=== PATIENT | female | born 1955 | race Caucasian/White ===

== ENCOUNTER 2016-11-21 09:50 | Emergency (ER) | payer OTHER, MEDICAID, BC ==
[2016-11-21 10:13] VITALS: BP 123/85; PULSE 80; RESP 18; TEMP 97.9
[2016-11-21] MEDS ORDERED: DIPH,PERTUS(ACELL)TETVAC-LF 0.5 ML VIAL IM ONE (10:28)
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
== END 2016-11-21 10:53 | disposition home or self-care (01) ==
LOC: EC 09:50
DX: T23.171A Burn of first degree of right wrist, initial encounter (principal); S09.93XA Unspecified injury of face, initial encounter; Z23 Encounter for immunization; W22.11XA Striking against or struck by driver side automobile airbag, initial encounter; Z95.2 Presence of prosthetic heart valve; Z79.82 Long term (current) use of aspirin; Z88.1 Allergy status to other antibiotic agents; Z88.0 Allergy status to penicillin; Z88.2 Allergy status to sulfonamides; Z88.8 Allergy status to other drugs, medicaments and biological substances; Z79.899 Other long term (current) drug therapy; I25.2 Old myocardial infarction
CPT/HCPCS: 16020; 90471; 90715; 99283

== ENCOUNTER → 2016-12-01 | Outpatient (CLI) | payer MEDICAID, BC ==
[2016-11-24 14:57] VITALS: BMI 25.0
[2016-12-01 12:04] VITALS: BP 114/78; PULSE 67; RESP 16
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
== END | disposition home or self-care (01) ==
LOC: PNWHC3 11:44
PROVIDERS: ATTEND Anesthesiology
DX: M54.16 Radiculopathy, lumbar region (principal); M51.26 Other intervertebral disc displacement, lumbar region; G89.4 Chronic pain syndrome; Z95.1 Presence of aortocoronary bypass graft; Z95.2 Presence of prosthetic heart valve; Z86.718 Personal history of other venous thrombosis and embolism; I25.2 Old myocardial infarction; Z79.899 Other long term (current) drug therapy; Z88.1 Allergy status to other antibiotic agents; Z88.0 Allergy status to penicillin; Z88.8 Allergy status to other drugs, medicaments and biological substances; Z88.2 Allergy status to sulfonamides
CPT/HCPCS: 99211

== ENCOUNTER → 2016-12-13 | Outpatient (CLI) | payer MEDICAID, BC ==
--- NOTE | 2016-12-13 09:39 | MR ---
EXAMINATION TYPE: MR lumbar spine wo con DATE OF EXAM: 12/13/2016 8:59 AM COMPARISON: Prior lumbar MRI for April 2014 HISTORY: lumbar radiculopathy TECHNIQUE: Multiplanar, multisequence images of the lumbar spine were acquired. L1-L2: Posterior extension of endplate disc complex, retrolisthesis causes mild anterior mass effect on the thecal sac as on previous exam. There is some facet arthropathy causing some lateral recess en croachment. Mild right-sided foraminal encroachment is again seen due to circumferential extension of endplate disc complex. L2-L3: Broad-based posterior disc bulge causes mild anterior mass effect on the thecal sac. No signif icant foraminal encroachment or central stenosis. Mild facet arthropathy changes. L3-L4: Broad-based posterior disc bulge causes some anterior mass effect on the thecal sac, mild cent ral stenosis, no significant foraminal encroachment. There is some facet arthropathy causing some min imal posterior lateral mass effect on the thecal sac. L4-L5: Broad-based posterior disc bulge causes some mild anterior mass effect on the thecal sac. No s ignificant central stenosis or foraminal encroachment. Facet arthropathy with hypertrophy of the liga mentum flavum causes some minimal lateral recess encroachment on the right greater than left L5-S1: Circumferential extension of endplate disc complex results in some left-sided foraminal encroa chment as on prior exam. There is facet arthropathy. No sizable disc herniation. Lumbar segments are intact. No paraspinal masses are identified. Conus medullaris has a normal appe arance. There is retrolisthesis grade 1 L1-2, multilevel spondylosis is present with endplate discoge ho marrow signal change, loss of disc height and signal at the intervertebral levels with vacuum dis c phenomenon. Minimal grade 1 anterolisthesis L4-5. There is a spinal curvature. IMPRESSION: Essentially stable exam. Degenerative disc disease, facet arthropathy, spinal curvature. Neural zander inal encroachment as described.
== END | disposition home or self-care (01) ==
LOC: RADMRIMAIN 08:20
PROVIDERS: ATTEND Anesthesiology
DX: M51.16 Intervertebral disc disorders with radiculopathy, lumbar region (principal); M46.96 Unspecified inflammatory spondylopathy, lumbar region; M43.9 Deforming dorsopathy, unspecified
CPT/HCPCS: 72148

== ENCOUNTER 2016-12-30 07:31 | Day surgery (SDC) | payer MEDICAID, BC ==
[2016-12-28 11:54] VITALS: BMI 25.6
[~2016-12-30 07:31] MED LIST: LACTATED RINGERS 1,000 ML IV SCH
[2016-12-30 08:23] VITALS: RESP 16; TEMP 98
[2016-12-30] MEDS ORDERED: LIDOCAINE 1% 20 ML VIAL (10MG/ML) FOR IV START INTRADERMA ONE (08:23)
[2016-12-30] MEDS ORDERED: TRIAMCINOLONE ACETONIDE 40 MG/ML 1 ML VIAL ONE (09:25)
[2016-12-30] MEDS ORDERED: fentaNYL (PF) 50 MCG/ML 2 ML AMP ONE (09:25)
[2016-12-30] MEDS ORDERED: MIDAZOLAM 2 MG/2 ML VIAL ONE (09:25)
[2016-12-30] MEDS ORDERED: IOHEXOL 180 MG/ML 1 ML ML ONE (09:25)
--- NOTE | 2016-12-30 09:49 | FL ---
EXAMINATION TYPE: FL guided pain mgmt statistic DATE OF EXAM: 12/30/2016 9:46 AM HISTORY: Flouroscopy time 14 seconds of fluoroscopy provided. IMPRESSION: 1. Fluoroscopy time.
--- NOTE | 2016-12-30 09:50 | P.PCN ---
Date of Procedure: 12/30/16 Procedure(s) Performed: PREOPERATIVE DIAGNOSIS: 1-Lumbar radiculopathy 2-lumbar degenerative disc disease. 3-lumbar facet arthropathy POSTOPERATIVE DIAGNOSIS: Same as preoperative diagnosis PROCEDURE 1. Transforaminal epidural steroid injection under fluoroscopic guidance at left L5-S1 level. 2. Lumbar epidurogram : ANESTHESIA: Local with 1% lidocaine 3 ml ; IV sedation with Versed 2 mg and fentanyle 100 mcg . EBL: Minimal PROCEDURE INDICATION: The patient with low back pain and radiculopathy symptoms unresponsive to conservative treatment. PROCEDURE DESCRIPTION / TECHNIQUE: The patient was seen and identified in the preoperative area. Risks, benefits , complications, and alternatives were discussed with the patient. The patient agreed to proceed with the procedure and signed the consent. IV was started, and vital signs were stable. Patient was taken to the OR and time out was completed. The patient was placed in the prone position on procedure table and a pillow was placed under the abdomen to reduce lumbar lordosis. The lumbosacral area was prepped and draped in the usual sterile fashion. Critical pause was taken. Vital signs were closely monitored during the procedure. Conscious sedation was used during the procedure to decrease patients anxiety. Using oblique fluoroscopy, the chin of the ``Shay dog at Left L5-S1 level was identified, and the skin and deeper tissues just below was localized with 1 % lidocaine. Subsequently, a 22-gauge 3.5-inch spinal needle was advanced under a tunneled view fluoroscopic guidance just underneath the chin of the ``Shay dog at the Left L5-S1 . Under lateral fluoroscopy, the needle was then advanced to the posterior border of the left L5-S1 interforaminal space. After negative aspiration of CSF and blood and with no paresthesias, 2 mL ofomnipaque- 180 contrast dye was injected excellent epidurogram and outlining of the L5-S1 nerve root Subsequently, 3 mL of block solution containing 80 mg of Kenalog and 1 mL of Lidocaine 1% was injected. Needle was removed ,and the skin was cleansed, and bandages were applied. COMPLICATIONS: None COMMENTS: DISPOSITION / PLANS: The patient was placed in a supine position and transferred to the recovery area in a stable condition for observation. There was no evidence of lower extremity motor or sensory deficit after the procedure. Patient was discharged from the recovery room after meeting discharge criteria. Home discharge instructions were given to the patient by the staff. The patient was reexamined prior to discharge.
[2016-12-30] MEDS ORDERED: IV FLUID CONTINUATION 1,000 ML IV ONE (09:54)
[2016-12-30 10:14] VITALS: BP 108/70; PULSE 67
== END 2016-12-30 10:31 | disposition home or self-care (01) ==
LOC: ORPAIN 07:31
PROVIDERS: ATTEND Specialist
DX: M51.16 Intervertebral disc disorders with radiculopathy, lumbar region (principal); M46.96 Unspecified inflammatory spondylopathy, lumbar region
CPT/HCPCS: 64483; 99152; J2250; J3301; Q9965; J3010

== ENCOUNTER 2017-02-07 22:12 | Inpatient (IN) | payer MEDICAID, BC ==
[2017-02-07] MEDS ORDERED: NITROGLYCERIN OINT 1 INCH/GM PACKET TOPICAL STA (22:44)
[2017-02-07] MEDS ORDERED: ASPIRIN 81 MG CHEW PO STA (22:44)
[2017-02-07 23:14] LABS: Basophils # (A) 0.1 k/uL (0-0.2); Basophils % (A) 1 %; CH 32.4; CHCM 33.5; Eosinophils # (A) 0.2 k/uL (0-0.7); Eosinophils % (A) 2 %; HCT 44.5 % (34.0-46.0); HDW 2.38; HGB 14.8 gm/dL (11.4-16.0); Luc # (Auto) 0.15; Luc % (Auto) 2; Lymphocytes # (A) 1.7 k/uL (1.0-4.8); Lymphocytes % (A) 18 %; MCH 32.3 pg (25.0-35.0); MCHC 33.3 g/dL (31.0-37.0); MCV 97.3 fL (80.0-100.0); Mean Platelet Volume 7.7; Monocytes # (A) 0.4 k/uL (0-1.0); Monocytes % (A) 4 %; Neutrophils % (A) 73 %; RBC 4.57 m/uL (3.80-5.40); RDW 13.6 % (11.5-15.5); WBC 9.6 k/uL (3.8-10.6); WBC (Perox) 9.37
--- NOTE | 2017-02-07 23:25 | XR ---
EXAMINATION TYPE: XR chest 2V DATE OF EXAM: 02/07/2017 11:16 PM COMPARISON: NONE HISTORY: Chest pain TECHNIQUE: Frontal and lateral views of the chest are obtained. FINDINGS: There is no heart failure nor confluent pneumonic infiltrate. There are sternal wires. The re are no hilar masses. There is a valve prosthesis noted. There are chest leads. There is a mild tho racic dextroscoliosis. There is no evidence of pleural effusion. Heart appears enlarged. IMPRESSION: No active cardiopulmonary disease. Mild cardiomegaly.
[2017-02-07 23:28] LABS: Prothrombin Time 10.2 sec (9.0-12.0)
[2017-02-07 23:29] LABS: Anion Gap 11 mmol/L; Calcium 9.6 mg/dL (8.4-10.2); Carbon Dioxide 29 mmol/L (22-30); Chloride 103 mmol/L (98-107); Glucose 75 mg/dL (74-99); Non-African American GFR(MDRD) >60 (>60 ml/min/1.73 sqM); Sodium 143 mmol/L (137-145); Total Bilirubin 0.9 mg/dL (0.2-1.3)
[2017-02-07 23:36] LABS: Creatine Kinase 55 U/L (30-135)
[2017-02-07 23:49] LABS: Creatine Kinase MB 0.9 ng/mL (0.0-2.4)
[2017-02-07 23:58] LABS: ALT 39 U/L (9-52); AST 48 U/L (14-36); Alkaline Phosphatase 76 U/L (38-126); Blood Urea Nitrogen 14 mg/dL (7-17); Potassium 4.6 mmol/L (3.5-5.1); Total Protein 7.7 g/dL (6.3-8.2)
[2017-02-07 23:59] LABS: Troponin I <0.012 ng/mL (0.000-0.034)
[2017-02-08] MEDS ORDERED: HEPARIN SODIUM,PORCINE 5,000 UNIT/ML 1 ML VIAL IV PRN (00:34)
[2017-02-08] MEDS ORDERED: HEPARIN SODIUM,PORCINE 5,000 UNIT/ML 1 ML VIAL IV ONE (00:34)
[2017-02-08] MEDS ORDERED: NITROGLYCERIN SL TABS 0.4 MG TAB SUBLINGUAL PRN ×2 (00:34→16:54)
--- NOTE | 2017-02-08 00:34 | ED ---
Chest Pain HPI - General Chief Complaint: Chest Pain Stated Complaint: chest discomfort Time Seen by Provider: 02/07/17 22:35 Source: patient Mode of arrival: wheelchair Limitations: no limitations - History of Present Illness Initial Comments: This 61-year-old white female presents with a complaint of some chest pain described as a left-sided pressure. Now onset occurred at approximately 1500 today. She felt some chest fluttering, felt weak, had some diaphoresis, some chills, and some shortness of breath. This seemed to wake her from sleep. She does have a history of DVT but denies any current leg pain or swelling. Her last stress test was approximately 2 years ago. She relates that she did have a CABG in 2007 and had a somewhat complicated course afterwards. She apparently suffered a myocardial infarction and spent a month at [facility]. She denies any other complaints or modifying factors. - Related Data Home Medications Medication Instructions Recorded Confirmed Aspirin EC [Ecotrin] 81 mg PO DAILY 05/23/14 02/07/17 Atorvastatin Calcium [Lipitor] 40 mg PO DAILY 05/23/14 02/07/17 Biotin 5 mg PO DAILY 05/23/14 02/07/17 Cyclobenzaprine [Flexeril] 10 mg PO TID PRN 05/23/14 02/07/17 Lisinopril [Zestril] 20 mg PO BID 05/23/14 02/07/17 Lysine 500 mg PO DAILY 05/23/14 02/07/17 Metoprolol Tartrate [Lopressor] 100 mg PO TID 05/23/14 02/07/17 Multivitamin/Iron/Folic Acid 1 tab PO DAILY 05/23/14 02/07/17 [Centrum Complete Multivit Tab] Pantoprazole Sodium [Protonix] 40 mg PO DAILY 05/23/14 02/07/17 Magnesium Oxide [Mag-Ox] 250 mg PO DAILY 11/21/16 02/07/17 traZODone HCL [TraZODone HCl] 50 mg PO HS PRN 12/01/16 02/07/17 Furosemide [Lasix] 20 mg PO DAILY 12/28/16 02/07/17 HYDROcodone/APAP 7.5-325MG [[place] 1 tab PO TID PRN 02/07/17 02/07/17 7.5-325] Allergies Allergy/AdvReac Type Severity Reaction Status Date / Time amoxicillin [Amoxicillin] Allergy Severe Rash/Hives Verified 02/07/17 22:55 ampicillin Allergy Severe Rash/Hives Verified 02/07/17 22:55 griseofulvin ultramicrosize Allergy Severe Rash/Hives Verified 02/07/17 22:55 [From Jahaira-PEG (ultramicrosize)] minocycline HCl Allergy Severe Rash/Hives Verified 02/07/17 22:55 [From Minocin] Penicillins Allergy Severe Rash/Hives Verified 02/07/17 22:55 Skin Cleanser Combination Allergy Severe Rash/Hives Verified 02/07/17 22:55 No.4 [From Minocin] Sulfa (Sulfonamide Allergy Severe Rash/Hives Verified 02/07/17 22:55 Antibiotics) sulfamethoxazole Allergy Severe Rash/Hives Verified 02/07/17 22:55 [From Bactrim] tetracycline [Tetracycline] Allergy Severe Rash/Hives Verified 02/07/17 22:55 trimethoprim Allergy Severe Rash/Hives Verified 02/07/17 22:55 Review of Systems ROS Statement: Those systems with pertinent positive or pertinent negative responses have been documented in the HPI. ROS Other: All systems not noted in ROS Statement are negative. Past Medical History Past Medical History: Myocardial Infarction ([place]), Thyroid Disorder Additional Past Medical History / Comment(s): DEFECT- MITRAL VALVE PROLAPSE, ARRYTHMIA, PALPITATIONS, POOR CIRCULATION,SCOLIOSIS, THYROID NODULE, BACK PAIN. Last Myocardial Infarction Date:: 2007 History of Any Multi-Drug Resistant Organisms: None Reported Past Surgical History: Appendectomy, Coronary Bypass/CABG, Joint Replacement, Orthopedic Surgery Additional Past Surgical History / Comment(s): BILATERAL CATARACTS. , CABG aortic valve replacement, BILAT KAREL, REPAIR FX RT ARM, REPAIR FX RT FEMUR, BILAT CTR, BILAT KNEE SCOPES, BILAT TENNIS elbow, LT EYE SURGERY, TMJ SX, COLONOSCOPY,. Past Anesthesia/Blood Transfusion Reactions: No Reported Reaction Past Psychological History: No Psychological Hx Reported Smoking Status: Former smoker Past Alcohol Use History: Occasional Past Drug Use History: None Reported - Past Family History Mother Family Medical History: Cancer Additional Family Medical History / Comment(s): BREAST, COLON/BOWEL, SKIN CANCER. General Exam - General Exam Comments Initial Comments: GENERAL: The patient is well nourished and well hydrated. VITAL SIGNS: Heart rate, blood pressure, respiratory rate reviewed as recorded in nurse's notes. EYES: Pupils are round and reactive. Extraocular movements are intact. No conjunctival / lid redness or swelling. ENT: No external evidence of injury, swelling, or ecchymosis. Airway is patent. Throat is clear. NECK: Nontender. No swelling or evidence of injury. No subcutaneous emphysema. Trachea is midline. No thyroid mass. HEART: Regular rate and rhythm. Good peripheral pulses. LUNGS/CHEST: Breath sounds clear and equal bilaterally. No rales, rhonchi, or wheezes. No ecchymosis, subcutaneous emphysema, or tenderness. ABDOMEN: Abdomen soft without tenderness. No palpable masses or organomegaly. No peritoneal signs. No abdominal wall swelling or ecchymosis. EXTREMITIES: No extremity tenderness. Normal muscle tone and function. No thoracolumbar tenderness. NEUROLOGIC: Sensation is grossly intact. Cranial nerve exam reveals face is symmetrical, tongue is midline, speech is clear. SKIN: No abrasions or ecchymosis is noted. No induration or masses noted. PSYCHIATRIC: Alert and oriented. Appropriate behavior and judgment. Limitations: no limitations Course Vital Signs 02/07/17 22:15 Temperature 96.8 F L Pulse Rate 63 Respiratory 16 Rate Blood Pressure 120/73 O2 Sat by Pulse 97 Oximetry Chest Pain MDM - MDM The patient was seen and examined. All diagnostics were reviewed. The patient had a EKG completed which shows a normal sinus rhythm at a rate of 62 with occasional PVC noted. The patient has some T-wave inversions in leads 3 and aVF. The TN interval is 1:30, QRS duration is 80, and QTC intervals 414. The chest x-ray does not show any acute processes. The laboratories reviewed and shows an elevation of the BNP. She received some aspirin as well as some Nitropaste. His felt as though she benefit from admission to the hospital to rule out the possibility of coronary syndrome. She is agreeable with this plan. Case will be discussed with internal medicine in the near future and patient is admitted for an observation. Disposition Clinical Impression: Unstable angina pectoris, Chest pain, Palpitations, PVC (premature ventricular contraction), Dyspnea Disposition: ADMITTED IP TO THIS [facility] Condition: Fair Time of Disposition: 00:34 Decision Date: 02/08/17 Decision Time: 00:34
[2017-02-08] MEDS ORDERED: CYCLOBENZAPRINE 10 MG TAB PO PRN (00:37)
[2017-02-08] MEDS ORDERED: traZODone HCL 50 MG TAB PO PRN (00:37)
[2017-02-08] MEDS ORDERED: HEPARIN SODIUM,PORCINE/D5W PMX 25,000 UNIT in DEXTROSE/WATER 1 500ML.BAG IV SCH (00:45)
[2017-02-08] MEDS: HYDROcodone/APAP 7.5-325MG 1 EACH TAB PO PRN ×3 (03:33→23:06)
[2017-02-08] MEDS: NITROGLYCERIN OINT 1 INCH/GM PACKET TOPICAL SCH ×4 (05:57→22:31)
[2017-02-08 06:05] LABS: Creatine Kinase 36 U/L (30-135)
[2017-02-08 06:19] LABS: Creatine Kinase MB 0.7 ng/mL (0.0-2.4); Troponin I <0.012 ng/mL (0.000-0.034)
[2017-02-08] MEDS ORDERED: REGADENOSON 0.4 MG/5 ML SYRINGE IV ONE (08:38)
[2017-02-08] MEDS ORDERED: AMINOPHYLLINE 500 MG/20 ML VIAL IV PRN (08:38)
[2017-02-08] MEDS ORDERED: NON-FORMULARY DRUG (Lysine [Lysine] 500 MG) PO SCH (09:00)
[2017-02-08] MEDS ORDERED: NON-FORMULARY DRUG (Biotin [Biotin] 5 MG) PO SCH (09:00)
--- NOTE | 2017-02-08 09:06 | P.CRDCN ---
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 She states that she woke up from sleep and had skipped beats felt uncomfortable and hence came in. Patient had an echo done a year ago that showed normal LV function and a normally functioning bioprosthetic valve in aortic position. Patient had a stress test in 2011 that was within normal limits she had mild carotid stenosis she had normal coronaries and a cardiac catheterization prior to aortic valve replacement consider have reviewed from the primary sweeper brush maker machine she never had either angioplasty or bypass surgery. Her chest discomfort is vague and atypical mild in intensity came on at rest without clear-cut relieving or exacerbating factors. Had palpitations are mild to moderate intensity came on at rest and resolved spontaneously. Does not reveal acute ischemic changes. Cardiac enzymes have been negative. I advised the patient to undergo an echocardiogram to assess the prosthetic valve rule out pericardial disease and schedule her for a Lexiscan. On the monitor she is in sinus rhythm the EKG shows sinus rhythm with PVCs. Her palpitations may be related to the PVCs. Review of Systems Constitutional: Denies chills. Denies fever. Eyes: Denies blurred vision. Denies pain. Ears, nose, mouth and throat: Denies headache. Denies sore throat. Cardiovascular: has chest pain. Denies shortness of breath. Patient complains of palpitations Respiratory: Denies cough. Gastrointestinal: Denies abdominal pain. Denies diarrhea. Denies nausea. Denies vomiting. Musculoskeletal: Denies myalgias. Integumentary: Denies pruritus. Denies rash. Neurological: Denies numbness. Denies weakness. Psychiatric: Denies anxiety. Denies depression. Endocrine: Denies fatigue. Denies weight change. Genitourinary: Denies burning, hematuria, frequency of urination. Hematological: No anemia or excess bleeding. Past Medical History Past Medical History: Heart Failure, Myocardial Infarction ([place]), Thyroid Disorder Additional Past Medical History / Comment(s): DEFECT- MITRAL VALVE PROLAPSE, ARRYTHMIA, PALPITATIONS, POOR CIRCULATION,SCOLIOSIS, THYROID NODULE, BACK PAIN. Last Myocardial Infarction Date:: 2007 History of Any Multi-Drug Resistant Organisms: None Reported Past Surgical History: Appendectomy, Cardiac Valve Replacement, Coronary Bypass/ CABG, Joint Replacement, Orthopedic Surgery Additional Past Surgical History / Comment(s): BILATERAL CATARACTS. , CABG - 1 vessel, aortic valve replacement, BILAT KAREL, REPAIR FX RT ARM, REPAIR FX RT FEMUR, BILAT CTR, BILAT KNEE SCOPES, BILAT TENNIS elbow, LT EYE SURGERY, TMJ SX , COLONOSCOPY,. Past Anesthesia/Blood Transfusion Reactions: No Reported Reaction Past Psychological History: No Psychological Hx Reported Smoking Status: Former smoker Past Alcohol Use History: Occasional Past Drug Use History: None Reported - Past Family History Mother Family Medical History: Cancer Additional Family Medical History / Comment(s): BREAST, COLON/BOWEL, SKIN CANCER. Medications and Allergies Home Medications Medication Instructions Recorded Confirmed Type Aspirin EC [Ecotrin] 81 mg PO DAILY 05/23/14 02/07/17 History Atorvastatin Calcium [Lipitor] 40 mg PO DAILY 05/23/14 02/07/17 History Biotin 5 mg PO DAILY 05/23/14 02/07/17 History Cyclobenzaprine [Flexeril] 10 mg PO TID PRN 05/23/14 02/07/17 History Lisinopril [Zestril] 20 mg PO BID 05/23/14 02/07/17 History Lysine 500 mg PO DAILY 05/23/14 02/07/17 History Metoprolol Tartrate [Lopressor] 100 mg PO TID 05/23/14 02/07/17 History Multivitamin/Iron/Folic Acid 1 tab PO DAILY 05/23/14 02/07/17 History [Centrum Complete Multivit Tab] Pantoprazole Sodium [Protonix] 40 mg PO DAILY 05/23/14 02/07/17 History Magnesium Oxide [Mag-Ox] 250 mg PO DAILY 11/21/16 02/07/17 History traZODone HCL [TraZODone HCl] 50 mg PO HS PRN 12/01/16 02/07/17 History Furosemide [Lasix] 20 mg PO DAILY 12/28/16 02/07/17 History HYDROcodone/APAP 7.5-325MG [[place] 1 tab PO TID PRN 02/07/17 02/07/17 History 7.5-325] Allergies Allergy/AdvReac Type Severity Reaction Status Date / Time amoxicillin [Amoxicillin] Allergy Severe Rash/Hives Verified 02/07/17 22:55 ampicillin Allergy Severe Rash/Hives Verified 02/07/17 22:55 griseofulvin ultramicrosize Allergy Severe Rash/Hives Verified 02/07/17 22:55 [From Jahaira-PEG (ultramicrosize)] minocycline HCl Allergy Severe Rash/Hives Verified 02/07/17 22:55 [From Minocin] Penicillins Allergy Severe Rash/Hives Verified 02/07/17 22:55 Skin Cleanser Combination Allergy Severe Rash/Hives Verified 02/07/17 22:55 No.4 [From Minocin] Sulfa (Sulfonamide Allergy Severe Rash/Hives Verified 02/07/17 22:55 Antibiotics) sulfamethoxazole Allergy Severe Rash/Hives Verified 02/07/17 22:55 [From Bactrim] tetracycline [Tetracycline] Allergy Severe Rash/Hives Verified 02/07/17 22:55 trimethoprim Allergy Severe Rash/Hives Verified 02/07/17 22:55 Physical Exam Vitals: Vital Signs Temp Pulse Pulse Resp BP BP Pulse Ox 02/08/17 07:39 97.9 F 64 16 97/50 96 02/08/17 04:00 98.5 F 63 16 96/54 95 02/08/17 02:35 98.6 F 65 16 99/54 96 02/08/17 02:08 16 02/08/17 01:02 61 16 92/62 96 Intake and Output 02/07/17 02/08/17 02/08/17 22:59 06:59 14:59 Other: Voiding Method Toilet # Voids 2 General: The patient is awake and alert, in no distress, and does not appear acutely ill. Skin: Skin is warm and dry and no rashes or lesions are noted. Eye: Pupils are equal, round and reactive to light, extra-ocular movements are intact; there is normal conjunctiva bilaterally. Ears, nose, mouth and throat: There are moist mucous membranes and no oral lesions. Neck: The neck is supple, there is no tenderness or JVD. Cardiovascular: There is a regular rate and rhythm. She has a grade 4 x 6 ejection systolic murmur in the aortic area Respiratory: Lungs are clear to auscultation, respirations are non-labored, breath sounds are equal. Gastrointestinal: Soft, non-distended, non-tender abdomen without masses or organomegaly noted. There is no rebound or guarding present. Bowel sounds are unremarkable. Back: There is no tenderness to palpation in the midline. There is no obvious deformity. Musculoskeletal: Normal ROM, no tenderness, There is no pedal edema. There is no calf tenderness or swelling. Extremities: No edema. Vascular: Femoral pulse is normal. Posterior tibial pulses are normal .Dorsalis pedis is palpable. Neurological: CN II-XII intact. There are no obvious motor or sensory deficits. Speech is normal. Psychiatric: Cooperative, appropriate mood & affect, normal judgment. Results 02/07/17 22:31 02/07/17 22:31 Cardiac Enzymes 02/08/17 Range/Units 05:28 CK-MB (CK-2) 0.7 (0.0-2.4) ng/mL Troponin I <0.012 (0.000-0.034) ng/mL Coagulation 02/08/17 Range/Units 06:39 APTT 55.0 H (22.0-30.0) sec Current Medications Generic Name Dose Route Start Last Admin Trade Name Freq PRN Reason Stop Dose Admin Hydrocodone Bitart/Acetaminophen 1 each 02/08/17 00:37 02/08/17 03:33 [place] 7.5-325 PO 1 each TID PRN Administration Pain Aspirin 325 mg 02/09/17 09:00 Aspirin PO DAILY [facility] Atorvastatin Calcium 40 mg 02/08/17 09:00 Lipitor PO DAILY [facility] Cyclobenzaprine HCl 10 mg 02/08/17 00:37 Flexeril PO TID PRN Muscle Spasm Furosemide 20 mg 02/08/17 09:00 Lasix PO DAILY [facility] Heparin Sodium (Porcine) 0 unit 02/08/17 00:34 Heparin IV Q6HR PRN Low PTT Protocol Heparin Sodium/Dextrose 25,000 500 mls @ 14.58 mls/hr 02/08/17 00:45 00:58 unit/ IV Solution IV 12 units/kg/hr .Q24H SEBASTIEN 14.58 mls/hr Protocol Administration 12 UNITS/KG/HR Lisinopril 20 mg 02/08/17 09:00 Zestril PO BID [facility] Magnesium Oxide 200 mg 02/08/17 09:00 Mag-Ox PO DAILY [facility] Metoprolol Tartrate 100 mg 02/08/17 09:00 Lopressor PO TID [facility] Multivitamins 1 each 02/08/17 09:00 Theragran PO DAILY [facility] Nitroglycerin 1 inch 02/08/17 06:00 02/08/17 05:57 Nitro-Bid Oint TOPICAL Not Given Q6HR [facility] Nitroglycerin 0.4 mg 02/08/17 00:34 Nitrostat SUBLINGUAL Q5M PRN Chest Pain Pantoprazole Sodium 40 mg 02/08/17 07:30 Protonix PO AC-BRKFST [facility] Trazodone HCl 50 mg 02/08/17 00:37 Desyrel PO HS PRN Insomnia Intake and Output 02/07/17 02/08/17 02/08/17 22:59 06:59 14:59 Other: Voiding Method Toilet # Voids 2 EKG Interpretations (text) Normal sinus rhythm PVCs and nonspecific ST-T wave changes Assessment and Plan Plan: Palpitations probably secondary to PVCs Chest pain atypical History of aortic valve replacement Review records from primary I'm going to obtain a 2-D echo and stress test further plans based on the test results
--- NOTE | 2017-02-08 12:29 | ECHOF ---
Referral Reason:cp and sob MEASUREMENTS -------- HEIGHT: 157.5 cm WEIGHT: 60.8 kg BP: RVIDd: 2.9 cm (< 3.3) IVSd: 1.1 cm (0.6 - 1.1) LVIDd: 3.8 cm (3.9 - 5.3) LVPWd: 0.9 cm (0.6 - 1.1) IVSs: 1.4 cm LVIDs: 2.4 cm LVPWs: 1.1 cm LA Diam: 3.0 cm (2.7 - 3.8) Ao Diam: 2.3 cm (2.0 - 3.7) LA Diam: 3.3 cm (2.7 - 3.8) MV EXCURSION: 16.638 mm (> 18.000) MV EF SLOPE: 46 mm/s (70 - 150) EPSS: 0.2 cm MV E Slade: 0.65 m/s MV DecT: 228 ms MV A [place]: 0.81 m/s MV E/A Ratio: 0.80 AV maxP.81 mmHg AV maxP.81 mmHg AV meanP.29 mmHg RAP: 5.00 mmHg RVSP: 33.48 mmHg FINDINGS -------- Sinus rhythm. This was a technically adequate study. The left ventricular size is normal. There is mild concentric left ventricular hypertrophy. Overall left ventricular systolic function is normal with, an EF between 55 - 60 %. The right ventricle is normal in size. The left atrial size is normal. The right atrial size is normal. The maximum pressure gradient across the aortic valve is 49.81mmHg. There is moderate stenosis of the bioprosthetic aortic valve. There is a possible vegetation of the bioprosthetic aortic valve. The mitral valve is normal. Mild mitral regurgitation is present. Mild tricuspid regurgitation present. There is no evidence of pulmonary hypertension. The right ventricular systolic pressure, as measured by Doppler, is 33.48mmHg. There is no pulmonic regurgitation present. Possible Vegatation on Bio-Prosthetic AOV. The aortic root size is normal. There is no pericardial effusion. CONCLUSIONS -------- 1. Sinus rhythm. 2. There is no evidence of pulmonary hypertension. 3. There is no pulmonic regurgitation present. 4. Possible Vegatation of Bio-Prosthetic AOV. 5. There is no pericardial effusion. 6. There is mild concentric left ventricular hypertrophy. 7. Overall left ventricular systolic function is normal with, an EF between 55 - 60 %. 8. The left atrial size is normal. 9. The maximum pressure gradient across the aortic valve is 49.81mmHg. 10. There is moderate stenosis of the bioprosthetic aortic valve. 11. There is a possible vegetation of the bioprosthetic aortic valve. 12. Mild mitral regurgitation is present. 13. Mild tricuspid regurgitation present. RN GYNECOLOGY: Kavita Tolbert RDCS
[2017-02-08] MEDS: FUROSEMIDE 20 MG TAB PO SCH (12:36)
[2017-02-08] MEDS: ATORVASTATIN 40 MG TAB PO SCH (12:36)
[2017-02-08] MEDS: METOPROLOL TARTRATE 50 MG TAB PO SCH ×3 (12:36→21:23)
[2017-02-08] MEDS: LISINOPRIL 20 MG TAB PO SCH ×2 (12:36→21:23)
[2017-02-08] MEDS: PANTOPRAZOLE 40 MG TABLET PO SCH (12:37)
[2017-02-08] MEDS: MAGNESIUM OXIDE 400 MG TAB PO SCH (12:37)
[2017-02-08] MEDS: MULTIVITAMINS, THERA 1 EACH TAB PO SCH (12:37)
--- NOTE | 2017-02-08 12:56 | NM ---
EXAMINATION TYPE: NM stress lexiscan cardiolite DATE OF EXAM: 02/08/2017 12:32 PM COMPARISON: NONE HISTORY: Chest pain TECHNIQUE: After the intravenous administration of 11 mCi Tc 99m Sestamibi - Cardiolite resting SPEC T images acquired 60 minutes post injection. The patient received 0.4mg Lexiscan, 27.3 mCi Tc 99m Sestamibi - Stress images obtained [address] injection FINDINGS: Review of stress and rest SPECT images demonstrates Defect along the inferior septum is felt artifact ual but should be correlated clinically for confirmation. There also is a defect along the in apical lateral myocardium. Gated analysis shows normal wall motion with an estimated left ventricular ejecti on fraction of 74 %. IMPRESSION: Cannot exclude a tiny area of stress-induced reversibility involving the inferior lateral myocardium however, this may be artifactual and should be correlated clinically.
--- NOTE | 2017-02-08 14:14 | EST ---
DATE OF SERVICE: 02/08/17. AGE: 61Y SEX: F HT: 62" WT: 134 lbs. Protocol Mukund: Other: X Stage: Dur. of Exercise: *Heart Rate Blood Pressure *Rest: 65 Rest: 103/73 * *Max. Achieved: 99 Maximum BP: 126/73 85% PMHR: 134 100% PMHR: 158 *METS: INDICATIONS: Chest pain, palpitations. MEDICATIONS: Baseline rhythm is sinus mechanism, rate of 65, normal axis and intervals. Normal electrocardiogram. Baseline blood pressure 103/73 mmHg. The patient received an injection of Lexiscan. Electrocardiograph monitoring revealed no evidence of diagnostic ischemic ST deviation. Cardiolite was injected per protocol. CONCLUSION: 1. Nondiagnostic electrocardiograph stress testing. 2. Nuclear images will be reported separately.
[2017-02-08 14:54] LABS: Creatine Kinase 39 U/L (30-135)
[2017-02-08 15:07] LABS: Creatine Kinase MB 0.7 ng/mL (0.0-2.4); Troponin I <0.012 ng/mL (0.000-0.034)
[2017-02-08] MEDS ORDERED: ALPRAZolam 0.25 MG TAB PO PRN (16:54)
[2017-02-08] MEDS ORDERED: ALPRAZolam 0.5 MG TAB PO PRN (16:54)
[2017-02-08] MEDS ORDERED: ASPIRIN 325 MG TAB PO STA (16:54)
[2017-02-08] MEDS ORDERED: SODIUM CHLORIDE 0.9% 1,000 ML in EMPTY BAG 1 BAG IV ONE (16:54)
[2017-02-08] MEDS ORDERED: ATORVASTATIN 40 MG TAB PO STA (16:54)
--- NOTE | 2017-02-08 21:14 | HP ---
DATE OF ADMISSION: 02/08/2017 PRESENTING COMPLAINT: Chest pressure. 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 The patient's chronic stable medical conditions include congestive heart failure with EF not known, scoliosis, hypertension, hypercholesterolemia, and has a bovine aortic valve. The patient had a coronary artery bypass in 2007. She is not sure if she has had a stress test since then. She does follow with Dr. Cuevas, a silica filter operator out of town. The patient does the film processing shift supervisor. The patient woke up at about 3 p.m. yesterday and felt a flutter associated with her heart. She was perspiring and was short of breath. She felt a pressure-like sensation. She went back to sleep. She woke up after about 45 minutes, again was perspiring. Her then asked her to come in. Patient had a bit of unstable angina, was put on IV heparin. Patient does states when she goes from the car to the hospital every day she does get short of breath. Patient is not a smoker. REVIEW OF SYSTEMS: CONSTITUTIONAL: Tired. HEENT: None. RESPIRATORY: As above. CARDIOVASCULAR: As above. GASTROINTESTINAL: None. GENITOURINARY: None. MUSCULOSKELETAL: Some low back pain. DERMATOLOGIC: None. HEMATOLOGICAL: None. LYMPHATICS: None. PSYCHIATRY: None. NEUROLOGIC: None. PAST MEDICAL HISTORY: Congestive heart failure with EF not known, myocardial infarction, hypothyroid, defect of mitral valve prolapse, arrhythmias, thyroid nodule, coronary artery disease with history of bypass. PAST SURGICAL HISTORY: Appendectomy, aortic valve replacement with a bovine valve, coronary artery bypass in 2007, joint replacement, bilateral cataracts, bilateral ( ) replacement, repair of fractured right femur, bilateral knee scopes, bilateral tennis elbow repair. SOCIAL HISTORY: The patient is an RN. . No smoking. Alcohol occasionally. FAMILY HISTORY: Breast and colon cancer. HOME MEDICATIONS: 1. Biotin 5 mg p.o. daily. 2. Lipitor 40 mg p.o. daily. 3. Aspirin 81 mg p.o. daily. 4. Zestril 20 mg p.o. b.i.d. 5. [place] 7.5, 1 tablet p.o. t.i.d. p.r.n. 6. Lasix 20 mg p.o. daily. 7. Flexeril 10 mg p.o. t.i.d. p.r.n. 8. Protonix 40 mg p.o. daily. 9. Centrum complete 1 tablet p.o. daily. 10. Lopressor 100 mg p.o. t.i.d. 11. Magnesium oxide 250 mg p.o. daily. 12. ( ) p.o. daily. 13. Trazodone 50 mg at bedtime p.r.n. ALLERGIES: AMOXICILLIN, GRISEOFULVIN, MINOCYCLINE, PENICILLIN, SULFUR, BACTRIM, TETRACYCLINE, TRIMETHOPRIM. On examination, temperature 97.3, pulse 82, respirations 16, blood pressure 105/60, pulse ox 96% on room air. GENERAL APPEARANCE: Average build, lying in bed, tired-appearing. EYES: Pupils equal. Conjunctivae normal. HEENT: Oral cavity normal. NECK: JVD not raised. Mass not palpable. RESPIRATORY: Effort normal. LUNGS: Fair air entry. CARDIOVASCULAR: First and second heart sounds normal. No edema. ABDOMEN: Soft, nontender. Liver and spleen not palpable. LYMPHATIC: No lymph node palpable in neck or axillae. PSYCHIATRIC: Alert, oriented x3. Mood and affect normal. NEUROLOGICAL: Pupils equal. Cranial nerves grossly intact. Power and sensation grossly intact. INVESTIGATIONS: White count 9.6, hemoglobin 14.8, platelets 250,000, potassium 4.6. BUN and creatinine are normal. Troponins x3 negative. A 2-D echocardiogram shows EF of 55% to 60%, moderate stenosis with bioprosthetic aortic valve and has questionable vegetation on the bioprosthetic aortic valve. The patient had a Lexiscan Cardiolite, shows defect along the apicolateral myocardium. ASSESSMENT: 1. Unstable angina with a cardiac-sounding presentation in a patient with known coronary artery disease with symptoms presenting at rest, lasting for about 45 minutes. Patient at her baseline does get short of breath with exertion. 2. Aortic valve stenosis of the prosthetic valve and vegetation reported on the aortic valve. 3. Coronary artery disease with prior history of coronary artery bypass. 4. Essential hypertension. 5. Hypercholesterolemia. 6. Chronic congestive heart failure from diastolic dysfunction, ejection fraction 55% to 60%. PLAN: I had a long talk with the patient and her . I am very concerned about underlying ischemia given her regular short of breath when she exerts herself, even though troponins are negative. Lexiscan stress test is very slightly positive. Also concern of vegetation reported in aortic valve. We will get ID opinion on the same. The patient may need a TORIBIO for the same. Dr. Walt Sarkar from Cardiology is on the case. We will also get ID opinion. The patient does not report any fever and white count is normal.
[2017-02-09] MEDS: NITROGLYCERIN OINT 1 INCH/GM PACKET TOPICAL SCH ×4 (04:48→20:47)
[2017-02-09 08:07] LABS: Cholesterol 117 mg/dL (<200); HDL Cholesterol 77 mg/dL (40-60); Triglycerides 84 mg/dL (<150)
[2017-02-09] MEDS: LISINOPRIL 20 MG TAB PO SCH ×2 (09:06→19:50)
[2017-02-09] MEDS: MAGNESIUM OXIDE 400 MG TAB PO SCH (09:06)
[2017-02-09] MEDS: METOPROLOL TARTRATE 50 MG TAB PO SCH ×3 (09:06→19:53)
[2017-02-09] MEDS: MULTIVITAMINS, THERA 1 EACH TAB PO SCH (09:06)
[2017-02-09] MEDS: PANTOPRAZOLE 40 MG TABLET PO SCH (09:07)
--- NOTE | 2017-02-09 09:27 | P.CONS ---
History of Present Illness - Reason for Consult Consult date: 02/09/17 AV vegetation - History of Present Illness This is a 61-year-old female with a past medical history significant for aortic valve replacement in 2007 done at [facility] and subsequently developed myocardial infarction underwent a CABG one vessel and then was transferred [facility] and had a difficult postoperative period with development of DVT in the left leg. Patient had a stress test done 2 years ago that apparently was normal. She states she has had one episode in the past of palpitations when she was in the parking structure at [facility]. She states she sat down and eventually went away. She did not have it checked at the time. On Tuesday of this week, patient developed a fluttering feeling in her chest with hot and cold flashes and came into [facility] emergency center for evaluation. She has been afebrile. Patient denies having any fever or chills. White count is 9.6. GFR greater than 60, troponins negative 3. Albumin 4.6. Patient has not been on antibiotics. She was placed in the observation unit underwent an echocardiogram that showed an EF of 55-60% with mild concentric left hypertrophy. Possible vegetation of the aortic valve bioprosthetic with moderate stenosis, mild mitral regurgitation, mild tricuspid regurgitation. She underwent a stress test but could not exclude tiny area of stress-induced reverse his ability in the inferior lateral myocardium but may be artifact. Cardiology documented nondiagnostic stress test. Patient is scheduled for heart catheterization today. Dr. Peterson from cardiology is following her and has mentioned that her palpitations are most likely due to PVCs which she was having on admission. Patient denies any chest pain or pressure at this time. She denies palpitations. She denies having any body aches, fever, chills, malaise, lack of appetite, nausea, vomiting, diarrhea, dysuria. Review of Systems All systems: negative Constitutional: Reports sweats, Denies anorexia, Denies chills, Denies fatigue, Denies fever, Denies lethargy, Denies malaise, Denies night sweats, Denies poor appetite, Denies weakness, Denies weight gain, Denies weight loss Eyes: denies blurred vision, denies pain Ears, nose, mouth and throat: Denies dental pain, Denies headache, Denies mouth pain, Denies sore throat Cardiovascular: Reports leg edema, Denies chest pain, Denies shortness of breath , Denies syncope Respiratory: Denies cough, Denies cough with sputum, Denies dyspnea, Denies excessive sputum, Denies hemoptysis Gastrointestinal: Denies abdominal pain, Denies diarrhea, Denies nausea, Denies vomiting Genitourinary: Denies dysuria, Denies hematuria Musculoskeletal: Denies myalgias Integumentary: Denies pruritus, Denies rash Neurological: Denies numbness, Denies weakness Psychiatric: Denies anxiety, Denies depression Endocrine: Denies fatigue, Denies weight change Past Medical History Past Medical History: Heart Failure, Myocardial Infarction (MT), Thyroid Disorder Additional Past Medical History / Comment(s): DEFECT- MITRAL VALVE PROLAPSE, ARRYTHMIA, PALPITATIONS, POOR CIRCULATION,SCOLIOSIS, THYROID NODULE, BACK PAIN. DVT 2007 treated with lovenox Last Myocardial Infarction Date:: 2007 History of Any Multi-Drug Resistant Organisms: None Reported Past Surgical History: Appendectomy, Cardiac Valve Replacement, Coronary Bypass/ CABG, Joint Replacement, Orthopedic Surgery Additional Past Surgical History / Comment(s): BILATERAL CATARACTS. , CABG - 1 vessel, aortic valve replacement, BILAT KAREL, REPAIR FX RT ARM, REPAIR FX RT FEMUR, BILAT CTR, BILAT KNEE SCOPES, BILAT TENNIS elbow, LT EYE SURGERY, TMJ SX , COLONOSCOPY,. Past Anesthesia/Blood Transfusion Reactions: No Reported Reaction Past Psychological History: No Psychological Hx Reported Smoking Status: Never smoker (patient only smoked for 6 months) Past Alcohol Use History: Occasional Additional Past Alcohol Use History / Comment(s): Patient was smoked for 6 months young age. She denies any medical marijuana, marijuana, street drug use. She drink alcohol occasionally. She lives at home with her . There are no pets in the home. No recent travel. Past Drug Use History: None Reported - Past Family History Mother Family Medical History: Cancer Additional Family Medical History / Comment(s): BREAST, COLON/BOWEL, SKIN CANCER. Medications and Allergies Home Medications Medication Instructions Recorded Confirmed Type Aspirin EC [Ecotrin] 81 mg PO DAILY 05/23/14 02/07/17 History Atorvastatin Calcium [Lipitor] 40 mg PO DAILY 05/23/14 02/07/17 History Biotin 5 mg PO DAILY 05/23/14 02/07/17 History Cyclobenzaprine [Flexeril] 10 mg PO TID PRN 05/23/14 02/07/17 History Lisinopril [Zestril] 20 mg PO BID 05/23/14 02/07/17 History Lysine 500 mg PO DAILY 05/23/14 02/07/17 History Metoprolol Tartrate [Lopressor] 100 mg PO TID 05/23/14 02/07/17 History Multivitamin/Iron/Folic Acid 1 tab PO DAILY 05/23/14 02/07/17 History [Centrum Complete Multivit Tab] Pantoprazole Sodium [Protonix] 40 mg PO DAILY 05/23/14 02/07/17 History Magnesium Oxide [Mag-Ox] 250 mg PO DAILY 11/21/16 02/07/17 History traZODone HCL [TraZODone HCl] 50 mg PO HS PRN 12/01/16 02/07/17 History Furosemide [Lasix] 20 mg PO DAILY 12/28/16 02/07/17 History HYDROcodone/APAP 7.5-325MG [[place] 1 tab PO TID PRN 02/07/17 02/07/17 History 7.5-325] Allergies Allergy/AdvReac Type Severity Reaction Status Date / Time amoxicillin [Amoxicillin] Allergy Severe Rash/Hives Verified 02/07/17 22:55 ampicillin Allergy Severe Rash/Hives Verified 02/07/17 22:55 griseofulvin ultramicrosize Allergy Severe Rash/Hives Verified 02/07/17 22:55 [From Jahaira-PEG (ultramicrosize)] minocycline HCl Allergy Severe Rash/Hives Verified 02/07/17 22:55 [From Minocin] Penicillins Allergy Severe Rash/Hives Verified 02/07/17 22:55 Skin Cleanser Combination Allergy Severe Rash/Hives Verified 02/07/17 22:55 No.4 [From Minocin] Sulfa (Sulfonamide Allergy Severe Rash/Hives Verified 02/07/17 22:55 Antibiotics) sulfamethoxazole Allergy Severe Rash/Hives Verified 02/07/17 22:55 [From Bactrim] tetracycline [Tetracycline] Allergy Severe Rash/Hives Verified 02/07/17 22:55 trimethoprim Allergy Severe Rash/Hives Verified 02/07/17 22:55 Physical Exam Vitals: Vital Signs Temp Pulse Resp BP Pulse Ox 02/09/17 07:56 97.5 F L 68 16 107/74 94 L 02/09/17 04:00 97.7 F 70 16 84/48 98 02/09/17 00:00 98.1 F 60 16 92/54 96 02/08/17 20:00 98.6 F 68 16 104/57 96 02/08/17 16:00 97.3 F L 62 16 105/60 96 Intake and Output 02/08/17 02/09/17 02/09/17 22:59 06:59 14:59 Intake Total 100 Balance 100 Intake: Oral 100 Other: Voiding Method Toilet Toilet # Voids 1 2 Gen: This is a 61-year-old female who is sitting at the edge of the bed and appears to be in no acute distress. HEENT: Head is atraumatic, normocephalic. Pupils equal, round. Sclerae is anicteric. conjunctiva pink. Mucous membranes of the mouth are moist. NECK: Supple. No JVD. No lymphadenopathy. No thyromegaly. LUNGS: Clear to auscultation. No wheezes or rhonchi. No intercostal retractions. HEART: Regular rate and rhythm. Systolic murmur. ABDOMEN: Soft. Bowel sounds are present. No masses. No tenderness. EXTREMITIES: No pedal edema. No calf tenderness. dorsalis pedis +2 bilaterally. NEUROLOGICAL: Patient is awake, alert and oriented x3. Cranial nerves 2 through 12 are grossly intact. Results Results: Laboratory Results WBC 9.6 k/uL (3.8-10.6) 02/07/17 22:31 RBC 4.57 m/uL (3.80-5.40) 02/07/17 22:31 Hgb 14.8 gm/dL (11.4-16.0) 02/07/17 22:31 Hct 44.5 % (34.0-46.0) 02/07/17 22:31 MCV 97.3 fL (80.0-100.0) 02/07/17 22:31 MCH 32.3 pg (25.0-35.0) 02/07/17 22:31 MCHC 33.3 g/dL (31.0-37.0) 02/07/17 22:31 RDW 13.6 % (11.5-15.5) 02/07/17 22:31 Plt Count 250 k/uL (150-450) 02/07/17 22:31 Neutrophils % 73 % 02/07/17 22:31 Lymphocytes % 18 % 02/07/17 22:31 Monocytes % 4 % 02/07/17 22:31 Eosinophils % 2 % 02/07/17 22: Basophils % 1 % 02/07/17 22: Neutrophils # 7.0 k/uL (1.3-7.7) 02/07/17 22: Lymphocytes # 1.7 k/uL (1.0-4.8) 02/07/17 22: Monocytes # 0.4 k/uL (0-1.0) 02/07/17 22: Eosinophils # 0.2 k/uL (0-0.7) 02/07/17 22: Basophils # 0.1 k/uL (0-0.2) 02/07/17 22: PT 10.2 sec (9.0-12.0) 02/07/17 22: INR 1.0 (<1.1) 02/07/17 22:31 APTT 55.0 sec (22.0-30.0) H 02/08/17 06:39 D-Dimer 0.46 mg/L FEU (<0.60) 02/07/17 22:31 Sodium 143 mmol/L (137-145) 02/07/17 22:31 Potassium 4.6 mmol/L (3.5-5.1) 02/07/17 22:31 Chloride 103 mmol/L (98-107) 02/07/17 22:31 Carbon Dioxide 29 mmol/L (22-30) 02/07/17 22:31 Anion Gap 11 mmol/L 02/07/17 22:31 BUN 14 mg/dL (7-17) 02/07/17 22:31 Creatinine 0.80 mg/dL (0.52-1.04) 02/07/17 22:31 Est GFR (MDRD) Af Amer >60 (>60 ml/min/1.73 sqM) 02/07/17 22:31 Est GFR (MDRD) Non-Af >60 (>60 ml/min/1.73 sqM) 02/07/17 22:31 Glucose 75 mg/dL (74-99) 02/07/17 22:31 Calcium 9.6 mg/dL (8.4-10.2) 02/07/17 22:31 Magnesium 2.0 mg/dL (1.6-2.3) 02/07/17 22:31 Total Bilirubin 0.9 mg/dL (0.2-1.3) 02/07/17 22:31 AST 48 U/L (14-36) H 02/07/17 22:31 ALT 39 U/L (9-52) 02/07/17 22:31 Alkaline Phosphatase 76 U/L (38-126) 02/07/17 22:31 Total Creatine Kinase 39 U/L (30-135) 02/08/17 13:50 CK-MB (CK-2) 0.7 ng/mL (0.0-2.4) 02/08/17 13:50 CK-MB (CK-2) Rel Index 1.8 02/08/17 13:50 Troponin I <0.012 ng/mL (0.000-0.034) 02/08/17 13:50 NT-Pro-B Natriuret Pep 1080 pg/mL 02/07/17 22:31 Total Protein 7.7 g/dL (6.3-8.2) 02/07/17 22:31 Albumin 4.6 g/dL (3.5-5.0) 02/07/17 22:31 Triglycerides 84 mg/dL (<150) 02/08/17 06:39 Cholesterol 117 mg/dL (<200) 02/08/17 06:39 LDL Cholesterol, Calc 23 mg/dL (0-99) 02/08/17 06:39 HDL Cholesterol 77 mg/dL (40-60) H 02/08/17 06:39 CBC & Chem 7: 02/07/17 22:31 02/07/17 22:31 Labs: Abnormal Lab Results - Last 24 Hours (Table) 02/08/17 Range/Units 06:39 HDL Cholesterol 77 H (40-60) mg/dL Assessment and Plan Plan: this is a 61-year-old female who presented to the hospital with palpitations and chest pressure status post stress test and going for heart catheterization. On echocardiogram noted possible vegetation of the bioprosthetic aortic valve the patient has not had any fevers, chills, general malaise, body aches. blood culture was obtained yesterday that his status received. Repeat blood cultures will be obtained today. Patient may need TORIBIO. Further recommendations as patient progresses. No antibiotics at this time. The above dictated assessment and findings were discussed with Dr. Burrell. The impression and plan of care have been directed as dictated. Keya Santamaria nurse practitioner acting as scribe for Dr. Burrell. Time with Patient: Greater than 30
[2017-02-09] MEDS: ASPIRIN 325 MG TAB PO SCH (09:44)
[2017-02-09] MEDS: ATORVASTATIN 40 MG TAB PO SCH (09:44)
[2017-02-09] MEDS ORDERED: MIDAZOLAM 2 MG/2 ML VIAL IVP ONE (11:58)
[2017-02-09] MEDS ORDERED: LIDOCAINE 2% INJ 20 MG/ML SQ ONE (12:03)
[2017-02-09] MEDS ORDERED: fentaNYL (PF) 50 MCG/ML 2 ML AMP IV ONE (12:06)
[2017-02-09] MEDS ORDERED: IOHEXOL 350 MG/ML 100 ML BOTTLE INJ ONE (12:24)
[2017-02-09] MEDS ORDERED: SODIUM CHLORIDE 0.9% 1,000 ML IV ONE (12:25)
[2017-02-09] MEDS ORDERED: RX INFO: IV CONTRAST WAS GIVEN 1 EACH MISC MISCELLANE PRN ×2 (12:35→13:40)
[2017-02-09] MEDS ORDERED: SODIUM CHLORIDE 0.9% 1,000 ML IV SCH (12:45)
--- NOTE | 2017-02-09 12:49 | CC ---
DATE OF SERVICE: INDICATION: Chest pain with abnormal stress test. PROCEDURE NOTE: After obtaining informed consent, left heart catheterization and coronary angiogram, aortogram and selective injection of the bypass graft was performed via the right femoral artery using standard Rory catheters. The total sedation time was 28 minutes. Patient tolerated the procedure well without any obvious immediate complications. Manual hemostasis was obtained. FINDINGS: 1. HEMODYNAMICS: Central aortic pressures is 110/70 mm. 2. AORTOGRAM: Aortogram was performed to assess the ascending aorta and the bypass grafts. We were able to locate the bypass graft and there is a large ascending aortic aneurysm noted. CHALKYITSIK CORONARIES: 1. LEFT MAIN CORONARY ARTERY: Left main coronary artery is a normal size vessel and is free of stenosis. Divides into left anterior descending coronary artery and circumflex coronary artery. 2. LAD and its branches, circumflex coronary artery and its branches are free of significant stenosis. 3. Right coronary artery was totally occluded in its proximal part prior to the bypass. 4. Selective injection of the bypass graft to the right, it is patent proximal and the distal anastomotic sites are free of significant disease. The [facility] right coronary artery is free of significant disease. CONCLUSION: 1. Normal left anterior descending artery and circumflex coronary artery. 2. Patent venous graft to the right coronary artery. 3. Ascending aortic aneurysm. PLAN: Patient's stress test is a falsely positive stress test. The patient needs a CTA of the aorta to accurately assess the size of the ascending aorta and I am also going to consult a cardiothoracic surgeon to evaluate her to see if she needs ascending aortic aneurysm repair. Just looking at it on the aortogram shot, she seemed to have a significantly enlarged ascending aorta. I am going to hydrate her and schedule the CTA tomorrow.
[2017-02-09] MEDS: HYDROcodone/APAP 7.5-325MG 1 EACH TAB PO PRN (15:59)
[2017-02-09] MEDS: FUROSEMIDE 20 MG TAB PO SCH (19:52)
--- NOTE | 2017-02-09 23:42 | P.CON ---
Consult Note - . Consult date: 02/09/17 Assessment/Plan:: This is a 61-year-old female with a past medical history significant for aortic valve replacement in 2007 done at [facility] and subsequently developed myocardial infarction underwent a CABG one vessel and then was transferred [facility] and had a difficult postoperative period with development of DVT in the left leg. Patient had a stress test done 2 years ago that apparently was normal. She states she has had one episode in the past of palpitations when she was in the parking structure at [facility]. She states she sat down and eventually went away. She did not have it checked at the time. On Tuesday of this week, patient developed a fluttering feeling in her chest with hot and cold flashes and came into [facility] emergency center for evaluation. She has been afebrile. Patient denies having any fever or chills. White count is 9.6. GFR greater than 60, troponins negative 3. Albumin 4.6. Patient has not been on antibiotics. She was placed in the observation unit underwent an echocardiogram that showed an EF of 55-60% with mild concentric left hypertrophy. Possible vegetation of the aortic valve bioprosthetic with moderate stenosis, mild mitral regurgitation, mild tricuspid regurgitation. She underwent a stress test but could not exclude tiny area of stress-induced reverse his ability in the inferior lateral myocardium but may be artifact. Cardiology documented nondiagnostic stress test. Patient is scheduled for heart catheterization today. Dr. Peterson from cardiology is following her and has mentioned that her palpitations are most likely due to PVCs which she was having on admission. Patient denies any chest pain or pressure at this time. She denies palpitations. She denies having any body aches, fever, chills, malaise, lack of appetite, nausea, vomiting, diarrhea, dysuria. Please see the consult note as dictated by nurse practitioner Mrs. Keya Santamaria. On exam the patient appears to be in no acute distress. She is evidence of the 2/6 systolic murmur left sternal border that radiates to the carotid. No rub is noted. Lungs: A few expiratory wheezes. Patient has no petechiae or telangiectasia or other stigmata of endocarditis. No lesions on the hard or soft palate and no conjunctival hemorrhages are seen. He has noted a transthoracic echocardiogram evidence of the possible vegetation. Cardiac catheterization films reveal evidence of acute coronary artery disease but the aortic aneurysm is seen as noted by her prior study of 2007. The patient was unaware of her prior aneurysm status and is relieved that this is not a completely new process. Whether cardiology input was requested as far as comparison of 2007 due to now as far as the overall change of the aneurysm. The patient does have evidence of the abnormality on the transthoracic echocardiogram. Consequently the transesophageal echocardiogram was been requested to further evaluate the disease state. Multiple blood cultures are ordered. Antibiotic therapy is held at this point in time until we have pathogen detected for further evidence of endocarditis. Aggregate evaluation, assessment and plan as dictated by nurse practitioner Mrs. Keya Santamaria.
[2017-02-10] MEDS: NITROGLYCERIN OINT 1 INCH/GM PACKET TOPICAL SCH ×2 (06:01→14:01)
[2017-02-10 06:14] LABS: Basophils % (A) 1 %; CH 32.6; CHCM 33.1; Eosinophils # (A) 0.2 k/uL (0-0.7); Eosinophils % (A) 3 %; HCT 37.7 % (34.0-46.0); HDW 2.29; HGB 12.4 gm/dL (11.4-16.0); Luc # (Auto) 0.11; Luc % (Auto) 2; Lymphocytes # (A) 1.4 k/uL (1.0-4.8); Lymphocytes % (A) 24 %; MCH 32.6 pg (25.0-35.0); MCV 98.8 fL (80.0-100.0); Mean Platelet Volume 6.7; Monocytes # (A) 0.4 k/uL (0-1.0); Monocytes % (A) 6 %; Neutrophils # (A) 3.9 k/uL (1.3-7.7); Neutrophils % (A) 65 %; RBC 3.82 m/uL (3.80-5.40); RDW 13.6 % (11.5-15.5); WBC (Perox) 6.13
[2017-02-10 06:22] LABS: ALT 34 U/L (9-52); AST 20 U/L (14-36); Alkaline Phosphatase 69 U/L (38-126); Anion Gap 5 mmol/L; Blood Urea Nitrogen 14 mg/dL (7-17); Calcium 8.9 mg/dL (8.4-10.2); Carbon Dioxide 28 mmol/L (22-30); Chloride 107 mmol/L (98-107); Cholesterol 102 mg/dL (<200); Glucose 95 mg/dL (74-99); HDL Cholesterol 64 mg/dL (40-60); Non-African American GFR(MDRD) >60 (>60 ml/min/1.73 sqM); Potassium 4.2 mmol/L (3.5-5.1); Sodium 140 mmol/L (137-145); Total Bilirubin 0.3 mg/dL (0.2-1.3); Total Protein 5.4 g/dL (6.3-8.2); Triglycerides 66 mg/dL (<150)
--- NOTE | 2017-02-10 07:02 | PN ---
DATE OF SERVICE: 02/09/2017 PRESENTING COMPLAINT: Chest pressure, perspiration. INTERVAL HISTORY: This is a patient with known coronary artery disease seen by me earlier today this morning. When I saw the patient she was about to go for a cardiac catheterization. No further episodes of chest pain. is at the bedside. Review of systems done for constitutional, cardiovascular, GI, pulmonary; relevant findings as above. Current medications are reviewed. On examination, temperature 97.5, pulse 68, respirations 16, blood pressure 107/74, pulse ox 94% on room air. GENERAL APPEARANCE: Sitting up, comfortable. EYES: Pupils equal. Conjunctivae normal. NECK: JVD not raised. Mass not palpable. RESPIRATORY: Effort normal. LUNGS: Fair air entry. CARDIOVASCULAR: First and second sounds normal. No edema. ABDOMEN: Soft, nontender. Liver and spleen not palpable. PSYCHIATRY: Alert and oriented x3. Mood and affect normal. INVESTIGATIONS: Troponin negative. LDL 23. Blood culture pending. ASSESSMENT: 1. Coronary artery disease in a patient with prior coronary artery bypass. 2. Aortic valve stenosis of the prosthetic valve and possible vegetation reported on the aortic valve in the setting of episodes of perspiration for which Dr. Burrell was consulted. 3. Coronary artery disease with prior history of coronary artery bypass. 4. Essential hypertension. 5. Hypercholesterolemia. 6. Chronic congestive heart failure from diastolic dysfunction, ejection fraction 55% to 60% from underlying coronary artery disease. PLAN: I saw this patient earlier today. Later I learned from Elenita Boyer NP from cardiology that the cardiac cath was negative and further there was some aneurysmal dilatation to ascending aorta, hence CTA of the chest has been ordered and also consultation to cardiothoracic was done. In the meantime, will await input from Dr. Burrell. I also spoke to Dr. Melissa and he said this was not a typical ( ) it simply just may have been or could be something else. Hence, this needs to be determined. Only explanation why the patient is drenching in sweat could not be explained. Hence, ( ) further workup was done. Total time spent today was about 40 minutes with this patient with over 25 minutes of discussion.
[2017-02-10 07:54] LABS: Hepatitis B Surface Ag Index 0.07
[2017-02-10 07:59] LABS: Hepatitis B Core IgM Index 0.04
[2017-02-10 08:11] LABS: Hepatitis C Virus IgG Index 0.01
[2017-02-10] MEDS ORDERED: fentaNYL (PF) 50 MCG/ML 2 ML AMP ONE (08:16)
[2017-02-10] MEDS ORDERED: MIDAZOLAM 2 MG/2 ML VIAL ONE (08:16)
[2017-02-10 08:17] LABS: Hepatitis C Virus IgG Ab Negative (Negative)
[2017-02-10] MEDS ORDERED: IV FLUID CONTINUATION 850 ML IV ONE (08:17)
[2017-02-10] MEDS ORDERED: BENZOCAINE SPRAY 100 APPLIC/CAN MUCOUS MEM ONE (08:22)
[2017-02-10] MEDS ORDERED: MIDAZOLAM 2 MG/2 ML VIAL IV ONE (08:22)
[2017-02-10] MEDS ORDERED: fentaNYL (PF) 50 MCG/ML 2 ML AMP IV ONE (08:25)
[2017-02-10] MEDS ORDERED: BENZOCAINE SPRAY 100 APPLIC/CAN ONE (08:26)
[2017-02-10 08:33] LABS: Hemoglobin A1C 5.5 % (4.2-6.1)
[2017-02-10] MEDS ORDERED: SODIUM CHLORIDE 0.9% 1,000 ML IV SCH (08:45)
--- NOTE | 2017-02-10 08:47 | CT ---
EXAMINATION TYPE: CT angio thoracic/abd aorta DATE OF EXAM: 02/10/2017 8:09 AM COMPARISON: NONE HISTORY: 61-year-old female, AAA. TECHNIQUE: Contiguous axial scanning of the chest and abdomen performed without and with IV Contrast, patient injected with 100 mL of Omnipaque 350. Coronal/sagittal MIP reconstructions performed. 3-D r econstructions generated on a dedicated independent workstation. CT DLP: 603.2 mGycm Automated exposure control for dose reduction was used. FINDINGS: CHEST: Median sternotomy wires are present with post-CABG changes and prosthetic aortic valve. There is mild pectus excavatum deformity. Heart is borderline enlarged without pericardial effusion. There is an enhancing nodule within the right lobe of the thyroid gland measuring 2.1 cm which can be further evaluated with dedicated thyroid ultrasound. No thoracic lymphadenopathy. Evaluation of the lungs shows some patchy atelectasis or scarring at the medial basilar right middle lobe and inferior lingula. Additional patchy subpleural atelectasis posterior right base. No consolid ation or pleural effusion. Vasculature: Initial noncontrast images show no evidence for acute intramural hematoma. No aortic dissection. There is mild aneurysm of the ascending aorta at 4 cm. Conventional arch vessel branching anatomy. The descending thoracic aorta is normal caliber measuring up to 2.1 cm. There is an accessory right renal artery. Major intra-abdominal visceral arterial branch origins are patent. There is no significant ectasia or aneurysm of the abdominal aorta. The iliac arteries also remain normal caliber. Only minimal scattered atherosclerotic calcification is present. ABDOMEN: Early arterial phase imaging shows no gross abnormality of the liver, gallbladder, adrenal glands, ki dneys, spleen with small splenules, and pancreas. No dilated small bowel, free fluid, or free air. No mesenteric or retroperitoneal lymphadenopathy. Th ere is moderate stool burden with scattered mild colonic diverticulosis but no pericolonic inflammato ry change. Bones: Partially visualized bilateral hip arthroplasties. Heterotopic ossification about the left hip. Sever e disc/endplate degenerative change at L5-S1 and at L1-L2. Grade 1 retrolisthesis at L1-L2 and grade 1 anterolisthesis at L5-S1. Additional scattered degenerative changes throughout the thoracic and lum bar spine as well as the visualized lower cervical spine. There is an S-shaped scoliosis noted. No os seous destructive process. IMPRESSION: 1. PROSTHETIC AORTIC VALVE. 2. MILD ANEURYSM ASCENDING AORTA (4 CM). THERE IS MINIMAL SCATTERED ATHEROSCLEROTIC CHANGE THROUGHOUT THE REMAINDER OF THE AORTA AND ILIAC ARTERIES. 3. NO AAA. 4. INCIDENTAL ACCESSORY RIGHT RENAL ARTERY. 5. A 2.1 CM RIGHT THYROID LOBE NODULE. RECOMMEND PHYSICAL EXAM CORRELATION AND CONSIDERATION TO DEDIC ATED THYROID ULTRASOUND TO FURTHER EVALUATE. 6. MILD SCATTERED COLONIC DIVERTICULOSIS WITH MODERATE STOOL BURDEN.
[2017-02-10 11:47] VITALS: BP 107/65; PULSE 85; TEMP 98.2
[2017-02-10] MEDS: PANTOPRAZOLE 40 MG TABLET PO SCH (13:08)
[2017-02-10 13:57] VITALS: RESP 18
[2017-02-10] MEDS: ATORVASTATIN 40 MG TAB PO SCH (13:59)
[2017-02-10] MEDS: LISINOPRIL 20 MG TAB PO SCH (13:59)
[2017-02-10] MEDS: FUROSEMIDE 20 MG TAB PO SCH (13:59)
[2017-02-10] MEDS: ASPIRIN 325 MG TAB PO SCH (13:59)
[2017-02-10] MEDS: MAGNESIUM OXIDE 400 MG TAB PO SCH (14:00)
[2017-02-10] MEDS: METOPROLOL TARTRATE 50 MG TAB PO SCH (14:00)
[2017-02-10] MEDS: MULTIVITAMINS, THERA 1 EACH TAB PO SCH (14:00)
--- NOTE | 2017-02-10 22:36 | P.PN ---
Subjective Principal diagnosis: Chest pain This is a 61-year-old female with a past medical history significant for aortic valve replacement in 2007 done at [facility] and subsequently developed myocardial infarction underwent a CABG one vessel and then was transferred [facility] and had a difficult postoperative period with development of DVT in the left leg. Patient had a stress test done 2 years ago that apparently was normal. She states she has had one episode in the past of palpitations when she was in the parking structure at [facility]. She states she sat down and eventually went away. She did not have it checked at the time. On Tuesday of this week, patient developed a fluttering feeling in her chest with hot and cold flashes and came into [facility] emergency center for evaluation. She has been afebrile. Patient denies having any fever or chills. White count is 9.6. GFR greater than 60, troponins negative 3. Albumin 4.6. Patient has not been on antibiotics. She was placed in the observation unit underwent an echocardiogram that showed an EF of 55-60% with mild concentric left hypertrophy. Possible vegetation of the aortic valve bioprosthetic with moderate stenosis, mild mitral regurgitation, mild tricuspid regurgitation. She underwent a stress test but could not exclude tiny area of stress-induced reverse his ability in the inferior lateral myocardium but may be artifact. Cardiology documented nondiagnostic stress test. Patient is scheduled for heart catheterization today. Dr. Peterson from cardiology is following her and has mentioned that her palpitations are most likely due to PVCs which she was having on admission. Patient denies any chest pain or pressure at this time. She denies palpitations. She denies having any body aches, fever, chills, malaise, lack of appetite, nausea, vomiting, diarrhea, dysuria. Patient did undergo cardiac catheterization with no evidence of any severe new disease. No need for any new interventions. Transesophageal echocardiogram was performed with no evidence of any new vegetations being seen. Computed tomography scan shows evidence of the 4 cm ascending aortic aneurysm Objective - Vital Signs Vital signs: Vital Signs Temp 98.2 F 02/10/17 11:46 Pulse 85 02/10/17 12:00 Resp 18 02/10/17 12:00 BP 107/65 02/10/17 11:46 Pulse Ox 96 02/10/17 11:46 Intake & Output 02/10/17 02/10/17 02/11/17 06:59 18:59 06:59 Intake Total 645 Balance 645 Intake: IV 125 Oral 520 Other: Voiding Method Toilet Toilet - Exam Gen: This is a 61-year-old female who is sitting at the edge of the bed and appears to be in no acute distress. HEENT: Head is atraumatic, normocephalic. Pupils equal, round. Sclerae is anicteric. conjunctiva pink. Mucous membranes of the mouth are moist. NECK: Supple. No JVD. No lymphadenopathy. No thyromegaly. LUNGS: Clear to auscultation. No wheezes or rhonchi. No intercostal retractions. HEART: Regular rate and rhythm. Systolic murmur. 3/6 left sternal border ABDOMEN: Soft. Bowel sounds are present. No masses. No tenderness. EXTREMITIES: No pedal edema. No calf tenderness. dorsalis pedis +2 bilaterally. NEUROLOGICAL: Patient is awake, alert and oriented x3 - Labs CBC & Chem 7: 02/10/17 05:42 02/10/17 05:42 Labs: Abnormal Lab Results - Last 24 Hours (Table) 02/10/17 Range/Units 05:42 Total Protein 5.4 L (6.3-8.2) g/dL Albumin 3.2 L (3.5-5.0) g/dL HDL Cholesterol 64 H (40-60) mg/dL Microbiology - Last 24 Hours (Table) 02/08/17 17:19 Blood Culture - Preliminary Blood No Growth after 48 hours 02/09/17 10:30 Blood Culture - Preliminary Blood No Growth after 24 hours 02/09/17 09:58 Blood Culture - Preliminary Blood No Growth after 24 hours Laboratory Results WBC 6.0 k/uL (3.8-10.6) 02/10/17 05:42 RBC 3.82 m/uL (3.80-5.40) 02/10/17 05:42 Hgb 12.4 gm/dL (11.4-16.0) 02/10/17 05:42 Hct 37.7 % (34.0-46.0) 02/10/17 05:42 MCV 98.8 fL (80.0-100.0) 02/10/17 05:42 MCH 32.6 pg (25.0-35.0) 02/10/17 05:42 MCHC 33.0 g/dL (31.0-37.0) 02/10/17 05:42 RDW 13.6 % (11.5-15.5) 02/10/17 05:42 Plt Count 169 k/uL (150-450) 02/10/17 05:42 Neutrophils % 65 % 02/10/17 05:42 Lymphocytes % 24 % 02/10/17 05:42 Monocytes % 6 % 02/10/17 05:42 Eosinophils % 3 % 02/10/17 05:42 Basophils % 1 % 02/10/17 05:42 Neutrophils # 3.9 k/uL (1.3-7.7) 02/10/17 05:42 Lymphocytes # 1.4 k/uL (1.0-4.8) 02/10/17 05:42 Monocytes # 0.4 k/uL (0-1.0) 02/10/17 05:42 Eosinophils # 0.2 k/uL (0-0.7) 02/10/17 05:42 Basophils # 0.0 k/uL (0-0.2) 02/10/17 05:42 PT 10.2 sec (9.0-12.0) 02/07/17 22:31 INR 1.0 (<1.1) 02/07/17 22:31 APTT 55.0 sec (22.0-30.0) H 02/08/17 06:39 D-Dimer 0.46 mg/L FEU (<0.60) 02/07/17 22:31 Sodium 140 mmol/L (137-145) 02/10/17 05:42 Potassium 4.2 mmol/L (3.5-5.1) 02/10/17 05:42 Chloride 107 mmol/L (98-107) 02/10/17 05:42 Carbon Dioxide 28 mmol/L (22-30) 02/10/17 05:42 Anion Gap 5 mmol/L 02/10/17 05:42 BUN 14 mg/dL (7-17) 02/10/17 05:42 Creatinine 0.70 mg/dL (0.52-1.04) 02/10/17 05:42 Est GFR (MDRD) Af Amer >60 (>60 ml/min/1.73 sqM) 02/10/17 05:42 Est GFR (MDRD) Non-Af >60 (>60 ml/min/1.73 sqM) 02/10/17 05:42 Glucose 95 mg/dL (74-99) 02/10/17 05:[address] Glu mg/dL 111 mg/dL 02/10/17 05:42 Hemoglobin A1c 5.5 % (4.2-6.1) 02/10/17 05:42 Calcium 8.9 mg/dL (8.4-10.2) 02/10/17 05:42 Magnesium 2.0 mg/dL (1.6-2.3) 02/07/17 22:31 Total Bilirubin 0.3 mg/dL (0.2-1.3) 02/10/17 05:42 AST 20 U/L (14-36) 02/10/17 05:42 ALT 34 U/L (9-52) 02/10/17 05:42 Alkaline Phosphatase 69 U/L (38-126) 02/10/17 05:42 Total Creatine Kinase 39 U/L (30-135) 02/08/17 13:50 CK-MB (CK-2) 0.7 ng/mL (0.0-2.4) 02/08/17 13:50 CK-MB (CK-2) Rel Index 1.8 02/08/17 13:50 Troponin I <0.012 ng/mL (0.000-0.034) 02/08/17 13:50 NT-Pro-B Natriuret Pep 1080 pg/mL 02/07/17 22:31 Total Protein 5.4 g/dL (6.3-8.2) L 02/10/17 05:42 Albumin 3.2 g/dL (3.5-5.0) L 02/10/17 05:42 Triglycerides 66 mg/dL (<150) 02/10/17 05:42 Cholesterol 102 mg/dL (<200) 02/10/17 05:42 LDL Cholesterol, Calc 25 mg/dL (0-99) 02/10/17 05:42 HDL Cholesterol 64 mg/dL (40-60) H 02/10/17 05:42 TSH 2.930 mIU/L (0.465-4.680) 02/10/17 05:42 Hepatitis A IgM Ab NEGATIVE 02/10/17 05:42 Hep Bs Antigen Negative 02/10/17 05:42 Hep B Core IgM Ab NEGATIVE 02/10/17 05:42 Hep C IgG Ab Negative (Negative) 02/10/17 05:42 Microbiology 02/08/17 17:19 Blood Blood Culture - Preliminary No Growth after 48 hours 02/09/17 10:30 Blood Blood Culture - Preliminary No Growth after 24 hours 02/09/17 09:58 Blood Blood Culture - Preliminary No Growth after 24 hours Assessment and Plan (1) Chest pain Narrative/Plan: Pleasant 61-year-old woman presented hospital with chest pain and shortness of breath. She has extensive history of underlying coronary artery disease. As well as her aortic valve replacement. Workup is in process regarding the abnormality seen on her transthoracic echocardiogram with a vegetation. She underwent cardiac catheterization with no new coronary artery disease. TORIBIO was performed without evidence of acute new lesions. Computed tomography scan showed evidence of the aneurysm at 4 cm. Prior data relates that the aneurysm was approximately a 3 cm. She'll be following up with cardiology in the office for further plans regarding her aneurysm. It is under 5 cm. The cultures are all negative. She has not been treated with antibiotic therapy. It is thought that the abnormality was related to her prior surgery and TORIBIO has not verified any vegetation. She ready for discharged home with follow-up with cardiology. Final cultures will be monitored. Status: Acute (2) History of aortic valve replacement with bioprosthetic valve Status: Acute
--- NOTE | 2017-02-13 14:05 | DS ---
DATE OF ADMISSION: 02/08/2017 DATE OF DISCHARGE: 02/10/2017 FINAL DIAGNOSES: 1. Possible angina in a patient with known coronary artery disease. 2. Coronary artery disease in a patient with known prior coronary artery bypass. 3. Aortic valve stenosis of the posterior aortic valve. 4. Essential hypertension. 5. Hypercholesterolemia. 6. Chronic congestive heart failure from diastolic dysfunction. Ejection fraction 55 to 60% with underlying coronary artery disease. 7. Ascending artery aneurysm 4 cm aneurysmal dilatation. HOSPITAL COURSE: This patient presented with chest pain, cardiac cath, did not show any significant disease. The patient's thoracic aorta CT did show 4 centimeter ascending aortic aneurysm. This will be followed as an outpatient. The patient's blood cultures were negative. Dr. Burrell was consulted in case this was a concern about endocarditis, based on entire clinical picture, blood culture being negative and it was felt the patient oaky to be discharged. On day of discharge, care was discussed with Dr. Burrell and Dr. Walt Sarkar and the patient therefore is being discharged. The patient has been told to take ( ) her shortness of breath gets better when she exerts herself. Patient does follow with Dr. Cuevas a recycler. On exam, LUNGS: Slightly decreased breath sounds. CARDIOVASCULAR: First and second sounds are normal. PSYCH: Alert and oriented times three, mood and affect is normal. DISCHARGE MEDICATIONS: 1. Aspirin 81 mg a day. 2. Lipitor 40 mg a day. 3. Biotin 5 mg a day. 4. Flexeril 10 mg p.o. t.i.d. p.r.n. 5. Zestril 20 mg b.i.d. 6. ( ) 100 mg p.o. daily. 7. Lopressor 100 mg p.o. t.i.d. 8. Multivitamin 1 tablet p.o. daily. 9. Protonix 40 mg p.o. daily. 10. Magnesium oxide 250 mg p.o. daily. 11. Trazodone 50 mg p.o. q.h.s. 12. Lasix 20 mg p.o. daily. 13. [place] 7.5 1 tablets p.o. t.i.d. p.r.n. 14. Nitrostat 0.4 sublingual q.5 p.r.n. Follow-up with Dr. Cuevas in one week. Follow up with Dr. Luis Moses on 02/18/2017, for the ascending aorta aneurysm, follow-up with Dr. Guzman in 3 to 4 days, follow-up with Dr. Walt Sarkar pTanisharnishant. Discharge planning more than 35 minutes. Patient also did have a 2-D echocardiogram that showed an EF of 50 and 60%, and moderate stenosis of the bioprosthetic aortic valve. Copy to Dr. Cuevas and Dr. Guzman.
--- NOTE | 2017-05-16 11:18 | ECHOT ---
DATE OF SERVICE: INDICATION: To rule out vegetation in a patient with known aortic valve replacement. PROCEDURE NOTE: After obtaining informed consent, transesophageal echocardiogram is performed in left lateral position using an Omniplane probe. Local and IV sedation were obtained using intravenous Versed and fentanyl. Patient tolerated the procedure well without any obvious immediate complications. Total sedation time was 20 minutes. FINDINGS: Aortic valve: There is a bioprosthetic valve in aortic position without any evidence of regurgitation. I do not see any vegetations over the aortic valve: Mitral valve shows mild mitral regurgitation without any evidence of vegetation. Tricuspid valve appears anatomically normal. There is no vegetation. Left ventricle has normal size, shows atypical septal motion with normal LV function with an ejection fraction of 55%. Left atrium appears mildly enlarged. Right atrium and right ventricle seen within normal limits. There is mild tricuspid regurgitation noted interatrial septum. There is no evidence of fnmi-sq-[id number] shunt by color flow Doppler or lbxcn-rf-yxse shunt by agitated saline contrast study. CONCLUSION: 1. There is no evidence of vegetation. 2. Normal bioprosthetic valve in aortic position. 3. Mild mitral and tricuspid regurgitation noted. FINDINGS: FINAL IMPRESSION:
== END 2017-02-10 13:53 | disposition home or self-care (01) | DRG 287 ==
LOC: EC 22:12 → 3OBS 02-08 00:34 → OBSVTOIN 02-08 16:32 → 3OBS 02-08 21:21
PROVIDERS: ADMIT Hospitalist; ATTEND Hospitalist
PROC: B2111ZZ Fluoroscopy of Multiple Coronary Arteries using Low Osmolar Contrast (ICD-10-PCS; 2017-02-09)
PROC: B2121ZZ Fluoroscopy of Single Coronary Artery Bypass Graft using Low Osmolar Contrast (ICD-10-PCS; 2017-02-09)
PROC: 4A023N7 Measurement of Cardiac Sampling and Pressure, Left Heart, Percutaneous Approach (ICD-10-PCS; principal; 2017-02-09 11:20)
PROC: B3101ZZ Fluoroscopy of Thoracic Aorta using Low Osmolar Contrast (ICD-10-PCS; 2017-02-09 11:20)
DX: I25.110 Atherosclerotic heart disease of native coronary artery with unstable angina pectoris (principal); I50.32 Chronic diastolic (congestive) heart failure; T82.857A Stenosis of other cardiac prosthetic devices, implants and grafts, initial encounter; I71.2 Thoracic aortic aneurysm, without rupture; I11.0 Hypertensive heart disease with heart failure; E03.9 Hypothyroidism, unspecified; E78.5 Hyperlipidemia, unspecified; E78.00 Pure hypercholesterolemia, unspecified; I25.2 Old myocardial infarction; I49.3 Ventricular premature depolarization; M41.9 Scoliosis, unspecified; E04.1 Nontoxic single thyroid nodule; I65.29 Occlusion and stenosis of unspecified carotid artery; Z79.82 Long term (current) use of aspirin; Z79.899 Other long term (current) drug therapy; Z87.891 Personal history of nicotine dependence; Z95.1 Presence of aortocoronary bypass graft; Z88.1 Allergy status to other antibiotic agents; Z88.0 Allergy status to penicillin; Z88.2 Allergy status to sulfonamides; Z88.8 Allergy status to other drugs, medicaments and biological substances; Z96.643 Presence of artificial hip joint, bilateral; Y71.2 Prosthetic and other implants, materials and accessory cardiovascular devices associated with adverse incidents
CPT/HCPCS: 36415; 71020; 71275; 75635; 78452; 80053; 80061; 80074; 82550; 82553; 83036; 83735; 83880; 84443; 84484; 85025; 85379; 85610; 85730; 87040; 93005; 93017; 93306; 93312; 93320; 93325; 93459; 93567; 96376; 99285

== ENCOUNTER 2017-02-16 07:03 | Day surgery (SDC) | payer MEDICAID, BC ==
[2017-02-14 14:44] VITALS: BMI 23.9
[2017-02-16] MEDS ORDERED: LACTATED RINGERS 1,000 ML IV SCH (07:30)
[2017-02-16 07:50] VITALS: RESP 18; TEMP 98
[2017-02-16] MEDS ORDERED: LIDOCAINE 1% 20 ML VIAL (10MG/ML) FOR IV START INTRADERMA ONE (08:04)
[2017-02-16] MEDS ORDERED: BUPIVACAINE (PF) 0.5% 30 ML VIAL ONE (08:46)
[2017-02-16] MEDS ORDERED: MIDAZOLAM 2 MG/2 ML VIAL ONE (08:46)
[2017-02-16] MEDS ORDERED: TRIAMCINOLONE ACETONIDE 40 MG/ML 1 ML VIAL ONE (08:46)
[2017-02-16] MEDS ORDERED: IOHEXOL 180 MG/ML 1 ML ML ONE (08:46)
[2017-02-16] MEDS ORDERED: fentaNYL (PF) 50 MCG/ML 2 ML AMP ONE (08:46)
--- NOTE | 2017-02-16 08:48 | P.PCN ---
Date of Procedure: 02/16/17 Preoperative Diagnosis: #1 severe persistent low back pain #2 left lumbar radiculopathy 3 level degenerative disc disease with neural foraminal stenosis lumbosacral spine Postoperative Diagnosis: Same as preoperative diagnoses Procedure(s) Performed: Number-one transforaminal lumbar epidural steroid injection on the left at L4 5 Anesthesia: MAC Surgeon: Edgardo Marshall Estimated Blood Loss (ml): 0 IV fluids (ml): 400 Pathology: none sent Condition: stable Disposition: PACU Indications for Procedure: See preoperative diagnoses Description of Procedure: The patient was brought to the [facility] procedure area where the patient was changed into a surgical gown. They were then brought to the [facility] procedure room. Full external monitors were placed and the patient was positioned in the prone position . Full external monitors were placed and supplemental nasal oxygen at 2 L/m was applied. A wide field DuraPrep was performed to the lower back area which was draped in the usual sterile technique. Fluoroscopic assistance was utilized to identify the skin and subcutaneous tissue immediately overlying the [] intervertebral space. In the midline, 6 mL of 1% preservative free Xylocaine was infiltrated into the skin and into the superficial and deep subcutaneous tissue at the [] vertebral level in a field block technique. Through the previously anesthetized area, a #20-gauge Tuohy needle was passed until the tip of the Tuohy needle was felt to be in the posterior ligamentous complex. At this point in time the epidural needle stylet was removed and a [id number] epidural syringe was attached. Utilizing the nxsm-[id number] technique, the lumbar epidural space at the [] level was located with ease. Following confirmation of the needle location in the lumbar epidural space, the epidural syringe was detached and no blood or cerebrospinal fluid was noted to be coming from the hub of the epidural needle. Approximately 5 mL of contrast solution was injected through the epidural needle. Once appropriate spread of the contrast was noted with fluoroscopic imaging, the patient was ready for the therapeutic injectate. At this point a solution containing 80 mg of Depo-Medrol, 5 mL of 0.25% preservative free Marcaine, and 3 mL of 0.9% preservative free normal saline was injected into the lumbar epidural space through the epidural needle after negative aspiration. The patient tolerated the injection of the therapeutic substance without difficulty or complication whatsoever. Following the completion of the injection the needle was removed and hemostasis was noted. A sterile dressing was applied.
[2017-02-16] MEDS ORDERED: LACTATED RINGERS 1,000 ML IV ONE (09:07)
[2017-02-16 09:24] VITALS: BP 100/60; PULSE 78
--- NOTE | 2017-02-16 12:40 | FL ---
EXAMINATION TYPE: FL guided pain mgmt statistic DATE OF EXAM: 02/16/2017 9:01 AM HISTORY: Pain lumbar epidural steroid injection, 1sec fl time
== END 2017-02-16 09:40 | disposition home or self-care (01) ==
LOC: ORPAIN 07:03
PROVIDERS: ATTEND Anesthesiology
DX: M51.16 Intervertebral disc disorders with radiculopathy, lumbar region (principal); M48.07 Spinal stenosis, lumbosacral region; Z91.09 Other allergy status, other than to drugs and biological substances
CPT/HCPCS: 64483; J2250; J3301; Q9965; J3010; 64479

== ENCOUNTER 2017-03-04 09:35 | Day surgery (SDC) | payer MEDICAID, BC ==
[2017-03-01 11:19] VITALS: BMI 24.6
[2017-03-04] MEDS ORDERED: LIDOCAINE 1% 20 ML VIAL (10MG/ML) FOR IV START INTRADERMA ONE (10:04)
[2017-03-04 10:11] VITALS: TEMP 97.9
[2017-03-04] MEDS ORDERED: PROPOFOL 10 MG/ML 20 ML VIAL IV ONE (10:22)
[2017-03-04] MEDS ORDERED: LIDOCAINE 1% INJ 10MG/ML (20 ML MDV) ONE (10:22)
--- NOTE | 2017-03-04 10:27 | P.GSHP ---
History of Present Illness H&P Date: 03/04/17 Chief Complaint: Colon cancer screening Patient here today for elective colonoscopy. Last colonoscopy was 12 years ago. She states she had polyps at that time. No family history of colon cancer. No bowel related complaints. Past Medical History Past Medical History: Heart Failure, Myocardial Infarction (RI), Thyroid Disorder Additional Past Medical History / Comment(s): DEFECT- MITRAL VALVE PROLAPSE, ARRYTHMIA, PALPITATIONS, POOR CIRCULATION,SCOLIOSIS, THYROID NODULE, BACK PAIN. Last Myocardial Infarction Date:: 2007 History of Any Multi-Drug Resistant Organisms: None Reported Past Surgical History: Appendectomy, Coronary Bypass/CABG, Joint Replacement, Orthopedic Surgery Additional Past Surgical History / Comment(s): BILATERAL CATARACTS. , CABG - 1 vessel, aortic valve replacement, BILAT KAREL, REPAIR FX RT ARM, REPAIR FX RT FEMUR, BILAT CTR, BILAT KNEE SCOPES, BILAT TENNIS elbow, LT EYE SURGERY, TMJ SX , COLONOSCOPY,. Past Anesthesia/Blood Transfusion Reactions: No Reported Reaction Past Psychological History: No Psychological Hx Reported Smoking Status: Former smoker Past Alcohol Use History: Occasional Additional Past Alcohol Use History / Comment(s): SMOKED FOR 6 MONTHS AT AGE 20 Past Drug Use History: None Reported - Past Family History Mother Family Medical History: Cancer Additional Family Medical History / Comment(s): BREAST, COLON/BOWEL, SKIN CANCER. Sister(s) Family Medical History: Cancer Medications and Allergies Home Medications Medication Instructions Recorded Confirmed Type Aspirin EC [Ecotrin Low Dose] 81 mg PO DAILY 05/23/14 03/04/17 History Atorvastatin Calcium [Lipitor] 40 mg PO DAILY 05/23/14 03/04/17 History Biotin 5 mg PO DAILY 05/23/14 03/04/17 History Cyclobenzaprine [Flexeril] 10 mg PO TID PRN 05/23/14 03/04/17 History Lisinopril [Zestril] 20 mg PO BID 05/23/14 03/04/17 History Lysine 500 mg PO DAILY 05/23/14 03/04/17 History Metoprolol Tartrate [Lopressor] 100 mg PO TID 05/23/14 03/04/17 History Multivitamin/Iron/Folic Acid 1 tab PO DAILY 05/23/14 03/04/17 History [Centrum Complete Multivit Tab] Pantoprazole Sodium [Protonix] 40 mg PO DAILY 05/23/14 03/04/17 History Magnesium Oxide [Mag-Ox] 250 mg PO DAILY 11/21/16 03/04/17 History traZODone HCL 50 mg PO HS PRN 12/01/16 03/04/17 History Furosemide [Lasix] 20 mg PO DAILY 12/28/16 03/04/17 History HYDROcodone/APAP 7.5-325MG [[place] 1 tab PO TID PRN 02/07/17 03/04/17 History 7.5-325] Allergies Allergy/AdvReac Type Severity Reaction Status Date / Time amoxicillin [Amoxicillin] Allergy Severe Rash/Hives Verified 03/04/17 09:52 ampicillin Allergy Severe Rash/Hives Verified 03/04/17 09:52 griseofulvin ultramicrosize Allergy Severe Rash/Hives Verified 03/04/17 09:52 [From Jahaira-PEG (ultramicrosize)] minocycline HCl Allergy Severe Rash/Hives Verified 03/04/17 09:52 [From Minocin] Penicillins Allergy Severe Rash/Hives Verified 03/04/17 09:52 Skin Cleanser Combination Allergy Severe Rash/Hives Verified 03/04/17 09:52 No.4 [From Minocin] Sulfa (Sulfonamide Allergy Severe Rash/Hives Verified 03/04/17 09:52 Antibiotics) sulfamethoxazole Allergy Severe Rash/Hives Verified 03/04/17 09:52 [From Bactrim] tetracycline [Tetracycline] Allergy Severe Unknown Verified 03/04/17 09:52 trimethoprim Allergy Severe Unknown Verified 03/04/17 09:52 Surgical - Exam Vital Signs Temp Pulse Resp BP Pulse Ox 97.9 F 78 16 137/68 99 03/04/17 10:10 03/04/17 10:10 03/04/17 10:10 03/04/17 10:10 03/04/17 10:10 Physical exam: General: Well-developed, well-nourished HEENT: Normocephalic, sclerae nonicteric Abdomen: Nontender, nondistended Extremities: No edema Neuro: Alert and oriented Assessment and Plan (1) Colon cancer screening Narrative/Plan: We'll proceed with colonoscopy at this time. Status: Acute
--- NOTE | 2017-03-04 10:43 | P.PCN ---
Date of Procedure: 03/04/17 Procedure(s) Performed: PREOPERATIVE DIAGNOSIS: Colon cancer screening, personal history of colon polyps POSTOPERATIVE DIAGNOSIS: Diverticulosis PROCEDURE: Colonoscopy ANESTHESIA: MAC SURGEON: Donald Bower M.D. SPECIMENS: None ENDOSCOPIC PROCEDURE: The patient was placed on the endoscopy table in the left decubitus position. The Olympus colonoscope was inserted into the anus and passed under direct visualization to the base of the cecum. The appendiceal orifice was visualized. From that point the scope was slowly withdrawn inspecting all surfaces carefully. There were no neoplastic inflammatory or polypoid lesions throughout the cecum, ascending, transverse, descending, sigmoid and rectum. There was mild diverticulosis noted in the left colon. The patient's prep was suboptimal with some retained liquid and solid stool seen throughout. Digital rectal examination was normal. The patient was taken to the recovery room in stable condition per anesthesia guidelines. RECOMMENDATIONS: Increase fiber. Follow-up colonoscopy 5 years because of the patient's personal history of colon polyps.
[2017-03-04 11:00] VITALS: RESP 18
[2017-03-04 11:34] VITALS: BP 107/62; PULSE 66
== END 2017-03-04 11:35 | disposition home or self-care (01) ==
LOC: ORWHC2ENDO 09:35
PROVIDERS: ATTEND Surgery
DX: Z12.11 Encounter for screening for malignant neoplasm of colon (principal); Z86.010 Personal history of colon polyps; K57.30 Diverticulosis of large intestine without perforation or abscess without bleeding; E07.9 Disorder of thyroid, unspecified; I50.9 Heart failure, unspecified; Z88.0 Allergy status to penicillin; Z88.2 Allergy status to sulfonamides; Z79.82 Long term (current) use of aspirin; Z79.899 Other long term (current) drug therapy; I25.2 Old myocardial infarction; Z95.5 Presence of coronary angioplasty implant and graft; Z87.891 Personal history of nicotine dependence; Z95.2 Presence of prosthetic heart valve; Z96.643 Presence of artificial hip joint, bilateral
CPT/HCPCS: J2001; J2704; G0121

== ENCOUNTER 2017-03-17 06:31 | Day surgery (SDC) | payer MEDICAID, BC ==
[2017-03-15 12:42] VITALS: BMI 24.6
[2017-03-17 06:51] VITALS: RESP 16; TEMP 97.2
[2017-03-17] MEDS ORDERED: LIDOCAINE 1% 20 ML VIAL (10MG/ML) FOR IV START INTRADERMA ONE (07:08)
[2017-03-17] MEDS: LACTATED RINGERS 1,000 ML IV SCH ×2 (07:08→07:47)
[2017-03-17] MEDS ORDERED: TRIAMCINOLONE ACETONIDE 40 MG/ML 1 ML VIAL ONE (07:44)
[2017-03-17] MEDS ORDERED: IOHEXOL 180 MG/ML 1 ML ML ONE (07:44)
[2017-03-17] MEDS ORDERED: fentaNYL (PF) 50 MCG/ML 2 ML AMP ONE (07:44)
[2017-03-17] MEDS ORDERED: MIDAZOLAM 2 MG/2 ML VIAL ONE (07:44)
--- NOTE | 2017-03-17 08:10 | P.PCN ---
Date of Procedure: 03/17/17 Procedure(s) Performed: PREOPERATIVE DIAGNOSIS: 1- Lumbar Degenerative Disc Diseases 2-Lumbar spondylosis with Facet arthropathy without myelopathy. 3-lumbar radiculopathy POSTOPERATIVE DIAGNOSIS: 1-Lumber Degenerative Disc Diseases 2-Lumbar spondylosis with Facet arthropathy without myelopathy. 3-lumbar radiculopathy. PROCEDURE 1. Lumbar epidural steroid injection under fluoroscopic guidance at the L5-S1 level. ( left Paramedian approach) 2. Lumbar epidurogram. ANESTHESIA: Local with 1% lidocaine 3 ml and IV sedation with Versed 2 mg , and fentanyle 50 Mcg EBL: Minimal PROCEDURE INDICATION: The patient with low back pain and radiculitis symptoms unresponsive to conservative treatment. Fluoroscopy was used to optimize visualization of the needle placement and to maximize safety the patient had 2 t transforaminal epidural steroid injections with only short term benefit and partial benefit for this reason today we did do lumbar epidural steroid injections interlaminar approach,hopefully this will help her more. PROCEDURE DESCRIPTION / TECHNIQUE: The patient was seen and identified in the preoperative area. Risks, benefits , complications including but not limited to infections ,bleeding ,allergic reaction to the medications ,nerve damage and not complete pain releife , and alternatives were discussed with the patient. The patient agreed to proceed with the procedure and signed the consent. IV was started, and vital signs were stable. Patient was taken to the OR and time out was completed. The patient was placed in the prone position on procedure table and a pillow was placed under the abdomen to reduce lumbar lordosis. The lumbosacral area was prepped and draped in the usual sterile fashion.ere closely monitored during the procedure. Conscious sedation was used during the procedure to decrease patients anxiety. Vital signs was monitered during the entire procedure. Using anterior-posterior fluoroscopy, the L5-S1 interlaminar space was identified and the skin over this site was marked and then infiltrated with 1% lidocaine subcutaneously. Subsequently, a 20-gauge Tuohy epidural needle was inserted and advanced toward the epidural space using the ``Loss of resistance technique and guided by AP and lateral fluoroscopy. The correct needle position in the epidural space was verified with the injection of 2 mL of the water soluble contrast dye Omnipaque 180 contrast and observing an excellent epidurogram with the epidural spread of the dye, after negative aspiration for blood and CSF and in the absence of paresthesias. Again after negative aspiration, a 6 ml mixture containing 80 mg of Kenalog and 2 ml of preservative free Normal Saline, and 2 ml of preservative free lidocaine 1% solution was injected and a washout of epidurogram was seen. Needle was withdrawn intact, skin was cleansed, and bandages were applied. COMPLICATIONS: None DISPOSITION / PLANS: The patient was placed in a supine position and transferred to the recovery area in a stable condition for observation. There was no evidence of lower extremity motor or sensory deficit after the procedure. Patient was discharged from the recovery room after meeting discharge criteria. Home discharge instructions were given to the patient by the staff. The patient was reexamined prior to discharge. The patient will schedule a follow up in the clinic in 2-4 weeks.
[2017-03-17 08:54] VITALS: BP 95/65; PULSE 55
--- NOTE | 2017-03-17 10:15 | FL ---
EXAMINATION TYPE: FL guided pain mgmt statistic DATE OF EXAM: 03/17/2017 8:15 AM HISTORY: Flouroscopy time 4 seconds of fluoroscopy provided. IMPRESSION: 1. Fluoroscopy time.
== END 2017-03-17 09:10 | disposition home or self-care (01) ==
LOC: ORPAIN 06:31
PROVIDERS: ATTEND Specialist
DX: M51.16 Intervertebral disc disorders with radiculopathy, lumbar region (principal); M47.816 Spondylosis without myelopathy or radiculopathy, lumbar region; M46.96 Unspecified inflammatory spondylopathy, lumbar region; Z88.1 Allergy status to other antibiotic agents; Z88.0 Allergy status to penicillin; Z88.8 Allergy status to other drugs, medicaments and biological substances
CPT/HCPCS: 62323; J2250; J3301; Q9965; J3010

== ENCOUNTER → 2017-04-12 | Outpatient (CLI) | payer MEDICAID, BC ==
[2017-04-12 10:57] LABS: Calcium 9.8 mg/dL (8.4-10.2); Creatine Kinase 42 U/L (30-135); Magnesium 2.1 mg/dL (1.6-2.3); Non-African American GFR(MDRD) >60 (>60 ml/min/1.73 sqM)
[2017-04-12 11:41] LABS: Vitamin B12 483 pg/mL (239-931)
== END | disposition home or self-care (01) ==
LOC: LABWHC1 08:19
PROVIDERS: ATTEND Psychiatry & Neurology Neurology
DX: E04.1 Nontoxic single thyroid nodule (principal); M62.81 Muscle weakness (generalized); R26.81 Unsteadiness on feet; G62.9 Polyneuropathy, unspecified
CPT/HCPCS: 36415; 82310; 82550; 82565; 82607; 83735; 84439; 84443; 85652; 86038

== ENCOUNTER → 2017-04-13 | Outpatient (CLI) | payer MEDICAID, BC ==
--- NOTE | 2017-04-13 14:31 | MR ---
EXAMINATION TYPE: MR cervical spine wo con DATE OF EXAM: 04/13/2017 10:26 AM COMPARISON: NONE HISTORY: leg/arm weakness TECHNIQUE: Multiplanar, multisequence images of the cervical spine were acquired. There is some patient motion. Incidental note is made of 2 cm right thyroid nodule C2-C3: Posterior extension of endplate disc complex may contact the anterior cervical cord, there is mild central canal stenosis. No significant foraminal encroachment. C3-C4: Bilateral foraminal encroachment is present left greater than right due to uncovertebral joint hypertrophy facet arthropathy. Posterior extension of endplate disc complex may contact the anterior cervical cord, there is mild central canal stenosis. C4-C5: Left-sided foraminal encroachment is present. Posterior extension of endplate disc complex cau ses mild anterior mass effect on the thecal sac. C5-C6: There is central canal stenosis which is moderate to severe, posterior extension of endplate d isc complex likely contacts anterior cervical cord. Bilateral foraminal encroachment is present left greater than right. C6-C7: Posterior extension of endplate disc complex likely contacts anterior cervical cord causes mod erate to severe central canal stenosis. There is bilateral foraminal encroachment. C7-T1: Posterior extension endplate disc complex causes mild anterior mass effect on the thecal sac. Foraminal encroachment is present left greater than right. Cervical segments are intact. There is multilevel spondylosis, loss of disc height and signal is pres ent at the intervertebral levels, some remodeling present at the cervical vertebral bodies. Minimal a nterolisthesis grade 1 C2-3, retrolisthesis grade 1 C3-4, C4-5, C5-6 and C6-7. Endplate discogenic ma rrow signal changes are present compatible with degenerative disc disease. Deformity of the cervical cord is present, multilevel spinal stenosis as described. Scoliosis of the thoracic spine with degene rative changes are also present in the thoracic spine. IMPRESSION: Multilevel spinal stenosis, degenerative disc disease, foraminal encroachment as described. Scoliosis and additional findings above.
--- NOTE | 2017-04-13 15:09 | MR ---
MRI brain with and without contrast HISTORY: Ataxia, leg and arm weakness Multiplanar multisequence and postcontrast images through the brain following 15 cc MultiHance IV No comparisons There is no restricted diffusion. Cortical atrophy is noted. There is no hemorrhage or hydrocephalus. Scattered hyperintensities are present within the periventricular and subcortical white matter on in version recovery and T2-weighted sequences, approximately 10 lesions. The corpus callosum, pituitary, cervical medullary junction, cerebellopontine angles are unremarkable. There is no abnormal enhancem ent following contrast menstruation. The orbits show a symmetric appearance. There is normal vascular enhancement. Degenerative disc changes are noted in the visualized spine. IMPRESSION: Nonspecific white matter demyelination may be related to chronic small vessel ischemia. T here is likely age-related atrophy. No acute brain abnormality.
== END | disposition home or self-care (01) ==
LOC: RADMRIMAIN 08:43
PROVIDERS: ATTEND Psychiatry & Neurology Neurology
DX: G37.9 Demyelinating disease of central nervous system, unspecified (principal); M48.02 Spinal stenosis, cervical region; M50.30 Other cervical disc degeneration, unspecified cervical region; M41.82 Other forms of scoliosis, cervical region; M62.81 Muscle weakness (generalized)
CPT/HCPCS: 70553; 72141; A9577

== ENCOUNTER → 2017-04-25 | Outpatient (CLI) | payer MEDICAID, BC ==
--- NOTE | 2017-04-25 17:07 | US ---
EXAMINATION TYPE: US thyroid st tissue head/neck DATE OF EXAM: 04/25/2017 COMPARISON: 2016 CLINICAL HISTORY: E04.1 Thyroid nodules. GLAND SIZE: Right Lobe: 4.0 x 1.2 x 0.6 cm Overall Parenchyma: homogenous Left Lobe: 2.5 x 0.5 x 1.2 cm Overall Parenchyma: homogeneous Isthmus Thickness: 0.1 cm NODULES RIGHT: # of nodules measured on right: 1 1. 2.8 X 2.1 x 1.4 cm echogenic solid nodule at the lower pole with well-defined margins; . This n odule is wider than tall and shows intranodular vascularity. Prior size: 2.8 x 2.3 x 1.2 cm LEFT: # of nodules measured on left: 1 1. 0.7 X 0.6 x 0.7 cm echogenic solid nodule at the lower pole with well-defined margins; . This n odule is wider than tall and shows intranodular vascularity. Prior size: 0.7 x 0.6 x 0.7 cm ISTHMUS: # of nodules measured in the isthmus: 0 Bilateral neck scanned, no evidence of lymphadenopathy. IMPRESSION: STABLE MULTINODULAR GOITER.
== END | disposition home or self-care (01) ==
LOC: RADUSWWP 15:56
PROVIDERS: ATTEND Otolaryngology
DX: E04.2 Nontoxic multinodular goiter (principal)
CPT/HCPCS: 76536

== ENCOUNTER → 2017-05-02 | Outpatient (CLI) | payer MEDICAID, BC ==
[2017-05-02 12:26] VITALS: BP 109/59; PULSE 57; RESP 16; TEMP 97.6
--- NOTE | 2017-05-02 13:02 | P.PN ---
Subjective This is follow visit for this 61 years old female, with a chronic history of severe low back pain, they) with lumbar degenerative disc disease and lumbar spondylosis, we have done a number of epidural steroid injections 3, she continued to have severe low back pain, and only partial and short-term benefit from the lumbar epidural steroid injections, the pain is constant and increases with any activity especially hyperextension of her torso, she denies any motor or sensory deficit she denies any change in bowel movements or urination , she had no fever or night sweats, Objective - Vital Signs Vital signs: Vital Signs Temp 97.6 F 05/02/17 12:19 Pulse 57 L 05/02/17 12:19 Resp 16 05/02/17 12:19 BP 109/59 05/02/17 12:19 Pulse Ox Intake & Output 05/01/17 05/02/17 05/02/17 18:59 06:59 18:59 Weight 63.503 kg - Exam Physical Examinations : 1-Constitutiona : Cooperative , not in acute distress . 2-HEENT : nech ; supple , no Lymphadenopathy , normal thyroid size . eyes : no ptosis , no icterus, no photophobia . ENT : normal of hearing , normal oropharynx , no Thrush . 3- Respiratory : Chest clear to auscultations Bilaterally , no wheezing , no Rhonchi . 4- Cardiovascular : regular rate and rhythem , S1 , S2 , no S3 , no S4. 5- Gastrointestinal : abdomen soft no tenderness , bowel sounds positive all four quadrents , no organomegally . 6- Genitourinary : Defferred . 7- neurologic : Cranial nerve II to XII intact , no focal neurological deffecit . 8-psychatric : alert , oriented X 3 , appropriate affect , intact judgment and insight . 9-Lymphatic : no Lymphadenopathy . 10- musculoskeltal : , Lumber spine = normal moter stegnth lower extremities ,thigh and legs .5/5 deep tendon reflexes : normal Knee Jerk , normal ankle Jerk . positive lumber facet Loading Test strait leg raising test negative bilaterally Fabere test negative bilaterally Assessment and Plan Plan: Assessment and plan= -chronic low back pain secondary to lumbar degenerative disc disease , lumbar spondylosis with lumbar facet arthropathy without myelopathy -Patient due to severe low back pain after lumbar epidural steroid injections. -Patient will be scheduled to have diagnostic medial branch block lumbar area and L3-4/L4-5 /L5-S1 ,and if she had a good result after the diagnostic block ,then we will proceed with the radiofrequency ablation of the medial branch lumbar area , procedure risk and benefits and alternatives ,discussed with the patient and she agreed with proceeding Time with Patient: Less than 30
== END ==
LOC: PNWHC3 11:56
PROVIDERS: ATTEND Specialist
DX: M51.36 Other intervertebral disc degeneration, lumbar region (principal); M47.816 Spondylosis without myelopathy or radiculopathy, lumbar region; M46.86 Other specified inflammatory spondylopathies, lumbar region; G89.29 Other chronic pain; Z79.891 Long term (current) use of opiate analgesic
CPT/HCPCS: 99211

== ENCOUNTER → 2017-05-06 | Outpatient (CLI) | payer MEDICAID, BC ==
[2017-05-06 10:15] LABS: Hemoglobin A1C 5.2 % (4.2-6.1)
== END | disposition home or self-care (01) ==
LOC: LABWHC1 07:59
PROVIDERS: ATTEND Family Medicine
DX: Z13.1 Encounter for screening for diabetes mellitus (principal)
CPT/HCPCS: 36415; 83036

== ENCOUNTER 2017-05-18 08:45 | Day surgery (SDC) | payer MEDICAID, BC ==
[2017-05-18 09:06] VITALS: RESP 16; TEMP 93.1
[2017-05-18] MEDS ORDERED: LIDOCAINE 1% 20 ML VIAL (10MG/ML) FOR IV START INTRADERMA ONE (09:10)
[2017-05-18] MEDS ORDERED: MIDAZOLAM 2 MG/2 ML VIAL ONE (09:14)
[2017-05-18] MEDS ORDERED: BUPIVACAINE (PF) 0.5% 30 ML VIAL ONE (09:14)
[2017-05-18] MEDS ORDERED: TRIAMCINOLONE ACETONIDE 40 MG/ML 1 ML VIAL ONE (09:14)
[2017-05-18] MEDS ORDERED: LACTATED RINGERS 1,000 ML IV SCH (09:15)
--- NOTE | 2017-05-18 09:33 | P.PCN ---
Date of Procedure: 05/18/17 Preoperative Diagnosis: Postoperative Diagnosis: Procedure(s) Performed: Implants: Surgeon: Jacob Peraza Pathology: none sent Condition: stable Disposition: PACU Indications for Procedure: Operative Findings: Description of Procedure: PREOPERATIVE DIAGNOSIS: L3-L4, L4-L5, and L5-S1 spondylosis without myelopathy and facet arthropathy. POSTOPERATIVE DIAGNOSIS: L3-L4, L4-L5, and L5-S1 spondylosis without myelopathy and facet arthropathy. PROCEDURE DESCRIPTION: Patient presents for L3, L4 and L5 diagnostic medial branch blocks LEFT SIDE ONLY under fluoroscopic guidance. The procedure is performed using fluoroscopic guidance during needle placement to assure proper position and maximize safety. ANESTHESIA: Local with 1% lidocaine; conscious sedation EBL: Minimal PROCEDURE INDICATION: Patient with lumbar facet arthropathy signs and symptoms, here for diagnostic medial branch block #1 in series. Pt does not take any blood thinning medications. PROCEDURE DESCRIPTION: The patient was seen and identified in the preoperative area. Risks, benefits, complications, and alternatives were discussed with the patient (including but not limited to incomplete pain relief, bleeding, infection, nerve damage, and allergies to medications), the patient agreed to proceed with the procedure and signed the consent after all questions were answered. Patient was taken to the OR and time out was completed to verify proper patient, position, laterality of pain, and allergies. Pt was placed in the prone position and a pillow was placed under the abdomen to reduce lumbar lordosis. The lumbosacral area was prepped and draped in the usual sterile fashion. Using oblique fluoroscopy, the eye of the "Shay dog" of left L4 vertebral body , which corresponds to the path of the medial branch originating from the level above, which is L3 in this case, was identified. Subsequently, a 22-gauge 3.5- inch spinal needle was inserted under fluoroscopic guidance toward the eye of the "Shay dog" of the left L4 vertebral body, corresponding to the junction of the superior articular process and the transverse process of the pedicle of the same level. After needle tip confirmation on lateral view and after negative aspiration for CSF and blood and without paresthesias, 1 mL of a 3 ml solution of 0.5% preservative-free bupivacaine and 40 mg Kenalog was injected. Subsequently the needle was withdrawn intact and the same procedure was repeated for the left L4 and left L5 medial branches which correspond to the sensory innervation of the left L3-L4, L4-L5, and L5-S1 facet joints. Needle was withdrawn intact after each injection. At the end of the procedure, the skin was cleansed and bandages were applied. COMPLICATIONS: None. DISPOSITION/PLAN: The patient taken to the recovery area after the procedure in a stable condition for observation. Patient was reexamined prior to discharge and there were no issues. Patient was discharged home, accompanied by an adult, after meeting discharged criteria. Discharge instructions were give to the patient by the staff. Patient was specifically instructed not to drive today and to rest for the rest of the day. Patient will schedule repeat LEFT only lumbar medial branch block.
[2017-05-18] MEDS ORDERED: IV FLUID CONTINUATION 1,000 ML IV ONE (09:37)
[2017-05-18 09:59] VITALS: BP 114/59; PULSE 74
--- NOTE | 2017-05-18 09:59 | FL ---
FLUOROSCOPY 14 seconds of fluoroscopy time were utilized during lumbar facet block. 2 images document the procedu re.
== END 2017-05-18 10:14 | disposition home or self-care (01) ==
LOC: ORPAIN 08:45
PROVIDERS: ATTEND Anesthesiology
DX: G89.29 Other chronic pain (principal); M47.816 Spondylosis without myelopathy or radiculopathy, lumbar region; M47.817 Spondylosis without myelopathy or radiculopathy, lumbosacral region; M46.96 Unspecified inflammatory spondylopathy, lumbar region; M46.97 Unspecified inflammatory spondylopathy, lumbosacral region
CPT/HCPCS: 64493; 64494; 64495; J2250; J3301

== ENCOUNTER 2017-06-07 08:36 | Day surgery (SDC) | payer MEDICAID, BC ==
[2017-06-02 14:02] VITALS: BMI 25.6
[2017-06-07 09:36] VITALS: RESP 16; TEMP 97.8
[2017-06-07] MEDS ORDERED: LIDOCAINE 1% 20 ML VIAL (10MG/ML) FOR IV START INTRADERMA ONE (09:47)
[2017-06-07] MEDS ORDERED: LACTATED RINGERS 1,000 ML IV ONE (09:47)
--- NOTE | 2017-06-07 10:11 | P.PCN ---
Date of Procedure: 06/07/17 Preoperative Diagnosis: Postoperative Diagnosis: Procedure(s) Performed: Implants: Surgeon: Jacob Peraza Pathology: none sent Condition: stable Disposition: PACU Indications for Procedure: Operative Findings: Description of Procedure: PREOPERATIVE DIAGNOSIS: L3-L4, L4-L5, and L5-S1 spondylosis without myelopathy and facet arthropathy. POSTOPERATIVE DIAGNOSIS: L3-L4, L4-L5, and L5-S1 spondylosis without myelopathy and facet arthropathy. PROCEDURE DESCRIPTION: Patient presents for L3-L4, L4-L5, and L5-S1 diagnostic medial branch blocks LEFT SIDE ONLY under fluoroscopic guidance. The procedure is performed using fluoroscopic guidance during needle placement to assure proper position and maximize safety. ANESTHESIA: Local with 1% lidocaine; conscious sedation EBL: Minimal PROCEDURE INDICATION: Patient with lumbar facet arthropathy signs and symptoms, here for diagnostic medial branch block #2 in series after having good relief from first MBB for 5 days > 70% pain relief. Pt does not take any blood thinning medications. PROCEDURE DESCRIPTION: The patient was seen and identified in the preoperative area. Risks, benefits, complications, and alternatives were discussed with the patient (including but not limited to incomplete pain relief, bleeding, infection, nerve damage, and allergies to medications), the patient agreed to proceed with the procedure and signed the consent after all questions were answered. Patient was taken to the OR and time out was completed to verify proper patient, position, laterality of pain, and allergies. Pt was placed in the prone position and a pillow was placed under the abdomen to reduce lumbar lordosis. The lumbosacral area was prepped and draped in the usual sterile fashion. Using oblique fluoroscopy, the eye of the "Shay dog" of left L4 vertebral body , which corresponds to the path of the medial branch originating from the level above, which is L3 in this case, was identified. Subsequently, a 22-gauge 3.5- inch spinal needle was inserted under fluoroscopic guidance toward the eye of the "Shay dog" of the left L4 vertebral body, corresponding to the junction of the superior articular process and the transverse process of the pedicle of the same level. After needle tip confirmation on lateral view and after negative aspiration for CSF and blood and without paresthesias, 1 mL of a 3 ml solution of 0.5% preservative-free bupivacaine was injected. NO STEROID USED. Subsequently the needle was withdrawn intact and the same procedure was repeated for the left L4 and left L5 medial branches which correspond to the sensory innervation of the left L3-L4, L4-L5, and L5-S1 facet joints. Needle was withdrawn intact after each injection. At the end of the procedure, the skin was cleansed and bandages were applied. COMPLICATIONS: None. DISPOSITION/PLAN: The patient taken to the recovery area after the procedure in a stable condition for observation. Patient was reexamined prior to discharge and there were no issues. Patient was discharged home, accompanied by an adult, after meeting discharged criteria. Discharge instructions were give to the patient by the staff. Patient was specifically instructed not to drive today and to rest for the rest of the day. Patient will schedule left lumbar RFA for next visit.
[2017-06-07] MEDS ORDERED: IV FLUID CONTINUATION 1,000 ML IV ONE (10:21)
[2017-06-07 10:44] VITALS: BP 123/68; PULSE 76
--- NOTE | 2017-06-07 10:48 | FL ---
FLUOROSCOPY 8 seconds of fluoroscopy time were utilized during Pain Injection. 2 images document the procedure.
[2017-06-07] MEDS ORDERED: LACTATED RINGERS 1,000 ML IV SCH (11:30)
== END 2017-06-07 11:18 | disposition home or self-care (01) ==
LOC: ORPAIN 08:36
PROVIDERS: ATTEND Anesthesiology
DX: G89.29 Other chronic pain (principal); M47.816 Spondylosis without myelopathy or radiculopathy, lumbar region; M46.96 Unspecified inflammatory spondylopathy, lumbar region; I10 Essential (primary) hypertension; E78.5 Hyperlipidemia, unspecified; Z79.52 Long term (current) use of systemic steroids
CPT/HCPCS: 64493; 64494; 64495; 99152; J2250

== ENCOUNTER 2017-06-27 20:32 | Inpatient (IN) | payer MEDICAID, BC ==
[2017-06-27] MEDS ORDERED: ACETAMINOPHEN TAB 500 MG TAB PO STA (21:03)
[2017-06-27 21:13] LABS: Glucose,Whole Blood 133 mg/dL (75-99)
[2017-06-27] MEDS ORDERED: SODIUM CHLORIDE 0.9% 1,000 ML IV ONE (21:15)
[2017-06-27 21:24] LABS: Basophils % (A) 0 %; CH 31.6; CHCM 33.7; Eosinophils % (A) 0 %; HCT 34.7 % (34.0-46.0); HGB 11.6 gm/dL (11.4-16.0); Luc # (Auto) 0.28; Luc % (Auto) 3; Lymphocytes # (A) 0.7 k/uL (1.0-4.8); Lymphocytes % (A) 6 %; MCH 31.3 pg (25.0-35.0); MCHC 33.3 g/dL (31.0-37.0); Mean Platelet Volume 6.9; Monocytes # (A) 0.3 k/uL (0-1.0); Monocytes % (A) 3 %; Neutrophils # (A) 9.7 k/uL (1.3-7.7); Neutrophils % (A) 89 %; RBC 3.69 m/uL (3.80-5.40); RDW 13.4 % (11.5-15.5); WBC 10.9 k/uL (3.8-10.6); WBC (Perox) 11.02
[2017-06-27] MEDS ORDERED: KETOROLAC 30 MG/ML 1 ML VIAL IVP STA (21:30)
[2017-06-27 21:36] LABS: ALT 39 U/L (9-52); AST 38 U/L (14-36); Acetaminophen 13.1 ug/mL; Alkaline Phosphatase 136 U/L (38-126); Anion Gap 11 mmol/L; Blood Urea Nitrogen 15 mg/dL (7-17); Calcium 8.8 mg/dL (8.4-10.2); Carbon Dioxide 23 mmol/L (22-30); Chloride 98 mmol/L (98-107); Glucose 128 mg/dL (74-99); Non-African American GFR(MDRD) >60 (>60 ml/min/1.73 sqM); Potassium 4.6 mmol/L (3.5-5.1); Salicylate <1.0 mg/dL; Sodium 132 mmol/L (137-145); Total Bilirubin 0.6 mg/dL (0.2-1.3); Total Protein 6.3 g/dL (6.3-8.2)
[2017-06-27 21:37] LABS: Appearance,Urine Cloudy (Clear); Bilirubin,Urine Negative (Negative); Glucose,Urine (UA) Negative (Negative); Ketones,Urine Trace (Negative); Leukocyte Esterase,Urine Large (Negative); Mucus,Urine Rare /hpf; Nitrite,Urine Negative (Negative); Particle Count 4089; Protein,Urine 1+ (Negative); RBC,Urine 9 /hpf (0-5); Specific Gravity,Urine 1.027 (1.001-1.035); Squamous Epithelial Cell,Urine 2 /hpf (0-4); UA Billing (MACRO vs. MICRO) MICRO; Urobilinogen,Urine <2.0 mg/dL (<2.0); WBC,Urine 13 /hpf (0-5)
[2017-06-27 21:37] LABS: Creatine Kinase 24 U/L (30-135)
[2017-06-27 21:50] LABS: Creatine Kinase MB 0.3 ng/mL (0.0-2.4); INR 1.1 (<1.2); Partial Thromboplastin Time 24.2 sec (22.0-30.0); Prothrombin Time 11.1 sec (9.0-12.0); Troponin I <0.012 ng/mL (0.000-0.034)
--- NOTE | 2017-06-27 22:27 | ED ---
Altered Mental Status HPI - General Chief Complaint: Altered Mental Status Stated Complaint: Pain and altered mental Time Seen by Provider: 06/27/17 20:51 Source: patient Mode of arrival: wheelchair Limitations: no limitations - History of Present Illness Initial Comments: This is a 61-year-old female to history of chronic back pain who presents emergency department for mental status changes. Per the family is been going on for the last couple of days. They state that she has just been off. She did recently have her [place] increased to more frequently during the day and also started on a Medrol Dosepak however she's been on these medications for a long time and they do not feel it is related to these medications. Patient denies any chest pain however does admit to a cough. No shortness of breath. No nausea, vomiting, or diarrhea. She denies any dysuria or hematuria. She does admit to decreased urinary output. She admits to some headaches over the last couple of days and also neck pain which she states has been going on for the last month but worsening over the last couple of days. She has chronic lumbar back pain. She states she's been feeling warm however is not taken her temperature. No other complaints. - Related Data Home Medications Medication Instructions Recorded Confirmed Aspirin EC [Ecotrin Low Dose] 81 mg PO DAILY 05/23/14 06/27/17 Atorvastatin Calcium [Lipitor] 40 mg PO DAILY 05/23/14 06/27/17 Biotin 5 mg PO DAILY 05/23/14 06/27/17 Lisinopril [Zestril] 20 mg PO BID@0900,199905/23/14 06/27/17 Lysine 500 mg PO DAILY 05/23/14 06/27/17 Metoprolol Tartrate [Lopressor] 100 mg PO TID@0200,0900,199905/23/14 06/27/17 Pantoprazole Sodium [Protonix] 40 mg PO DAILY 05/23/14 06/27/17 traZODone HCL 50 mg PO HS PRN 12/01/16 06/27/17 Furosemide [Lasix] 20 mg PO DAILY 12/28/16 06/27/17 HYDROcodone/APAP 7.5-325MG [[place] 1 tab PO TID PRN 02/07/17 06/27/17 7.5-325] Cyclobenzaprine [Flexeril] 10 mg PO TID PRN 06/27/17 06/27/17 Magnesium Gluconate [Magonate] 1,000 mg PO DAILY 06/27/17 06/27/17 Multivitamins, Thera [Multivitamin 1 tab PO DAILY 06/27/17 06/27/17 (formulary)] rOPINIRole HCL [Requip] 1.5 mg PO DAILY@0800 06/27/17 06/27/17 Previous Rx's Medication Instructions Recorded Nitroglycerin Sl Tabs [Nitrostat] 0.4 mg SUBLINGUAL Q5M PRN #0 tab 02/10/17 Allergies Allergy/AdvReac Type Severity Reaction Status Date / Time griseofulvin ultramicrosize Allergy Severe Rash/Hives Verified 06/23/17 15:23 [From Jahaira-PEG (ultramicrosize)] minocycline HCl Allergy Severe Rash/Hives Verified 06/23/17 15:23 [From Minocin] Penicillins Allergy Severe Rash/Hives Verified 06/23/17 15:23 Skin Cleanser Combination Allergy Severe Rash/Hives Verified 06/23/17 15:23 No.4 [From Minocin] sulfamethoxazole Allergy Rash/Hives Verified 06/27/17 20:58 [From Bactrim] trimethoprim [From Bactrim] Allergy Rash/Hives Verified 06/27/17 20:58 Review of Systems ROS Statement: Those systems with pertinent positive or pertinent negative responses have been documented in the HPI. ROS Other: All systems not noted in ROS Statement are negative. Past Medical History Past Medical History: Heart Failure, Myocardial Infarction (PA), Osteoarthritis (OA), Thyroid Disorder Additional Past Medical History / Comment(s): DEFECT- MITRAL VALVE PROLAPSE, ARRYTHMIA, PALPITATIONS, POOR CIRCULATION,SCOLIOSIS, THYROID NODULE, BACK PAIN, Wearing neck brace for arthritis in neck Last Myocardial Infarction Date:: 2007 History of Any Multi-Drug Resistant Organisms: None Reported Past Surgical History: Appendectomy, Coronary Bypass/CABG, Joint Replacement, Orthopedic Surgery Additional Past Surgical History / Comment(s): BILATERAL CATARACTS. , CABG - 1 vessel, aortic valve replacement, BILAT KAREL, REPAIR FX RT ARM, REPAIR FX RT FEMUR, BILAT CTR, BILAT KNEE SCOPES, BILAT TENNIS elbow, LT EYE SURGERY, TMJ SX , COLONOSCOPY,. Past Anesthesia/Blood Transfusion Reactions: No Reported Reaction Past Psychological History: No Psychological Hx Reported Smoking Status: Former smoker Past Alcohol Use History: Occasional Past Drug Use History: None Reported - Past Family History Mother Family Medical History: Cancer Additional Family Medical History / Comment(s): BREAST, COLON/BOWEL, SKIN CANCER. Sister(s) Family Medical History: Cancer General Exam - General Exam Comments Initial Comments: Constitutional: Awake alert Appears comfortable Head: Normocephalic atraumatic Eyes: no conjunctival injection No scleral icterus EOMI ENT: TMs clear bilaterally, no oral pharyngeal erythema or edema Neck: No JVD Supple, there is paraspinal tenderness bilaterally, tenderness with neck flexion, no stiffness Heart: Regular rate rhythm normal S1-S2 no murmurs Lungs: Clear to auscultation bilaterally No wheezing No rales Abdomen: Soft nondistended nontender Extremities: Non edematous DP pulses intact Radial pulses intact Neuro: A&Ox3 nerves II through XII are grossly intact, 5 out of 5 strength in upper and lower extremities bilaterally, the patient does seem confused at times and is hyperverbal Psych: Appropriate mood and affect Limitations: no limitations Course Vital Signs 06/27/17 06/27/17 06/27/17 20:42 21:46 23:57 Temperature 98.8 F 98.4 F Pulse Rate 128 H 114 H 103 H Respiratory 20 20 18 Rate Blood Pressure 118/74 131/65 104/58 O2 Sat by Pulse 95 96 95 Oximetry - Reevaluation(s) Reevaluation #1: 06/27/17 22:29 EKG showing sinus tachycardia with a rate of 131. Mild ST depression in the lateral leads. T-wave inversion in lead 3. QTC 440. Other intervals normal. No ectopy. Procedures - Lumbar Puncture Consent Obtained: written consent Time Out Performed: Yes Indication for Procedure: headache, fever work up, change in mental status Patient Position: sitting upright/leaning forward Skin Prep: 0.5% Chlorhexidine/Alcohol Local Anesthetic Used: Lidocaine 1% Spinal Needle Gauge: 20G Interspace Used: L4-L5 Fluid Initially Obtained: cloudy Complications: none Patient Tolerated Procedure: well, no complications - Sepsis Sepsis Focused Exam #1 Time Sepsis Criteria Met: 21:20 Medical Decision Making - Medical Decision Making Is a 61-year-old female who presents emergency department for mental status changes. She was tachycardic and febrile on arrival. She did appear to have urinary tract infection however due to neck pain and headache Society do an LP. LP revealed what appears to be bacterial meningitis. The patient is given a dose of vancomycin and Rocephin and also acyclovir. However after getting results of CSF and appears to be bacterial in nature. She is to stay in the hospital for IV antibiotics. I spoke with Dr. Link who accepts the admission. He would like infectious disease on the case. - Lab Data Result diagrams: 06/27/17 21:09 06/27/17 21:09 Lab Results 06/27/17 06/27/17 06/27/17 Range/Units 21:08 21:09 21:09 WBC (3.8-10.6) k/uL RBC (3.80-5.40) m/uL Hgb (11.4-16.0) gm/dL Hct (34.0-46.0) % MCV (80.0-100.0) fL MCH (25.0-35.0) pg MCHC (31.0-37.0) g/dL RDW (11.5-15.5) % Plt Count (150-450) k/uL Neutrophils % % Lymphocytes % % Monocytes % % Eosinophils % % Basophils % % Neutrophils # (1.3-7.7) k/uL Lymphocytes # (1.0-4.8) k/uL Monocytes # (0-1.0) k/uL Eosinophils # (0-0.7) k/uL Basophils # (0-0.2) k/uL PT (9.0-12.0) sec INR (<1.2) APTT (22.0-30.0) sec Sodium 132 L (137-145) mmol/L Potassium 4.6 (3.5-5.1) mmol/L Chloride 98 (98-107) mmol/L Carbon Dioxide 23 (22-30) mmol/L Anion Gap 11 mmol/L BUN 15 (7-17) mg/dL Creatinine 0.60 (0.52-1.04) mg/dL Est GFR (MDRD) Af Amer >60 (>60 ml/min/1.73 sqM) Est GFR (MDRD) Non-Af >60 (>60 ml/min/1.73 sqM) Glucose 128 H (74-99) mg/dL POC Glucose (mg/dL) 133 H (75-99) mg/dL POC Glu Physical Damage Appraiser Lilian Owen Plasma Lactic Acid Steven (0.7-2.0) mmol/L Calcium 8.8 (8.4-10.2) mg/dL Total Bilirubin 0.6 (0.2-1.3) mg/dL AST 38 H (14-36) U/L ALT 39 (9-52) U/L Alkaline Phosphatase 136 H (38-126) U/L Total Creatine Kinase 24 L (30-135) U/L CK-MB (CK-2) 0.3 (0.0-2.4) ng/mL CK-MB (CK-2) Rel Index 1.3 Troponin I <0.012 (0.000-0.034) ng/mL NT-Pro-B Natriuret Pep pg/mL Total Protein 6.3 (6.3-8.2) g/dL Albumin 3.2 L (3.5-5.0) g/dL TSH 1.210 (0.465-4.680) mIU/L Urine Color Urine Appearance (Clear) Urine pH (5.0-8.0) Ur Specific [place] (1.001-1.035) Urine Protein (Negative) Urine Glucose (UA) (Negative) Urine Ketones (Negative) Urine Blood (Negative) Urine Nitrite (Negative) Urine Bilirubin (Negative) Urine Urobilinogen (<2.0) mg/dL Ur Leukocyte Esterase (Negative) Urine RBC (0-5) /hpf Urine WBC (0-5) /hpf Ur Squamous Epith Cells (0-4) /hpf Urine Mucus (None) /hpf CSF Tube Number CSF Volume CSF Appearance CSF Color CSF RBC (0-10) u/L CSF Tot Nucleated Cells (0-5) u/L CSF Mononuclear WBCs % % CSF Polynuclear WBCs % % CSF Fresh RBCs % CSF Glucose (40-70) mg/dL CSF Total Protein (12-60) mg/dL Salicylates <1.0 mg/dL Urine Opiates Screen (NotDetected) Ur Oxycodone Screen (NotDetected) Urine Methadone Screen (NotDetected) Ur Propoxyphene Screen (NotDetected) Acetaminophen 13.1 ug/mL Ur Barbiturates Screen (NotDetected) U Tricyclic Antidepress (NotDetected) Ur Phencyclidine Scrn (NotDetected) Ur Amphetamines Screen (NotDetected) U Methamphetamines Scrn (NotDetected) U Benzodiazepines Scrn (NotDetected) Urine Cocaine Screen (NotDetected) U Marijuana (THC) Screen (NotDetected) 06/27/17 06/27/17 06/27/17 Range/Units 21:09 21:09 21:09 WBC 10.9 H (3.8-10.6) k/uL RBC 3.69 L (3.80-5.40) m/uL Hgb 11.6 (11.4-16.0) gm/dL Hct 34.7 (34.0-46.0) % MCV 94.0 (80.0-100.0) fL MCH 31.3 (25.0-35.0) pg MCHC 33.3 (31.0-37.0) g/dL RDW 13.4 (11.5-15.5) % Plt Count 413 (150-450) k/uL Neutrophils % 89 % Lymphocytes % 6 % Monocytes % 3 % Eosinophils % 0 % Basophils % 0 % Neutrophils # 9.7 H (1.3-7.7) k/uL Lymphocytes # 0.7 L (1.0-4.8) k/uL Monocytes # 0.3 (0-1.0) k/uL Eosinophils # 0.0 (0-0.7) k/uL Basophils # 0.0 (0-0.2) k/uL PT (9.0-12.0) sec INR (<1.2) APTT (22.0-30.0) sec Sodium (137-145) mmol/L Potassium (3.5-5.1) mmol/L Chloride (98-107) mmol/L Carbon Dioxide (22-30) mmol/L Anion Gap mmol/L BUN (7-17) mg/dL Creatinine (0.52-1.04) mg/dL Est GFR (MDRD) Af Amer (>60 ml/min/1.73 sqM) Est GFR (MDRD) Non-Af (>60 ml/min/1.73 sqM) Glucose (74-99) mg/dL POC Glucose (mg/dL) (75-99) mg/dL POC Glu Physical Damage Appraiser ID Plasma Lactic Acid Steven 1.1 (0.7-2.0) mmol/L Calcium (8.4-10.2) mg/dL Total Bilirubin (0.2-1.3) mg/dL AST (14-36) U/L ALT (9-52) U/L Alkaline Phosphatase (38-126) U/L Total Creatine Kinase (30-135) U/L CK-MB (CK-2) (0.0-2.4) ng/mL CK-MB (CK-2) Rel Index Troponin I (0.000-0.034) ng/mL NT-Pro-B Natriuret Pep 858 pg/mL Total Protein (6.3-8.2) g/dL Albumin (3.5-5.0) g/dL TSH (0.465-4.680) mIU/L Urine Color Urine Appearance (Clear) Urine pH (5.0-8.0) Ur Specific [place] (1.001-1.035) Urine Protein (Negative) Urine Glucose (UA) (Negative) Urine Ketones (Negative) Urine Blood (Negative) Urine Nitrite (Negative) Urine Bilirubin (Negative) Urine Urobilinogen (<2.0) mg/dL Ur Leukocyte Esterase (Negative) Urine RBC (0-5) /hpf Urine WBC (0-5) /hpf Ur Squamous Epith Cells (0-4) /hpf Urine Mucus (None) /hpf CSF Tube Number CSF Volume CSF Appearance CSF Color CSF RBC (0-10) u/L CSF Tot Nucleated Cells (0-5) u/L CSF Mononuclear WBCs % % CSF Polynuclear WBCs % % CSF Fresh RBCs % CSF Glucose (40-70) mg/dL CSF Total Protein (12-60) mg/dL Salicylates mg/dL Urine Opiates Screen (NotDetected) Ur Oxycodone Screen (NotDetected) Urine Methadone Screen (NotDetected) Ur Propoxyphene Screen (NotDetected) Acetaminophen ug/mL Ur Barbiturates Screen (NotDetected) U Tricyclic Antidepress (NotDetected) Ur Phencyclidine Scrn (NotDetected) Ur Amphetamines Screen (NotDetected) U Methamphetamines Scrn (NotDetected) U Benzodiazepines Scrn (NotDetected) Urine Cocaine Screen (NotDetected) U Marijuana (THC) Screen (NotDetected) 06/27/17 06/27/17 06/27/17 Range/Units 21:09 21:20 22:44 WBC (3.8-10.6) k/uL RBC (3.80-5.40) m/uL Hgb (11.4-16.0) gm/dL Hct (34.0-46.0) % MCV (80.0-100.0) fL MCH (25.0-35.0) pg MCHC (31.0-37.0) g/dL RDW (11.5-15.5) % Plt Count (150-450) k/uL Neutrophils % % Lymphocytes % % Monocytes % % Eosinophils % % Basophils % % Neutrophils # (1.3-7.7) k/uL Lymphocytes # (1.0-4.8) k/uL Monocytes # (0-1.0) k/uL Eosinophils # (0-0.7) k/uL Basophils # (0-0.2) k/uL PT 11.1 (9.0-12.0) sec INR 1.1 (<1.2) APTT 24.2 (22.0-30.0) sec Sodium (137-145) mmol/L Potassium (3.5-5.1) mmol/L Chloride (98-107) mmol/L Carbon Dioxide (22-30) mmol/L Anion Gap mmol/L BUN (7-17) mg/dL Creatinine (0.52-1.04) mg/dL Est GFR (MDRD) Af Amer (>60 ml/min/1.73 sqM) Est GFR (MDRD) Non-Af (>60 ml/min/1.73 sqM) Glucose (74-99) mg/dL POC Glucose (mg/dL) (75-99) mg/dL POC Glu Physical Damage Appraiser ID Plasma Lactic Acid Steven (0.7-2.0) mmol/L Calcium (8.4-10.2) mg/dL Total Bilirubin (0.2-1.3) mg/dL AST (14-36) U/L ALT (9-52) U/L Alkaline Phosphatase (38-126) U/L Total Creatine Kinase (30-135) U/L CK-MB (CK-2) (0.0-2.4) ng/mL CK-MB (CK-2) Rel Index Troponin I (0.000-0.034) ng/mL NT-Pro-B Natriuret Pep pg/mL Total Protein (6.3-8.2) g/dL Albumin (3.5-5.0) g/dL TSH (0.465-4.680) mIU/L Urine Color Yellow Urine Appearance Cloudy H (Clear) Urine pH 6.0 (5.0-8.0) Ur Specific [place] 1.027 (1.001-1.035) Urine Protein 1+ H (Negative) Urine Glucose (UA) Negative (Negative) Urine Ketones Trace H (Negative) Urine Blood Small H (Negative) Urine Nitrite Negative (Negative) Urine Bilirubin Negative (Negative) Urine Urobilinogen <2.0 (<2.0) mg/dL Ur Leukocyte Esterase Large H (Negative) Urine RBC 9 H (0-5) /hpf Urine WBC 13 H (0-5) /hpf Ur Squamous Epith Cells 2 (0-4) /hpf Urine Mucus Rare H (None) /hpf CSF Tube Number 4 CSF Volume 1.0 CSF Appearance Cloudy CSF Color Colorless CSF RBC 15 H (0-10) u/L CSF Tot Nucleated Cells 3240 H (0-5) u/L CSF Mononuclear WBCs % 13 % CSF Polynuclear WBCs % 87 % CSF Fresh RBCs 100 % CSF Glucose 32 L (40-70) mg/dL CSF Total Protein 283 H (12-60) mg/dL Salicylates mg/dL Urine Opiates Screen Detected H (NotDetected) Ur Oxycodone Screen Not Detected (NotDetected) Urine Methadone Screen Not Detected (NotDetected) Ur Propoxyphene Screen Not Detected (NotDetected) Acetaminophen ug/mL Ur Barbiturates Screen Not Detected (NotDetected) U Tricyclic Antidepress Detected H (NotDetected) Ur Phencyclidine Scrn Not Detected (NotDetected) Ur Amphetamines Screen Not Detected (NotDetected) U Methamphetamines Scrn Not Detected (NotDetected) U Benzodiazepines Scrn Not Detected (NotDetected) Urine Cocaine Screen Not Detected (NotDetected) U Marijuana (THC) Screen Not Detected (NotDetected) Disposition Clinical Impression: Sepsis, Meningitis, UTI (urinary tract infection) Disposition: ADMITTED IP TO THIS HOSP Condition: Critical
--- NOTE | 2017-06-27 22:43 | CT ---
EXAM: CT Head Without Intravenous Contrast CLINICAL HISTORY: Reason: Mental Status Change TECHNIQUE: Axial computed tomography images of the head/brain without intravenous contrast. CTDI is 60.3 mGy and DLP is 1081.8 mGy-cm. This CT exam was performed using one or more of the following dose reduction techniques: automated exposure control, adjustment of the mA and/or kV according to patient size, and/or use of iterative reconstruction technique. Coronal and sagittal reconstructions are performed COMPARISON: Brain MRI from 04/13/2017 FINDINGS: Brain: Unremarkable. No hemorrhage. No significant white matter disease. No edema. Ventricles: Unremarkable. No ventriculomegaly. Bones/joints: Unremarkable. No acute fracture. Soft tissues: Unremarkable. Sinuses: Unremarkable as visualized. No acute sinusitis. Mastoid air cells: Unremarkable as visualized. No mastoid effusion. IMPRESSION: No acute intracranial findings
[2017-06-27] MEDS ORDERED: ACYCLOVIR SODIUM 600 MG in SODIUM CHLORIDE 0.9% 100 ML IV ONE (23:07)
[2017-06-27] MEDS ORDERED: IV VANCOMYCIN PER PHARMACY 1 EACH MISC MISCELLANE PRN (23:07)
[2017-06-27 23:38] LABS: Glucose,CSF 32 mg/dL (40-70)
[2017-06-27 23:59] LABS: Appearance,CSF Cloudy
[2017-06-28 00:01] LABS: Diff, Total Cells Cnt, CSF 100; Polynuclear WBC,CSF 87 %
[2017-06-28 00:03] LABS: Red Blood Cell, CSF Fresh 100 %
[2017-06-28] MEDS ORDERED: VANCOMYCIN 1,250 MG in SODIUM CHLORIDE 0.9% 250 ML IVPB ONE (00:30)
[2017-06-28] MEDS ORDERED: HYDROcodone/APAP 5-325MG 1 EACH TAB PO STA (01:16)
[2017-06-28] MEDS: METOPROLOL TARTRATE 50 MG TAB PO SCH ×3 (02:16→20:22)
[2017-06-28] MEDS: SODIUM CHLORIDE 0.9% 1,000 ML IV SCH ×4 (03:35→22:32)
[2017-06-28] MEDS: HYDROcodone/APAP 7.5-325MG 1 EACH TAB PO PRN (06:54)
[2017-06-28] MEDS: ATORVASTATIN 40 MG TAB PO SCH (08:49)
[2017-06-28] MEDS: PANTOPRAZOLE 40 MG TABLET PO SCH (08:49)
[2017-06-28] MEDS: FUROSEMIDE 20 MG TAB PO SCH (08:50)
[2017-06-28] MEDS: LISINOPRIL 20 MG TAB PO SCH ×2 (08:50→20:22)
[2017-06-28] MEDS: cefTRIAXone 2,000 MG in SODIUM CHLORIDE 0.9% 100 ML IVPB SCH ×2 (08:51→22:31)
[2017-06-28] MEDS ORDERED: VANCOMYCIN 1,000 MG in SODIUM CHLORIDE 0.9% 250 ML IVPB SCH (09:00)
[2017-06-28] MEDS ORDERED: HYDROmorphone 1 MG/ML 1 ML SYRINGE IVP STA (09:22)
[2017-06-28] MEDS: HYDROmorphone 2 MG/ML 1 ML SYRINGE IVP PRN ×3 (12:47→20:19)
--- NOTE | 2017-06-28 13:24 | P.CON ---
Consult Note - . Consult date: 06/28/17 Assessment/Plan:: This is a 61-year-old female with a past medical history significant for aortic valve replacement in 2007 done at [facility] and subsequently developed myocardial infarction underwent a CABG one vessel and then was transferred [facility] and had a difficult postoperative period with development of DVT in the left leg. Patient had a stress test done 2 years ago that apparently was normal. Was recently hospitalized. The point in time there was concern is the possibility of infection of her aortic bioprosthetic valve. She underwent testing. TORIBIO was performed without evidence of endocarditis. Evidence of a positive cultures and she did well with ongoing cardiac a follow-up. Over now she has a several day history of feeling poorly. She's been having some sweats at night. She's been having fever that is tactile in nature over the last several days. She's felt warm and weak. She's had no rita rigors. She developed increasing weakness. She was also having some increasing pain and was with some mild increase of her [place] dosing. Basic that she was not doing well. She was seen in the outpatient setting and was given a Medrol Dosepak also to see if this cannot help with her symptoms. 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 She does see pain specialist and has received epidural injections. Last was approximately 2-3 weeks ago. During this timeframe she has been treated with a burst of steroids. As well as her ongoing pain medications. She was feeling just slightly better and is now considerably worse and with her symptoms she presented to the emergency center. Positive relates that she also had significant alteration of her mental status on top of her significant headache and constantly he brought her to hospital. Fever was noted. Leukocytosis was also found. With her headache and mental status changes lumbar puncture was performed. Abnormal fluid has been found in with at the infectious diseases consultation was requested. Please see the consult note is dictated by nurse practitioner Mrs. Keya Santamaria. At this time the patient continues to feel poorly. We discussed the abnormal fluid. The likelihood that this could be a meningitis is noted. Antibiotic therapy is initiated with ceftriaxone 2 g every 12 hours as well as vancomycin. Laboratory does: Positive blood culture with gram-positive cocci in chains. Increases the likelihood this is a Streptococcus pneumoniae sepsis and with potential meningitis. Continue current antimicrobial therapy. Continue with ongoing local care. Her has a history of leukemia will continue wearing his mask and doing good hand hygiene. Leukocytosis record related to her current sepsis. Follow blood cultures are requested. Pain control is being utilized with minimal success given her current level of discomfort. Pain service has been asked to reevaluate. Computed tomography scan was performed without any acute changes in her brain. We shall monitor. Agree with evaluation, assessment and plan as dictated by nurse practitioner Mrs. Keya Santamaria.
--- NOTE | 2017-06-28 15:15 | P.CONS ---
History of Present Illness - Reason for Consult Consult date: 06/28/17 - History of Present Illness This is a 61-year-old female with a past medical history significant for aortic valve replacement in 2007 done at [facility] and subsequently developed myocardial infarction underwent a CABG one vessel and then was transferred [facility] and had a difficult postoperative period with development of DVT in the left leg. Patient had a stress test done 2 years ago that apparently was normal. Was recently hospitalized. The point in time there was concern is the possibility of infection of her aortic bioprosthetic valve. She underwent testing. TORIBIO was performed without evidence of endocarditis. Evidence of a positive cultures and she did well with ongoing cardiac a follow-up. She has a several day history of feeling poorly. She's been having some sweats at night. She's been having fever that is tactile in nature over the last several days. She's felt warm and weak. She's had no rita rigors. She developed increasing weakness. She was also having some increasing pain and was with some mild increase of her [place] dosing. Basic that she was not doing well. She was seen in the outpatient setting and was given a Medrol Dosepak also to see if this cannot help with her symptoms. 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 She does see pain specialist and has received epidural injections. Last was approximately 2- 3 weeks ago. During this timeframe she has been treated with a burst of steroids. As well as her ongoing pain medications. She was feeling just slightly better and is now considerably worse and with her symptoms she presented to the emergency center. Positive relates that she also had significant alteration of her mental status on top of her significant headache and constantly he brought her to hospital. Fever was noted. Leukocytosis was also found. With her headache and mental status changes lumbar puncture was performed. Abnormal fluid has been found in with at the infectious diseases consultation was requested. Please see the consult note is dictated by nurse practitioner Mrs. Keya Santamaria. At this time the patient continues to feel poorly. We discussed the abnormal fluid. The likelihood that this could be a meningitis is noted. Antibiotic therapy is initiated with ceftriaxone 2 g every 12 hours as well as vancomycin. Laboratory does: Positive blood culture with gram-positive cocci in chains. Increases the likelihood this is a Streptococcus pneumoniae sepsis and with potential meningitis. Continue current antimicrobial therapy. Continue with ongoing local care. Her has a history of leukemia will continue wearing his mask and doing good hand hygiene. Leukocytosis record related to her current sepsis. Review of Systems All systems: negative Constitutional: Reports chills, Reports fatigue, Reports fever, Reports sweats, Reports weakness Eyes: denies blurred vision, denies pain Ears, nose, mouth and throat: Reports headache, Denies sore throat Cardiovascular: Denies chest pain, Denies shortness of breath Respiratory: Reports cough, Denies cough with sputum, Denies dyspnea, Denies excessive sputum, Denies hemoptysis, Denies home oxygen Gastrointestinal: Denies abdominal pain, Denies diarrhea, Denies nausea, Denies vomiting Genitourinary: Reports difficulty voiding, Denies dysuria, Denies hematuria Musculoskeletal: Denies myalgias Integumentary: Denies pruritus, Denies rash Neurological: Denies numbness, Denies weakness Psychiatric: Denies anxiety, Denies depression Endocrine: Denies fatigue, Denies weight change Past Medical History Past Medical History: Heart Failure, Deep Vein Thrombosis (DVT), Myocardial Infarction ([place]), Osteoarthritis (OA), Thyroid Disorder Additional Past Medical History / Comment(s): DEFECT- MITRAL VALVE PROLAPSE, ARRYTHMIA, PALPITATIONS, POOR CIRCULATION,SCOLIOSIS, THYROID NODULE, BACK PAIN, Wearing neck brace for arthritis in neck, Aortic Aneurysm Last Myocardial Infarction Date:: 2007 History of Any Multi-Drug Resistant Organisms: None Reported Past Surgical History: Appendectomy, Coronary Bypass/CABG, Joint Replacement, Orthopedic Surgery Additional Past Surgical History / Comment(s): BILATERAL CATARACTS. , CABG - 1 vessel, aortic valve replacement, BILAT KAREL, REPAIR FX RT ARM, REPAIR FX RT FEMUR, BILAT CTR, BILAT KNEE SCOPES, BILAT TENNIS elbow, LT EYE SURGERY, TMJ SX , COLONOSCOPY,. Past Anesthesia/Blood Transfusion Reactions: No Reported Reaction Past Psychological History: No Psychological Hx Reported Smoking Status: Former smoker Past Alcohol Use History: Occasional Additional Past Alcohol Use History / Comment(s): SMOKED FOR 6 MONTHS AT AGE 20 Past Drug Use History: None Reported - Past Family History Mother Family Medical History: Cancer Additional Family Medical History / Comment(s): BREAST, COLON/BOWEL, SKIN CANCER. Sister(s) Family Medical History: Cancer Medications and Allergies Home Medications Medication Instructions Recorded Confirmed Type Aspirin EC [Ecotrin Low Dose] 81 mg PO DAILY 05/23/14 06/27/17 History Atorvastatin Calcium [Lipitor] 40 mg PO DAILY 05/23/14 06/27/17 History Biotin 5 mg PO DAILY 05/23/14 06/27/17 History Lisinopril [Zestril] 20 mg PO BID@09,199905/23/14 06/27/17 History Lysine 500 mg PO DAILY 05/23/14 06/27/17 History Metoprolol Tartrate [Lopressor] 100 mg PO TID@0200,09,199905/23/14 06/27/17 History Pantoprazole Sodium [Protonix] 40 mg PO DAILY 05/23/14 06/27/17 History traZODone HCL 50 mg PO HS PRN 12/01/16 06/27/17 History Furosemide [Lasix] 20 mg PO DAILY 12/28/16 06/27/17 History HYDROcodone/APAP 7.5-325MG [[place] 1 tab PO TID PRN 02/07/17 06/27/17 History 7.5-325] Cyclobenzaprine [Flexeril] 10 mg PO TID PRN 06/27/17 06/27/17 History Magnesium Gluconate [Magonate] 1,000 mg PO DAILY 06/27/17 06/27/17 History Multivitamins, Thera [Multivitamin 1 tab PO DAILY 06/27/17 06/27/17 History (formulary)] rOPINIRole HCL [Requip] 1.5 mg PO DAILY@0800 06/27/17 06/27/17 History Allergies Allergy/AdvReac Type Severity Reaction Status Date / Time griseofulvin ultramicrosize Allergy Severe Rash/Hives Verified 06/23/17 15:23 [From Jahaira-PEG (ultramicrosize)] minocycline HCl Allergy Severe Rash/Hives Verified 06/23/17 15:23 [From Minocin] Penicillins Allergy Severe Rash/Hives Verified 06/23/17 15:23 Skin Cleanser Combination Allergy Severe Rash/Hives Verified 06/23/17 15:23 No.4 [From Minocin] sulfamethoxazole Allergy Rash/Hives Verified 06/27/17 20:58 [From Bactrim] trimethoprim [From Bactrim] Allergy Rash/Hives Verified 06/27/17 20:58 Physical Exam Vitals: Vital Signs Temp Pulse Pulse Resp BP BP Pulse Ox 06/28/17 07:53 96 06/28/17 03:59 89 18 06/28/17 03:31 97.8 F 90 18 107/57 96 06/28/17 02:00 97.7 F 93 18 99/58 98 06/28/17 01:34 98.2 F 100 18 118/57 96 06/27/17 23:57 98.4 F 103 H 18 104/58 95 06/27/17 21:46 114 H 20 131/65 96 06/27/17 20:42 98.8 F 128 H 20 118/74 95 Intake and Output 06/27/17 06/28/17 06/28/17 22:59 06:59 14:59 Intake Total 1250 Balance 1250 Intake: Intake, IV Titration 1250 Amount Sodium Chloride 0.9% 1, 1000 000 ml @ 1000 mls/hr IV ONCE ONE Rx#:[id number] Vancomycin 1,000 mg In 250 Sodium Chloride 0.9% 250 ml @ 125 mls/hr IVPB Q12H [facility] Rx#:[id number] Other: Voiding Method Toilet Bedpan Weight 61.235 kg 62 kg Gen: This is a 61-year-old female in bed and appears to be quite uncomfortable and became near tears during eval. HEENT: Head is atraumatic, normocephalic. Pupils equal, round. Sclerae is anicteric. conjunctiva pink. Mucous membranes of the mouth are moist. NECK: Supple. No JVD. No lymphadenopathy. No thyromegaly. LUNGS: Clear to auscultation. No wheezes or rhonchi. No intercostal retractions. HEART: Regular rate and rhythm. Systolic murmur. ABDOMEN: Distended with tenderness over the suprapubic area. Bowel sounds are present. No masses. No tenderness. EXTREMITIES: No pedal edema. No calf tenderness. dorsalis pedis +2 bilaterally. NEUROLOGICAL: Patient is awake, alert and oriented x3. Cranial nerves 2 through 12 are grossly intact. Results Results: Laboratory Results WBC 10.9 k/uL (3.8-10.6) H 06/27/17 21:09 RBC 3.69 m/uL (3.80-5.40) L 06/27/17 21:09 Hgb 11.6 gm/dL (11.4-16.0) 06/27/17 21:09 Hct 34.7 % (34.0-46.0) 06/27/17 21:09 MCV 94.0 fL (80.0-100.0) 06/27/17 21:09 MCH 31.3 pg (25.0-35.0) 06/27/17 21:09 MCHC 33.3 g/dL (31.0-37.0) 06/27/17 21:09 RDW 13.4 % (11.5-15.5) 06/27/17 21:09 Plt Count 413 k/uL (150-450) 06/27/17 21:09 Neutrophils % 89 % 06/27/17 21:09 Lymphocytes % 6 % 06/27/17 21:09 Monocytes % 3 % 06/27/17 21:09 Eosinophils % 0 % 06/27/17 21:09 Basophils % 0 % 06/27/17 21:09 Neutrophils # 9.7 k/uL (1.3-7.7) H 06/27/17 21:09 Lymphocytes # 0.7 k/uL (1.0-4.8) L 06/27/17 21:09 Monocytes # 0.3 k/uL (0-1.0) 06/27/17 21:09 Eosinophils # 0.0 k/uL (0-0.7) 06/27/17 21:09 Basophils # 0.0 k/uL (0-0.2) 06/27/17 21:09 PT 11.1 sec (9.0-12.0) 06/27/17 21:09 INR 1.1 (<1.2) 06/27/17 21:09 APTT 24.2 sec (22.0-30.0) 06/27/17 21:09 Sodium 132 mmol/L (137-145) L 06/27/17 21:09 Potassium 4.6 mmol/L (3.5-5.1) 06/27/17 21:09 Chloride 98 mmol/L (98-107) 06/27/17 21:09 Carbon Dioxide 23 mmol/L (22-30) 06/27/17 21:09 Anion Gap 11 mmol/L 06/27/17 21:09 BUN 15 mg/dL (7-17) 06/27/17 21:09 Creatinine 0.60 mg/dL (0.52-1.04) 06/27/17 21:09 Est GFR (MDRD) Af Amer >60 (>60 ml/min/1.73 sqM) 06/27/17 21:09 Est GFR (MDRD) Non-Af >60 (>60 ml/min/1.73 sqM) 06/27/17 21:09 Glucose 128 mg/dL (74-99) H 06/27/17 21:09 POC Glucose (mg/dL) 133 mg/dL (75-99) H 06/27/17 21:08 POC Glu Rn Neonatal Icu Lilian Owen 06/27/17 21:08 Plasma Lactic Acid Steven 1.1 mmol/L (0.7-2.0) 06/27/17 21:09 Calcium 8.8 mg/dL (8.4-10.2) 06/27/17 21:09 Total Bilirubin 0.6 mg/dL (0.2-1.3) 06/27/17 21:09 AST 38 U/L (14-36) H 06/27/17 21:09 ALT 39 U/L (9-52) 06/27/17 21:09 Alkaline Phosphatase 136 U/L (38-126) H 06/27/17 21:09 Total Creatine Kinase 24 U/L (30-135) L 06/27/17 21:09 CK-MB (CK-2) 0.3 ng/mL (0.0-2.4) 06/27/17 21:09 CK-MB (CK-2) Rel Index 1.3 06/27/17 21:09 Troponin I <0.012 ng/mL (0.000-0.034) 06/27/17 21:09 NT-Pro-B Natriuret Pep 858 pg/mL 06/27/17 21:09 Total Protein 6.3 g/dL (6.3-8.2) 06/27/17 21:09 Albumin 3.2 g/dL (3.5-5.0) L 06/27/17 21:09 TSH 1.210 mIU/L (0.465-4.680) 08/07/17 21:09 Urine Color Yellow 06/27/17 21:20 Urine Appearance Cloudy (Clear) H 06/27/17 21:20 Urine pH 6.0 (5.0-8.0) 06/27/17 21:20 Ur Specific [place] 1.027 (1.001-1.035) 06/27/17 21:20 Urine Protein 1+ (Negative) H 06/27/17 21:20 Urine Glucose (UA) Negative (Negative) 06/27/17 21:20 Urine Ketones Trace (Negative) H 06/27/17 21:20 Urine Blood Small (Negative) H 06/27/17 21:20 Urine Nitrite Negative (Negative) 06/27/17 21:20 Urine Bilirubin Negative (Negative) 06/27/17 21:20 Urine Urobilinogen <2.0 mg/dL (<2.0) 06/27/17 21:20 Ur Leukocyte Esterase Large (Negative) H 06/27/17 21:20 Urine RBC 9 /hpf (0-5) H 06/27/17 21:20 Urine WBC 13 /hpf (0-5) H 06/27/17 21:20 Ur Squamous Epith Cells 2 /hpf (0-4) 06/27/17 21:20 Urine Mucus Rare /hpf (None) H 06/27/17 21:20 CSF Tube Number 4 06/27/17 22:44 CSF Volume 1.0 06/27/17 22:44 CSF Appearance Cloudy 06/27/17 22:44 CSF Color Colorless 06/27/17 22:44 CSF RBC 15 u/L (0-10) H 06/27/17 22:44 CSF Tot Nucleated Cells 3240 u/L (0-5) H 06/27/17 22:44 CSF Mononuclear WBCs % 13 % 06/27/17 22:44 CSF Polynuclear WBCs % 87 % 06/27/17 22:44 CSF Fresh RBCs 100 % 06/27/17 22:44 CSF Glucose 32 mg/dL (40-70) L 06/27/17 22:44 CSF Total Protein 283 mg/dL (12-60) H 06/27/17 22:44 Salicylates <1.0 mg/dL 06/27/17 21:09 Urine Opiates Screen Detected (NotDetected) H 06/27/17 21:20 Ur Oxycodone Screen Not Detected (NotDetected) 06/27/17 21:20 Urine Methadone Screen Not Detected (NotDetected) 06/27/17 21:20 Ur Propoxyphene Screen Not Detected (NotDetected) 06/27/17 21:20 Acetaminophen 13.1 ug/mL 06/27/17 21:09 Ur Barbiturates Screen Not Detected (NotDetected) 06/27/17 21:20 U Tricyclic Antidepress Detected (NotDetected) H 06/27/17 21:20 Ur Phencyclidine Scrn Not Detected (NotDetected) 06/27/17 21:20 Ur Amphetamines Screen Not Detected (NotDetected) 06/27/17 21:20 U Methamphetamines Scrn Not Detected (NotDetected) 06/27/17 21:20 U Benzodiazepines Scrn Not Detected (NotDetected) 06/27/17 21:20 Urine Cocaine Screen Not Detected (NotDetected) 06/27/17 21:20 U Marijuana (THC) Screen Not Detected (NotDetected) 06/27/17 21:20 CBC & Chem 7: 06/27/17 21:09 06/27/17 21:09 Labs: Abnormal Lab Results - Last 24 Hours (Table) 06/27/17 06/27/17 06/27/17 Range/Units 21:08 21:09 21:09 WBC (3.8-10.6) k/uL RBC (3.80-5.40) m/uL Neutrophils # (1.3-7.7) k/uL Lymphocytes # (1.0-4.8) k/uL Sodium 132 L (137-145) mmol/L Glucose 128 H (74-99) mg/dL POC Glucose (mg/dL) 133 H (75-99) mg/dL AST 38 H (14-36) U/L Alkaline Phosphatase 136 H (38-126) U/L Total Creatine Kinase 24 L (30-135) U/L Albumin 3.2 L (3.5-5.0) g/dL Urine Appearance (Clear) Urine Protein (Negative) Urine Ketones (Negative) Urine Blood (Negative) Ur Leukocyte Esterase (Negative) Urine RBC (0-5) /hpf Urine WBC (0-5) /hpf Urine Mucus (None) /hpf CSF RBC (0-10) u/L CSF Tot Nucleated Cells (0-5) u/L CSF Glucose (40-70) mg/dL CSF Total Protein (12-60) mg/dL Urine Opiates Screen (NotDetected) U Tricyclic Antidepress (NotDetected) 06/27/17 06/27/17 06/27/17 Range/Units 21:09 21:20 22:44 WBC 10.9 H (3.8-10.6) k/uL RBC 3.69 L (3.80-5.40) m/uL Neutrophils # 9.7 H (1.3-7.7) k/uL Lymphocytes # 0.7 L (1.0-4.8) k/uL Sodium (137-145) mmol/L Glucose (74-99) mg/dL POC Glucose (mg/dL) (75-99) mg/dL AST (14-36) U/L Alkaline Phosphatase (38-126) U/L Total Creatine Kinase (30-135) U/L Albumin (3.5-5.0) g/dL Urine Appearance Cloudy H (Clear) Urine Protein 1+ H (Negative) Urine Ketones Trace H (Negative) Urine Blood Small H (Negative) Ur Leukocyte Esterase Large H (Negative) Urine RBC 9 H (0-5) /hpf Urine WBC 13 H (0-5) /hpf Urine Mucus Rare H (None) /hpf CSF RBC 15 H (0-10) u/L CSF Tot Nucleated Cells 3240 H (0-5) u/L CSF Glucose 32 L (40-70) mg/dL CSF Total Protein 283 H (12-60) mg/dL Urine Opiates Screen Detected H (NotDetected) U Tricyclic Antidepress Detected H (NotDetected) Microbiology - Last 24 Hours (Table) 06/27/17 22:44 CSF Gram Stain - Preliminary Cerebral Spinal Fluid 06/27/17 21:20 Urine Culture - Preliminary Urine,Voided Assessment and Plan Plan: This is a 61-year-old female who is known to ID service as we've seen her in the past and now presents with signs of bacterial meningitis. Patient is currently on ceftriaxone and vancomycin which will be continued. There is also concern for possible urinary tract infection and urinary retention for which straight catheterization will be done as needed. Dilaudid added for pain control as she continues to have significant headache. Continue supportive care. Further recommendations as patient progresses. Cultures are pending or in progress. The above dictated assessment and findings were discussed with Dr. Burrell. The impression and plan of care have been directed as dictated. Keya Santamaria nurse practitioner acting as scribe for Dr. Burrell.
[2017-06-28] MEDS: CYCLOBENZAPRINE 10 MG TAB PO PRN (20:22)
[2017-06-28] MEDS: VANCOMYCIN 1,250 MG in SODIUM CHLORIDE 0.9% 250 ML IVPB SCH (20:24)
[2017-06-28] MEDS ORDERED: NITROGLYCERIN SL TABS 0.4 MG TAB SUBLINGUAL PRN (22:38)
--- NOTE | 2017-06-28 22:51 | P.HPIM ---
History of Present Illness H&P Date: 06/28/17 Chief Complaint: Fever History of presenting complaint: This is a very pleasant [address] Guzman. Chronic stable medical conditions include coronary artery disease and bypass, aortic valve stenosis, hypertension, hyperlipidemia, CHF from gastric dysfunction, ascending aortic aneurysm for's 0.2 cm, severe osteoarthritis of the neck there is a brace, scoliosis and thyroid nodules. Patient to 2 weeks on and off has been feeling hot and sweaty not well decreased urine output appetite has not been good a lot of nausea not feeling well and neck pain and headaches presented to the ER. Lumbar puncture in the ER showed a CSF fluid compatible with meningitis. Patient started on ceftriaxone by Dr. Burrell and also vancomycin. Patient feels a bit better. is the bedside. GEN.: Tired, febrile, weak rundown EYES: None HEENT: Headache and neck pain] NECK: None RESPIRATORY: None CARDIOVASCULAR: None GASTROINTESTINAL: None GENITOURINARY: None MUSCULOSKELETAL: Neck pain LYMPHATICS: None HEMATOLOGICAL: None PSYCHIATRY: None NEUROLOGICAL: None Past medical history: Coronary artery disease, audible stenosis, hypertension, hyperlipidemia, congestive heart failure from gastric dysfunction, ascending aortic aneurysm 4.2 cm, osteoarthritis especially of the neck, scoliosis, thyroid nodules, DVT Past surgical history: Appendectomy, coronary bypass, joint replacement, bilateral cataract, 1 vessel bypass, audiogram replacement, bilateral total hip arthroplasty, repair fractured right arm, bilateral knee scopes, but at the bilateral tennis elbow repair, left eye surgery, TMJ surgery Social history: Does not smoke, alcohol occasionally, Family history: Breast, colon, skin cancer VITAL SIGNS: 98.8, 128, 20, 1 on , 95% room air upon presentation GENERAL: Thin built laying in bed somewhat uncomfortable fidgety]. EYES: Pupils equal. Conjunctiva normal. HEENT: External appearance of nose and ears normal, oral cavity grossly normal. NECK: JVD not raised; masses not palpable. HEART: First and second heart sounds are normal; no edema. LUNGS: Respiratory rate normal; clear to auscultation. ABDOMEN: Soft, nontender, liver spleen not palpable, no masses palpable. LYMPHATICS: No lymph nodes palpable in the axilla and neck. PSYCH: [Alert and oriented x3; mood and affect anxious l. NEUROLOGICAL: Cranial nerves grossly intact; no facial asymmetry, power and sensation grossly intact. Investigations: White count 10.9, 11.6, platelet 413, potassium 4.6, urine/creatinine normal UA showing large leukoesterase some WBC CSF 15 RBC, 3-40 nucleated cells, glucose 32, total protein 283 Assessment: -Acute meningitis, suspect bacterial -Coronary artery disease with single-vessel bypass -Essential hypertension -Hyperlipidemia -Chronic congestive heart failure from diastolic dysfunction EF) of 60% -Ascending aortic aneurysm 4.2 cm -Primary osteoarthritis multiple joints including the neck and cervical spine -Scoliosis Chronic thyroid nodules with euthyroid status Plan: Patient started on IV ceftriaxone and IV vancomycin. Dr. Burrell infectious disease consulted. Home medications are resumed. Care was discussed with the patient at bedside. Questions were answered. Past Medical History Past Medical History: Heart Failure, Deep Vein Thrombosis (DVT), Myocardial Infarction ([place]), Osteoarthritis ([place]), Thyroid Disorder Additional Past Medical History / Comment(s): DEFECT- MITRAL VALVE PROLAPSE, ARRYTHMIA, PALPITATIONS, POOR CIRCULATION,SCOLIOSIS, THYROID NODULE, BACK PAIN, Wearing neck brace for arthritis in neck, Aortic Aneurysm Last Myocardial Infarction Date:: 2007 History of Any Multi-Drug Resistant Organisms: None Reported Past Surgical History: Appendectomy, Coronary Bypass/CABG, Joint Replacement, Orthopedic Surgery Additional Past Surgical History / Comment(s): BILATERAL CATARACTS. , CABG - 1 vessel, aortic valve replacement, BILAT KAREL, REPAIR FX RT ARM, REPAIR FX RT FEMUR, BILAT CTR, BILAT KNEE SCOPES, BILAT TENNIS elbow, LT EYE SURGERY, TMJ SX , COLONOSCOPY,. Past Anesthesia/Blood Transfusion Reactions: No Reported Reaction Past Psychological History: No Psychological Hx Reported Smoking Status: Former smoker Past Alcohol Use History: Occasional Additional Past Alcohol Use History / Comment(s): SMOKED FOR 6 MONTHS AT AGE 20 Past Drug Use History: None Reported - Past Family History Mother Family Medical History: Cancer Additional Family Medical History / Comment(s): BREAST, COLON/BOWEL, SKIN CANCER. Sister(s) Family Medical History: Cancer Medications and Allergies Home Medications Medication Instructions Recorded Confirmed Type Aspirin EC [Ecotrin Low Dose] 81 mg PO DAILY 05/23/14 06/27/17 History Atorvastatin Calcium [Lipitor] 40 mg PO DAILY 05/23/14 06/27/17 History Biotin 5 mg PO DAILY 05/23/14 06/27/17 History Lisinopril [Zestril] 20 mg PO BID@0900,199905/23/14 06/27/17 History Lysine 500 mg PO DAILY 05/23/14 06/27/17 History Metoprolol Tartrate [Lopressor] 100 mg PO TID@0200,899,199905/23/14 06/27/17 History Pantoprazole Sodium [Protonix] 40 mg PO DAILY 05/23/14 06/27/17 History traZODone HCL 50 mg PO HS PRN 12/01/16 06/27/17 History Furosemide [Lasix] 20 mg PO DAILY 12/28/16 06/27/17 History HYDROcodone/APAP 7.5-325MG [[place] 1 tab PO TID PRN 02/07/17 06/27/17 History 7.5-325] Cyclobenzaprine [Flexeril] 10 mg PO TID PRN 06/27/17 06/27/17 History Magnesium Gluconate [Magonate] 1,000 mg PO DAILY 06/27/17 06/27/17 History Multivitamins, Thera [Multivitamin 1 tab PO DAILY 06/27/17 06/27/17 History (formulary)] rOPINIRole HCL [Requip] 1.5 mg PO DAILY@0806/27/17 06/27/17 History Allergies Allergy/AdvReac Type Severity Reaction Status Date / Time griseofulvin ultramicrosize Allergy Severe Rash/Hives Verified 06/23/17 15:23 [From Jahaira-PEG (ultramicrosize)] minocycline HCl Allergy Severe Rash/Hives Verified 06/23/17 15:23 [From Minocin] Penicillins Allergy Severe Rash/Hives Verified 06/23/17 15:23 Skin Cleanser Combination Allergy Severe Rash/Hives Verified 06/23/17 15:23 No.4 [From Minocin] sulfamethoxazole Allergy Rash/Hives Verified 06/27/17 20:58 [From Bactrim] trimethoprim [From Bactrim] Allergy Rash/Hives Verified 06/27/17 20:58 Results CBC & Chem 7: 06/27/17 21:09 06/27/17 21:09
[2017-06-28] MEDS: MAGNESIUM OXIDE 400 MG TAB PO SCH (23:34)
[2017-06-28] MEDS: ASPIRIN 81 MG CHEW PO SCH (23:34)
[2017-06-29] MEDS: HYDROmorphone 2 MG/ML 1 ML SYRINGE IVP PRN ×3 (02:58→19:01)
[2017-06-29] MEDS: METOPROLOL TARTRATE 50 MG TAB PO SCH ×3 (02:58→20:37)
[2017-06-29] MEDS: SODIUM CHLORIDE 0.9% 1,000 ML IV SCH ×3 (05:32→18:49)
[2017-06-29 06:39] LABS: Basophils % (A) 0 %; CH 30.8; CHCM 31.6; Eosinophils # (A) 0.1 k/uL (0-0.7); Eosinophils % (A) 1 %; HCT 29.9 % (34.0-46.0); HDW 3.09; Hypochromasia Slight; Luc # (Auto) 0.29; Luc % (Auto) 3; Lymphocytes # (A) 1.3 k/uL (1.0-4.8); Lymphocytes % (A) 15 %; MCH 31.6 pg (25.0-35.0); MCHC 32.5 g/dL (31.0-37.0); MCV 97.5 fL (80.0-100.0); Mean Platelet Volume 6.6; Monocytes # (A) 0.4 k/uL (0-1.0); Monocytes % (A) 4 %; Neutrophils # (A) 6.7 k/uL (1.3-7.7); Neutrophils % (A) 77 %; RBC 3.07 m/uL (3.80-5.40); RDW 13.4 % (11.5-15.5); WBC 8.8 k/uL (3.8-10.6); WBC (Perox) 9.05
[2017-06-29 06:43] LABS: HGB 9.7 gm/dL (11.4-16.0)
[2017-06-29 06:52] LABS: ALT 34 U/L (9-52); AST 35 U/L (14-36); Alkaline Phosphatase 92 U/L (38-126); Anion Gap 10 mmol/L; Blood Urea Nitrogen 6 mg/dL (7-17); Calcium 8.4 mg/dL (8.4-10.2); Carbon Dioxide 20 mmol/L (22-30); Chloride 105 mmol/L (98-107); Glucose 82 mg/dL (74-99); Magnesium 1.7 mg/dL (1.6-2.3); Non-African American GFR(MDRD) >60 (>60 ml/min/1.73 sqM); Potassium 4.3 mmol/L (3.5-5.1); Sodium 135 mmol/L (137-145); Total Bilirubin 0.2 mg/dL (0.2-1.3); Total Protein 5.2 g/dL (6.3-8.2)
[2017-06-29] MEDS: ASPIRIN 81 MG CHEW PO SCH (08:07)
[2017-06-29] MEDS: FUROSEMIDE 20 MG TAB PO SCH (08:07)
[2017-06-29] MEDS: LISINOPRIL 20 MG TAB PO SCH ×2 (08:07→20:37)
[2017-06-29] MEDS: VANCOMYCIN 1,250 MG in SODIUM CHLORIDE 0.9% 250 ML IVPB SCH ×2 (08:08→22:15)
[2017-06-29] MEDS: ATORVASTATIN 40 MG TAB PO SCH (08:08)
[2017-06-29] MEDS: PANTOPRAZOLE 40 MG TABLET PO SCH (09:03)
[2017-06-29] MEDS: MAGNESIUM OXIDE 400 MG TAB PO SCH (09:03)
[2017-06-29] MEDS: cefTRIAXone 2,000 MG in SODIUM CHLORIDE 0.9% 100 ML IVPB SCH ×2 (09:44→20:37)
[2017-06-29] MEDS: CYCLOBENZAPRINE 10 MG TAB PO PRN (10:19)
[2017-06-29] MEDS: ONDANSETRON 4 MG/2 ML VIAL IVP PRN (11:13)
--- NOTE | 2017-06-29 18:45 | P.PN ---
<Kristy Platt - Last Filed: 06/29/17 18:33> Progress Note - Text DATE OF SERVICE: 06/29/2017 PRESENTING COMPLAINT: Fever INTERVAL HISTORY: 61-year-old female who had 2 weeks of symptoms of fever off and on, not well, decreased urine output, poor appetite and neck pain and headaches. Lumbar puncture revealed CSF fluid compatible with meningitis. 06/29/2017: Patient lying in bed appears comfortable yet tired. Is somewhat fidgety. Feels somewhat better today inquiring about culture results. Antibiotics continue Tolerating her diet eating about 50% of her meals although states her appetite is still low. Last BM yesterday. Ambulatory with some assistance. REVIEW OF SYSTEMS: Done for constitutional ,cardiovascular, GI, pulmonary, neurologic with relevant findings as above. CURRENT MEDICATIONS [place], aspirin, Lipitor, ceftriaxone, Flexeril, Lasix, Dilaudid, Zestril Lopressor, Protonix, Requip, trazodone. PHYSICAL EXAM VITAL SIGNS: Temperature 98.7, pulse 83, respiratory rate 17, blood pressure 101/59 oxygen saturation 95% on room air. GENERAL APPEARANCE: Lying in bed, a bit fidgety, tired. EYES: Pupils equal. Conjunctiva normal. NECK: JVD not raised. Mass not palpable. RESPIRATORY: Respiratory effort normal. Lungs clear to auscultation. CARDIOVASCULAR: First and second sounds normal. No edema. ABDOMEN: Soft. Liver and spleen not palpable. No tenderness. No mass palpable. PSYCHIATRY: Alert and oriented x3. Mood and affect normal. NEUROLOGICAL: Cranial nerves grossly intact. No facial asymmetry. Power and sensation grossly intact INVESTIGATIONS: White blood cell count 8.8, hemoglobin 9.7, sodium 135, potassium 4.3, Blood culture: Alpha hemolytic streptococcus. CSF culture: No growth after 24 hours ASSESSMENT: -Acute meningitis, suspect bacterial -Coronary artery disease with single-vessel bypass -Essential hypertension -Hyperlipidemia -Chronic congestive heart failure from diastolic dysfunction EF) of 60% -Ascending aortic aneurysm 4.2 cm -Primary osteoarthritis multiple joints including the neck and cervical spine -Scoliosis -Chronic thyroid nodules with euthyroid status PLAN: Continue antibiotics per ID. Continue current medication and treatment plan. We will continue to follow closely. Plan of care discussed with the patient at the bedside and questions were answered. Patient is in agreement with current plan. OUTDOOR ADVERTISING LEASING AGENT statement: Patient was seen and examined by nurse practitioner Kristy Platt and all elements of the case discussed with attending Dr. Link <Thomas Link - Last Filed: 07/08/17 10:36> Progress Note - Text Attending note: Date of service: 06/29/2017 This patient was seen and examined by me. I discussed the case with my nurse practitioner Miss platt. Patient admitted with acute meningitis. Feeling better today. up in the hallway with support.. Did eat better. No fever. Neck pain is much better improved. On examination: Lungs are clear, cardiovascular-first seconds are normal, abdomen soft nontender , psych AAO 3 Investigations: Blood cultures-positive for Streptococcus Assessment and plan: Acute meningitis bacterial with blood cultures positive for Streptococcus. Overall patient doing better. Antibiotics are to continue. Care was discussed with the patient and .
[2017-06-29] MEDS: HYDROcodone/APAP 7.5-325MG 1 EACH TAB PO PRN (20:40)
--- NOTE | 2017-06-29 21:31 | P.PN ---
Subjective Principal diagnosis: Fever and headache This is a 61-year-old female with a past medical history significant for aortic valve replacement in 2007 done at [facility] and subsequently developed myocardial infarction underwent a CABG one vessel and then was transferred [facility] and had a difficult postoperative period with development of DVT in the left leg. Patient had a stress test done 2 years ago that apparently was normal. Was recently hospitalized. The point in time there was concern is the possibility of infection of her aortic bioprosthetic valve. She underwent testing. TORIBOI was performed without evidence of endocarditis. Evidence of a positive cultures and she did well with ongoing cardiac a follow-up. She has a several day history of feeling poorly. She's been having some sweats at night. She's been having fever that is tactile in nature over the last several days. She's felt warm and weak. She's had no rita rigors. She developed increasing weakness. She was also having some increasing pain and was with some mild increase of her [place] dosing. Basic that she was not doing well. She was seen in the outpatient setting and was given a Medrol Dosepak also to see if this cannot help with her symptoms. 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 She does see pain specialist and has received epidural injections. Last was approximately 2- 3 weeks ago. During this timeframe she has been treated with a burst of steroids. As well as her ongoing pain medications. She was feeling just slightly better and is now considerably worse and with her symptoms she presented to the emergency center. Positive relates that she also had significant alteration of her mental status on top of her significant headache and constantly he brought her to hospital. Fever was noted. Leukocytosis was also found. With her headache and mental status changes lumbar puncture was performed. Abnormal fluid has been found in with at the infectious diseases consultation was requested. Please see the consult note is dictated by nurse practitioner Mrs. Keya Santamaria. At this time the patient continues to feel poorly. We discussed the abnormal fluid. The likelihood that this could be a meningitis is noted. Antibiotic therapy is initiated with ceftriaxone 2 g every 12 hours as well as vancomycin. Laboratory does: Positive blood culture with gram-positive cocci in chains. Increases the likelihood this is a Streptococcus pneumoniae sepsis and with potential meningitis. Continue current antimicrobial therapy. Continue with ongoing local care. Her has a history of leukemia will continue wearing his mask and doing good hand hygiene. Leukocytosis record related to her current sepsis. Today the patient is showing improvement. Her pain is better controlled. She is denying nausea or emesis. Headache is under better control with current pain medication. She is quite concerned with skin happy when she is ready to go home. is present in they're pleased with her improvement. Objective - Vital Signs Vital signs: Vital Signs Temp 97.8 F 06/29/17 16:00 Pulse 83 06/29/17 16:00 Resp 17 06/29/17 16:00 BP 116/74 06/29/17 16:00 Pulse Ox 97 06/29/17 16:00 Intake & Output 06/29/17 06/29/17 06/30/17 06:59 18:59 06:59 Intake Total 1550 2019 Output Total 2049 Balance -500 2019 Weight 65.1 kg Intake: Intake, IV Titration 1550 1400 Amount Sodium Chloride 0.9% 1, 1200 1050 000 ml @ 150 mls/hr IV . Q6H40M [facility] Rx#:[id number] Vancomycin 1,000 mg In 250 Sodium Chloride 0.9% 250 ml @ 125 mls/hr IVPB Q12H [facility] Rx#:[id number] Vancomycin 1,250 mg In 250 Sodium Chloride 0.9% 250 ml @ 125 mls/hr IVPB Q12H [facility] Rx#:[id number] cefTRIAXone 2,000 mg In 100 Sodium Chloride 0.9% 100 ml @ 100 mls/hr IVPB BID [facility] Rx#:[id number] cefTRIAXone 2,000 mg In 100 Sodium Chloride 0.9% 100 ml @ 100 mls/hr IVPB Q12H [facility] Rx#:[id number] Oral 620 Output: Urine 2049 Other: Voiding Method Toilet Toilet Bedpan Bedpan # Voids 1 - Exam Gen: This is a 61-year-old female in bed and appears to be more comfortable. Does have narcotic effect to her affect HEENT: Head is atraumatic, normocephalic. Pupils equal, round. Sclerae is anicteric. conjunctiva pink. Mucous membranes of the mouth are moist. NECK: Supple. But does have some tenderness to range of motion especially posterior tension. No JVD. No lymphadenopathy. No thyromegaly. LUNGS: Clear to auscultation. No wheezes or rhonchi. No intercostal retractions. HEART: Regular rate and rhythm. Systolic murmur. ABDOMEN: Distended with tenderness over the suprapubic area. Bowel sounds are present. No masses. No tenderness. EXTREMITIES: No pedal edema. No calf tenderness. dorsalis pedis +2 bilaterally. NEUROLOGICAL: Patient is awake, alert and oriented x3 - Labs CBC & Chem 7: 06/29/17 05:57 06/29/17 05:57 Labs: Abnormal Lab Results - Last 24 Hours (Table) 06/29/17 06/29/17 Range/Units 05:57 05:57 RBC 3.07 L (3.80-5.40) m/uL Hgb 9.7 L D (11.4-16.0) gm/dL Hct 29.9 L (34.0-46.0) % Sodium 135 L (137-145) mmol/L Carbon Dioxide 20 L (22-30) mmol/L BUN 6 L (7-17) mg/dL Total Protein 5.2 L (6.3-8.2) g/dL Albumin 2.5 L (3.5-5.0) g/dL Microbiology - Last 24 Hours (Table) 06/27/17 22:44 CSF Gram Stain - Preliminary Cerebral Spinal Fluid CSF Culture - Preliminary 06/27/17 21:09 Blood Culture Gram Stain - Preliminary Blood Blood Culture - Preliminary Alpha Hemolytic Streptococcus 06/27/17 21:20 Urine Culture - Final Urine,Voided Laboratory Results WBC 8.8 k/uL (3.8-10.6) 06/29/17 05:57 RBC 3.07 m/uL (3.80-5.40) L 06/29/17 05:57 Hgb 9.7 gm/dL (11.4-16.0) L D 06/29/17 05:57 Hct 29.9 % (34.0-46.0) L 06/29/17 05:57 MCV 97.5 fL (80.0-100.0) 06/29/17 05:57 MCH 31.6 pg (25.0-35.0) 06/29/17 05:57 MCHC 32.5 g/dL (31.0-37.0) 06/29/17 05:57 RDW 13.4 % (11.5-15.5) 06/29/17 05:57 Plt Count 427 k/uL (150-450) 06/29/17 05:57 Neutrophils % 77 % 06/29/17 05:57 Lymphocytes % 15 % 06/29/17 05:57 Monocytes % 4 % 06/29/17 05:57 Eosinophils % 1 % 06/29/17 05:57 Basophils % 0 % 06/29/17 05:57 Neutrophils # 6.7 k/uL (1.3-7.7) 06/29/17 05:57 Lymphocytes # 1.3 k/uL (1.0-4.8) 06/29/17 05:57 Monocytes # 0.4 k/uL (0-1.0) 06/29/17 05:57 Eosinophils # 0.1 k/uL (0-0.7) 06/29/17 05:57 Basophils # 0.0 k/uL (0-0.2) 06/29/17 05:57 Hypochromasia Slight 06/29/17 05:57 PT 11.1 sec (9.0-12.0) 06/27/17 21:09 INR 1.1 (<1.2) 06/27/17 21:09 APTT 24.2 sec (22.0-30.0) 06/27/17 21:09 Sodium 135 mmol/L (137-145) L 06/29/17 05:57 Potassium 4.3 mmol/L (3.5-5.1) 06/29/17 05:57 Chloride 105 mmol/L (98-107) 06/29/17 05:57 Carbon Dioxide 20 mmol/L (22-30) L 06/29/17 05:57 Anion Gap 10 mmol/L 06/29/17 05:57 BUN 6 mg/dL (7-17) L 06/29/17 05:57 Creatinine 0.55 mg/dL (0.52-1.04) 06/29/17 05:57 Est GFR (MDRD) Af Amer >60 (>60 ml/min/1.73 sqM) 06/29/17 05:57 Est GFR (MDRD) Non-Af >60 (>60 ml/min/1.73 sqM) 06/29/17 05:57 Glucose 82 mg/dL (74-99) 06/29/17 05:57 POC Glucose (mg/dL) 133 mg/dL (75-99) H 06/27/17 21:08 POC Glu Component Engineer Lilian Owen 06/27/17 21:08 Plasma Lactic Acid Steven 1.1 mmol/L (0.7-2.0) 06/27/17 21:09 Calcium 8.4 mg/dL (8.4-10.2) 06/29/17 05:57 Magnesium 1.7 mg/dL (1.6-2.3) 06/29/17 05:57 Total Bilirubin 0.2 mg/dL (0.2-1.3) 06/29/17 05:57 AST 35 U/L (14-36) 06/29/17 05:57 ALT 34 U/L (9-52) 06/29/17 05:57 Alkaline Phosphatase 92 U/L (38-126) 06/29/17 05:57 Total Creatine Kinase 24 U/L (30-135) L 06/27/17 21:09 CK-MB (CK-2) 0.3 ng/mL (0.0-2.4) 06/27/17 21:09 CK-MB (CK-2) Rel Index 1.3 06/27/17 21:09 Troponin I <0.012 ng/mL (0.000-0.034) 06/27/17 21:09 NT-Pro-B Natriuret Pep 858 pg/mL 06/27/17 21:09 Total Protein 5.2 g/dL (6.3-8.2) L 06/29/17 05:57 Albumin 2.5 g/dL (3.5-5.0) L 06/29/17 05:57 TSH 1.210 mIU/L (0.465-4.680) 06/27/17 21:09 Urine Color Yellow 06/27/17 21:20 Urine Appearance Cloudy (Clear) H 06/27/17 21:20 Urine pH 6.0 (5.0-8.0) 06/27/17 21:20 Ur Specific [place] 1.027 (1.001-1.035) 06/27/17 21:20 Urine Protein 1+ (Negative) H 06/27/17 21:20 Urine Glucose (UA) Negative (Negative) 06/27/17 21:20 Urine Ketones Trace (Negative) H 06/27/17 21:20 Urine Blood Small (Negative) H 06/27/17 21:20 Urine Nitrite Negative (Negative) 06/27/17 21:20 Urine Bilirubin Negative (Negative) 06/27/17 21:20 Urine Urobilinogen <2.0 mg/dL (<2.0) 06/27/17 21:20 Ur Leukocyte Esterase Large (Negative) H 06/27/17 21:20 Urine RBC 9 /hpf (0-5) H 06/27/17 21:20 Urine WBC 13 /hpf (0-5) H 06/27/17 21:20 Ur Squamous Epith Cells 2 /hpf (0-4) 06/27/17 21:20 Urine Mucus Rare /hpf (None) H 06/27/17 21:20 CSF Tube Number 4 06/27/17 22:44 CSF Volume 1.0 06/27/17 22:44 CSF Appearance Cloudy 06/27/17 22:44 CSF Color Colorless 06/27/17 22:44 CSF RBC 15 u/L (0-10) H 06/27/17 22:44 CSF Tot Nucleated Cells 3240 u/L (0-5) H 06/27/17 22:44 CSF Mononuclear WBCs % 13 % 06/27/17 22:44 CSF Polynuclear WBCs % 87 % 06/27/17 22:44 CSF Fresh RBCs 100 % 06/27/17 22:44 CSF Glucose 32 mg/dL (40-70) L 06/27/17 22:44 CSF Total Protein 283 mg/dL (12-60) H 06/27/17 22:44 Salicylates <1.0 mg/dL 06/27/17 21:09 Urine Opiates Screen Detected (NotDetected) H 06/27/17 21:20 Ur Oxycodone Screen Not Detected (NotDetected) 06/27/17 21:20 Urine Methadone Screen Not Detected (NotDetected) 06/27/17 21:20 Ur Propoxyphene Screen Not Detected (NotDetected) 06/27/17 21:20 Acetaminophen 13.1 ug/mL 06/27/17 21:09 Ur Barbiturates Screen Not Detected (NotDetected) 06/27/17 21:20 U Tricyclic Antidepress Detected (NotDetected) H 06/27/17 21:20 Ur Phencyclidine Scrn Not Detected (NotDetected) 06/27/17 21:20 Ur Amphetamines Screen Not Detected (NotDetected) 06/27/17 21:20 U Methamphetamines Scrn Not Detected (NotDetected) 06/27/17 21:20 U Benzodiazepines Scrn Not Detected (NotDetected) 06/27/17 21:20 Urine Cocaine Screen Not Detected (NotDetected) 06/27/17 21:20 U Marijuana (THC) Screen Not Detected (NotDetected) 06/27/17 21:20 Microbiology 06/27/17 22:44 Cerebral Spinal Fluid CSF Gram Stain - Preliminary 06/27/17 22:44 Cerebral Spinal Fluid CSF Culture - Preliminary 06/27/17 21:09 Blood Blood Culture Gram Stain - Preliminary 06/27/17 21:09 Blood Blood Culture - Preliminary Alpha Hemolytic Streptococcus 06/27/17 21:20 Urine,Voided Urine Culture - Final 06/27/17 21:09 Blood Blood Culture - Final Assessment and Plan (1) Meningitis Status: Acute (2) Streptococcal bacteremia Narrative/Plan: 61-year-old female with known history of underlying coronary artery disease and has a bioprosthetic aortic valve. He presented to Hospital feeling very weak and ill. She was having significant headache muscle spasms to her neck generalized weakness. She also is having marked increased her amount of baseline pain that her oral pain medications were not helpful. She was given some Medrol as an outpatient setting and despite that had no improvement. She presented to the emergency center. There should evidence of fever and leukocytosis. And with her headache and neck pain and lumbar puncture was performed that showed a markedly abnormal fluid. Gram stain without bacteria but many white cells were seen. Blood cultures are positive for alphahemolytic strep most likely be Streptococcus pneumoniae. Continue current antimicrobial therapy which is Rocephin at 2 g IV piggyback every 12 hours and vancomycin until we have further data. Follow blood cultures are negative at this time. Fortunately her pain control is considerably improved today. Much improvement over yesterday. Leukocytosis has improved, and fever has resolved. Once blood cultures are negative we'll need to consider easement of IV access to complete her several week course of intravenous antibiotic therapy for her bacteremic meningitis. Status: Acute (3) Leukocytosis Status: Acute
[2017-06-30] MEDS: HYDROmorphone 2 MG/ML 1 ML SYRINGE IVP PRN ×4 (00:57→17:15)
[2017-06-30] MEDS: METOPROLOL TARTRATE 50 MG TAB PO SCH ×3 (00:57→20:55)
[2017-06-30] MEDS: SODIUM CHLORIDE 0.9% 1,000 ML IV SCH ×3 (01:02→09:14)
[2017-06-30 06:34] LABS: Basophils % (A) 0 %; CH 30.8; CHCM 31.6; Eosinophils # (A) 0.1 k/uL (0-0.7); Eosinophils % (A) 2 %; HDW 3.14; HGB 8.9 gm/dL (11.4-16.0); Hypochromasia Slight; Luc # (Auto) 0.14; Luc % (Auto) 2; Lymphocytes # (A) 1.2 k/uL (1.0-4.8); Lymphocytes % (A) 19 %; MCH 30.9 pg (25.0-35.0); MCHC 31.6 g/dL (31.0-37.0); MCV 97.6 fL (80.0-100.0); Mean Platelet Volume 6.4; Monocytes # (A) 0.3 k/uL (0-1.0); Monocytes % (A) 4 %; Neutrophils # (A) 4.8 k/uL (1.3-7.7); Neutrophils % (A) 73 %; RBC 2.87 m/uL (3.80-5.40); RDW 13.5 % (11.5-15.5); WBC 6.6 k/uL (3.8-10.6); WBC (Perox) 6.73
[2017-06-30 06:37] LABS: Anion Gap 6 mmol/L; Blood Urea Nitrogen 5 mg/dL (7-17); Calcium 8.3 mg/dL (8.4-10.2); Carbon Dioxide 25 mmol/L (22-30); Chloride 108 mmol/L (98-107); Glucose 83 mg/dL (74-99); Non-African American GFR(MDRD) >60 (>60 ml/min/1.73 sqM); Potassium 3.9 mmol/L (3.5-5.1); Sodium 139 mmol/L (137-145)
[2017-06-30] MEDS ORDERED: VANCOMYCIN TROUGH DUE 1 EACH MISC MISCELLANE ONE (07:00)
[2017-06-30] MEDS: VANCOMYCIN 1,250 MG in SODIUM CHLORIDE 0.9% 250 ML IVPB SCH ×2 (09:08→22:20)
[2017-06-30] MEDS: ASPIRIN 81 MG CHEW PO SCH (09:09)
[2017-06-30] MEDS: LISINOPRIL 20 MG TAB PO SCH ×2 (09:10→20:55)
[2017-06-30] MEDS: PANTOPRAZOLE 40 MG TABLET PO SCH (09:10)
[2017-06-30] MEDS: FUROSEMIDE 20 MG TAB PO SCH (09:10)
[2017-06-30] MEDS: MAGNESIUM OXIDE 400 MG TAB PO SCH (09:11)
[2017-06-30] MEDS: cefTRIAXone 2,000 MG in SODIUM CHLORIDE 0.9% 100 ML IVPB SCH ×2 (09:13→23:06)
[2017-06-30] MEDS: ATORVASTATIN 40 MG TAB PO SCH (09:15)
[2017-06-30] MEDS: VANCOMYCIN 1,500 MG in SODIUM CHLORIDE 0.9% 250 ML IVPB SCH ×2 (10:26→20:50)
[2017-06-30 13:31] VITALS: BMI 24.5
[2017-06-30] MEDS: HYDROcodone/APAP 7.5-325MG 1 EACH TAB PO PRN (18:25)
[2017-06-30] MEDS: DOCUSATE 100 MG CAP PO SCH (18:25)
--- NOTE | 2017-06-30 20:23 | P.PN ---
Subjective Date of service 06/30/2017. Progress note being dictated for Dr. Maria Interval history: This a 61-year-old female admitted with reports of ongoing fevers, persistent neckpain, headaches, poor appetite, confusion in a patient who recently received epidural approximately 2 weeks ago for chronic low back pain. Lumbar puncture reported CSF fluid compatible with meningitis. Maintained on antibiotics of vancomycin and Rocephin as per infectious disease. T-max 100.3, normal WBC.. Complaining of constipation. Diet intake improving with less nausea today. Denies focal deficits, dizziness or blurred vision. Denies lightheadedness. Complains of persistent neck pain-but states headache better controlled. Objective - Vital Signs Vital signs: Vital Signs Temp 100.3 F H 06/30/17 16:00 Pulse 84 06/30/17 16:00 Resp 18 06/30/17 16:00 BP 117/62 06/30/17 16:00 Pulse Ox 95 06/30/17 16:00 Intake & Output 06/29/17 06/30/17 06/30/17 18:59 06:59 18:59 Intake Total 2019 960 Balance 2019 960 Weight 65 kg 65 kg Intake: Intake, IV Titration 1400 Amount Sodium Chloride 0.9% 1, 1050 000 ml @ 150 mls/hr IV . Q6H40M [facility] Rx#:[id number] Vancomycin 1,250 mg In 250 Sodium Chloride 0.9% 250 ml @ 125 mls/hr IVPB Q12H [facility] Rx#:[id number] cefTRIAXone 2,000 mg In 100 Sodium Chloride 0.9% 100 ml @ 100 mls/hr IVPB BID [facility] Rx#:[id number] Oral 620 960 Other: Voiding Method Toilet Toilet Toilet Bedpan # Voids 1 - Exam PHYSICAL EXAM: VITAL SIGNS: As above GENERAL: [Sitting up in bed, tired appearing, teasing S.O. at bedside] HEENT: [Pupils equal conjunctiva normal. Oral mucosa moist, no thyromegaly ,no lymphadenopathy] NECK: [Supple, no JVD] RESPIRATORY EFFORT:[ Normal] LUNGS: [Clear to auscultation, no rhonchi wheezes or crackles] CARDIOVASCULAR[ regular S1 and S2, positive systolic murmur, no rubs or gallops , no edema] GI: [Abdomen soft, nontender ,positive bowel sounds. No organomegaly, no guarding, no rigidity] PSYCH: [Alert and oriented -3, mood and affect normal. NEURO: [No focal deficits, cranial nerves II through XII grossly intact, strength and sensation grossly intact.] Microbiology 06/27/17 22:44 Cerebral Spinal Fluid CSF Gram Stain - Preliminary 06/27/17 22:44 Cerebral Spinal Fluid CSF Culture - Preliminary 06/27/17 21:09 Blood Blood Culture Gram Stain - Final 06/27/17 21:09 Blood Blood Culture - Final Alpha Hemolytic Streptococcus 06/27/17 21:20 Urine,Voided Urine Culture - Final 06/27/17 21:09 Blood Blood Culture - Final - Labs CBC & Chem 7: 06/30/17 06:07 06/30/17 06:07 Labs: Abnormal Lab Results - Last 24 Hours (Table) 06/30/17 06/30/17 Range/Units 06:07 06:07 RBC 2.87 L (3.80-5.40) m/uL Hgb 8.9 L (11.4-16.0) gm/dL Hct 28.0 L (34.0-46.0) % Chloride 108 H (98-107) mmol/L BUN 5 L (7-17) mg/dL Creatinine 0.50 L (0.52-1.04) mg/dL Calcium 8.3 L (8.4-10.2) mg/dL Microbiology - Last 24 Hours (Table) 06/27/17 22:44 CSF Gram Stain - Preliminary Cerebral Spinal Fluid CSF Culture - Preliminary 06/27/17 21:09 Blood Culture Gram Stain - Final Blood Blood Culture - Final Alpha Hemolytic Streptococcus Assessment and Plan Plan: -Acute meningitis-bacteremic -Streptococcal bacteremia, blood cultures positive for alphahemolytic strep -Coronary artery disease with single-vessel bypass -Essential hypertension -Hyperlipidemia -Chronic congestive heart failure from diastolic dysfunction EF) of 60% -Ascending aortic aneurysm 4.2 cm -Primary osteoarthritis multiple joints including the neck and cervical spine -Scoliosis -Chronic thyroid nodules with euthyroid status -History of bioprosthetic aortic valve Plan: Continue on current medication regime ,monitoring and symptomatic treatment. Colace added for constipation. Follow cultures closely. Repeat blood cultures pending. Antibiotics as per infectious disease. Patient and significant other updated at bedside on plan a care. Maintain supportive care. Further recommendations to follow. The impression and plan of care has been dictated as directed as a scribe. : I performed a H&P examination of this patient and discussed the same with the dictator. I agree with the dictator's note. Any additional findings/opinions/ etc. will be noted.
--- NOTE | 2017-06-30 21:02 | P.PN ---
Subjective Principal diagnosis: Fever and headache This is a 61-year-old female with a past medical history significant for aortic valve replacement in 2007 done at [facility] and subsequently developed myocardial infarction underwent a CABG one vessel and then was transferred [facility] and had a difficult postoperative period with development of DVT in the left leg. Patient had a stress test done 2 years ago that apparently was normal. Was recently hospitalized. The point in time there was concern is the possibility of infection of her aortic bioprosthetic valve. She underwent testing. TORIBIO was performed without evidence of endocarditis. Evidence of a positive cultures and she did well with ongoing cardiac a follow-up. She has a several day history of feeling poorly. She's been having some sweats at night. She's been having fever that is tactile in nature over the last several days. She's felt warm and weak. She's had no rita rigors. She developed increasing weakness. She was also having some increasing pain and was with some mild increase of her Cardale dosing. Basic that she was not doing well. She was seen in the outpatient setting and was given a Medrol Dosepak also to see if this cannot help with her symptoms. 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 She does see pain specialist and has received epidural injections. Last was approximately 2- 3 weeks ago. During this timeframe she has been treated with a burst of steroids. As well as her ongoing pain medications. She was feeling just slightly better and is now considerably worse and with her symptoms she presented to the emergency center. Positive relates that she also had significant alteration of her mental status on top of her significant headache and constantly he brought her to hospital. Fever was noted. Leukocytosis was also found. With her headache and mental status changes lumbar puncture was performed. Abnormal fluid has been found in with at the infectious diseases consultation was requested. Please see the consult note is dictated by nurse practitioner Mrs. Keya Santamaria. At this time the patient continues to feel poorly. We discussed the abnormal fluid. The likelihood that this could be a meningitis is noted. Antibiotic therapy is initiated with ceftriaxone 2 g every 12 hours as well as vancomycin. Laboratory does: Positive blood culture with gram-positive cocci in chains. Increases the likelihood this is a Streptococcus pneumoniae sepsis and with potential meningitis. Continue current antimicrobial therapy. Continue with ongoing local care. Her has a history of leukemia will continue wearing his mask and doing good hand hygiene. Leukocytosis record related to her current sepsis. Today the patient is showing improvement. Her pain is better controlled. She is denying nausea or emesis. Headache is under better control with current pain medication. She is somewhat more cheerful today however she is concerned about why she has some illnesses despite her age. She would just like to have further help with her chronic troubles such as her headaches. Objective - Vital Signs Vital signs: Vital Signs Temp 100.3 F H 06/30/17 16:00 Pulse 84 06/30/17 16:00 Resp 18 06/30/17 16:00 BP 117/62 06/30/17 16:00 Pulse Ox 95 06/30/17 16:00 Intake & Output 06/30/17 06/30/17 07/01/17 06:59 18:59 06:59 Intake Total 2310 Balance 2310 Weight 65 kg 65 kg Intake: Intake, IV Titration 1350 Amount Sodium Chloride 0.9% 1, 1000 000 ml @ 150 mls/hr IV . Q6H40M [facility] Rx#:[id number] Vancomycin 1,500 mg In 250 Sodium Chloride 0.9% 250 ml @ 125 mls/hr IVPB Q12H [facility] Rx#:[id number] cefTRIAXone 2,000 mg In 100 Sodium Chloride 0.9% 100 ml @ 100 mls/hr IVPB BID [facility] Rx#:[id number] Oral 960 Other: Voiding Method Toilet Toilet # Voids 1 - Exam Gen: This is a 61-year-old female in bed and appears to be more comfortable. Does have narcotic effect to her affect HEENT: Head is atraumatic, normocephalic. Pupils equal, round. Sclerae is anicteric. conjunctiva pink. Mucous membranes of the mouth are moist. NECK: Supple. But does have some tenderness to range of motion especially posterior tension. No JVD. No lymphadenopathy. No thyromegaly. LUNGS: Clear to auscultation. No wheezes or rhonchi. No intercostal retractions. HEART: Regular rate and rhythm. Systolic murmur. ABDOMEN: Distended with tenderness over the suprapubic area. Bowel sounds are present. No masses. No tenderness. EXTREMITIES: No pedal edema. No calf tenderness. dorsalis pedis +2 bilaterally. NEUROLOGICAL: Patient is awake, alert and oriented x3 - Labs CBC & Chem 7: 06/30/17 06:07 06/30/17 06:07 Labs: Abnormal Lab Results - Last 24 Hours (Table) 06/30/17 06/30/17 Range/Units 06:07 06:07 RBC 2.87 L (3.80-5.40) m/uL Hgb 8.9 L (11.4-16.0) gm/dL Hct 28.0 L (34.0-46.0) % Chloride 108 H (98-107) mmol/L BUN 5 L (7-17) mg/dL Creatinine 0.50 L (0.52-1.04) mg/dL Calcium 8.3 L (8.4-10.2) mg/dL Microbiology - Last 24 Hours (Table) 06/27/17 22:44 CSF Gram Stain - Preliminary Cerebral Spinal Fluid CSF Culture - Preliminary 06/27/17 21:09 Blood Culture Gram Stain - Final Blood Blood Culture - Final Alpha Hemolytic Streptococcus Laboratory Results WBC 6.6 k/uL (3.8-10.6) 06/30/17 06:07 RBC 2.87 m/uL (3.80-5.40) L 06/30/17 06:07 Hgb 8.9 gm/dL (11.4-16.0) L 06/30/17 06:07 Hct 28.0 % (34.0-46.0) L 06/30/17 06:07 MCV 97.6 fL (80.0-100.0) 06/30/17 06:07 MCH 30.9 pg (25.0-35.0) 06/30/17 06:07 MCHC 31.6 g/dL (31.0-37.0) 06/30/17 06:07 RDW 13.5 % (11.5-15.5) 06/30/17 06:07 Plt Count 373 k/uL (150-450) 06/30/17 06:07 Neutrophils % 73 % 06/30/17 06:07 Lymphocytes % 19 % 06/30/17 06:07 Monocytes % 4 % 06/30/17 06:07 Eosinophils % 2 % 06/30/17 06:07 Basophils % 0 % 06/30/17 06:07 Neutrophils # 4.8 k/uL (1.3-7.7) 06/30/17 06:07 Lymphocytes # 1.2 k/uL (1.0-4.8) 06/30/17 06:07 Monocytes # 0.3 k/uL (0-1.0) 06/30/17 06:07 Eosinophils # 0.1 k/uL (0-0.7) 06/30/17 06:07 Basophils # 0.0 k/uL (0-0.2) 06/30/17 06:07 Hypochromasia Slight 06/30/17 06:07 PT 11.1 sec (9.0-12.0) 06/27/17 21:09 INR 1.1 (<1.2) 06/27/17 21:09 APTT 24.2 sec (22.0-30.0) 06/27/17 21:09 Sodium 139 mmol/L (137-145) 06/30/17 06:07 Potassium 3.9 mmol/L (3.5-5.1) 06/30/17 06:07 Chloride 108 mmol/L (98-107) H 06/30/17 06:07 Carbon Dioxide 25 mmol/L (22-30) 06/30/17 06:07 Anion Gap 6 mmol/L 06/30/17 06:07 BUN 5 mg/dL (7-17) L 06/30/17 06:07 Creatinine 0.50 mg/dL (0.52-1.04) L 06/30/17 06:07 Est GFR (MDRD) Af Amer >60 (>60 ml/min/1.73 sqM) 06/30/17 06:07 Est GFR (MDRD) Non-Af >60 (>60 ml/min/1.73 sqM) 06/30/17 06:07 Glucose 83 mg/dL (74-99) 06/30/17 06:07 POC Glucose (mg/dL) 133 mg/dL (75-99) H 06/27/17 21:08 POC Glu Seam Stay Stitcher Lilian Owen 06/27/17 21:08 Plasma Lactic Acid Steven 1.1 mmol/L (0.7-2.0) 06/27/17 21:09 Calcium 8.3 mg/dL (8.4-10.2) L 06/30/17 06:07 Magnesium 1.7 mg/dL (1.6-2.3) 06/29/17 05:57 Total Bilirubin 0.2 mg/dL (0.2-1.3) 06/29/17 05:57 AST 35 U/L (14-36) 06/29/17 05:57 ALT 34 U/L (9-52) 06/29/17 05:57 Alkaline Phosphatase 92 U/L (38-126) 06/29/17 05:57 Total Creatine Kinase 24 U/L (30-135) L 06/27/17 21:09 CK-MB (CK-2) 0.3 ng/mL (0.0-2.4) 06/27/17 21:09 CK-MB (CK-2) Rel Index 1.3 06/27/17 21:09 Troponin I <0.012 ng/mL (0.000-0.034) 06/27/17 21:09 NT-Pro-B Natriuret Pep 858 pg/mL 06/27/17 21:09 Total Protein 5.2 g/dL (6.3-8.2) L 06/29/17 05:57 Albumin 2.5 g/dL (3.5-5.0) L 06/29/17 05:57 TSH 1.210 mIU/L (0.465-4.680) 06/27/17 21:09 Urine Color Yellow 06/27/17 21:20 Urine Appearance Cloudy (Clear) H 06/27/17 21:20 Urine pH 6.0 (5.0-8.0) 06/27/17 21:20 Ur Specific [place] 1.027 (1.001-1.035) 06/27/17 21:20 Urine Protein 1+ (Negative) H 06/27/17 21:20 Urine Glucose (UA) Negative (Negative) 06/27/17 21:20 Urine Ketones Trace (Negative) H 06/27/17 21:20 Urine Blood Small (Negative) H 06/27/17 21:20 Urine Nitrite Negative (Negative) 06/27/17 21:20 Urine Bilirubin Negative (Negative) 06/27/17 21:20 Urine Urobilinogen <2.0 mg/dL (<2.0) 06/27/17 21:20 Ur Leukocyte Esterase Large (Negative) H 06/27/17 21:20 Urine RBC 9 /hpf (0-5) H 06/27/17 21:20 Urine WBC 13 /hpf (0-5) H 06/27/17 21:20 Ur Squamous Epith Cells 2 /hpf (0-4) 06/27/17 21:20 Urine Mucus Rare /hpf (None) H 06/27/17 21:20 CSF Tube Number 4 06/27/17 22:44 CSF Volume 1.0 06/27/17 22:44 CSF Appearance Cloudy 06/27/17 22:44 CSF Color Colorless 06/27/17 22:44 CSF RBC 15 u/L (0-10) H 06/27/17 22:44 CSF Tot Nucleated Cells 3240 u/L (0-5) H 06/27/17 22:44 CSF Mononuclear WBCs % 13 % 06/27/17 22:44 CSF Polynuclear WBCs % 87 % 06/27/17 22:44 CSF Fresh RBCs 100 % 06/27/17 22:44 CSF Glucose 32 mg/dL (40-70) L 06/27/17 22:44 CSF Total Protein 283 mg/dL (12-60) H 06/27/17 22:44 Vancomycin Trough 13.9 ug/mL 06/30/17 06:07 Salicylates <1.0 mg/dL 06/27/17 21:09 Urine Opiates Screen Detected (NotDetected) H 06/27/17 21:20 Ur Oxycodone Screen Not Detected (NotDetected) 06/27/17 21:20 Urine Methadone Screen Not Detected (NotDetected) 06/27/17 21:20 Ur Propoxyphene Screen Not Detected (NotDetected) 06/27/17 21:20 Acetaminophen 13.1 ug/mL 06/27/17 21:09 Ur Barbiturates Screen Not Detected (NotDetected) 06/27/17 21:20 U Tricyclic Antidepress Detected (NotDetected) H 06/27/17 21:20 Ur Phencyclidine Scrn Not Detected (NotDetected) 06/27/17 21:20 Ur Amphetamines Screen Not Detected (NotDetected) 06/27/17 21:20 U Methamphetamines Scrn Not Detected (NotDetected) 06/27/17 21:20 U Benzodiazepines Scrn Not Detected (NotDetected) 06/27/17 21:20 Urine Cocaine Screen Not Detected (NotDetected) 06/27/17 21:20 U Marijuana (THC) Screen Not Detected (NotDetected) 06/27/17 21:20 HSV I DNA PCR Not detected (Not detected) 06/27/17 22:44 HSV II DNA PCR Not detected (Not detected) 06/27/17 22:44 HSV (PCR) Source (()) 06/27/17 22:44 Microbiology 06/27/17 22:44 Cerebral Spinal Fluid CSF Gram Stain - Preliminary 06/27/17 22:44 Cerebral Spinal Fluid CSF Culture - Preliminary 06/27/17 21:09 Blood Blood Culture Gram Stain - Final 06/27/17 21:09 Blood Blood Culture - Final Alpha Hemolytic Streptococcus 06/27/17 21:20 Urine,Voided Urine Culture - Final 06/27/17 21:09 Blood Blood Culture - Final Assessment and Plan (1) Meningitis Status: Acute (2) Streptococcal bacteremia Narrative/Plan: 61-year-old female with known history of underlying coronary artery disease and has a bioprosthetic aortic valve. He presented to Hospital feeling very weak and ill. She was having significant headache muscle spasms to her neck generalized weakness. She also is having marked increased her amount of baseline pain that her oral pain medications were not helpful. She was given some Medrol as an outpatient setting and despite that had no improvement. She presented to the emergency center. There should evidence of fever and leukocytosis. And with her headache and neck pain and lumbar puncture was performed that showed a markedly abnormal fluid. Gram stain without bacteria but many white cells were seen. Blood cultures are positive for alphahemolytic strep most likely be Streptococcus pneumoniae. Continue current antimicrobial therapy which is Rocephin at 2 g IV piggyback every 12 hours and vancomycin until we have further data. Follow blood cultures are negative at this time. Fortunately her pain control is considerably improved today. Much improvement over yesterday. Leukocytosis has improved, and fever has resolved. At this time. Bacteremic meningitis is showing improvement. Her headache is still problematic. We discussed that this will continue for the next several days as the inflammation continues to improve. With her many medical issues regretfully she cannot have significant doses of anti-inflammatories which may be of some utility. Continue with current pain medications which are allowing some improvement. She will need a few weeks of antibiotic therapy. Once we have negative blood cultures and place a PICC line for outpatient intravenous antibiotic program. Status: Acute (3) Leukocytosis Status: Acute
[2017-06-30] MEDS: traZODone HCL 50 MG TAB PO PRN (23:10)
[2017-07-01] MEDS: METOPROLOL TARTRATE 50 MG TAB PO SCH ×3 (02:24→20:29)
[2017-07-01] MEDS: ONDANSETRON 4 MG/2 ML VIAL IVP PRN (07:51)
[2017-07-01] MEDS: HYDROmorphone 2 MG/ML 1 ML SYRINGE IVP PRN (07:51)
[2017-07-01] MEDS: cefTRIAXone 2,000 MG in SODIUM CHLORIDE 0.9% 100 ML IVPB SCH ×2 (07:54→20:31)
[2017-07-01] MEDS: LISINOPRIL 20 MG TAB PO SCH ×2 (08:49→20:29)
[2017-07-01] MEDS: DOCUSATE 100 MG CAP PO SCH ×2 (08:49→20:33)
[2017-07-01] MEDS: MAGNESIUM OXIDE 400 MG TAB PO SCH (08:49)
[2017-07-01] MEDS: ASPIRIN 81 MG CHEW PO SCH (08:50)
[2017-07-01] MEDS: FUROSEMIDE 20 MG TAB PO SCH (08:50)
[2017-07-01] MEDS: PANTOPRAZOLE 40 MG TABLET PO SCH (08:50)
[2017-07-01] MEDS: ATORVASTATIN 40 MG TAB PO SCH (08:50)
[2017-07-01] MEDS: SODIUM CHLORIDE 0.9% 1,000 ML IV SCH (08:53)
[2017-07-01] MEDS: HYDROcodone/APAP 10-325MG 1 EACH TAB PO PRN ×2 (13:56→20:33)
--- NOTE | 2017-07-01 14:10 | P.PN ---
Subjective This a 61-year-old female admitted with reports of ongoing fevers, persistent neckpain, headaches, poor appetite, confusion in a patient who recently received epidural approximately 2 weeks ago for chronic low back pain. Lumbar puncture reported CSF fluid compatible with meningitis. Maintained on antibiotics of vancomycin and Rocephin as per infectious disease. T-max 100.3, normal WBC.. 07/01/2017 Patient is still coming of pain and is requiring Dilaudid increase the dose of [place] today. We'll try and work on her discharge and Dr. Burrell is recommending IV antibiotics we'll get a PICC line today if possible patient will be discharged either today or tomorrow to subacute recommendation. No Nasuea today. Denies focal deficits, dizziness or blurred vision. Denies lightheadedness. Complains of persistent neck pain-but states headache better controlled. Objective - Vital Signs Vital signs: Vital Signs Temp 99.2 F 07/01/17 07:00 Pulse 87 07/01/17 07:00 Resp 16 07/01/17 07:00 BP 131/77 07/01/17 07:00 Pulse Ox 98 07/01/17 07:00 Intake & Output 06/30/17 07/01/17 07/01/17 18:59 06:59 18:59 Intake Total 2310 Balance 2310 Weight 65 kg Intake: Intake, IV Titration 1350 Amount Sodium Chloride 0.9% 1, 1000 000 ml @ 50 mls/hr IV . Q20H [facility] Rx#:[id number] Vancomycin 1,500 mg In 250 Sodium Chloride 0.9% 250 ml @ 125 mls/hr IVPB Q12H [facility] Rx#:[id number] cefTRIAXone 2,000 mg In 100 Sodium Chloride 0.9% 100 ml @ 100 mls/hr IVPB BID [facility] Rx#:[id number] Oral 960 Other: Voiding Method Toilet # Voids 2 # Bowel Movements 1 - Exam PHYSICAL EXAMINATION: GENERAL: The patient is alert and oriented x3, not in any acute distress. Well developed, well nourished. HEENT: Pupils are round and equally reacting to light. EOMI. No scleral icterus. No conjunctival pallor. Normocephalic, atraumatic. No pharyngeal erythema. No thyromegaly. CARDIOVASCULAR: S1 and S2 present. No murmurs, rubs, or gallops. PULMONARY: Chest is clear to auscultation, no wheezing or crackles. ABDOMEN: Soft, nontender, nondistended, normoactive bowel sounds. No palpable organomegaly. MUSCULOSKELETAL: No joint swelling or deformity. EXTREMITIES: No cyanosis, clubbing, or pedal edema. NEUROLOGICAL: Gross neurological examination did not reveal any focal deficits. SKIN: No rashes. - Labs CBC & Chem 7: 06/30/17 06:07 06/30/17 06:07 Labs: Microbiology - Last 24 Hours (Table) 06/30/17 11:03 Blood Culture - Preliminary Blood No Growth after 24 hours 06/30/17 10:49 Blood Culture - Preliminary Blood No Growth after 24 hours 06/27/17 22:44 CSF Gram Stain - Preliminary Cerebral Spinal Fluid CSF Culture - Preliminary Assessment and Plan Plan: -Acute meningitis-bacteremic -Streptococcal bacteremia, blood cultures positive for alphahemolytic strep -Coronary artery disease with single-vessel bypass -Essential hypertension -Hyperlipidemia -Chronic congestive heart failure from diastolic dysfunction EF) of 60% -Ascending aortic aneurysm 4.2 cm -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 patient will need a PICC line, will work on discharge to subacute rehabilitation.
--- NOTE | 2017-07-01 22:51 | P.PN ---
Subjective Principal diagnosis: Fever and headache This is a 61-year-old female with a past medical history significant for aortic valve replacement in 2007 done at [facility] and subsequently developed myocardial infarction underwent a CABG one vessel and then was transferred [facility] and had a difficult postoperative period with development of DVT in the left leg. Patient had a stress test done 2 years ago that apparently was normal. Was recently hospitalized. The point in time there was concern is the possibility of infection of her aortic bioprosthetic valve. She underwent testing. TORIBIO was performed without evidence of endocarditis. Evidence of a positive cultures and she did well with ongoing cardiac a follow-up. She has a several day history of feeling poorly. She's been having some sweats at night. She's been having fever that is tactile in nature over the last several days. She's felt warm and weak. She's had no rita rigors. She developed increasing weakness. She was also having some increasing pain and was with some mild increase of her [place] dosing. Basic that she was not doing well. She was seen in the outpatient setting and was given a Medrol Dosepak also to see if this cannot help with her symptoms. 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 She does see pain specialist and has received epidural injections. Last was approximately 2- 3 weeks ago. During this timeframe she has been treated with a burst of steroids. As well as her ongoing pain medications. She was feeling just slightly better and is now considerably worse and with her symptoms she presented to the emergency center. Positive relates that she also had significant alteration of her mental status on top of her significant headache and constantly he brought her to hospital. Fever was noted. Leukocytosis was also found. With her headache and mental status changes lumbar puncture was performed. Abnormal fluid has been found in with at the infectious diseases consultation was requested. Please see the consult note is dictated by nurse practitioner Mrs. Keya Santamaria. At this time the patient continues to feel poorly. We discussed the abnormal fluid. The likelihood that this could be a meningitis is noted. Antibiotic therapy is initiated with ceftriaxone 2 g every 12 hours as well as vancomycin. Laboratory does: Positive blood culture with gram-positive cocci in chains. Increases the likelihood this is a Streptococcus pneumoniae sepsis and with potential meningitis. Continue current antimicrobial therapy. Continue with ongoing local care. Her has a history of leukemia will continue wearing his mask and doing good hand hygiene. Leukocytosis record related to her current sepsis. Today the patient is showing improvement. Her pain is better controlled. She is denying nausea or emesis. Headache is under better control with current pain medication. She is somewhat more cheerful today however she is concerned about why she has some illnesses despite her age. Her mood is definitely better than the other day. Her sniffy in headache neck pain and shoulder pains are all improving. She is seeing a slow but steady improvement of her status. Objective - Vital Signs Vital signs: Vital Signs Temp 98.7 F 07/01/17 15:00 Pulse 86 07/01/17 15:00 Resp 16 07/01/17 15:00 BP 115/63 07/01/17 15:00 Pulse Ox 96 07/01/17 15:00 Intake & Output 07/01/17 07/01/17 07/02/17 06:59 18:59 06:59 Output Total 450 Balance -450 Output: Urine 450 Other: # Voids 2 3 3 # Bowel Movements 1 - Exam Gen: This is a 61-year-old female in bed and appears to be more comfortable. Does have narcotic effect to her affect HEENT: Head is atraumatic, normocephalic. Pupils equal, round. Sclerae is anicteric. conjunctiva pink. Mucous membranes of the mouth are moist. NECK: Supple. But does have some tenderness to range of motion especially posterior tension. No JVD. No lymphadenopathy. No thyromegaly. LUNGS: Clear to auscultation. No wheezes or rhonchi. No intercostal retractions. HEART: Regular rate and rhythm. Systolic murmur. ABDOMEN: Distended with tenderness over the suprapubic area. Bowel sounds are present. No masses. No tenderness. EXTREMITIES: No pedal edema. No calf tenderness. dorsalis pedis +2 bilaterally. NEUROLOGICAL: Patient is awake, alert and oriented x3 - Labs CBC & Chem 7: 06/30/17 06:07 06/30/17 06:07 Labs: Microbiology - Last 24 Hours (Table) 06/30/17 11:03 Blood Culture - Preliminary Blood No Growth after 24 hours 06/30/17 10:49 Blood Culture - Preliminary Blood No Growth after 24 hours 06/27/17 22:44 CSF Gram Stain - Preliminary Cerebral Spinal Fluid CSF Culture - Preliminary Laboratory Results WBC 6.6 k/uL (3.8-10.6) 06/30/17 06:07 RBC 2.87 m/uL (3.80-5.40) L 06/30/17 06:07 Hgb 8.9 gm/dL (11.4-16.0) L 06/30/17 06:07 Hct 28.0 % (34.0-46.0) L 06/30/17 06:07 MCV 97.6 fL (80.0-100.0) 06/30/17 06:07 MCH 30.9 pg (25.0-35.0) 06/30/17 06:07 MCHC 31.6 g/dL (31.0-37.0) 06/30/17 06:07 RDW 13.5 % (11.5-15.5) 06/30/17 06:07 Plt Count 373 k/uL (150-450) 06/30/17 06:07 Neutrophils % 73 % 06/30/17 06:07 Lymphocytes % 19 % 06/30/17 06:07 Monocytes % 4 % 06/30/17 06:07 Eosinophils % 2 % 06/30/17 06:07 Basophils % 0 % 06/30/17 06:07 Neutrophils # 4.8 k/uL (1.3-7.7) 06/30/17 06:07 Lymphocytes # 1.2 k/uL (1.0-4.8) 06/30/17 06:07 Monocytes # 0.3 k/uL (0-1.0) 06/30/17 06:07 Eosinophils # 0.1 k/uL (0-0.7) 06/30/17 06:07 Basophils # 0.0 k/uL (0-0.2) 06/30/17 06:07 Hypochromasia Slight 06/30/17 06:07 PT 11.1 sec (9.0-12.0) 06/27/17 21:09 INR 1.1 (<1.2) 06/27/17 21:09 APTT 24.2 sec (22.0-30.0) 06/27/17 21:09 Sodium 139 mmol/L (137-145) 06/30/17 06:07 Potassium 3.9 mmol/L (3.5-5.1) 06/30/17 06:07 Chloride 108 mmol/L (98-107) H 06/30/17 06:07 Carbon Dioxide 25 mmol/L (22-30) 06/30/17 06:07 Anion Gap 6 mmol/L 06/30/17 06:07 BUN 5 mg/dL (7-17) L 06/30/17 06:07 Creatinine 0.50 mg/dL (0.52-1.04) L 06/30/17 06:07 Est GFR (MDRD) Af Amer >60 (>60 ml/min/1.73 sqM) 06/30/17 06:07 Est GFR (MDRD) Non-Af >60 (>60 ml/min/1.73 sqM) 06/30/17 06:07 Glucose 83 mg/dL (74-99) 06/30/17 06:07 POC Glucose (mg/dL) 133 mg/dL (75-99) H 06/27/17 21:08 POC Glu [employer] MARCIO [place] 06/27/17 21:08 Plasma Lactic Acid Steven 1.1 mmol/L (0.7-2.0) 06/27/17 21:09 Calcium 8.3 mg/dL (8.4-10.2) L 06/30/17 06:07 Magnesium 1.7 mg/dL (1.6-2.3) 06/29/17 05:57 Total Bilirubin 0.2 mg/dL (0.2-1.3) 06/29/17 05:57 AST 35 U/L (14-36) 06/29/17 05:57 ALT 34 U/L (9-52) 06/29/17 05:57 Alkaline Phosphatase 92 U/L (38-126) 06/29/17 05:57 Total Creatine Kinase 24 U/L (30-135) L 06/27/17 21:09 CK-MB (CK-2) 0.3 ng/mL (0.0-2.4) 06/27/17 21:09 CK-MB (CK-2) Rel Index 1.3 06/27/17 21:09 Troponin I <0.012 ng/mL (0.000-0.034) 06/27/17 21:09 NT-Pro-B Natriuret Pep 858 pg/mL 06/27/17 21:09 Total Protein 5.2 g/dL (6.3-8.2) L 06/29/17 05:57 Albumin 2.5 g/dL (3.5-5.0) L 06/29/17 05:57 TSH 1.210 mIU/L (0.465-4.680) 06/27/17 21:09 Urine Color Yellow 06/27/17 21:20 Urine Appearance Cloudy (Clear) H 06/27/17 21:20 Urine pH 6.0 (5.0-8.0) 06/27/17 21:20 Ur Specific [place] 1.027 (1.001-1.035) 06/27/17 21:20 Urine Protein 1+ (Negative) H 06/27/17 21:20 Urine Glucose (UA) Negative (Negative) 06/27/17 21:20 Urine Ketones Trace (Negative) H 06/27/17 21:20 Urine Blood Small (Negative) H 06/27/17 21:20 Urine Nitrite Negative (Negative) 06/27/17 21:20 Urine Bilirubin Negative (Negative) 06/27/17 21:20 Urine Urobilinogen <2.0 mg/dL (<2.0) 06/27/17 21:20 Ur Leukocyte Esterase Large (Negative) H 06/27/17 21:20 Urine RBC 9 /hpf (0-5) H 06/27/17 21:20 Urine WBC 13 /hpf (0-5) H 06/27/17 21:20 Ur Squamous Epith Cells 2 /hpf (0-4) 06/27/17 21:20 Urine Mucus Rare /hpf (None) H 06/27/17 21:20 CSF Tube Number 4 06/27/17 22:44 CSF Volume 1.0 06/27/17 22:44 CSF Appearance Cloudy 06/27/17 22:44 CSF Color Colorless 06/27/17 22:44 CSF RBC 15 u/L (0-10) H 06/27/17 22:44 CSF Tot Nucleated Cells 3240 u/L (0-5) H 06/27/17 22:44 CSF Mononuclear WBCs % 13 % 06/27/17 22:44 CSF Polynuclear WBCs % 87 % 06/27/17 22:44 CSF Fresh RBCs 100 % 06/27/17 22:44 CSF Glucose 32 mg/dL (40-70) L 06/27/17 22:44 CSF Total Protein 283 mg/dL (12-60) H 06/27/17 22:44 Vancomycin Trough 13.9 ug/mL 06/30/17 06:07 Salicylates <1.0 mg/dL 06/27/17 21:09 Urine Opiates Screen Detected (NotDetected) H 06/27/17 21:20 Ur Oxycodone Screen Not Detected (NotDetected) 06/27/17 21:20 Urine Methadone Screen Not Detected (NotDetected) 06/27/17 21:20 Ur Propoxyphene Screen Not Detected (NotDetected) 06/27/17 21:20 Acetaminophen 13.1 ug/mL 06/27/17 21:09 Ur Barbiturates Screen Not Detected (NotDetected) 06/27/17 21:20 U Tricyclic Antidepress Detected (NotDetected) H 06/27/17 21:20 Ur Phencyclidine Scrn Not Detected (NotDetected) 06/27/17 21:20 Ur Amphetamines Screen Not Detected (NotDetected) 06/27/17 21:20 U Methamphetamines Scrn Not Detected (NotDetected) 06/27/17 21:20 U Benzodiazepines Scrn Not Detected (NotDetected) 06/27/17 21:20 Urine Cocaine Screen Not Detected (NotDetected) 06/27/17 21:20 U Marijuana (THC) Screen Not Detected (NotDetected) 06/27/17 21:20 HSV I DNA PCR Not detected (Not detected) 06/27/17 22:44 HSV II DNA PCR Not detected (Not detected) 06/27/17 22:44 HSV (PCR) Source (()) 06/27/17 22:44 Microbiology 06/30/17 11:03 Blood Blood Culture - Preliminary No Growth after 24 hours 06/30/17 10:49 Blood Blood Culture - Preliminary No Growth after 24 hours 06/27/17 22:44 Cerebral Spinal Fluid CSF Gram Stain - Preliminary 06/27/17 22:44 Cerebral Spinal Fluid CSF Culture - Preliminary 06/27/17 21:09 Blood Blood Culture Gram Stain - Final 06/27/17 21:09 Blood Blood Culture - Final Alpha Hemolytic Streptococcus 06/27/17 21:20 Urine,Voided Urine Culture - Final 06/27/17 21:09 Blood Blood Culture - Final Assessment and Plan (1) Meningitis Status: Acute (2) Streptococcal bacteremia Narrative/Plan: 61-year-old female with known history of underlying coronary artery disease and has a bioprosthetic aortic valve. He presented to Hospital feeling very weak and ill. She was having significant headache muscle spasms to her neck generalized weakness. She also is having marked increased her amount of baseline pain that her oral pain medications were not helpful. She was given some Medrol as an outpatient setting and despite that had no improvement. She presented to the emergency center. There should evidence of fever and leukocytosis. And with her headache and neck pain and lumbar puncture was performed that showed a markedly abnormal fluid. Gram stain without bacteria but many white cells were seen. Blood cultures are positive for alphahemolytic strep most likely be Streptococcus pneumoniae. Continue current antimicrobial therapy which is Rocephin at 2 g IV piggyback every 12 hours and vancomycin until we have further data. Follow blood cultures are negative at this time. Fortunately her pain control is considerably improved today. Much improvement over yesterday. Leukocytosis has improved, and fever has resolved. At this time. Bacteremic meningitis is showing improvement. Her headache is still problematic. We discussed that this will continue for the next several days as the inflammation continues to improve. With her many medical issues regretfully she cannot have significant doses of anti-inflammatories which may be of some utility. Continue with current pain medications which are allowing some improvement. She will need a few weeks of antibiotic therapy. The patient does have negative blood cultures now at about 24 hours. If negative tomorrow we can then arrange for a PICC line. Hopefully this can be done Tuesday that she can transfer to rehab. She will and complete 2 weeks of antibiotic therapy there. Fortunate she is showing some improvement. Status: Acute (3) Leukocytosis Status: Acute
[2017-07-02] MEDS: HYDROmorphone 2 MG/ML 1 ML SYRINGE IVP PRN (00:27)
[2017-07-02] MEDS: METOPROLOL TARTRATE 50 MG TAB PO SCH ×3 (02:12→20:12)
[2017-07-02] MEDS: SODIUM CHLORIDE 0.9% 1,000 ML IV SCH (06:48)
[2017-07-02] MEDS: cefTRIAXone 2,000 MG in SODIUM CHLORIDE 0.9% 100 ML IVPB SCH ×2 (08:00→20:18)
[2017-07-02] MEDS: FUROSEMIDE 20 MG TAB PO SCH (08:00)
[2017-07-02] MEDS: ASPIRIN 81 MG CHEW PO SCH (08:01)
[2017-07-02] MEDS: ATORVASTATIN 40 MG TAB PO SCH (08:01)
[2017-07-02] MEDS: MAGNESIUM OXIDE 400 MG TAB PO SCH (08:01)
[2017-07-02] MEDS: DOCUSATE 100 MG CAP PO SCH ×3 (08:02→20:13)
[2017-07-02] MEDS: PANTOPRAZOLE 40 MG TABLET PO SCH (08:02)
[2017-07-02] MEDS: LISINOPRIL 20 MG TAB PO SCH ×2 (08:02→20:12)
[2017-07-02] MEDS: HYDROcodone/APAP 10-325MG 1 EACH TAB PO PRN ×2 (08:03→19:16)
[2017-07-02] MEDS: ONDANSETRON 4 MG/2 ML VIAL IVP PRN ×3 (08:13→20:34)
--- NOTE | 2017-07-02 13:25 | XR ---
EXAMINATION TYPE: XR chest 2V DATE OF EXAM: 07/02/2017 COMPARISON: 02/07/2017 HISTORY: 61-year-old female congestion and shortness of breath TECHNIQUE: Frontal and lateral views FINDINGS: Median sternotomy wires are present. Prosthetic aortic valve. Heart is upper limits of normal in size . On vasculature within normal limits. Minimal patchy opacity at the left costophrenic angle also jay nting the posterior costophrenic sulcus. IMPRESSION: Suggestion of a trace left effusion versus patchy atelectasis or infiltrate.
[2017-07-02] MEDS ORDERED: FUROSEMIDE 10 MG/ML 2 ML VIAL IV STA (14:17)
--- NOTE | 2017-07-02 14:19 | P.PN ---
Subjective This a 61-year-old female admitted with reports of ongoing fevers, persistent neckpain, headaches, poor appetite, confusion in a patient who recently received epidural approximately 2 weeks ago for chronic low back pain. Lumbar puncture reported CSF fluid compatible with meningitis. Maintained on antibiotics of vancomycin and Rocephin as per infectious disease. T-max 100.3, normal WBC.. 07/01/2017 Patient is still coming of pain and is requiring Dilaudid increase the dose of [place] today. We'll try and work on her discharge and Dr. Burrell is recommending IV antibiotics we'll get a PICC line today if possible patient will be discharged either today or tomorrow to subacute recommendation. 06/23/2017 Patient had low-grade fever today decision regarding repeat blood cultures will be left to infectious disease and patient is comparing of some shortness of breath does does have minimally elevated JVD. Chest x-ray is suspicious for minimal infiltrate. Patient's IV fluids were discontinued and patient was given a dose of IV Lasix patient is receiving oral Lasix. No [place] today. Denies focal deficits, dizziness or blurred vision. Denies lightheadedness. Complains of persistent neck pain-but states headache better controlled. Objective - Vital Signs Vital signs: Vital Signs Temp 100.4 F H 07/02/17 07:00 Pulse 78 07/02/17 07:00 Resp 18 07/02/17 07:00 BP 120/65 07/02/17 07:00 Pulse Ox 94 L 07/02/17 07:45 Intake & Output 07/01/17 07/02/17 07/02/17 18:59 06:59 18:59 Intake Total 640 Output Total 450 Balance 190 Intake: Oral 640 Output: Urine 450 Other: # Voids 3 1 # Bowel Movements 0 - Exam PHYSICAL EXAMINATION: GENERAL: The patient is alert and oriented x3, not in any acute distress. Well developed, well nourished. HEENT: Pupils are round and equally reacting to light. EOMI. No scleral icterus. No conjunctival pallor. Normocephalic, atraumatic. No pharyngeal erythema. No thyromegaly. CARDIOVASCULAR: S1 and S2 present. No murmurs, rubs, or gallops. PULMONARY: Chest is clear to auscultation, no wheezing or crackles. ABDOMEN: Soft, nontender, nondistended, normoactive bowel sounds. No palpable organomegaly. MUSCULOSKELETAL: No joint swelling or deformity. EXTREMITIES: No cyanosis, clubbing, or pedal edema. NEUROLOGICAL: Gross neurological examination did not reveal any focal deficits. SKIN: No rashes. - Labs CBC & Chem 7: 06/30/17 06:07 06/30/17 06:07 Labs: Microbiology - Last 24 Hours (Table) 06/30/17 11:03 Blood Culture - Preliminary Blood No Growth after 48 hours 06/30/17 10:49 Blood Culture - Preliminary Blood No Growth after 48 hours 06/27/17 22:44 CSF Gram Stain - Final Cerebral Spinal Fluid CSF Culture - Final Assessment and Plan Plan: -Acute meningitis-bacteremic and septic -Streptococcal bacteremia, blood cultures positive for alphahemolytic strep -Coronary artery disease with single-vessel bypass -Essential hypertension -Hyperlipidemia -Chronic congestive heart failure from diastolic dysfunction EF) of 60% with mild acute exacerbation -Ascending aortic aneurysm 4.2 cm -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 patient will need a PICC line, will work on discharge to subacute rehabilitation. Patient will be given a dose of Lasix IV fluids will be discussed and. Repeat Avapro lites tomorrow.
--- NOTE | 2017-07-02 16:10 | P.PN ---
Subjective Principal diagnosis: Fever and headache This is a 61-year-old female with a past medical history significant for aortic valve replacement in 2007 done at [facility] and subsequently developed myocardial infarction underwent a CABG one vessel and then was transferred [facility] and had a difficult postoperative period with development of DVT in the left leg. Patient had a stress test done 2 years ago that apparently was normal. Was recently hospitalized. The point in time there was concern is the possibility of infection of her aortic bioprosthetic valve. She underwent testing. TORIBIO was performed without evidence of endocarditis. Evidence of a positive cultures and she did well with ongoing cardiac a follow-up. She has a several day history of feeling poorly. She's been having some sweats at night. She's been having fever that is tactile in nature over the last several days. She's felt warm and weak. She's had no rita rigors. She developed increasing weakness. She was also having some increasing pain and was with some mild increase of her [place] dosing. Basic that she was not doing well. She was seen in the outpatient setting and was given a Medrol Dosepak also to see if this cannot help with her symptoms. 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 She does see pain specialist and has received epidural injections. Last was approximately 2- 3 weeks ago. During this timeframe she has been treated with a burst of steroids. As well as her ongoing pain medications. She was feeling just slightly better and is now considerably worse and with her symptoms she presented to the emergency center. Positive relates that she also had significant alteration of her mental status on top of her significant headache and constantly he brought her to hospital. Fever was noted. Leukocytosis was also found. With her headache and mental status changes lumbar puncture was performed. Abnormal fluid has been found in with at the infectious diseases consultation was requested. Please see the consult note is dictated by nurse practitioner Mrs. Keya Santamaria. At this time the patient continues to feel poorly. We discussed the abnormal fluid. The likelihood that this could be a meningitis is noted. Antibiotic therapy is initiated with ceftriaxone 2 g every 12 hours as well as vancomycin. Laboratory does: Positive blood culture with gram-positive cocci in chains. Increases the likelihood this is a Streptococcus pneumoniae sepsis and with potential meningitis. Continue current antimicrobial therapy. Continue with ongoing local care. Her has a history of leukemia will continue wearing his mask and doing good hand hygiene. Leukocytosis record related to her current sepsis. Today the patient is showing improvement. Her pain is better controlled. She is denying nausea or emesis. Headache is under better control with current pain medication. She is somewhat more cheerful today however she is concerned about why she has some illnesses despite her age. Her mood is definitely better than the other day. Her headache neck pain and shoulder pains are all improving. She is seeing a slow but steady improvement of her status. Objective - Vital Signs Vital signs: Vital Signs Temp 100.4 F H 07/02/17 07:00 Pulse 78 07/02/17 07:00 Resp 18 07/02/17 08:00 BP 120/65 07/02/17 07:00 Pulse Ox 94 L 07/02/17 07:45 Intake & Output 07/01/17 07/02/17 07/02/17 18:59 06:59 18:59 Intake Total 640 300 Output Total 450 450 Balance 190 -150 Weight 65 kg Intake: Intake, IV Titration 300 Amount Sodium Chloride 0.9% 1, 200 000 ml @ 50 mls/hr IV . Q20H SEBASTIEN Rx#:[id number] cefTRIAXone 2,000 mg In 100 Sodium Chloride 0.9% 100 ml @ 100 mls/hr IVPB BID SEBASTIEN Rx#:[id number] Oral 640 Output: Urine 450 450 Other: Voiding Method Toilet # Voids 3 1 3 # Bowel Movements 0 1 - Exam Gen: This is a 61-year-old female in bed and appears to be more comfortable. Does have narcotic effect to her affect HEENT: Head is atraumatic, normocephalic. Pupils equal, round. Sclerae is anicteric. conjunctiva pink. Mucous membranes of the mouth are moist. NECK: Supple. But does have some tenderness to range of motion especially posterior tension. No JVD. No lymphadenopathy. No thyromegaly. LUNGS: Clear to auscultation. No wheezes or rhonchi. No intercostal retractions. HEART: Regular rate and rhythm. Systolic murmur. ABDOMEN: Distended with tenderness over the suprapubic area. Bowel sounds are present. No masses. No tenderness. EXTREMITIES: No pedal edema. No calf tenderness. dorsalis pedis +2 bilaterally. NEUROLOGICAL: Patient is awake, alert and oriented x3 - Labs CBC & Chem 7: 06/30/17 06:07 06/30/17 06:07 Labs: Microbiology - Last 24 Hours (Table) 06/30/17 11:03 Blood Culture - Preliminary Blood No Growth after 48 hours 06/30/17 10:49 Blood Culture - Preliminary Blood No Growth after 48 hours 06/27/17 22:44 CSF Gram Stain - Final Cerebral Spinal Fluid CSF Culture - Final Laboratory Results WBC 6.6 k/uL (3.8-10.6) 06/30/17 06:07 RBC 2.87 m/uL (3.80-5.40) L 06/30/17 06:07 Hgb 8.9 gm/dL (11.4-16.0) L 06/30/17 06:07 Hct 28.0 % (34.0-46.0) L 06/30/17 06:07 MCV 97.6 fL (80.0-100.0) 06/30/17 06:07 MCH 30.9 pg (25.0-35.0) 06/30/17 06:07 MCHC 31.6 g/dL (31.0-37.0) 06/30/17 06:07 RDW 13.5 % (11.5-15.5) 06/30/17 06:07 Plt Count 373 k/uL (150-450) 06/30/17 06:07 Neutrophils % 73 % 06/30/17 06:07 Lymphocytes % 19 % 06/30/17 06:07 Monocytes % 4 % 06/30/17 06:07 Eosinophils % 2 % 06/30/17 06:07 Basophils % 0 % 06/30/17 06:07 Neutrophils # 4.8 k/uL (1.3-7.7) 06/30/17 06:07 Lymphocytes # 1.2 k/uL (1.0-4.8) 06/30/17 06:07 Monocytes # 0.3 k/uL (0-1.0) 06/30/17 06:07 Eosinophils # 0.1 k/uL (0-0.7) 06/30/17 06:07 Basophils # 0.0 k/uL (0-0.2) 06/30/17 06:07 Hypochromasia Slight 06/30/17 06:07 PT 11.1 sec (9.0-12.0) 06/27/17 21:09 INR 1.1 (<1.2) 06/27/17 21:09 APTT 24.2 sec (22.0-30.0) 06/27/17 21:09 Sodium 139 mmol/L (137-145) 06/30/17 06:07 Potassium 3.9 mmol/L (3.5-5.1) 06/30/17 06:07 Chloride 108 mmol/L (98-107) H 06/30/17 06:07 Carbon Dioxide 25 mmol/L (22-30) 06/30/17 06:07 Anion Gap 6 mmol/L 06/30/17 06:07 BUN 5 mg/dL (7-17) L 06/30/17 06:07 Creatinine 0.50 mg/dL (0.52-1.04) L 06/30/17 06:07 Est GFR (MDRD) Af Amer >60 (>60 ml/min/1.73 sqM) 06/30/17 06:07 Est GFR (MDRD) Non-Af >60 (>60 ml/min/1.73 sqM) 06/30/17 06:07 Glucose 83 mg/dL (74-99) 06/30/17 06:07 POC Glucose (mg/dL) 133 mg/dL (75-99) H 06/27/17 21:08 POC Glu Movie Star Lilian Owen 06/27/17 21:08 Plasma Lactic Acid Steven 1.1 mmol/L (0.7-2.0) 06/27/17 21:09 Calcium 8.3 mg/dL (8.4-10.2) L 06/30/17 06:07 Magnesium 1.7 mg/dL (1.6-2.3) 06/29/17 05:57 Total Bilirubin 0.2 mg/dL (0.2-1.3) 06/29/17 05:57 AST 35 U/L (14-36) 06/29/17 05:57 ALT 34 U/L (9-52) 06/29/17 05:57 Alkaline Phosphatase 92 U/L (38-126) 06/29/17 05:57 Total Creatine Kinase 24 U/L (30-135) L 06/27/17 21:09 CK-MB (CK-2) 0.3 ng/mL (0.0-2.4) 06/27/17 21:09 CK-MB (CK-2) Rel Index 1.3 06/27/17 21:09 Troponin I <0.012 ng/mL (0.000-0.034) 06/27/17 21:09 NT-Pro-B Natriuret Pep 858 pg/mL 06/27/17 21:09 Total Protein 5.2 g/dL (6.3-8.2) L 06/29/17 05:57 Albumin 2.5 g/dL (3.5-5.0) L 06/29/17 05:57 TSH 1.210 mIU/L (0.465-4.680) 06/27/17 21:09 Urine Color Yellow 06/27/17 21:20 Urine Appearance Cloudy (Clear) H 06/27/17 21:20 Urine pH 6.0 (5.0-8.0) 06/27/17 21:20 Ur Specific [place] 1.027 (1.001-1.035) 06/27/17 21:20 Urine Protein 1+ (Negative) H 06/27/17 21:20 Urine Glucose (UA) Negative (Negative) 06/27/17 21:20 Urine Ketones Trace (Negative) H 06/27/17 21:20 Urine Blood Small (Negative) H 06/27/17 21:20 Urine Nitrite Negative (Negative) 06/27/17 21:20 Urine Bilirubin Negative (Negative) 06/27/17 21:20 Urine Urobilinogen <2.0 mg/dL (<2.0) 06/27/17 21:20 Ur Leukocyte Esterase Large (Negative) H 06/27/17 21:20 Urine RBC 9 /hpf (0-5) H 06/27/17 21:20 Urine WBC 13 /hpf (0-5) H 06/27/17 21:20 Ur Squamous Epith Cells 2 /hpf (0-4) 06/27/17 21:20 Urine Mucus Rare /hpf (None) H 06/27/17 21:20 CSF Tube Number 4 06/27/17 22:44 CSF Volume 1.0 06/27/17 22:44 CSF Appearance Cloudy 06/27/17 22:44 CSF Color Colorless 06/27/17 22:44 CSF RBC 15 u/L (0-10) H 06/27/17 22:44 CSF Tot Nucleated Cells 3240 u/L (0-5) H 06/27/17 22:44 CSF Mononuclear WBCs % 13 % 06/27/17 22:44 CSF Polynuclear WBCs % 87 % 06/27/17 22:44 CSF Fresh RBCs 100 % 06/27/17 22:44 CSF Glucose 32 mg/dL (40-70) L 06/27/17 22:44 CSF Total Protein 283 mg/dL (12-60) H 06/27/17 22:44 Vancomycin Trough 13.9 ug/mL 06/30/17 06:07 Salicylates <1.0 mg/dL 06/27/17 21:09 Urine Opiates Screen Detected (NotDetected) H 06/27/17 21:20 Ur Oxycodone Screen Not Detected (NotDetected) 06/27/17 21:20 Urine Methadone Screen Not Detected (NotDetected) 06/27/17 21:20 Ur Propoxyphene Screen Not Detected (NotDetected) 06/27/17 21:20 Acetaminophen 13.1 ug/mL 06/27/17 21:09 Ur Barbiturates Screen Not Detected (NotDetected) 06/27/17 21:20 U Tricyclic Antidepress Detected (NotDetected) H 06/27/17 21:20 Ur Phencyclidine Scrn Not Detected (NotDetected) 06/27/17 21:20 Ur Amphetamines Screen Not Detected (NotDetected) 06/27/17 21:20 U Methamphetamines Scrn Not Detected (NotDetected) 06/27/17 21:20 U Benzodiazepines Scrn Not Detected (NotDetected) 06/27/17 21:20 Urine Cocaine Screen Not Detected (NotDetected) 06/27/17 21:20 U Marijuana (THC) Screen Not Detected (NotDetected) 06/27/17 21:20 HSV I DNA PCR Not detected (Not detected) 06/27/17 22:44 HSV II DNA PCR Not detected (Not detected) 06/27/17 22:44 HSV (PCR) Source (()) 06/27/17 22:44 Microbiology 06/30/17 11:03 Blood Blood Culture - Preliminary No Growth after 48 hours 06/30/17 10:49 Blood Blood Culture - Preliminary No Growth after 48 hours 06/27/17 22:44 Cerebral Spinal Fluid CSF Gram Stain - Final 06/27/17 22:44 Cerebral Spinal Fluid CSF Culture - Final 06/27/17 21:09 Blood Blood Culture Gram Stain - Final 06/27/17 21:09 Blood Blood Culture - Final Alpha Hemolytic Streptococcus 06/27/17 21:20 Urine,Voided Urine Culture - Final 06/27/17 21:09 Blood Blood Culture - Final Assessment and Plan (1) Meningitis Status: Acute (2) Streptococcal bacteremia Narrative/Plan: 61-year-old female with known history of underlying coronary artery disease and has a bioprosthetic aortic valve. He presented to Hospital feeling very weak and ill. She was having significant headache muscle spasms to her neck generalized weakness. She also is having marked increased her amount of baseline pain that her oral pain medications were not helpful. She was given some Medrol as an outpatient setting and despite that had no improvement. She presented to the emergency center. There should evidence of fever and leukocytosis. And with her headache and neck pain and lumbar puncture was performed that showed a markedly abnormal fluid. Gram stain without bacteria but many white cells were seen. Blood cultures are positive for alphahemolytic strep most likely be Streptococcus pneumoniae. Continue current antimicrobial therapy which is Rocephin at 2 g IV piggyback every 12 hours and vancomycin until we have further data. Follow blood cultures are negative at this time. Fortunately her pain control is considerably improved today. Much improvement over yesterday. Leukocytosis has improved, and fever has resolved. At this time. Bacteremic meningitis is showing improvement. Her headache is still problematic. We discussed that this will continue for the next several days as the inflammation continues to improve. With her many medical issues regretfully she cannot have significant doses of anti-inflammatories which may be of some utility. Continue with current pain medications which are allowing some improvement. She will need a few weeks of antibiotic therapy. The patient does have negative blood cultures now at 48 hours we can then arrange for a PICC line. Hopefully this can be done Tuesday that she can transfer to rehab. She will and complete 2 weeks of antibiotic therapy there. Fortunate she is showing some improvement. Status: Acute (3) Leukocytosis Status: Acute
[2017-07-02] MEDS: METOCLOPRAMIDE 5 MG/ML 2 ML VIAL IVP PRN (19:04)
[2017-07-02] MEDS: PANTOPRAZOLE 40 MG/10 ML VIAL IVP SCH (20:15)
[2017-07-03] MEDS: CYCLOBENZAPRINE 10 MG TAB PO PRN ×2 (00:28→20:36)
[2017-07-03] MEDS: traZODone HCL 50 MG TAB PO PRN ×2 (00:28→20:53)
[2017-07-03] MEDS: METOPROLOL TARTRATE 50 MG TAB PO SCH ×3 (02:43→20:29)
[2017-07-03] MEDS: METOCLOPRAMIDE 5 MG/ML 2 ML VIAL IVP PRN ×3 (06:19→20:28)
[2017-07-03] MEDS: HYDROcodone/APAP 10-325MG 1 EACH TAB PO PRN ×3 (07:13→20:31)
[2017-07-03] MEDS: ONDANSETRON 4 MG/2 ML VIAL IVP PRN (08:43)
[2017-07-03] MEDS: PANTOPRAZOLE 40 MG/10 ML VIAL IVP SCH (08:44)
[2017-07-03] MEDS: ATORVASTATIN 40 MG TAB PO SCH (08:45)
[2017-07-03] MEDS: MAGNESIUM OXIDE 400 MG TAB PO SCH (08:45)
[2017-07-03] MEDS: LISINOPRIL 20 MG TAB PO SCH ×2 (08:46→20:29)
[2017-07-03] MEDS: cefTRIAXone 2,000 MG in SODIUM CHLORIDE 0.9% 100 ML IVPB SCH ×2 (08:46→20:28)
[2017-07-03] MEDS: FUROSEMIDE 20 MG TAB PO SCH (08:46)
[2017-07-03] MEDS: ASPIRIN 81 MG CHEW PO SCH (08:47)
[2017-07-03] MEDS: DOCUSATE 100 MG CAP PO SCH ×2 (08:48→20:39)
[2017-07-03 08:52] LABS: CH 30.9; CHCM 32.1; HCT 27.2 % (34.0-46.0); HDW 3.23; HGB 8.8 gm/dL (11.4-16.0); Hypochromasia Slight; MCH 31.2 pg (25.0-35.0); MCHC 32.4 g/dL (31.0-37.0); MCV 96.5 fL (80.0-100.0); Mean Platelet Volume 6.8; RBC 2.82 m/uL (3.80-5.40); RDW 13.9 % (11.5-15.5)
[2017-07-03 09:03] LABS: Anion Gap 9 mmol/L; Blood Urea Nitrogen <2 mg/dL (7-17); Calcium 8.7 mg/dL (8.4-10.2); Carbon Dioxide 31 mmol/L (22-30); Chloride 102 mmol/L (98-107); Glucose 85 mg/dL (74-99); Non-African American GFR(MDRD) >60 (>60 ml/min/1.73 sqM); Sodium 142 mmol/L (137-145)
--- NOTE | 2017-07-03 10:58 | P.PN ---
Subjective This a 61-year-old female admitted with reports of ongoing fevers, persistent neckpain, headaches, poor appetite, confusion in a patient who recently received epidural approximately 2 weeks ago for chronic low back pain. Lumbar puncture reported CSF fluid compatible with meningitis. Maintained on antibiotics of vancomycin and Rocephin as per infectious disease. T-max 100.3, normal WBC.. 07/01/2017 Patient is still coming of pain and is requiring Dilaudid increase the dose of [place] today. We'll try and work on her discharge and Dr. Burrell is recommending IV antibiotics we'll get a PICC line today if possible patient will be discharged either today or tomorrow to subacute recommendation. 07/02/2017 Patient had low-grade fever today decision regarding repeat blood cultures will be left to infectious disease and patient is comparing of some shortness of breath does does have minimally elevated JVD. Chest x-ray is suspicious for minimal infiltrate. Patient's IV fluids were discontinued and patient was given a dose of IV Lasix patient is receiving oral Lasix. 07/03/2017 Patient was pretty status did improve with IV Lasix with good and give her 1 more dose of Lasix. Patient is clinically doing well afebrile no other significant overnight events. Patient probably will receive a PICC line tomorrow and possibility of discharge tomorrow with IV antibiotics. No [place] today. Denies focal deficits, dizziness or blurred vision. Denies lightheadedness. Complains of persistent neck pain-but states headache better controlled. Objective - Vital Signs Vital signs: Vital Signs Temp 98.8 F 07/03/17 07:00 Pulse 75 07/03/17 07:00 Resp 16 07/03/17 07:00 BP 120/70 07/03/17 07:00 Pulse Ox 97 07/03/17 07:00 Intake & Output 07/02/17 07/03/17 07/03/17 18:59 06:59 18:59 Intake Total 300 1000 Output Total 900 Balance -600 1000 Weight 65 kg Intake: Intake, IV Titration 300 Amount Sodium Chloride 0.9% 1, 200 000 ml @ 50 mls/hr IV . Q20H [facility] Rx#:[id number] cefTRIAXone 2,000 mg In 100 Sodium Chloride 0.9% 100 ml @ 100 mls/hr IVPB BID SEBASTIEN Rx#:[id number] Oral 1000 Output: Urine 900 Other: Voiding Method Toilet # Voids 3 2 # Bowel Movements 1 0 - Exam PHYSICAL EXAMINATION: GENERAL: The patient is alert and oriented x3, not in any acute distress. Well developed, well nourished. HEENT: Pupils are round and equally reacting to light. EOMI. No scleral icterus. No conjunctival pallor. Normocephalic, atraumatic. No pharyngeal erythema. No thyromegaly. CARDIOVASCULAR: S1 and S2 present. No murmurs, rubs, or gallops. PULMONARY: Chest is clear to auscultation, no wheezing or crackles. ABDOMEN: Soft, nontender, nondistended, normoactive bowel sounds. No palpable organomegaly. MUSCULOSKELETAL: No joint swelling or deformity. EXTREMITIES: No cyanosis, clubbing, or pedal edema. NEUROLOGICAL: Gross neurological examination did not reveal any focal deficits. SKIN: No rashes. - Labs CBC & Chem 7: 07/03/17 08:07 07/03/17 08:07 Labs: Abnormal Lab Results - Last 24 Hours (Table) 07/03/17 07/03/17 Range/Units 08:07 08:07 RBC 2.82 L (3.80-5.40) m/uL Hgb 8.8 L (11.4-16.0) gm/dL Hct 27.2 L (34.0-46.0) % Carbon Dioxide 31 H (22-30) mmol/L BUN <2 L (7-17) mg/dL Microbiology - Last 24 Hours (Table) 06/30/17 11:03 Blood Culture - Preliminary Blood No Growth after 48 hours 06/30/17 10:49 Blood Culture - Preliminary Blood No Growth after 48 hours 06/27/17 22:44 CSF Gram Stain - Final Cerebral Spinal Fluid CSF Culture - Final Assessment and Plan Plan: -Acute meningitis-bacteremic and septic -Streptococcal bacteremia, blood cultures positive for alphahemolytic strep -Coronary artery disease with single-vessel bypass -Essential hypertension -Hyperlipidemia -Chronic congestive heart failure from diastolic dysfunction EF) of 60% with mild acute exacerbation, we'll go in and ordered one more dose of IV Lasix repeat basic metabolic profile tomorrow we'll continue with oral Lasix no IV fluids at this time. -Ascending aortic aneurysm 4.2 cm -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 patient will need a PICC line, will work on discharge to subacute rehabilitation. Patient will be given a dose of Lasix IV fluids will be discussed and. Repeat electrolytes tomorrow.
[2017-07-03] MEDS ORDERED: FUROSEMIDE 10 MG/ML 2 ML VIAL IV ONE (16:00)
[2017-07-04] MEDS: METOPROLOL TARTRATE 50 MG TAB PO SCH ×3 (01:52→21:00)
[2017-07-04] MEDS: HYDROcodone/APAP 10-325MG 1 EACH TAB PO PRN ×3 (08:35→22:20)
[2017-07-04] MEDS: DOCUSATE 100 MG CAP PO SCH ×2 (08:35→21:00)
[2017-07-04] MEDS: ASPIRIN 81 MG CHEW PO SCH (08:35)
[2017-07-04] MEDS: ATORVASTATIN 40 MG TAB PO SCH (08:44)
[2017-07-04] MEDS: LISINOPRIL 20 MG TAB PO SCH ×2 (08:44→20:58)
[2017-07-04] MEDS: MAGNESIUM OXIDE 400 MG TAB PO SCH (08:44)
[2017-07-04] MEDS: PANTOPRAZOLE 40 MG TABLET PO SCH ×2 (08:44→17:41)
[2017-07-04] MEDS: FUROSEMIDE 20 MG TAB PO SCH (08:52)
[2017-07-04 09:18] LABS: Anion Gap 9 mmol/L; Blood Urea Nitrogen 3 mg/dL (7-17); Carbon Dioxide 33 mmol/L (22-30); Chloride 99 mmol/L (98-107); Glucose 99 mg/dL (74-99); Non-African American GFR(MDRD) >60 (>60 ml/min/1.73 sqM); Potassium 4.3 mmol/L (3.5-5.1); Sodium 141 mmol/L (137-145)
[2017-07-04 09:43] LABS: CH 31.3; CHCM 31.7; HCT 32.6 % (34.0-46.0); HDW 3.17; HGB 10.2 gm/dL (11.4-16.0); Hypochromasia Slight; MCHC 31.3 g/dL (31.0-37.0); MCV 99.1 fL (80.0-100.0); Mean Platelet Volume 7.1; RBC 3.29 m/uL (3.80-5.40); RDW 14.5 % (11.5-15.5); WBC 10.4 k/uL (3.8-10.6)
[2017-07-04] MEDS ORDERED: LIDOCAINE 2% INJ 20 MG/ML SQ ONE (15:57)
[2017-07-04] MEDS: cefTRIAXone 2,000 MG in SODIUM CHLORIDE 0.9% 100 ML IVPB SCH ×2 (16:19→21:00)
[2017-07-04] MEDS: METOCLOPRAMIDE 5 MG/ML 2 ML VIAL IVP PRN (17:47)
--- NOTE | 2017-07-04 21:51 | IR ---
EXAMINATION TYPE: IR cvc insert >=5 years DATE OF EXAM: 07/04/2017 COMPARISON: NONE CLINICAL HISTORY: Infection Needs long-term intravenous access for antibiotics. PROCEDURE: After informed consent, the skin overlying the left basilic vein was localized with ultrasound and no devi to be compressible and patent. An ultrasound image was obtained and submitted on the patient's c mandujano. The overlying skin was prepped and draped and Lidocaine was used for local anesthesia. A skin ye was made with a scalpel. Access was gained to the vein under ultrasound guidance with a 21 gau ge needle and a 0.018 inch wire was advanced. Access site was dilated with Peel-Away sheath and cath eter tailored to the appropriate length and advanced such that the distal tip is at the cavoatrial ju nction. Spot image was obtained verifying placement. Catheter was fixed to the skin with suture and a sterile dressing was placed following hemostasis. Catheter was aspirated and flushed with saline. Patient was discharged in stable condition without complication. Maximal barrier technique is utili zed. Ultrasound image is documented on the chart. Ultrasound used with sterile technique. Fluoro time and fluoroscopic images submitted to document procedure: 14 intraoperative C-arm images, 0.4 minutes fluoroscopy time IMPRESSION: STATUS POST ULTRASOUND AND FLUOROSCOPIC GUIDED PICC LINE PLACEMENT, READY FOR USE. THIS PROCEDURE WAS PERFORMED BY THE UNDERSIGNED.
--- NOTE | 2017-07-04 21:54 | P.PN ---
Subjective Principal diagnosis: Fever and headache This is a 61-year-old female with a past medical history significant for aortic valve replacement in 2007 done at [facility] and subsequently developed myocardial infarction underwent a CABG one vessel and then was transferred [facility] and had a difficult postoperative period with development of DVT in the left leg. Patient had a stress test done 2 years ago that apparently was normal. Was recently hospitalized. The point in time there was concern is the possibility of infection of her aortic bioprosthetic valve. She underwent testing. TORIBIO was performed without evidence of endocarditis. Evidence of a positive cultures and she did well with ongoing cardiac a follow-up. She has a several day history of feeling poorly. She's been having some sweats at night. She's been having fever that is tactile in nature over the last several days. She's felt warm and weak. She's had no rita rigors. She developed increasing weakness. She was also having some increasing pain and was with some mild increase of her [place] dosing. Basic that she was not doing well. She was seen in the outpatient setting and was given a Medrol Dosepak also to see if this cannot help with her symptoms. 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 She does see pain specialist and has received epidural injections. Last was approximately 2- 3 weeks ago. During this timeframe she has been treated with a burst of steroids. As well as her ongoing pain medications. She was feeling just slightly better and is now considerably worse and with her symptoms she presented to the emergency center. Positive relates that she also had significant alteration of her mental status on top of her significant headache and constantly he brought her to hospital. Fever was noted. Leukocytosis was also found. With her headache and mental status changes lumbar puncture was performed. Abnormal fluid has been found in with at the infectious diseases consultation was requested. Please see the consult note is dictated by nurse practitioner Mrs. Keya Santamaria. At this time the patient continues to feel poorly. We discussed the abnormal fluid. The likelihood that this could be a meningitis is noted. Antibiotic therapy is initiated with ceftriaxone 2 g every 12 hours as well as vancomycin. Laboratory does: Positive blood culture with gram-positive cocci in chains. Increases the likelihood this is a Streptococcus pneumoniae sepsis and with potential meningitis. Continue current antimicrobial therapy. Continue with ongoing local care. Her has a history of leukemia will continue wearing his mask and doing good hand hygiene. Leukocytosis record related to her current sepsis. Today the patient is showing improvement. Her pain is better controlled. She is denying nausea or emesis. Headache is under better control with current pain medication. She is somewhat more cheerful today however she is concerned about why she has some illnesses despite her age. Her mood is definitely better than the other day. Her headache neck pain and shoulder pains are all improving. Patient is now much improved today. Affect is improved. Pain is improved. Getting ready for discharge to rehab. Objective - Vital Signs Vital signs: Vital Signs Temp 97.1 F L 07/04/17 20:11 Pulse 76 07/04/17 20:11 Resp 18 07/04/17 16:00 BP 116/76 07/04/17 20:11 Pulse Ox 94 L 07/04/17 20:11 Intake & Output 07/04/17 07/04/17 07/05/17 06:59 18:59 06:59 Intake Total 200 150 Output Total 450 Balance 200 -450 150 Weight 65 kg Intake: IV 200 cefTRIAXone 2,000 mg In 200 Sodium Chloride 0.9% 100 ml @ 100 mls/hr IVPB BID [facility] Rx#:[id number] Oral 150 Output: Urine 450 Other: Voiding Method Toilet # Voids 3 2 - Exam Gen: This is a 61-year-old female in bed and appears to be much more comfortable today. Affect is much improved. HEENT: Head is atraumatic, normocephalic. Pupils equal, round. Sclerae is anicteric. conjunctiva pink. Mucous membranes of the mouth are moist. NECK: Supple. But does have some tenderness to range of motion especially posterior tension. No JVD. No lymphadenopathy. No thyromegaly. LUNGS: Clear to auscultation. No wheezes or rhonchi. No intercostal retractions. HEART: Regular rate and rhythm. Systolic murmur. ABDOMEN: Distended with tenderness over the suprapubic area. Bowel sounds are present. No masses. No tenderness. EXTREMITIES: No pedal edema. No calf tenderness. dorsalis pedis +2 bilaterally. NEUROLOGICAL: Patient is awake, alert and oriented x3 - Labs CBC & Chem 7: 07/04/17 08:26 07/04/17 08:26 Labs: Abnormal Lab Results - Last 24 Hours (Table) 07/04/17 07/04/17 Range/Units 08:26 08:26 RBC 3.29 L (3.80-5.40) m/uL Hgb 10.2 L (11.4-16.0) gm/dL Hct 32.6 L (34.0-46.0) % Plt Count 542 H (150-450) k/uL Carbon Dioxide 33 H (22-30) mmol/L BUN 3 L (7-17) mg/dL Microbiology - Last 24 Hours (Table) 06/30/17 11:03 Blood Culture - Preliminary Blood No Growth after 96 hours 06/30/17 10:49 Blood Culture - Preliminary Blood No Growth after 96 hours Laboratory Results WBC 10.4 k/uL (3.8-10.6) 07/04/17 08:26 RBC 3.29 m/uL (3.80-5.40) L 07/04/17 08:26 Hgb 10.2 gm/dL (11.4-16.0) L 07/04/17 08:26 Hct 32.6 % (34.0-46.0) L 07/04/17 08:26 MCV 99.1 fL (80.0-100.0) 07/04/17 08:26 MCH 31.0 pg (25.0-35.0) 07/04/17 08:26 MCHC 31.3 g/dL (31.0-37.0) 07/04/17 08:26 RDW 14.5 % (11.5-15.5) 07/04/17 08:26 Plt Count 542 k/uL (150-450) H 07/04/17 08:26 Neutrophils % 73 % 06/30/17 06:07 Lymphocytes % 19 % 06/30/17 06:07 Monocytes % 4 % 06/30/17 06:07 Eosinophils % 2 % 06/30/17 06:07 Basophils % 0 % 06/30/17 06:07 Neutrophils # 4.8 k/uL (1.3-7.7) 06/30/17 06:07 Lymphocytes # 1.2 k/uL (1.0-4.8) 06/30/17 06:07 Monocytes # 0.3 k/uL (0-1.0) 06/30/17 06:07 Eosinophils # 0.1 k/uL (0-0.7) 06/30/17 06:07 Basophils # 0.0 k/uL (0-0.2) 06/30/17 06:07 Hypochromasia Slight 07/04/17 08:26 PT 11.1 sec (9.0-12.0) 06/27/17 21:09 INR 1.1 (<1.2) 06/27/17 21:09 APTT 24.2 sec (22.0-30.0) 06/27/17 21:09 Sodium 141 mmol/L (137-145) 07/04/17 08:26 Potassium 4.3 mmol/L (3.5-5.1) 07/04/17 08:26 Chloride 99 mmol/L (98-107) 07/04/17 08:26 Carbon Dioxide 33 mmol/L (22-30) H 07/04/17 08:26 Anion Gap 9 mmol/L 07/04/17 08:26 BUN 3 mg/dL (7-17) L 07/04/17 08:26 Creatinine 0.52 mg/dL (0.52-1.04) 07/04/17 08:26 Est GFR (MDRD) Af Amer >60 (>60 ml/min/1.73 sqM) 07/04/17 08:26 Est GFR (MDRD) Non-Af >60 (>60 ml/min/1.73 sqM) 07/04/17 08:26 Glucose 99 mg/dL (74-99) 07/04/17 08:26 POC Glucose (mg/dL) 133 mg/dL (75-99) H 06/27/17 21:08 POC Glu [employer] Lilian Owen 06/27/17 21:08 Plasma Lactic Acid Steven 1.1 mmol/L (0.7-2.0) 06/27/17 21:09 Calcium 9.0 mg/dL (8.4-10.2) 07/04/17 08:26 Magnesium 1.7 mg/dL (1.6-2.3) 06/29/17 05:57 Total Bilirubin 0.2 mg/dL (0.2-1.3) 06/29/17 05:57 AST 35 U/L (14-36) 06/29/17 05:57 ALT 34 U/L (9-52) 06/29/17 05:57 Alkaline Phosphatase 92 U/L (38-126) 06/29/17 05:57 Total Creatine Kinase 24 U/L (30-135) L 06/27/17 21:09 CK-MB (CK-2) 0.3 ng/mL (0.0-2.4) 06/27/17 21:09 CK-MB (CK-2) Rel Index 1.3 06/27/17 21:09 Troponin I <0.012 ng/mL (0.000-0.034) 06/27/17 21:09 NT-Pro-B Natriuret Pep 858 pg/mL 06/27/17 21:09 Total Protein 5.2 g/dL (6.3-8.2) L 06/29/17 05:57 Albumin 2.5 g/dL (3.5-5.0) L 06/29/17 05:57 TSH 1.210 mIU/L (0.465-4.680) 06/27/17 21:09 Urine Color Yellow 06/27/17 21:20 Urine Appearance Cloudy (Clear) H 06/27/17 21:20 Urine pH 6.0 (5.0-8.0) 06/27/17 21:20 Ur Specific [place] 1.027 (1.001-1.035) 06/27/17 21:20 Urine Protein 1+ (Negative) H 06/27/17 21:20 Urine Glucose (UA) Negative (Negative) 06/27/17 21:20 Urine Ketones Trace (Negative) H 06/27/17 21:20 Urine Blood Small (Negative) H 06/27/17 21:20 Urine Nitrite Negative (Negative) 06/27/17 21:20 Urine Bilirubin Negative (Negative) 06/27/17 21:20 Urine Urobilinogen <2.0 mg/dL (<2.0) 06/27/17 21:20 Ur Leukocyte Esterase Large (Negative) H 06/27/17 21:20 Urine RBC 9 /hpf (0-5) H 06/27/17 21:20 Urine WBC 13 /hpf (0-5) H 06/27/17 21:20 Ur Squamous Epith Cells 2 /hpf (0-4) 06/27/17 21:20 Urine Mucus Rare /hpf (None) H 06/27/17 21:20 CSF Tube Number 4 06/27/17 22:44 CSF Volume 1.0 06/27/17 22:44 CSF Appearance Cloudy 06/27/17 22:44 CSF Color Colorless 06/27/17 22:44 CSF RBC 15 u/L (0-10) H 06/27/17 22:44 CSF Tot Nucleated Cells 3240 u/L (0-5) H 06/27/17 22:44 CSF Mononuclear WBCs % 13 % 06/27/17 22:44 CSF Polynuclear WBCs % 87 % 06/27/17 22:44 CSF Fresh RBCs 100 % 06/27/17 22:44 CSF Glucose 32 mg/dL (40-70) L 06/27/17 22:44 CSF Total Protein 283 mg/dL (12-60) H 06/27/17 22:44 Vancomycin Trough 13.9 ug/mL 06/30/17 06:07 Salicylates <1.0 mg/dL 06/27/17 21:09 Urine Opiates Screen Detected (NotDetected) H 06/27/17 21:20 Ur Oxycodone Screen Not Detected (NotDetected) 06/27/17 21:20 Urine Methadone Screen Not Detected (NotDetected) 06/27/17 21:20 Ur Propoxyphene Screen Not Detected (NotDetected) 06/27/17 21:20 Acetaminophen 13.1 ug/mL 06/27/17 21:09 Ur Barbiturates Screen Not Detected (NotDetected) 06/27/17 21:20 U Tricyclic Antidepress Detected (NotDetected) H 06/27/17 21:20 Ur Phencyclidine Scrn Not Detected (NotDetected) 06/27/17 21:20 Ur Amphetamines Screen Not Detected (NotDetected) 06/27/17 21:20 U Methamphetamines Scrn Not Detected (NotDetected) 06/27/17 21:20 U Benzodiazepines Scrn Not Detected (NotDetected) 06/27/17 21:20 Urine Cocaine Screen Not Detected (NotDetected) 06/27/17 21:20 U Marijuana (THC) Screen Not Detected (NotDetected) 06/27/17 21:20 HSV I DNA PCR Not detected (Not detected) 06/27/17 22:44 HSV II DNA PCR Not detected (Not detected) 06/27/17 22:44 HSV (PCR) Source (()) 06/27/17 22:44 Microbiology 06/30/17 11:03 Blood Blood Culture - Preliminary No Growth after 96 hours 06/30/17 10:49 Blood Blood Culture - Preliminary No Growth after 96 hours 06/27/17 22:44 Cerebral Spinal Fluid CSF Gram Stain - Final 06/27/17 22:44 Cerebral Spinal Fluid CSF Culture - Final 06/27/17 21:09 Blood Blood Culture Gram Stain - Final 06/27/17 21:09 Blood Blood Culture - Final Alpha Hemolytic Streptococcus 06/27/17 21:20 Urine,Voided Urine Culture - Final 06/27/17 21:09 Blood Blood Culture - Final Assessment and Plan (1) Meningitis Status: Acute (2) Streptococcal bacteremia Narrative/Plan: 61-year-old female with known history of underlying coronary artery disease and has a bioprosthetic aortic valve. He presented to Hospital feeling very weak and ill. She was having significant headache muscle spasms to her neck generalized weakness. She also is having marked increased her amount of baseline pain that her oral pain medications were not helpful. She was given some Medrol as an outpatient setting and despite that had no improvement. She presented to the emergency center. There should evidence of fever and leukocytosis. And with her headache and neck pain and lumbar puncture was performed that showed a markedly abnormal fluid. Gram stain without bacteria but many white cells were seen. Blood cultures are positive for alphahemolytic strep most likely be Streptococcus pneumoniae. Continue current antimicrobial therapy which is Rocephin at 2 g IV piggyback every 12 hours and vancomycin until we have further data. Follow blood cultures are negative at this time. Fortunately her pain control is considerably improved today. Much improvement over yesterday. Leukocytosis has improved, and fever has resolved. At this time. Bacteremic meningitis is showing improvement. Her headache is still problematic. We discussed that this will continue for the next several days as the inflammation continues to improve. With her many medical issues regretfully she cannot have significant doses of anti-inflammatories which may be of some utility. Continue with current pain medications which are allowing some improvement. She will need a few weeks of antibiotic therapy. The patient does have negative blood cultures now at 48 hours we can then arrange for a PICC line. PICC line has been placed. We'll go to rehab tomorrow to complete 2 weeks of intravenous antibiotic therapy Rocephin 2 g daily for Streptococcus bacteremia and meningitis. Please clarify that her CSF was markedly abnormal and although the pathogen did not grow this is not unusual since it is sometimes difficult to grow Streptococcus pneumoniae. Status: Acute (3) Leukocytosis Status: Acute
[2017-07-04] MEDS: traZODone HCL 50 MG TAB PO PRN (22:47)
--- NOTE | 2017-07-05 00:46 | P.PN ---
Subjective Principal diagnosis: Bacterial meningitis and streptococcal bacteremia This a 61-year-old female admitted with reports of ongoing fevers, persistent neckpain, headaches, poor appetite, confusion in a patient who recently received epidural approximately 2 weeks ago for chronic low back pain. Lumbar puncture reported CSF fluid compatible with meningitis. Maintained on antibiotics of vancomycin and Rocephin as per infectious disease. T-max 100.3, normal WBC.. 07/01/2017 Patient is still coming of pain and is requiring Dilaudid increase the dose of [place] today. We'll try and work on her discharge and Dr. Burrell is recommending IV antibiotics we'll get a PICC line today if possible patient will be discharged either today or tomorrow to subacute recommendation. 07/02/2017 Patient had low-grade fever today decision regarding repeat blood cultures will be left to infectious disease and patient is comparing of some shortness of breath does does have minimally elevated JVD. Chest x-ray is suspicious for minimal infiltrate. Patient's IV fluids were discontinued and patient was given a dose of IV Lasix patient is receiving oral Lasix. 07/03/2017 Patient was pretty status did improve with IV Lasix with good and give her 1 more dose of Lasix. Patient is clinically doing well afebrile no other significant overnight events. Patient probably will receive a PICC line tomorrow and possibility of discharge tomorrow with IV antibiotics. On 07/04/2017 Patient says that her headache and neck stiffness much improved today. Patient is more awake and oriented and denied any complaints of chest pain or short of breath. No fever no chills. No acute overnight issues. Plan for discharge to rehab with final ID recommendations likely tomorrow. No [place] today. Denies focal deficits, dizziness or blurred vision. Denies lightheadedness. Complains of persistent neck pain-but states headache better controlled. Objective - Vital Signs Vital signs: Vital Signs Temp 97.1 F L 07/04/17 20:11 Pulse 76 07/04/17 20:11 Resp 18 07/04/17 16:00 BP 116/76 07/04/17 20:11 Pulse Ox 94 L 07/04/17 20:11 Intake & Output 07/04/17 07/04/17 07/05/17 06:59 18:59 06:59 Intake Total 200 150 Output Total 450 Balance 200 -450 150 Weight 65 kg Intake: IV 200 cefTRIAXone 2,000 mg In 200 Sodium Chloride 0.9% 100 ml @ 100 mls/hr IVPB BID [facility] Rx#:[id number] Oral 150 Output: Urine 450 Other: Voiding Method Toilet # Voids 3 2 - Exam GENERAL: The patient is alert and oriented x3, not in any acute distress. Well developed, well nourished. HEENT: Pupils are round and equally reacting to light. EOMI. No scleral icterus. No conjunctival pallor. Normocephalic, atraumatic. No pharyngeal erythema. No thyromegaly. CARDIOVASCULAR: S1 and S2 present. No murmurs, rubs, or gallops. PULMONARY: Chest is clear to auscultation, no wheezing or crackles. ABDOMEN: Soft, nontender, nondistended, normoactive bowel sounds. No palpable organomegaly. MUSCULOSKELETAL: No joint swelling or deformity. EXTREMITIES: No cyanosis, clubbing, or pedal edema. NEUROLOGICAL: Gross neurological examination did not reveal any focal deficits. - Labs CBC & Chem 7: 07/04/17 08:26 07/04/17 08:26 Labs: Abnormal Lab Results - Last 24 Hours (Table) 07/04/17 07/04/17 Range/Units 08:26 08:26 RBC 3.29 L (3.80-5.40) m/uL Hgb 10.2 L (11.4-16.0) gm/dL Hct 32.6 L (34.0-46.0) % Plt Count 542 H (150-450) k/uL Carbon Dioxide 33 H (22-30) mmol/L BUN 3 L (7-17) mg/dL Microbiology - Last 24 Hours (Table) 06/30/17 11:03 Blood Culture - Preliminary Blood No Growth after 96 hours 06/30/17 10:49 Blood Culture - Preliminary Blood No Growth after 96 hours Assessment and Plan Plan: -Acute meningitis-bacteremic and septic. CSF culture is negative so far -Streptococcal bacteremia, blood cultures positive for alphahemolytic strep -Coronary artery disease with single-vessel bypass -Essential hypertension -Hyperlipidemia -Chronic congestive heart failure from diastolic dysfunction EF) of 60% with mild acute exacerbation, we'll go in and ordered one more dose of IV Lasix repeat basic metabolic profile tomorrow we'll continue with oral Lasix no IV fluids at this time. -Ascending aortic aneurysm 4.2 cm -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 Place PICC line, will work on discharge to subacute rehabilitation. Time with Patient: Greater than 30
[2017-07-05] MEDS: CYCLOBENZAPRINE 10 MG TAB PO PRN (01:13)
[2017-07-05] MEDS: METOPROLOL TARTRATE 50 MG TAB PO SCH ×3 (02:22→21:31)
[2017-07-05] MEDS: cefTRIAXone 2,000 MG in SODIUM CHLORIDE 0.9% 100 ML IVPB SCH ×2 (09:00→21:31)
[2017-07-05] MEDS: DOCUSATE 100 MG CAP PO SCH ×2 (09:00→21:32)
[2017-07-05] MEDS: MAGNESIUM OXIDE 400 MG TAB PO SCH (09:01)
[2017-07-05] MEDS: FUROSEMIDE 20 MG TAB PO SCH (09:01)
[2017-07-05] MEDS: LISINOPRIL 20 MG TAB PO SCH ×2 (09:01→21:31)
[2017-07-05] MEDS: ATORVASTATIN 40 MG TAB PO SCH (09:02)
[2017-07-05] MEDS: PANTOPRAZOLE 40 MG TABLET PO SCH ×2 (09:02→17:38)
[2017-07-05] MEDS: ASPIRIN 81 MG CHEW PO SCH (09:02)
[2017-07-05] MEDS: METOCLOPRAMIDE 5 MG/ML 2 ML VIAL IVP PRN (13:24)
[2017-07-05 15:43] VITALS: RESP 16
[2017-07-05] MEDS: HYDROcodone/APAP 10-325MG 1 EACH TAB PO PRN (21:31)
[2017-07-05] MEDS: traZODone HCL 50 MG TAB PO PRN (22:11)
--- NOTE | 2017-07-06 00:36 | P.PN ---
Subjective Principal diagnosis: Bacterial meningitis and streptococcal bacteremia This a 61-year-old female admitted with reports of ongoing fevers, persistent neckpain, headaches, poor appetite, confusion in a patient who recently received epidural approximately 2 weeks ago for chronic low back pain. Lumbar puncture reported CSF fluid compatible with meningitis. Maintained on antibiotics of vancomycin and Rocephin as per infectious disease. T-max 100.3, normal WBC.. 07/01/2017 Patient is still coming of pain and is requiring Dilaudid increase the dose of [place] today. We'll try and work on her discharge and Dr. Burrell is recommending IV antibiotics we'll get a PICC line today if possible patient will be discharged either today or tomorrow to subacute recommendation. 07/02/2017 Patient had low-grade fever today decision regarding repeat blood cultures will be left to infectious disease and patient is comparing of some shortness of breath does does have minimally elevated JVD. Chest x-ray is suspicious for minimal infiltrate. Patient's IV fluids were discontinued and patient was given a dose of IV Lasix patient is receiving oral Lasix. 07/03/2017 Patient was pretty status did improve with IV Lasix with good and give her 1 more dose of Lasix. Patient is clinically doing well afebrile no other significant overnight events. Patient probably will receive a PICC line tomorrow and possibility of discharge tomorrow with IV antibiotics. On 07/04/2017 Patient says that her headache and neck stiffness much improved today. Patient is more awake and oriented and denied any complaints of chest pain or short of breath. No fever no chills. No acute overnight issues. Plan for discharge to rehab with final ID recommendations likely tomorrow. 07/05/2017 Patient today complains of nausea and headache. Otherwise next depression is improved. No fever no chills. No acute overnight issues. PICC was placed. Denies focal deficits, dizziness or blurred vision. Denies lightheadedness. Complains of persistent neck pain-but states headache better controlled. Objective - Vital Signs Vital signs: Vital Signs Temp 100.3 F H 07/05/17 15:00 Pulse 93 07/05/17 16:00 Resp 16 07/05/17 16:00 BP 129/64 07/05/17 15:00 Pulse Ox 96 07/05/17 15:00 Intake & Output 07/05/17 07/05/17 07/06/17 06:59 18:59 06:59 Intake Total 150 250 Balance 150 250 Weight 65 kg Intake: Oral 150 250 Other: Voiding Method Toilet # Voids 1 3 2 # Bowel Movements 1 - Exam GENERAL: The patient is alert and oriented x3, not in any acute distress. Well developed, well nourished. HEENT: Pupils are round and equally reacting to light. EOMI. No scleral icterus. No conjunctival pallor. Normocephalic, atraumatic. No pharyngeal erythema. No thyromegaly. CARDIOVASCULAR: S1 and S2 present. No murmurs, rubs, or gallops. PULMONARY: Chest is clear to auscultation, no wheezing or crackles. ABDOMEN: Soft, nontender, nondistended, normoactive bowel sounds. No palpable organomegaly. MUSCULOSKELETAL: No joint swelling or deformity. EXTREMITIES: No cyanosis, clubbing, or pedal edema. NEUROLOGICAL: Gross neurological examination did not reveal any focal deficits. - Labs CBC & Chem 7: 07/04/17 08:26 07/04/17 08:26 Labs: Microbiology - Last 24 Hours (Table) 06/30/17 11:03 Blood Culture - Preliminary Blood No Growth after 120 hours 06/30/17 10:49 Blood Culture - Preliminary Blood No Growth after 120 hours Assessment and Plan Plan: -Acute meningitis-bacteremic and septic. CSF culture is negative so far -Streptococcal bacteremia, blood cultures positive for alphahemolytic strep -Coronary artery disease with single-vessel bypass -Essential hypertension -Hyperlipidemia -Acute on Chronic congestive heart failure from diastolic dysfunction EF) of 60 % with mild acute exacerbation, patient was given IV Lasix. we'll continue with oral Lasix no IV fluids at this time. -Ascending aortic aneurysm 4.2 cm -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 Place PICC line, will work on discharge to subacute rehabilitation.
[2017-07-06] MEDS: METOPROLOL TARTRATE 50 MG TAB PO SCH ×3 (02:49→22:01)
[2017-07-06] MEDS: DOCUSATE 100 MG CAP PO SCH ×2 (08:04→22:01)
[2017-07-06] MEDS: PANTOPRAZOLE 40 MG TABLET PO SCH ×2 (08:04→17:23)
[2017-07-06] MEDS: ATORVASTATIN 40 MG TAB PO SCH (08:05)
[2017-07-06] MEDS: FUROSEMIDE 20 MG TAB PO SCH (08:05)
[2017-07-06] MEDS: LISINOPRIL 20 MG TAB PO SCH ×2 (08:05→22:01)
[2017-07-06] MEDS: ASPIRIN 81 MG CHEW PO SCH (08:05)
[2017-07-06] MEDS: MAGNESIUM OXIDE 400 MG TAB PO SCH (08:06)
[2017-07-06] MEDS: cefTRIAXone 2,000 MG in SODIUM CHLORIDE 0.9% 100 ML IVPB SCH ×2 (08:17→22:01)
[2017-07-06] MEDS: HYDROcodone/APAP 10-325MG 1 EACH TAB PO PRN ×2 (08:59→20:36)
[2017-07-06] MEDS: ONDANSETRON 4 MG/2 ML VIAL IVP PRN (13:58)
--- NOTE | 2017-07-06 14:57 | P.DS ---
Providers Date of admission: 06/28/17 00:35 Expected date of discharge: 07/06/17 Attending physician: Thomas Link Consults: 06/28/17 00:44 Consult Physician Routine Consulting Provider: Mariano Burrell Reason/Comments: Meningitis Do you want consulting provider notified?: Yes, Notify in am Primary care physician: Archie Thomas [facility] Course: Discharge diagnosis -Acute meningitis-bacteremic and sepsis. CSF culture is negative so far -Streptococcal bacteremia, blood cultures positive for alphahemolytic strep -Coronary artery disease with single-vessel bypass -Essential hypertension -Hyperlipidemia -Acute on Chronic congestive heart failure from diastolic dysfunction EF) of 60 % with mild acute exacerbation, patient was given IV Lasix. we'll continue with oral Lasix no IV fluids at this time. -Ascending aortic aneurysm 4.2 cm -Primary osteoarthritis multiple joints including the neck and cervical spine -Scoliosis -Chronic thyroid nodules with euthyroid status -History of bioprosthetic aortic valve Physical examination GENERAL: The patient is alert and oriented x3, not in any acute distress. Well developed, well nourished. HEENT: Pupils are round and equally reacting to light. EOMI. No scleral icterus. No conjunctival pallor. Normocephalic, atraumatic. No pharyngeal erythema. No thyromegaly. CARDIOVASCULAR: S1 and S2 present. No murmurs, rubs, or gallops. PULMONARY: Chest is clear to auscultation, no wheezing or crackles. ABDOMEN: Soft, nontender, nondistended, normoactive bowel sounds. No palpable organomegaly. MUSCULOSKELETAL: No joint swelling or deformity. EXTREMITIES: No cyanosis, clubbing, or pedal edema. NEUROLOGICAL: Gross neurological examination did not reveal any focal deficits. Hospital course Bacterial meningitis and streptococcal bacteremia This a 61-year-old female admitted with reports of ongoing fevers, persistent neckpain, headaches, poor appetite, confusion in a patient who recently received epidural approximately 2 weeks ago for chronic low back pain. Lumbar puncture reported CSF fluid compatible with meningitis. Maintained on antibiotics of vancomycin and Rocephin as per infectious disease. T-max 100.3, normal WBC.. 07/01/2017 Patient is still coming of pain and is requiring Dilaudid increase the dose of [place] today. We'll try and work on her discharge and Dr. Burrell is recommending IV antibiotics we'll get a PICC line today if possible patient will be discharged either today or tomorrow to subacute recommendation. 07/02/2017 Patient had low-grade fever today decision regarding repeat blood cultures will be left to infectious disease and patient is comparing of some shortness of breath does does have minimally elevated JVD. Chest x-ray is suspicious for minimal infiltrate. Patient's IV fluids were discontinued and patient was given a dose of IV Lasix patient is receiving oral Lasix. 07/03/2017 Patient was pretty status did improve with IV Lasix with good and give her 1 more dose of Lasix. Patient is clinically doing well afebrile no other significant overnight events. Patient probably will receive a PICC line tomorrow and possibility of discharge tomorrow with IV antibiotics. On 07/04/2017 Patient says that her headache and neck stiffness much improved today. Patient is more awake and oriented and denied any complaints of chest pain or short of breath. No fever no chills. No acute overnight issues. Plan for discharge to rehab with final ID recommendations likely tomorrow. 07/05/2017 Patient today complains of nausea and headache. Otherwise next depression is improved. No fever no chills. No acute overnight issues. PICC was placed. [id number] Patient says that her nausea has improved. Tolerating by mouth diet pain control. Patient is being discharged home for continuation of IV antibiotics in the form of ceftriaxone as per ID recommendations for 14 more days. Denies focal deficits, dizziness or blurred vision. Denies lightheadedness. Neck stiffness improved Time taken greater than 35 minutes including 18 minutes in patient care, counseling and coordination of care. Patient Condition at Discharge: Good Plan - Discharge Summary New Discharge Prescriptions: New cefTRIAXone [Rocephin] 2,000 mg IVPB Q12HR #28 vial Ondansetron [Zofran] 4 mg IVP Q6HR PRN vial PRN Reason: Nausea And Vomiting Continue Atorvastatin Calcium [Lipitor] 40 mg PO DAILY Metoprolol Tartrate [Lopressor] 100 mg PO TID@0200,899,1999 Pantoprazole Sodium [Protonix] 40 mg PO DAILY Lisinopril [Zestril] 20 mg PO BID@ Biotin 5 mg PO DAILY Lysine 500 mg PO DAILY Aspirin EC [Ecotrin Low Dose] 81 mg PO DAILY traZODone HCL 50 mg PO HS PRN PRN Reason: Insomnia Furosemide [Lasix] 20 mg PO DAILY Nitroglycerin Sl Tabs [Nitrostat] 0.4 mg SUBLINGUAL Q5M PRN #0 tab PRN Reason: Chest Pain rOPINIRole HCL [Requip] 1.5 mg PO DAILY@0800 Multivitamins, Thera [Multivitamin (formulary)] 1 tab PO DAILY Cyclobenzaprine [Flexeril] 10 mg PO TID PRN PRN Reason: Muscle Spasm Magnesium Gluconate [Magonate] 1,000 mg PO DAILY HYDROcodone/APAP 7.5-325MG [[place] 7.5-325] 1 tab PO TID PRN #30 PRN Reason: Pain Discharge Medication List Aspirin EC [Ecotrin Low Dose] 81 mg PO DAILY 05/23/14 [History] Atorvastatin Calcium [Lipitor] 40 mg PO DAILY 05/23/14 [History] Biotin 5 mg PO DAILY 05/23/14 [History] Lisinopril [Zestril] 20 mg PO BID@899,199905/23/14 [History] Lysine 500 mg PO DAILY 05/23/14 [History] Metoprolol Tartrate [Lopressor] 100 mg PO TID@0200,899,199905/23/14 [History] Pantoprazole Sodium [Protonix] 40 mg PO DAILY 05/23/14 [History] traZODone HCL 50 mg PO HS PRN 12/01/16 [History] Furosemide [Lasix] 20 mg PO DAILY 12/28/16 [History] Nitroglycerin Sl Tabs [Nitrostat] 0.4 mg SUBLINGUAL Q5M PRN #0 tab 02/10/17 [Rx] Cyclobenzaprine [Flexeril] 10 mg PO TID PRN 06/27/17 [History] Magnesium Gluconate [Magonate] 1,000 mg PO DAILY 06/27/17 [History] Multivitamins, Thera [Multivitamin (formulary)] 1 tab PO DAILY 06/27/17 [History ] rOPINIRole HCL [Requip] 1.5 mg PO DAILY@0800 06/27/17 [History] HYDROcodone/APAP 7.5-325MG [[place] 7.5-325] 1 tab PO TID PRN #30 08/16/17 [Rx] Ondansetron [Zofran] 4 mg IVP Q6HR PRN vial 07/06/17 [Rx] cefTRIAXone [Rocephin] 2,000 mg IVPB Q12HR #28 vial 07/06/17 [Rx] Follow up Appointment(s)/Referral(s): Mariano Burrell MD [STAFF PHYSICIAN] - 2 Weeks [facility], [NON-STAFF] - Archie Guzman DO [Primary Care Provider] - 1 Week (after discharge from [facility]. ) Ambulatory/Diagnostic Orders: Basic Metabolic Panel [LAB.AMB] Location: Determined By Patient Complete Blood Count w/diff [LAB.AMB] Location: Determined By Patient Patient Instructions/Handouts: Bacterial Meningitis (DC), Peripherally Inserted Central Catheters and Midline Catheters (DC) Activity/Diet/Wound Care/Special Instructions: Cardiac diet. Heart failure booklet given. Up with assist, fall precautions. Discharge Disposition: TRANSFER TO SNF/ECF
[2017-07-06] MEDS ORDERED: MAG HYDROX/AL HYDROX/SIMETH 30 ML CUP PO PRN (21:58)
[2017-07-06] MEDS: traZODone HCL 50 MG TAB PO PRN (22:32)
[2017-07-07] MEDS: METOPROLOL TARTRATE 50 MG TAB PO SCH ×2 (02:21→08:47)
[2017-07-07 07:28] VITALS: BP 135/79; PULSE 79; TEMP 101.6
[2017-07-07] MEDS: ONDANSETRON 4 MG/2 ML VIAL IVP PRN (08:39)
[2017-07-07] MEDS: cefTRIAXone 2,000 MG in SODIUM CHLORIDE 0.9% 100 ML IVPB SCH (08:40)
[2017-07-07] MEDS: HYDROcodone/APAP 10-325MG 1 EACH TAB PO PRN ×2 (08:40→13:41)
[2017-07-07] MEDS: PANTOPRAZOLE 40 MG TABLET PO SCH (08:45)
[2017-07-07] MEDS: ATORVASTATIN 40 MG TAB PO SCH (08:46)
[2017-07-07] MEDS: DOCUSATE 100 MG CAP PO SCH (08:46)
[2017-07-07] MEDS: ASPIRIN 81 MG CHEW PO SCH (08:46)
[2017-07-07] MEDS: FUROSEMIDE 20 MG TAB PO SCH (08:46)
[2017-07-07] MEDS: LISINOPRIL 20 MG TAB PO SCH (08:47)
[2017-07-07] MEDS: MAGNESIUM OXIDE 400 MG TAB PO SCH (08:47)
--- NOTE | 2017-07-07 11:53 | P.PN ---
Subjective Principal diagnosis: Bacterial meningitis and streptococcal bacteremia This a 61-year-old female admitted with reports of ongoing fevers, persistent neckpain, headaches, poor appetite, confusion in a patient who recently received epidural approximately 2 weeks ago for chronic low back pain. Lumbar puncture reported CSF fluid compatible with meningitis. Maintained on antibiotics of vancomycin and Rocephin as per infectious disease. T-max 100.3, normal WBC.. 07/01/2017 Patient is still coming of pain and is requiring Dilaudid increase the dose of [place] today. We'll try and work on her discharge and Dr. Burrell is recommending IV antibiotics we'll get a PICC line today if possible patient will be discharged either today or tomorrow to subacute recommendation. 07/02/2017 Patient had low-grade fever today decision regarding repeat blood cultures will be left to infectious disease and patient is comparing of some shortness of breath does does have minimally elevated JVD. Chest x-ray is suspicious for minimal infiltrate. Patient's IV fluids were discontinued and patient was given a dose of IV Lasix patient is receiving oral Lasix. 07/03/2017 Patient was pretty status did improve with IV Lasix with good and give her 1 more dose of Lasix. Patient is clinically doing well afebrile no other significant overnight events. Patient probably will receive a PICC line tomorrow and possibility of discharge tomorrow with IV antibiotics. On 07/04/2017 Patient says that her headache and neck stiffness much improved today. Patient is more awake and oriented and denied any complaints of chest pain or short of breath. No fever no chills. No acute overnight issues. Plan for discharge to rehab with final ID recommendations likely tomorrow. 07/05/2017 Patient today complains of nausea and headache. Otherwise neck stiffness is improved. No fever no chills. No acute overnight issues. PICC was placed. 07/06/2017 . Patient's nausea improved but coming on and off now. Headache improved no neck stiffness. No fever no chills no overnight issues. Denies focal deficits, dizziness or blurred vision. Denies lightheadedness. Complains of persistent neck pain-but states headache better controlled. Objective - Vital Signs Vital signs: Vital Signs Temp 99.5 F 07/06/17 15:00 Pulse 80 07/06/17 15:53 Resp 16 07/06/17 15:53 BP 139/77 07/06/17 15:00 Pulse Ox 99 07/06/17 15:00 Intake & Output 07/06/17 07/06/17 07/07/17 06:59 18:59 06:59 Intake Total 200 Balance 200 Weight 70 kg Intake: Oral 200 Other: Voiding Method Toilet # Voids 2 2 - Exam GENERAL: The patient is alert and oriented x3, not in any acute distress. Well developed, well nourished. HEENT: Pupils are round and equally reacting to light. EOMI. No scleral icterus. No conjunctival pallor. Normocephalic, atraumatic. No pharyngeal erythema. No thyromegaly. CARDIOVASCULAR: S1 and S2 present. No murmurs, rubs, or gallops. PULMONARY: Chest is clear to auscultation, no wheezing or crackles. ABDOMEN: Soft, nontender, nondistended, normoactive bowel sounds. No palpable organomegaly. MUSCULOSKELETAL: No joint swelling or deformity. EXTREMITIES: No cyanosis, clubbing, or pedal edema. NEUROLOGICAL: Gross neurological examination did not reveal any focal deficits. - Labs CBC & Chem 7: 07/04/17 08:26 07/04/17 08:26 Labs: Microbiology - Last 24 Hours (Table) 06/30/17 11:03 Blood Culture - Final Blood No Growth after 144 hours 06/30/17 10:49 Blood Culture - Final Blood No Growth after 144 hours Assessment and Plan Plan: -Acute meningitis-bacteremic and septic. CSF culture is negative so far -Streptococcal bacteremia, blood cultures positive for alphahemolytic strep -Coronary artery disease with single-vessel bypass -Essential hypertension -Hyperlipidemia -Acute on Chronic congestive heart failure from diastolic dysfunction EF) of 60 % with mild acute exacerbation, patient was given IV Lasix. we'll continue with oral Lasix no IV fluids at this time. -Ascending aortic aneurysm 4.2 cm -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 Placed PICC line, will work on discharge to subacute rehabilitation.
--- NOTE | 2017-07-07 23:19 | P.DS ---
Providers Date of admission: 06/28/17 00:35 Expected date of discharge: 07/07/17 Attending physician: Thomas Link Consults: 06/28/17 00:44 Consult Physician Routine Consulting Provider: Mariano Burrell Reason/Comments: Meningitis Do you want consulting provider notified?: Yes, Notify in am Primary care physician: Archie [facility] Course: Discharge diagnosis -Acute meningitis-bacteremic and sepsis. CSF culture is negative so far -Streptococcal bacteremia, blood cultures positive for alphahemolytic strep -Coronary artery disease with single-vessel bypass -Essential hypertension -Hyperlipidemia -Acute on Chronic congestive heart failure from diastolic dysfunction EF) of 60 % with mild acute exacerbation, patient was given IV Lasix. we'll continue with oral Lasix no IV fluids at this time. -Ascending aortic aneurysm 4.2 cm -Primary osteoarthritis multiple joints including the neck and cervical spine -Scoliosis -Chronic thyroid nodules with euthyroid status -History of bioprosthetic aortic valve Physical examination GENERAL: The patient is alert and oriented x3, not in any acute distress. Well developed, well nourished. HEENT: Pupils are round and equally reacting to light. EOMI. No scleral icterus. No conjunctival pallor. Normocephalic, atraumatic. No pharyngeal erythema. No thyromegaly. CARDIOVASCULAR: S1 and S2 present. No murmurs, rubs, or gallops. PULMONARY: Chest is clear to auscultation, no wheezing or crackles. ABDOMEN: Soft, nontender, nondistended, normoactive bowel sounds. No palpable organomegaly. MUSCULOSKELETAL: No joint swelling or deformity. EXTREMITIES: No cyanosis, clubbing, or pedal edema. NEUROLOGICAL: Gross neurological examination did not reveal any focal deficits. Hospital course Bacterial meningitis and streptococcal bacteremia This a 61-year-old female admitted with reports of ongoing fevers, persistent neckpain, headaches, poor appetite, confusion in a patient who recently received epidural approximately 2 weeks ago for chronic low back pain. Lumbar puncture reported CSF fluid compatible with meningitis. Maintained on antibiotics of vancomycin and Rocephin as per infectious disease. T-max 100.3, normal WBC.. 07/01/2017 Patient is still coming of pain and is requiring Dilaudid increase the dose of [place] today. We'll try and work on her discharge and Dr. Burrell is recommending IV antibiotics we'll get a PICC line today if possible patient will be discharged either today or tomorrow to subacute recommendation. 07/02/2017 Patient had low-grade fever today decision regarding repeat blood cultures will be left to infectious disease and patient is comparing of some shortness of breath does does have minimally elevated JVD. Chest x-ray is suspicious for minimal infiltrate. Patient's IV fluids were discontinued and patient was given a dose of IV Lasix patient is receiving oral Lasix. 07/03/2017 Patient was pretty status did improve with IV Lasix with good and give her 1 more dose of Lasix. Patient is clinically doing well afebrile no other significant overnight events. Patient probably will receive a PICC line tomorrow and possibility of discharge tomorrow with IV antibiotics. On 07/04/2017 Patient says that her headache and neck stiffness much improved today. Patient is more awake and oriented and denied any complaints of chest pain or short of breath. No fever no chills. No acute overnight issues. Plan for discharge to rehab with final ID recommendations likely tomorrow. 07/05/2017 Patient today complains of nausea and headache. Otherwise next depression is improved. No fever no chills. No acute overnight issues. PICC was placed. 07/06/2017 Patient says that her nausea has improved. Tolerating by mouth diet pain control. Patient is being discharged home for continuation of IV antibiotics in the form of ceftriaxone as per ID recommendations for 14 more days. Denies focal deficits, dizziness or blurred vision. Denies lightheadedness. 07/07/2017 Neck stiffness improved . Nausea improved. Patient will be continued on IV antibiotics. Patient is stable to be discharged to rehab Total time taken greater than 35 minutes in which 18 minutes spent in counseling and coordination of care. Patient Condition at Discharge: Good Plan - Discharge Summary New Discharge Prescriptions: New cefTRIAXone [Rocephin] 2,000 mg IVPB Q12HR #28 vial Ondansetron [Zofran] 4 mg IVP Q6HR PRN vial PRN Reason: Nausea And Vomiting Continue Atorvastatin Calcium [Lipitor] 40 mg PO DAILY Metoprolol Tartrate [Lopressor] 100 mg PO TID@0200,0900,1999 Pantoprazole Sodium [Protonix] 40 mg PO DAILY Lisinopril [Zestril] 20 mg PO BID@0900,1999 Biotin 5 mg PO DAILY Lysine 500 mg PO DAILY Aspirin EC [Ecotrin Low Dose] 81 mg PO DAILY traZODone HCL 50 mg PO HS PRN PRN Reason: Insomnia Furosemide [Lasix] 20 mg PO DAILY Nitroglycerin Sl Tabs [Nitrostat] 0.4 mg SUBLINGUAL Q5M PRN #0 tab PRN Reason: Chest Pain rOPINIRole HCL [Requip] 1.5 mg PO DAILY@0800 Multivitamins, Thera [Multivitamin (formulary)] 1 tab PO DAILY Cyclobenzaprine [Flexeril] 10 mg PO TID PRN PRN Reason: Muscle Spasm Magnesium Gluconate [Magonate] 1,000 mg PO DAILY HYDROcodone/APAP 7.5-325MG [[place] 7.5-325] 1 tab PO TID PRN #30 PRN Reason: Pain Discharge Medication List Aspirin EC [Ecotrin Low Dose] 81 mg PO DAILY 05/23/14 [History] Atorvastatin Calcium [Lipitor] 40 mg PO DAILY 05/23/14 [History] Biotin 5 mg PO DAILY 05/23/14 [History] Lisinopril [Zestril] 20 mg PO BID@899,199905/23/14 [History] Lysine 500 mg PO DAILY 05/23/14 [History] Metoprolol Tartrate [Lopressor] 100 mg PO TID@199,899,199905/23/14 [History] Pantoprazole Sodium [Protonix] 40 mg PO DAILY 05/23/14 [History] traZODone HCL 50 mg PO HS PRN 12/01/16 [History] Furosemide [Lasix] 20 mg PO DAILY 12/28/16 [History] Nitroglycerin Sl Tabs [Nitrostat] 0.4 mg SUBLINGUAL Q5M PRN #0 tab 02/10/17 [Rx] Cyclobenzaprine [Flexeril] 10 mg PO TID PRN 06/27/17 [History] Magnesium Gluconate [Magonate] 1,000 mg PO DAILY 06/27/17 [History] Multivitamins, Thera [Multivitamin (formulary)] 1 tab PO DAILY 06/27/17 [History ] rOPINIRole HCL [Requip] 1.5 mg PO DAILY@0800 06/27/17 [History] HYDROcodone/APAP 7.5-325MG [[place] 7.5-325] 1 tab PO TID PRN #30 07/06/17 [Rx] Ondansetron [Zofran] 4 mg IVP Q6HR PRN vial 07/06/17 [Rx] cefTRIAXone [Rocephin] 2,000 mg IVPB Q12HR #28 vial 07/06/17 [Rx] Follow up Appointment(s)/Referral(s): Mariano Burrell MD [STAFF PHYSICIAN] - 2 Weeks [facility] [NON-STAFF] - Archie Guzman DO [Primary Care Provider] - 1 Week (after discharge from [facility]. ) Ambulatory/Diagnostic Orders: Basic Metabolic Panel [LAB.AMB] Location: Determined By Patient Complete Blood Count w/diff [LAB.AMB] Location: Determined By Patient Patient Instructions/Handouts: Bacterial Meningitis (DC), Peripherally Inserted Central Catheters and Midline Catheters (DC) Activity/Diet/Wound Care/Special Instructions: Cardiac diet. Heart failure booklet given. Up with assist, fall precautions. Discharge Disposition: TRANSFER TO SNF/ECF
== END 2017-07-07 13:42 | DRG 94 ==
LOC: EC 20:32 → 6SEL 06-28 00:35 → 4MS4W 06-30 18:40
PROVIDERS: ADMIT Hospitalist; ATTEND Hospitalist
PROC: 009U3ZX Drainage of Spinal Canal, Percutaneous Approach, Diagnostic (ICD-10-PCS; principal; 2017-06-28)
PROC: B518ZZA Fluoroscopy of Superior Vena Cava, Guidance (ICD-10-PCS; 2017-07-04)
PROC: 02HV33Z Insertion of Infusion Device into Superior Vena Cava, Percutaneous Approach (ICD-10-PCS; 2017-07-04 15:30)
PROC: B548ZZA Ultrasonography of Superior Vena Cava, Guidance (ICD-10-PCS; 2017-07-04 15:30)
DX: G00.9 Bacterial meningitis, unspecified (principal); A40.0 Sepsis due to streptococcus, group A; I50.33 Acute on chronic diastolic (congestive) heart failure; I71.2 Thoracic aortic aneurysm, without rupture; I11.0 Hypertensive heart disease with heart failure; M41.9 Scoliosis, unspecified; I25.10 Atherosclerotic heart disease of native coronary artery without angina pectoris; E78.5 Hyperlipidemia, unspecified; M19.91 Primary osteoarthritis, unspecified site; E04.2 Nontoxic multinodular goiter; M47.812 Spondylosis without myelopathy or radiculopathy, cervical region; I34.1 Nonrheumatic mitral (valve) prolapse; F32.9 Major depressive disorder, single episode, unspecified; K59.00 Constipation, unspecified; G89.29 Other chronic pain; Z79.82 Long term (current) use of aspirin; I25.2 Old myocardial infarction; Z79.899 Other long term (current) drug therapy; Z86.718 Personal history of other venous thrombosis and embolism; Z87.891 Personal history of nicotine dependence; Z95.2 Presence of prosthetic heart valve; Z95.1 Presence of aortocoronary bypass graft; Z98.42 Cataract extraction status, left eye; Z98.41 Cataract extraction status, right eye; Z96.643 Presence of artificial hip joint, bilateral; Z90.49 Acquired absence of other specified parts of digestive tract; Z88.1 Allergy status to other antibiotic agents; Z88.0 Allergy status to penicillin; Z88.2 Allergy status to sulfonamides; Z88.8 Allergy status to other drugs, medicaments and biological substances; Z91.048 Other nonmedicinal substance allergy status
CPT/HCPCS: 36415; 36569; 62270; 70450; 71020; 76937; 77001; 80048; 80053; 80202; 80306; 81001; 82550; 82553; 82945; 83520; 83605; 83735; 83880; 84157; 84443; 84484; 85025; 85027; 85610; 85730; 87040; 87070; 87077; 87086; 87186; 87205; 87529; 89050; 93005; 94760; 96361; 96365; 96375; 99285

== ENCOUNTER 2017-07-09 16:16 | Inpatient (IN) | payer MEDICAID, BC ==
[2017-07-09] MEDS ORDERED: SODIUM CHLORIDE 0.9% 1,000 ML IV STA ×2 (16:47)
--- NOTE | 2017-07-09 16:52 | ED ---
Fever HPI - General Chief Complaint: Fever Stated Complaint: fever Time Seen by Provider: 07/09/17 16:16 Source: patient, EMS, RN notes reviewed Mode of arrival: EMS Limitations: no limitations - History of Present Illness Initial Comments: This is a 62-year-old female who is brought in for evaluation from a senior care where she is rehabbing after being diagnosed with pneumococcal meningitis. She has been on Rocephin since her admission she does have a PICC line she receives through she states she's had diarrhea since she started the Rocephin. She had a fever that was reported initially 100 the then 101 and up to 104. She also is had diarrhea she did complain some low back pain she denies any head neck or back pain at this time she was in also because is some change in mental status she was acting more confused apparently. She has no complaints at this time such as blurry vision neck pain back pain dysuria no chest or abdominal pain. She apparently had nausea and chills and does admit to not being able think straight earlier but she feels she is improved now MD Complaint: fever, other - Related Data Home Medications Medication Instructions Recorded Confirmed Aspirin EC [Ecotrin Low Dose] 81 mg PO DAILY 05/23/14 07/09/17 Atorvastatin Calcium [Lipitor] 40 mg PO HS 05/23/14 07/09/17 Biotin 5 mg PO DAILY@169905/23/14 07/09/17 Lisinopril [Zestril] 20 mg PO BID@0900,199905/23/14 07/09/17 Lysine 500 mg PO DAILY@169905/23/14 07/09/17 Metoprolol Tartrate [Lopressor] 100 mg PO TID@0200,0800,0 05/23/14 07/09/17 Pantoprazole Sodium [Protonix] 40 mg PO DAILY 05/23/14 07/09/17 traZODone HCL 50 mg PO HS 12/01/16 07/09/17 Furosemide [Lasix] 20 mg PO DAILY 12/28/16 07/09/17 Cyclobenzaprine [Flexeril] 10 mg PO TID PRN 06/27/17 07/09/17 Magnesium Gluconate [Magonate] 1,000 mg PO DAILY@1700 06/27/17 07/09/17 Multivitamins, Thera [Multivitamin 1 tab PO DAILY@1700 06/27/17 07/09/17 (formulary)] rOPINIRole HCL [Requip] 1.5 mg PO DAILY@2130 06/27/17 07/09/17 Acetaminophen Tab [Tylenol Tab] 650 mg PO Q4H PRN 07/09/17 07/09/17 Bisacodyl [Dulcolax] 10 mg RECTAL DAILY PRN 07/09/17 07/09/17 HYDROcodone/APAP 10-325MG [[place] 1 tab PO TID PRN 07/09/17 07/09/17 10-325] Magnesium Hydroxide [Milk of 2,400 mg PO DAILY PRN 07/09/17 07/09/17 Magnesia] Na Phos,M-B/Na Phos,Di-Ba [Fleet 133 ml RECTAL ONCE PRN 07/09/17 07/09/17 Adult] Ondansetron HCl [Zofran] 8 mg PO Q8H PRN 07/09/17 07/09/17 Ondansetron [Zofran] 4 mg PO Q8HR PRN 07/09/17 07/09/17 Previous Rx's Medication Instructions Recorded Nitroglycerin Sl Tabs [Nitrostat] 0.4 mg SUBLINGUAL Q5M PRN #0 tab 02/10/17 HYDROcodone/APAP 7.5-325MG [[place] 1 tab PO TID PRN #30 07/06/17 7.5-325] cefTRIAXone [Rocephin] 2,000 mg IVPB Q12HR #28 vial 07/06/17 Allergies Allergy/AdvReac Type Severity Reaction Status Date / Time griseofulvin ultramicrosize Allergy Severe Rash/Hives Verified 07/09/17 17:20 [From Jahaira-PEG (ultramicrosize)] minocycline HCl Allergy Severe Rash/Hives Verified 07/09/17 17:20 [From Minocin] Penicillins Allergy Severe Rash/Hives Verified 07/09/17 17:20 Skin Cleanser Combination Allergy Severe Rash/Hives Verified 07/09/17 17:20 No.4 [From Minocin] minocycline Allergy Unknown Verified 07/09/17 17:20 sulfamethoxazole Allergy Rash/Hives Verified 07/09/17 17:20 [From Bactrim] trimethoprim [From Bactrim] Allergy Rash/Hives Verified 07/09/17 17:20 Review of Systems ROS Statement: Those systems with pertinent positive or pertinent negative responses have been documented in the HPI. ROS Other: All systems not noted in ROS Statement are negative. Past Medical History Past Medical History: Heart Failure, Deep Vein Thrombosis (DVT), Myocardial Infarction ([place]), Osteoarthritis (OA), Thyroid Disorder Additional Past Medical History / Comment(s): DEFECT- MITRAL VALVE PROLAPSE, ARRYTHMIA, PALPITATIONS, POOR CIRCULATION,SCOLIOSIS, THYROID NODULE, BACK PAIN, Wearing neck brace for arthritis in neck, Aortic Aneurysm Last Myocardial Infarction Date:: 2007 History of Any Multi-Drug Resistant Organisms: None Reported Past Surgical History: Appendectomy, Coronary Bypass/CABG, Joint Replacement, Orthopedic Surgery Additional Past Surgical History / Comment(s): BILATERAL CATARACTS. , CABG - 1 vessel, aortic valve replacement, BILAT KAREL, REPAIR FX RT ARM, REPAIR FX RT FEMUR, BILAT CTR, BILAT KNEE SCOPES, BILAT TENNIS elbow, LT EYE SURGERY, TMJ SX , COLONOSCOPY,. Past Anesthesia/Blood Transfusion Reactions: No Reported Reaction Past Psychological History: No Psychological Hx Reported Smoking Status: Former smoker Past Alcohol Use History: Occasional Past Drug Use History: None Reported - Past Family History Mother Family Medical History: Cancer Additional Family Medical History / Comment(s): BREAST, COLON/BOWEL, SKIN CANCER. Sister(s) Family Medical History: Cancer General Exam - General Exam Comments Initial Comments: This is a well-developed well-nourished awake alert oriented 3 female Limitations: no limitations General appearance: alert, in no apparent distress Head exam: Present: atraumatic, normocephalic, normal inspection Eye exam: Present: normal appearance, PERRL, EOMI. Absent: scleral icterus, conjunctival injection, periorbital swelling ENT exam: Present: mucous membranes dry Neck exam: Present: normal inspection. Absent: tenderness, meningismus, lymphadenopathy Respiratory exam: Present: normal lung sounds bilaterally. Absent: respiratory distress, wheezes, rales, rhonchi, stridor Cardiovascular Exam: Present: normal rhythm, tachycardia, normal heart sounds. Absent: systolic murmur, diastolic murmur, rubs, gallop, clicks GI/Abdominal exam: Present: soft, normal bowel sounds. Absent: distended, tenderness, guarding, rebound, rigid Extremities exam: Present: normal inspection, full ROM, normal capillary refill. Absent: tenderness, pedal edema, joint swelling, calf tenderness Back exam: Present: normal inspection, other (I did examine the LP puncture site is healing no evidence of any erythema or drainage ecchymotic reaction.). Absent: tenderness, CVA tenderness (R), CVA tenderness (L), muscle spasm, paraspinal tenderness, vertebral tenderness Neurological exam: Present: alert, oriented X3, CN II-XII intact Psychiatric exam: Present: normal affect, normal mood Skin exam: Present: warm, dry, intact, normal color. Absent: rash Course Vital Signs 07/09/17 16:21 Temperature 100.6 F H Pulse Rate 112 H Respiratory 22 Rate Blood Pressure 140/73 O2 Sat by Pulse 94 L Oximetry - Reevaluation(s) Reevaluation #1: 07/09/17 16:56 I did review the old charting the discharge summary did show evidence of the discharge diagnoses be acute meningitis. Tree make and sepsis the CSF culture was negative at the time of discharge there was streptococcal bacteremia blood cultures positive for alpha hemolytic strep. Medical Decision Making - Medical Decision Making Patient is showing improved I did discuss Pfizer her and her as well as with Dr. Seay patient be admitted for IV hydration and evaluation for C. difficile. - Lab Data Result diagrams: 07/09/17 17:00 07/09/17 17:00 Lab Results 07/09/17 07/09/17 07/09/17 Range/Units 17:00 17:00 17:00 WBC 9.0 (3.8-10.6) k/uL RBC 3.57 L (3.80-5.40) m/uL Hgb 11.0 L (11.4-16.0) gm/dL Hct 32.8 L (34.0-46.0) % MCV 91.7 (80.0-100.0) fL MCH 30.9 (25.0-35.0) pg MCHC 33.7 (31.0-37.0) g/dL RDW 14.2 (11.5-15.5) % Plt Count 362 (150-450) k/uL Neutrophils % 87 % Lymphocytes % 7 % Monocytes % 2 % Eosinophils % 2 % Basophils % 0 % Neutrophils # 7.8 H (1.3-7.7) k/uL Lymphocytes # 0.7 L (1.0-4.8) k/uL Monocytes # 0.2 (0-1.0) k/uL Eosinophils # 0.1 (0-0.7) k/uL Basophils # 0.0 (0-0.2) k/uL Hypochromasia Slight Sodium 132 L (137-145) mmol/L Potassium 4.2 (3.5-5.1) mmol/L Chloride 95 L (98-107) mmol/L Carbon Dioxide 24 (22-30) mmol/L Anion Gap 13 mmol/L BUN 7 (7-17) mg/dL Creatinine 0.60 (0.52-1.04) mg/dL Est GFR (MDRD) Af Amer >60 (>60 ml/min/1.73 sqM) Est GFR (MDRD) Non-Af >60 (>60 ml/min/1.73 sqM) Glucose 127 H (74-99) mg/dL Plasma Lactic Acid Steven 1.9 (0.7-2.0) mmol/L Calcium 8.5 (8.4-10.2) mg/dL Magnesium 1.6 (1.6-2.3) mg/dL Total Bilirubin 0.4 (0.2-1.3) mg/dL AST 32 (14-36) U/L ALT 36 (9-52) U/L Alkaline Phosphatase 88 (38-126) U/L Total Protein 6.2 L (6.3-8.2) g/dL Albumin 3.3 L (3.5-5.0) g/dL - EKG Data -: EKG Interpreted by [place] EKG shows normal: sinus rhythm (EKG showed a sinus tachycardia of 117. We'll 1: 30 QRS duration 72 daily since QTC of 304/424 with atrial enlargement nonspecific ST-T wave configuration in the inferior and anterolateral leads.) - Radiology Data Radiology results: image reviewed (I did review the x-ray imaging no definite evidence of infiltrates.) Disposition Clinical Impression: Confusion, Febrile illness, acute, Enteritis, Dehydration Disposition: ADMITTED IP TO THIS [facility] Condition: Stable Referrals: Lux Powers DO [Primary Care Provider] - 1-2 days
[2017-07-09 17:06] LABS: Basophils % (A) 0 %; CH 30.3; CHCM 33.1; Eosinophils # (A) 0.1 k/uL (0-0.7); Eosinophils % (A) 2 %; HCT 32.8 % (34.0-46.0); Hypochromasia Slight; Luc # (Auto) 0.17; Luc % (Auto) 2; Lymphocytes # (A) 0.7 k/uL (1.0-4.8); Lymphocytes % (A) 7 %; MCH 30.9 pg (25.0-35.0); MCHC 33.7 g/dL (31.0-37.0); MCV 91.7 fL (80.0-100.0); Mean Platelet Volume 6.9; Monocytes # (A) 0.2 k/uL (0-1.0); Monocytes % (A) 2 %; Neutrophils # (A) 7.8 k/uL (1.3-7.7); Neutrophils % (A) 87 %; RBC 3.57 m/uL (3.80-5.40); RDW 14.2 % (11.5-15.5); WBC (Perox) 9.12
[2017-07-09 17:15] LABS: ALT 36 U/L (9-52); AST 32 U/L (14-36); Alkaline Phosphatase 88 U/L (38-126); Anion Gap 13 mmol/L; Blood Urea Nitrogen 7 mg/dL (7-17); Calcium 8.5 mg/dL (8.4-10.2); Carbon Dioxide 24 mmol/L (22-30); Chloride 95 mmol/L (98-107); Glucose 127 mg/dL (74-99); Magnesium 1.6 mg/dL (1.6-2.3); Non-African American GFR(MDRD) >60 (>60 ml/min/1.73 sqM); Potassium 4.2 mmol/L (3.5-5.1); Sodium 132 mmol/L (137-145); Total Bilirubin 0.4 mg/dL (0.2-1.3); Total Protein 6.2 g/dL (6.3-8.2)
[2017-07-09 17:24] LABS: Creatine Kinase 30 U/L (30-135)
[2017-07-09 17:34] LABS: Creatine Kinase MB <0.2 ng/mL (0.0-2.4)
[2017-07-09] MEDS ORDERED: NALOXONE 0.4 MG/ML 1 ML VIAL IV PRN (17:36)
[2017-07-09] MEDS ORDERED: ONDANSETRON 4 MG TAB PO PRN (17:39)
[2017-07-09] MEDS ORDERED: NITROGLYCERIN SL TABS 0.4 MG TAB SUBLINGUAL PRN (17:39)
--- NOTE | 2017-07-09 17:42 | XR ---
EXAMINATION TYPE: XR chest 2V DATE OF EXAM: 07/09/2017 COMPARISON: 07/02/2017 INDICATION: Cough TECHNIQUE: Frontal and lateral views of the chest are obtained. FINDINGS: The heart size is normal. The pulmonary vasculature is normal. The lungs are clear. Sternotomy wires are present from previous B is cardiac valve surgery. PICC omari e enters on the left with the tip in the superior vena cava region. IMPRESSION: 1. No acute pulmonary process.
[2017-07-09] MEDS: HYDROcodone/APAP 10-325MG 1 EACH TAB PO PRN (18:42)
[2017-07-09] MEDS: SODIUM CHLORIDE 0.9% 1,000 ML IV SCH (18:44)
[2017-07-09] MEDS ORDERED: cefTRIAXone 1,000 MG VIAL IVPB SCH (21:00)
[2017-07-09 21:29] VITALS: BMI 20.2
[2017-07-09] MEDS: cefTRIAXone 2,000 MG in SODIUM CHLORIDE 0.9% 100 ML IVPB SCH (21:43)
[2017-07-09] MEDS: ATORVASTATIN 40 MG TAB PO SCH (21:46)
[2017-07-09] MEDS: LISINOPRIL 20 MG TAB PO SCH (21:47)
[2017-07-09 22:46] LABS: Appearance,Urine Clear (Clear); Bilirubin,Urine Negative (Negative); Glucose,Urine (UA) Negative (Negative); Ketones,Urine Negative (Negative); Leukocyte Esterase,Urine Moderate (Negative); Mucus,Urine Rare /hpf; Nitrite,Urine Negative (Negative); PH, Urine 6.5 (5.0-8.0); Particle Count 1118; Protein,Urine Negative (Negative); RBC,Urine 1 /hpf (0-5); Specific Gravity,Urine 1.005 (1.001-1.035); Squamous Epithelial Cell,Urine 2 /hpf (0-4); UA Billing (MACRO vs. MICRO) MICRO; Urobilinogen,Urine <2.0 mg/dL (<2.0); WBC,Urine 4 /hpf (0-5)
[2017-07-10] MEDS: METOPROLOL TARTRATE 50 MG TAB PO SCH ×3 (01:26→17:03)
[2017-07-10] MEDS: HYDROcodone/APAP 10-325MG 1 EACH TAB PO PRN ×2 (01:26→10:49)
[2017-07-10] MEDS: traZODone HCL 50 MG TAB PO SCH ×2 (01:27→20:36)
[2017-07-10] MEDS: ONDANSETRON 4 MG/2 ML VIAL IVP PRN ×4 (02:23→21:45)
[2017-07-10] MEDS: SODIUM CHLORIDE 0.9% 1,000 ML IV SCH ×2 (04:45→15:01)
[2017-07-10] MEDS: cefTRIAXone 2,000 MG in SODIUM CHLORIDE 0.9% 100 ML IVPB SCH ×2 (08:02→20:34)
[2017-07-10] MEDS: LISINOPRIL 20 MG TAB PO SCH ×2 (10:44→20:34)
[2017-07-10] MEDS: ASPIRIN 81 MG CHEW PO SCH (10:44)
[2017-07-10] MEDS: PANTOPRAZOLE 40 MG/10 ML VIAL IV SCH (10:44)
[2017-07-10] MEDS: ACETAMINOPHEN TAB 325 MG TAB PO PRN (14:47)
[2017-07-10] MEDS ORDERED: FUROSEMIDE 10 MG/ML 2 ML VIAL IV STA (14:56)
[2017-07-10] MEDS ORDERED: NON-FORMULARY DRUG (Lysine [Lysine] 500 MG) PO SCH (17:00)
[2017-07-10] MEDS ORDERED: NON-FORMULARY DRUG (Biotin [Biotin] 5 MG) PO SCH (17:00)
[2017-07-10] MEDS: MAGNESIUM OXIDE 400 MG TAB PO SCH (17:03)
[2017-07-10] MEDS: MULTIVITAMINS, THERA 1 EACH TAB PO SCH (17:03)
[2017-07-10] MEDS: HYDROcodone/APAP 7.5-325MG 1 EACH TAB PO PRN (19:02)
[2017-07-10] MEDS: ATORVASTATIN 40 MG TAB PO SCH (20:34)
[2017-07-10] MEDS ORDERED: IV VANCOMYCIN PER PHARMACY 1 EACH MISC MISCELLANE PRN (22:23)
--- NOTE | 2017-07-10 22:33 | P.HPIM ---
History of Present Illness H&P Date: 07/10/17 Chief Complaint: Fever and confusion This is a 62-year-old female with a past medical history of hypertension and hyperlipidemia and coronary artery disease with bypass graft who was recently admitted to hospital with bacterial meningitis and streptococcal bacteremia. Patient was sent to direction and care facility to complete antibiotic course with ceftriaxone via PICC line. She had a fever that was reported initially 100 the then 101 and up to 104. She also had confusion and change in mental status she was acting more confused apparently. He was also having nausea on and off and was having diarrhea as well since starting antibiotics. She has no complaints at this time such as blurry vision neck pain back pain dysuria no chest or abdominal pain. Patient denied any chest pain or short of breath. Patient states that her confusion was improved today. Blood cultures are obtained through PICC line and peripheral line. C. diff toxin was negative. Review of Systems CONSTITUTIONAL: No fever, no malaise, no fatigue. HEENT: No recent visual problems or hearing problems. Denied any sore throat. CARDIOVASCULAR: No chest pain, orthopnea, PND, no palpitations, no syncope. PULMONARY: , no hemoptysis. GASTROINTESTINAL: Patient does have nausea, diarrhea and abdominal pain. NEUROLOGICAL: Patient does have headache. No neck stiffness. headaches, no weakness, no numbness. HEMATOLOGICAL: Denies any bleeding or petechiae. GENITOURINARY: Denies any burning micturition, frequency, or urgency. MUSCULOSKELETAL/RHEUMATOLOGICAL: Denies any joint pain, swelling, or any muscle pain. ENDOCRINE: Denies any polyuria or polydipsia. The rest of the 14-point review of systems is negative. Past Medical History Past Medical History: Heart Failure, Deep Vein Thrombosis (DVT), Myocardial Infarction ([place]), Osteoarthritis (OA), Thyroid Disorder Additional Past Medical History / Comment(s): DEFECT- MITRAL VALVE PROLAPSE, ARRYTHMIA, PALPITATIONS, POOR CIRCULATION,SCOLIOSIS, THYROID NODULE, BACK PAIN, Wearing neck brace for arthritis in neck, Aortic Aneurysm Last Myocardial Infarction Date:: 2007 History of Any Multi-Drug Resistant Organisms: None Reported Past Surgical History: Appendectomy, Coronary Bypass/CABG, Joint Replacement, Orthopedic Surgery Additional Past Surgical History / Comment(s): BILATERAL CATARACTS. , CABG - 1 vessel, aortic valve replacement, BILAT KAREL, REPAIR FX RT ARM, REPAIR FX RT FEMUR, BILAT CTR, BILAT KNEE SCOPES, BILAT TENNIS elbow, LT EYE SURGERY, TMJ SX , COLONOSCOPY,. Past Anesthesia/Blood Transfusion Reactions: No Reported Reaction Past Psychological History: No Psychological Hx Reported Smoking Status: Former smoker Past Alcohol Use History: Occasional Additional Past Alcohol Use History / Comment(s): SMOKED FOR 6 MONTHS AT AGE 20 Past Drug Use History: None Reported - Past Family History Mother Family Medical History: Cancer Additional Family Medical History / Comment(s): BREAST, COLON/BOWEL, SKIN CANCER. Sister(s) Family Medical History: Cancer Medications and Allergies Home Medications Medication Instructions Recorded Confirmed Type Aspirin EC [Ecotrin Low Dose] 81 mg PO DAILY 05/23/14 07/09/17 History Atorvastatin Calcium [Lipitor] 40 mg PO HS 05/23/14 07/09/17 History Biotin 5 mg PO DAILY@169905/23/14 07/09/17 History Lisinopril [Zestril] 20 mg PO BID@0900,199905/23/14 07/09/17 History Lysine 500 mg PO DAILY@169905/23/14 07/09/17 History Metoprolol Tartrate [Lopressor] 100 mg PO TID@0200,0800,169905/23/14 07/09/17 History Pantoprazole Sodium [Protonix] 40 mg PO DAILY 05/23/14 07/09/17 History traZODone HCL 50 mg PO HS 12/01/16 07/09/17 History Furosemide [Lasix] 20 mg PO DAILY 12/28/16 07/09/17 History Cyclobenzaprine [Flexeril] 10 mg PO TID PRN 06/27/17 07/09/17 History Magnesium Gluconate [Magonate] 1,000 mg PO DAILY@169906/27/17 07/09/17 History Multivitamins, Thera [Multivitamin 1 tab PO DAILY@169906/27/17 07/09/17 History (formulary)] rOPINIRole HCL [Requip] 1.5 mg PO DAILY@212906/27/17 07/09/17 History Acetaminophen Tab [Tylenol Tab] 650 mg PO Q4H PRN 07/09/17 07/09/17 History Bisacodyl [Dulcolax] 10 mg RECTAL DAILY PRN 07/09/17 07/09/17 History HYDROcodone/APAP 10-325MG [[place] 1 tab PO TID PRN 07/09/17 07/09/17 History 10-325] Magnesium Hydroxide [Milk of 2,400 mg PO DAILY PRN 07/09/17 07/09/17 History Magnesia] Na Phos,M-B/Na Phos,Di-Ba [Fleet 133 ml RECTAL ONCE PRN 07/09/17 07/09/17 History Adult] Ondansetron HCl [Zofran] 8 mg PO Q8H PRN 07/09/17 07/09/17 History Ondansetron [Zofran] 4 mg PO Q8HR PRN 07/09/17 07/09/17 History Allergies Allergy/AdvReac Type Severity Reaction Status Date / Time griseofulvin ultramicrosize Allergy Severe Rash/Hives Verified 07/09/17 17:20 [From Jahaira-PEG (ultramicrosize)] minocycline HCl Allergy Severe Rash/Hives Verified 07/09/17 17:20 [From Minocin] Penicillins Allergy Severe Rash/Hives Verified 07/09/17 17:20 Skin Cleanser Combination Allergy Severe Rash/Hives Verified 07/09/17 17:20 No.4 [From Minocin] minocycline Allergy Unknown Verified 07/09/17 17:20 sulfamethoxazole Allergy Rash/Hives Verified 07/09/17 17:20 [From Bactrim] trimethoprim [From Bactrim] Allergy Rash/Hives Verified 07/09/17 17:20 Physical Exam Vitals: Vital Signs Temp Pulse Pulse Resp BP BP Pulse Ox 07/10/17 07:00 99.3 F 95 18 117/67 95 07/09/17 23:00 98.5 F 95 16 120/74 96 07/09/17 20:18 100.2 F H 100 18 128/68 96 07/09/17 18:51 98.6 F 97 20 124/66 07/09/17 18:00 99 20 111/58 94 L 07/09/17 17:30 102 H 18 113/58 93 L 07/09/17 16:21 100.6 F H 112 H 22 140/73 94 L Intake and Output 07/09/17 07/10/17 07/10/17 22:59 06:59 14:59 Intake Total 1000 Balance 1000 Intake: Amount of Fluid Infused ( 1000 ml) Other: # Voids 1 1 # Bowel Movements 1 1 Weight 52 kg PHYSICAL EXAMINATION: Patient is lying in the bed comfortably, no acute distress, awake alert and oriented.. HEENT: Normocephalic. Neck is supple. Pupils reactive. Nostrils clear. Oral cavity is moist. Ears reveal no drainage. Neck reveals no JVD, carotid bruits, or thyromegaly. CHEST EXAMINATION: Trachea is central. Symmetrical expansion. Lung prater clear to auscultation and percussion. Minimal crackles and rhonchi at the base CARDIAC: Normal S1, S2 with no gallops. No murmurs ABDOMEN: Soft. Bowel sounds normal. No organomegaly. No abdominal bruits. Extremities reveal no edema. No clubbing or cyanosis Neurologically awake, alert, oriented x3 with well-coordinated movements. Skin: no rash or skin lesions Musculoskeletal: no joint swelling or deformity. Results CBC & Chem 7: 07/09/17 17:00 07/09/17 17:00 Labs: Abnormal Lab Results - Last 24 Hours (Table) 07/09/17 07/09/17 07/09/17 Range/Units 17:00 17:00 22:00 RBC 3.57 L (3.80-5.40) m/uL Hgb 11.0 L (11.4-16.0) gm/dL Hct 32.8 L (34.0-46.0) % Neutrophils # 7.8 H (1.3-7.7) k/uL Lymphocytes # 0.7 L (1.0-4.8) k/uL Sodium 132 L (137-145) mmol/L Chloride 95 L (98-107) mmol/L Glucose 127 H (74-99) mg/dL Total Protein 6.2 L (6.3-8.2) g/dL Albumin 3.3 L (3.5-5.0) g/dL Ur Leukocyte Esterase Moderate H (Negative) Urine Mucus Rare H (None) /hpf Thrombosis Risk Factor Assmnt - DVT/VTE Prophylaxis DVT/VTE Prophylaxis: Pharmacologic Prophylaxis ordered - Choose All That Apply Any of the Below Risk Factors Present?: No Other Risk Factors: Yes Each Risk Factor Represents 2 Points: Age 61-74 years, Central venous access Each Risk Factor Represents 3 Points: History of DVT/PE Other congenital or acquired thrombophilia - If yes, enter type in comment: No Thrombosis Risk Factor Assessment Total Risk Factor Score: 7 Thrombosis Risk Factor Assessment Level: High Risk Assessment and Plan Plan: #1 SIRS with possible bacteremia. We will follow blood cultures. PICC line site showed no signs of infection it. UA negative. Will obtain chest x-ray. If a patient continues to be febrile, will add vancomycin. #2 recent streptococcal bacteremia. Currently on continuation of his antibiotic course with ceftriaxone. #3 recent bacterial meningitis. CSF cultures were negative at the time #4 diarrhea. C. diff toxin negative #5 nausea and vomiting #6 chronic CHF with diastolic dysfunction #7 history of single-vessel coronary artery bypass graft and bioprosthetic aortic wall replacement #8 hypertension #9 hyperlipidemia #10 ascending aortic aneurysm 4.2 cm #11 osteoarthritis of multiple joints #12 chronic thyroid nodule on euthyroid status #13 hypovolemic hyponatremia #14 DVT prophylaxis Plan: Patient will be continued on antibiotics in the form of ceftriaxone and will add vancomycin. ID will be consulted. Patient was given a dose of IV Lasix for lung congesion. Will continue present medical management for nausea vomiting. C. diff toxin negative. Further recommendations based on the clinical course. Time with Patient: Greater than 30
[2017-07-11] MEDS: VANCOMYCIN 1,000 MG in SODIUM CHLORIDE 0.9% 250 ML IVPB SCH ×2 (00:05→11:37)
[2017-07-11] MEDS: METOPROLOL TARTRATE 50 MG TAB PO SCH ×3 (03:16→17:43)
[2017-07-11] MEDS: HYDROcodone/APAP 10-325MG 1 EACH TAB PO PRN ×3 (03:16→22:06)
[2017-07-11] MEDS: ACETAMINOPHEN TAB 325 MG TAB PO PRN (03:24)
[2017-07-11] MEDS: HEPARIN SODIUM,PORCINE 5,000 UNIT/ML 1 ML VIAL SQ SCH ×3 (03:27→17:43)
[2017-07-11] MEDS ORDERED: IV VANCOMYCIN PER PHARMACY 1 EACH MISC MISCELLANE PRN (09:06)
[2017-07-11] MEDS: CYCLOBENZAPRINE 10 MG TAB PO PRN (09:31)
[2017-07-11] MEDS: ONDANSETRON 4 MG/2 ML VIAL IVP PRN (09:31)
[2017-07-11] MEDS: ASPIRIN 81 MG CHEW PO SCH (09:33)
[2017-07-11] MEDS: LISINOPRIL 20 MG TAB PO SCH ×2 (09:33→22:02)
[2017-07-11] MEDS: PANTOPRAZOLE 40 MG/10 ML VIAL IV SCH (09:33)
[2017-07-11] MEDS: cefTRIAXone 2,000 MG in SODIUM CHLORIDE 0.9% 100 ML IVPB SCH (10:04)
--- NOTE | 2017-07-11 10:37 | XR ---
EXAMINATION TYPE: XR chest 1V DATE OF EXAM: 07/11/2017 COMPARISON: Prior chest x-ray 07/09/2017 HISTORY: Shortness of breath TECHNIQUE: Single frontal view of the chest is obtained. FINDINGS: There is no focal air space opacity, pleural effusion, or pneumothorax seen. The cardiac silhouette size is within normal limits. There is a scoliosis. Patient is post median sternotomy and aortic valve replacement. Left-sided PICC line shows the distal tip overlying the superior vena cava region. The osseous structures are intact. IMPRESSION: No acute process.
[2017-07-11] MEDS ORDERED: SCOPOLAMINE 1.5MG/72HR PATCH TRANSDERM STA (12:37)
--- NOTE | 2017-07-11 12:43 | P.CONS ---
History of Present Illness - Reason for Consult Consult date: 07/11/17 fever - History of Present Illness This is a 61-year-old female with a past medical history significant for aortic valve replacement in 2007 done at [facility] and subsequently developed myocardial infarction underwent a CABG one vessel and then was transferred [facility] and had a difficult postoperative period with development of DVT in the left leg. Patient had a stress test done 2 years ago that apparently was normal. Was recently hospitalized. The point in time there was concern is the possibility of infection of her aortic bioprosthetic valve. She underwent testing. TORIBIO was performed without evidence of endocarditis. Evidence of a positive cultures and she did well with ongoing cardiac a follow-up. She had a recent hospitalization June 28 through 07/07/2017 which time she was treated for bacterial meningitis on ceftriaxone. She gradually improved and she had a PICC line placed and was discharged to [facility] to continue ceftriaxone for a 2 week course for Streptococcus bacteremia and meningitis. Patient states that she had vomiting during her hospitalization which continue to be troublesome at the [facility]. She states she has also had diarrhea since she started ceftriaxone. When describing the stools, she states her last bowel movement was yesterday and it was mushy. No watery stools. She was found at the [facility]dc to have fevers of 101-104 and mental status changes. The patient states that she does not remember much but her told her she was staring in space and she had difficulty with word finding. Regarding headache and neck pain this is on and off and intermittent. She does have a cough that is nonproductive. She states that she had some shortness of breath is improved after receiving Lasix yesterday. Her mental status is back to baseline. At the time of this evaluation, patient states that she is feeling much better than she did one hour ago but still has some nausea after receiving Zofran. Chest x-ray shows no acute findings. The chest x-ray done today also shows no acute findings. Temperature max is been 101.2 with pulse rate in the 90s and low 100s. Pulse ox is 96% on room air. She continues to have sweats. Her white count is normal. Urinalysis was clear, moderate leukoesterase, and nitrate negative, WBC 4. C. difficile toxin negative. Review of Systems All systems: negative Constitutional: Reports chills, Reports chronic headaches, Reports fatigue, Reports fever, Reports malaise, Reports poor appetite, Reports sweats, Reports weight loss (10 pound weight loss since June 28), Denies anorexia Eyes: denies blurred vision, denies pain Ears, nose, mouth and throat: Reports headache, Denies sore throat, Denies vertigo Cardiovascular: Reports lightheadedness, Denies chest pain, Denies dyspnea on exertion, Denies edema, Denies leg edema, Denies shortness of breath Respiratory: Reports cough, Denies cough with sputum, Denies dyspnea, Denies excessive sputum, Denies hemoptysis, Denies home oxygen, Denies wheezing Gastrointestinal: Reports diarrhea, Reports nausea, Reports vomiting, Denies abdominal pain Genitourinary: Denies dysuria, Denies hematuria Musculoskeletal: Denies myalgias Integumentary: Denies pruritus, Denies rash Neurological: Denies numbness, Denies weakness Psychiatric: Denies anxiety, Denies depression Endocrine: Reports fatigue, Reports weight change Past Medical History Past Medical History: Heart Failure, Deep Vein Thrombosis (DVT), Myocardial Infarction (DC), Osteoarthritis (OA), Thyroid Disorder Additional Past Medical History / Comment(s): DEFECT- MITRAL VALVE PROLAPSE, ARRYTHMIA, PALPITATIONS, POOR CIRCULATION,SCOLIOSIS, THYROID NODULE, BACK PAIN, Wearing neck brace for arthritis in neck, Aortic Aneurysm Last Myocardial Infarction Date:: 2007 History of Any Multi-Drug Resistant Organisms: None Reported Past Surgical History: Appendectomy, Coronary Bypass/CABG, Joint Replacement, Orthopedic Surgery Additional Past Surgical History / Comment(s): BILATERAL CATARACTS. , CABG - 1 vessel, aortic valve replacement, BILAT KAREL, REPAIR FX RT ARM, REPAIR FX RT FEMUR, BILAT CTR, BILAT KNEE SCOPES, BILAT TENNIS elbow, LT EYE SURGERY, TMJ SX , COLONOSCOPY,. Past Anesthesia/Blood Transfusion Reactions: No Reported Reaction Past Psychological History: No Psychological Hx Reported Smoking Status: Former smoker Past Alcohol Use History: Occasional Additional Past Alcohol Use History / Comment(s): SMOKED FOR 6 MONTHS AT AGE 20 Past Drug Use History: None Reported - Past Family History Mother Family Medical History: Cancer Additional Family Medical History / Comment(s): BREAST, COLON/BOWEL, SKIN CANCER. Sister(s) Family Medical History: Cancer Medications and Allergies Home Medications Medication Instructions Recorded Confirmed Type Aspirin EC [Ecotrin Low Dose] 81 mg PO DAILY 05/23/14 07/09/17 History Atorvastatin Calcium [Lipitor] 40 mg PO HS 05/23/14 07/09/17 History Biotin 5 mg PO DAILY@17005/23/14 07/09/17 History Lisinopril [Zestril] 20 mg PO BID@0900,2000 05/23/14 07/09/17 History Lysine 500 mg PO DAILY@169905/23/14 07/09/17 History Metoprolol Tartrate [Lopressor] 100 mg PO TID@0200,0800,1700 05/23/14 07/09/17 History Pantoprazole Sodium [Protonix] 40 mg PO DAILY 05/23/14 07/09/17 History traZODone HCL 50 mg PO HS 12/01/16 07/09/17 History Furosemide [Lasix] 20 mg PO DAILY 12/28/16 07/09/17 History Cyclobenzaprine [Flexeril] 10 mg PO TID PRN 06/27/17 07/09/17 History Magnesium Gluconate [Magonate] 1,000 mg PO DAILY@17006/27/17 07/09/17 History Multivitamins, Thera [Multivitamin 1 tab PO DAILY@17006/27/17 07/09/17 History (formulary)] rOPINIRole HCL [Requip] 1.5 mg PO DAILY@21306/27/17 07/09/17 History Acetaminophen Tab [Tylenol Tab] 650 mg PO Q4H PRN 07/09/17 07/09/17 History Bisacodyl [Dulcolax] 10 mg RECTAL DAILY PRN 07/09/17 07/09/17 History HYDROcodone/APAP 10-325MG [[place] 1 tab PO TID PRN 07/09/17 07/09/17 History 10-325] Magnesium Hydroxide [Milk of 2,400 mg PO DAILY PRN 07/09/17 07/09/17 History Magnesia] Na Phos,M-B/Na Phos,Di-Ba [Fleet 133 ml RECTAL ONCE PRN 07/09/17 07/09/17 History Adult] Ondansetron HCl [Zofran] 8 mg PO Q8H PRN 07/09/17 07/09/17 History Ondansetron [Zofran] 4 mg PO Q8HR PRN 07/09/17 07/09/17 History Allergies Allergy/AdvReac Type Severity Reaction Status Date / Time griseofulvin ultramicrosize Allergy Severe Rash/Hives Verified 07/09/17 17:20 [From Jahaira-PEG (ultramicrosize)] minocycline HCl Allergy Severe Rash/Hives Verified 07/09/17 17:20 [From Minocin] Penicillins Allergy Severe Rash/Hives Verified 07/09/17 17:20 Skin Cleanser Combination Allergy Severe Rash/Hives Verified 07/09/17 17:20 No.4 [From Minocin] minocycline Allergy Unknown Verified 07/09/17 17:20 sulfamethoxazole Allergy Rash/Hives Verified 07/09/17 17:20 [From Bactrim] trimethoprim [From Bactrim] Allergy Rash/Hives Verified 07/09/17 17:20 Physical Exam Vitals: Vital Signs Temp Pulse Pulse Resp BP Pulse Ox 07/11/17 07:00 98.8 F 83 16 110/65 96 07/10/17 23:00 99.6 F 92 20 123/74 94 L 07/10/17 17:02 100.6 F H 07/10/17 15:47 18 07/10/17 14:54 101.2 F H 106 H 18 123/73 96 Intake and Output 07/10/17 07/11/17 07/11/17 22:59 06:59 14:59 Intake Total 300 100 Balance 300 100 Intake: Oral 300 100 Other: # Voids 0 1 # Bowel Movements 0 1 Gen: This is a 61-year-old female in bed and appears to be comfortable. HEENT: Head is atraumatic, normocephalic. Pupils equal, round. Sclerae is anicteric. conjunctiva pink. Mucous membranes of the mouth are moist. NECK: Supple. No JVD. No lymphadenopathy. No thyromegaly. LUNGS: Crackles in the bilateral bases. No wheezes or rhonchi. No intercostal retractions. HEART: Regular rate and rhythm. Systolic murmur. ABDOMEN: Bowel sounds are present. No masses. No tenderness. No suprapubic tenderness. EXTREMITIES: No pedal edema. No calf tenderness. dorsalis pedis +2 bilaterally. NEUROLOGICAL: Patient is awake, alert and oriented x3. Cranial nerves 2 through 12 are grossly intact. Results Results: Laboratory Results WBC 9.0 k/uL (3.8-10.6) 07/09/17 17:00 RBC 3.57 m/uL (3.80-5.40) L 07/09/17 17:00 Hgb 11.0 gm/dL (11.4-16.0) L 07/09/17 17:00 Hct 32.8 % (34.0-46.0) L 07/09/17 17:00 MCV 91.7 fL (80.0-100.0) 07/09/17 17:00 MCH 30.9 pg (25.0-35.0) 07/09/17 17:00 MCHC 33.7 g/dL (31.0-37.0) 07/09/17 17:00 RDW 14.2 % (11.5-15.5) 07/09/17 17:00 Plt Count 362 k/uL (150-450) 07/09/17 17:00 Neutrophils % 87 % 07/09/17 17:00 Lymphocytes % 7 % 07/09/17 17:00 Monocytes % 2 % 07/09/17 17:00 Eosinophils % 2 % 07/09/17 17:00 Basophils % 0 % 07/09/17 17:00 Neutrophils # 7.8 k/uL (1.3-7.7) H 07/09/17 17:00 Lymphocytes # 0.7 k/uL (1.0-4.8) L 07/09/17 17:00 Monocytes # 0.2 k/uL (0-1.0) 07/09/17 17:00 Eosinophils # 0.1 k/uL (0-0.7) 07/09/17 17:00 Basophils # 0.0 k/uL (0-0.2) 07/09/17 17:00 Hypochromasia Slight 07/09/17 17:00 Sodium 132 mmol/L (137-145) L 07/09/17 17:00 Potassium 4.2 mmol/L (3.5-5.1) 07/09/17 17:00 Chloride 95 mmol/L (98-107) L 07/09/17 17:00 Carbon Dioxide 24 mmol/L (22-30) 07/09/17 17:00 Anion Gap 13 mmol/L 07/09/17 17:00 BUN 7 mg/dL (7-17) 07/09/17 17:00 Creatinine 0.60 mg/dL (0.52-1.04) 07/09/17 17:00 Est GFR (MDRD) Af Amer >60 (>60 ml/min/1.73 sqM) 07/09/17 17:00 Est GFR (MDRD) Non-Af >60 (>60 ml/min/1.73 sqM) 07/09/17 17:00 Glucose 127 mg/dL (74-99) H 07/09/17 17:00 Plasma Lactic Acid Steven 1.9 mmol/L (0.7-2.0) 07/09/17 17:00 Calcium 8.5 mg/dL (8.4-10.2) 07/09/17 17:00 Magnesium 1.6 mg/dL (1.6-2.3) 07/09/17 17:00 Total Bilirubin 0.4 mg/dL (0.2-1.3) 07/09/17 17:00 AST 32 U/L (14-36) 07/09/17 17:00 ALT 36 U/L (9-52) 07/09/17 17:00 Alkaline Phosphatase 88 U/L (38-126) 07/09/17 17:00 Total Creatine Kinase 30 U/L (30-135) 07/09/17 17:00 CK-MB (CK-2) <0.2 ng/mL (0.0-2.4) 07/09/17 17:00 CK-MB (CK-2) Rel Index 07/09/17 17:00 Total Protein 6.2 g/dL (6.3-8.2) L 07/09/17 17:00 Albumin 3.3 g/dL (3.5-5.0) L 07/09/17 17:00 Urine Color Light Yellow 07/09/17 22:00 Urine Appearance Clear (Clear) 07/09/17 22:00 Urine pH 6.5 (5.0-8.0) 07/09/17 22:00 Ur Specific [place] 1.005 (1.001-1.035) 07/09/17 22:00 Urine Protein Negative (Negative) 07/09/17 22:00 Urine Glucose (UA) Negative (Negative) 07/09/17 22:00 Urine Ketones Negative (Negative) 07/09/17 22:00 Urine Blood Negative (Negative) 07/09/17 22:00 Urine Nitrite Negative (Negative) 07/09/17 22:00 Urine Bilirubin Negative (Negative) 07/09/17 22:00 Urine Urobilinogen <2.0 mg/dL (<2.0) 07/09/17 22:00 Ur Leukocyte Esterase Moderate (Negative) H 07/09/17 22:00 Urine RBC 1 /hpf (0-5) 07/09/17 22:00 Urine WBC 4 /hpf (0-5) 07/09/17 22:00 Ur Squamous Epith Cells 2 /hpf (0-4) 07/09/17 22:00 Urine Mucus Rare /hpf (None) H 07/09/17 22:00 C. difficile (EIA) Intrp Negative (Negative) 07/09/17 22:00 CBC & Chem 7: 07/09/17 17:00 07/09/17 17:00 Labs: Microbiology - Last 24 Hours (Table) 07/09/17 21:26 Blood Culture - Preliminary Blood No Growth after 24 hours 07/09/17 17:00 Blood Culture - Preliminary Blood No Growth after 24 hours Assessment and Plan Plan: This is a 61-year-old female who was recently hospitalized for bacterial meningitis on treatment with ceftriaxone. She is having symptoms of vomiting with soft stools along with intermittent headache and neck pain and significant fevers up to 104. Ceftriaxone will be switched to vancomycin. Blood cultures are showing no growth after 24 hours, 2 specimens. Regarding nausea, patient states the Zofran is not helping her and is very temporary. Scopolamine patch will be added. Initial chest x-ray and repeat chest x-ray showing no acute findings. Incentive spirometry will be added. Continue supportive care. Further recommendations as patient progresses. The above dictated assessment and findings were discussed with Dr. Burrell. The impression and plan of care have been directed as dictated. Keya Santamaria nurse practitioner acting as scribe for Dr. Burrell.
[2017-07-11] MEDS: MAGNESIUM OXIDE 400 MG TAB PO SCH (17:43)
[2017-07-11] MEDS: MULTIVITAMINS, THERA 1 EACH TAB PO SCH (17:43)
[2017-07-11] MEDS: ENOXAPARIN 40 MG/0.4 ML SYRINGE SQ SCH (22:01)
[2017-07-11] MEDS: traZODone HCL 50 MG TAB PO SCH (22:02)
[2017-07-11] MEDS: ATORVASTATIN 40 MG TAB PO SCH (22:02)
--- NOTE | 2017-07-11 23:08 | P.CON ---
Consult Note - . Consult date: 07/11/17 Assessment/Plan:: This is a 61-year-old female with a past medical history significant for aortic valve replacement in 2007 done at [facility] and subsequently developed myocardial infarction underwent a CABG one vessel and then was transferred [facility] and had a difficult postoperative period with development of DVT in the left leg. Patient had a stress test done 2 years ago that apparently was normal. Was recently hospitalized. The point in time there was concern is the possibility of infection of her aortic bioprosthetic valve. She underwent testing. TORIBIO was performed without evidence of endocarditis. Evidence of a positive cultures and she did well with ongoing cardiac a follow-up. She had a recent hospitalization June 28 through 07/07/2017 which time she was treated for bacterial meningitis on ceftriaxone. She gradually improved and she had a PICC line placed and was discharged to [facility] to continue ceftriaxone for a 2 week course for Streptococcus bacteremia and meningitis. Patient states that she had vomiting during her hospitalization which continue to be troublesome at the intermediate. She states she has also had diarrhea since she started ceftriaxone. When describing the stools, she states her last bowel movement was yesterday and it was mushy. No watery stools. She was found at the intermediate to have fevers of 101-104 and mental status changes. The patient states that she does not remember much but her told her she was staring in space and she had difficulty with word finding. Regarding headache and neck pain this is on and off and intermittent. She does have a cough that is nonproductive. She states that she had some shortness of breath is improved after receiving Lasix yesterday. Her mental status is back to baseline. At the time of this evaluation, patient states that she is feeling much better than she did one hour ago but still has some nausea after receiving Zofran. Chest x-ray shows no acute findings. The chest x-ray done today also shows no acute findings. Temperature max is been 101.2 with pulse rate in the 90s and low 100s. Pulse ox is 96% on room air. She continues to have sweats. Her white count is normal. Urinalysis was clear, moderate leukoesterase, and nitrate negative, WBC 4. C. difficile toxin negative. Please see the consult note is dictated by nurse practitioner Mrs. Keya Santamaria. The patient is again ill. Concern was to city and toxicity related to her current antibiotic therapy. Consider this is altered she is receiving fluids and vancomycin therapy. Fortunately with the alteration she started to feel a bit better. This will continue for now. Could complete her course of antibiotics with the vancomycin therapy and so the Rocephin unless further changes. Last admission there was evidence of only gram-positive infection no need for gram-negative coverage. No evidence of any C. diff colitis. Continue supportive care. Fever has resolved. Overall improving. We'll monitor. I agree with evaluation, assessment and plan is dictated by nurse practitioner Mrs. Keya Santamaria.
[2017-07-12] MEDS: VANCOMYCIN 1,000 MG in SODIUM CHLORIDE 0.9% 250 ML IVPB SCH ×3 (00:05→21:09)
[2017-07-12] MEDS: METOPROLOL TARTRATE 50 MG TAB PO SCH ×3 (02:10→17:23)
[2017-07-12] MEDS: ENOXAPARIN 40 MG/0.4 ML SYRINGE SQ SCH (07:48)
[2017-07-12] MEDS: LISINOPRIL 20 MG TAB PO SCH ×2 (07:48→21:10)
[2017-07-12] MEDS: CYCLOBENZAPRINE 10 MG TAB PO PRN (07:49)
[2017-07-12] MEDS: PANTOPRAZOLE 40 MG TABLET PO SCH (07:49)
[2017-07-12] MEDS: ASPIRIN 81 MG CHEW PO SCH (07:49)
[2017-07-12 07:56] LABS: Anion Gap 7 mmol/L; Blood Urea Nitrogen 6 mg/dL (7-17); Calcium 8.5 mg/dL (8.4-10.2); Carbon Dioxide 30 mmol/L (22-30); Chloride 103 mmol/L (98-107); Glucose 91 mg/dL (74-99); Non-African American GFR(MDRD) >60 (>60 ml/min/1.73 sqM); Potassium 4.6 mmol/L (3.5-5.1); Sodium 140 mmol/L (137-145)
[2017-07-12] MEDS ORDERED: VANCOMYCIN TROUGH DUE 1 EACH MISC MISCELLANE ONE (10:00)
--- NOTE | 2017-07-12 12:01 | CDI ---
In responding to this query, please exercise your independent professional judgment. The [facility] Coding Staff and Clinical Documentation Specialists appreciate your assistance in clarifying documentation, maintaining compliance with coding guidelines, accurately documenting patients condition and capturing severity of illness. The fact that a question is asked does not imply that any particular answer is desired or expected. Communication forms are a method of clarifying documentation and are not made part of the Legal Health Record. Thank you in advance for your clarification. Last Revision, September 2015 Jadiel Franco [address] [place] [address] Documentation Clarification Form Date: 07/13/2017 12:25:00 PM From: Zo Roy, AVTAR, CCDS Admit Date: 07/11/2017 4:23:00 PM Patient Name: Helga Coppola Visit Number: [id number] Discharge Date: Dr. Thomas Link: 61 yo female, admitted with Fever up to 104 & confusion with change in mental status. Per the H/P: She had a fever that was reported initially 100 the then 101 and up to 104. She also had confusion and change in mental status she was acting more confused apparently. He was also having nausea on and off and was having diarrhea as well since starting antibiotics. Mental status has improved since admission. Clinical Indicators: VS: T 100.6^, P 112^, R 22, BP 140/73, PO 94 2Lnc Labs: WBC (9.0), Neut 7.8^. UA & C Diff negative. RAD: CXR x2: neg. Treatment: Blood cultures, urine cultures, neuro assessments, IV fl rate 75, IV fluid bolus, IV Rocephin continued & IV Vanco added. Consults: Infectious Disease In your professional opinion, can you please clarify the specific type of encephalopathy, if known? Metabolic Encephalopathy Septic Encephalopathy Toxic Encephalopathy Other, please specify Unable to determine Septic encephalopathy is the type of encephalopathy. Kristy Koenig [facility] Please document in your progress notes and discharge summary in order to capture severity of illness and risk of mortality. Include clinical findings that support your diagnosis. FYI: Press F11 to launch patient chart. MAURICE
--- NOTE | 2017-07-12 12:08 | CDI ---
In responding to this query, please exercise your independent professional judgment. The [facility] Coding Staff and Clinical Documentation Specialists appreciate your assistance in clarifying documentation, maintaining compliance with coding guidelines, accurately documenting patients condition and capturing severity of illness. The fact that a question is asked does not imply that any particular answer is desired or expected. Communication forms are a method of clarifying documentation and are not made part of the Legal Health Record. Thank you in advance for your clarification. Last Revision, February 2017 Jadiel Franco [address] [place] [address] Documentation Clarification Form Date: 07/12/2017 12:02:00 PM From: Zo Roy, CCS, CCDS Admit Date: 07/11/2017 4:23:00 PM Patient Name: Helga Coppola Visit Number: [id number] Discharge Date: Dr. Filippo Contreras: 61 yo female, admitted with Fever up to 104 & confusion with change in mental status. Per the H/P: She had a fever that was reported initially 100 the then 101 and up to 104. She also had confusion and change in mental status she was acting more confused apparently. He was also having nausea on and off and was having diarrhea as well since starting antibiotics. Mental status has improved since admission. Clinical Indicators: VS: T 100.6^, P 112^, R 22, BP 140/73, PO 94 2Lnc Labs: WBC (9.0), Neut 7.8^. UA & C Diff negative. RAD: CXR x2: neg. Treatment: Blood cultures, urine cultures, neuro assessments, IV fl rate 75, IV fluid bolus, IV Rocephin continued & IV Vanco added. Consults: Infectious Disease In your professional opinion, please clarify if these findings signify one of the following conditions, whether the condition is POA, and cause, if known: Sepsis, ruled out SIRS, without underlying infectious process Sepsis Severe Sepsis Unable to determine Other, please specify Present on Admission: Yes No * Identify the (suspected) organism Please document in your progress notes and discharge summary in order to capture severity of illness and risk of mortality. Include clinical findings that support your diagnosis. FYI: Press F11 to launch patient chart. MAURICE
--- NOTE | 2017-07-12 13:32 | PN ---
DATE OF SERVICE: 07/11/2017 PRESENTING COMPLAINT: Fever, chills. INTERVAL HISTORY: This patient was in the hospital from 06/28/17 to 07/06/17, at that time was diagnosed with acute bacterial meningitis with blood cultures positive for alpha hemolytic strep. Patient was discharged on 07/06/17. Been on the 14 days of ceftriaxone to the F. Patient is feeling somewhat better when she left, but again presented with fever, chills, headache, not feeling well and fever going up to 102. [address] Burrell' team earlier today and patient ceftriaxone had been discontinued and vancomycin was added. is at the bedside. Patient feels a little bit better, wants to eat some liquids. Review of systems done for constitutional, cardiovascular, GI, pulmonary; relevant findings as above. Current medications are reviewed that include IV vancomycin. On examination, T-max 101.2 yesterday later afternoon. Pulse 92, respirations 18 , blood pressure 108/62, pulse ox 96% on room air. GENERAL APPEARANCE: Sitting up in bed, tired appearing. EYES: Pupils equal. Conjunctivae normal. NECK: JVD not raised. Mass not palpable. RESPIRATORY: Effort normal. LUNGS: Decreased breath sounds. CARDIOVASCULAR: First and second sounds no edema. ABDOMEN: Soft, nontender. PSYCHIATRY: Awake, answering questions. NEUROLOGICAL: Nil focal. INVESTIGATIONS: White count 9, hemoglobin 11.0. Potassium 4.2. BUN and creatinine normal. Sodium 132. C. difficile negative. Blood cultures are pending. ASSESSMENT: 1. Acute sepsis picture in a patient who was just diagnosed with acute meningitis discharged on 07/06/17. At that time, blood culture positive alpha hemolytic streptococcus; now with a sepsis picture again including headaches with some clinical improvement after vancomycin was added. 2. Coronary artery disease, single vessel. 3. Essential hypertension. 4. Hyperlipidemia. 5. Chronic congestive heart failure from diastolic dysfunction. Ejection fraction 60% from underlying coronary artery disease. 6. Ascending aortic aneurysm, 4.2. cm. 7. Osteoarthritis of the cervical spine, primary. 8. Chronic scoliosis. 9. Thyroid nodules in a euthyroid state. 10. Bioprosthetic aortic valve. PLAN: Care was discussed with the patient and at the bedside. Will add Lovenox. Await further input from Dr. Burrell. Slow to respond. [facility]
[2017-07-12] MEDS: ONDANSETRON 4 MG/2 ML VIAL IVP PRN (13:59)
[2017-07-12] MEDS ORDERED: METOCLOPRAMIDE 5 MG/ML 2 ML VIAL IVP STA (15:39)
[2017-07-12] MEDS: MULTIVITAMINS, THERA 1 EACH TAB PO SCH (17:23)
[2017-07-12] MEDS: MAGNESIUM OXIDE 400 MG TAB PO SCH (17:23)
[2017-07-12] MEDS: HYDROcodone/APAP 10-325MG 1 EACH TAB PO PRN (17:27)
--- NOTE | 2017-07-12 20:02 | P.PN ---
<Kristy Koenig - Last Filed: 07/12/17 19:44> Progress Note - Text DATE OF SERVICE: 07/12/2017 PRESENTING COMPLAINT: Fever and chills INTERVAL HISTORY: 61-year-old female was recently discharged on 07/06/2017 after being diagnosed with acute bacterial meningitis. Transferred to the [facility], was on 14 days of ceftriaxone, feeling better presented to the emergency department with fever chills headache not feeling well fever of up to 102. 07/12/2017: Patient sitting up at the bedside states feels much better today, worked with physical therapy. Tolerating her diet eating about 50-75% a clear liquid diet. Last BM 07/11/2017. REVIEW OF SYSTEMS: Done for constitutional ,cardiovascular, GI, pulmonary with relevant findings as above. CURRENT MEDICATIONS Hydrocodone acetaminophen, aspirin, Lipitor, Flexeril, Lovenox, Zestril, Lopressor, Protonix, Requip, PHYSICAL EXAM VITAL SIGNS: Temperature 98.7, pulse 98, respiratory rate 20, blood pressure 139/81, oxygen saturation 95% on room air. GENERAL APPEARANCE: Sitting up on the bed, not in distress. EYES: Pupils equal. Conjunctiva normal. NECK: JVD not raised. Mass not palpable. RESPIRATORY: Respiratory effort normal. Lungs diminished to auscultation. CARDIOVASCULAR: First and second sounds normal. No edema. ABDOMEN: Soft. Liver and spleen not palpable. No tenderness. No mass palpable. PSYCHIATRY: Alert and oriented x3. Mood and affect normal. INVESTIGATIONS: Sodium 140, potassium 4.6, BUN 6 creatinine 0.5 to Blood cultures no growth after 48 and 72 hours. ASSESSMENT: -Acute sepsis picture patient who was just diagnosed with acute meningitis discharged on 07/06/2017. At that time, blood culture positive alphahemolytic streptococcus now with a sepsis picture again including headaches with some clinical improvement after vancomycin was added. -Coronary artery disease, single-vessel. -Essential hypertension. -Hyperlipidemia. -Chronic congestive heart failure from diastolic dysfunction. Ejection fraction 60% from underlying coronary artery disease. -Ascending aortic aneurysm, 4.2 cm. -Osteoarthritis of the cervical spine, primary. -Chronic scoliosis. -Thyroid nodules in euthyroid state -Bioprosthetic aortic valve. -Nausea with vomiting unspecified PLAN: Ceftriaxone was switched to vancomycin by infectious disease, scopolamine patch added, helping with nausea. We'll continue current medication and treatment plan, possible discharge planning within the next 48 hours based on patient condition. Plan of care discussed with patient and at the bedside and they are in agreement. CONTINUOUS PROCESS [employer] statement: Patient was seen and examined by nurse practitioner Kristy Koenig and all elements of the case discussed with attending Dr. Link <Thomas Link - Last Filed: 07/12/17 23:08> Progress Note - Text Date of service 07/17/2017 Attending note: As patient was seen and examined by me. I discussed the care with minus practitioner Miss Koenig. This is a patient who was treated for acute meningitis on the last admission discharged on IV ceftriaxone and admitted with fever or chills. I discussed with Dr. Burrell last night. He'll acute the patient on IV vancomycin as patient is improving and keep the patient off IV ceftriaxone. Patient feels a bit better today. had soup for lunch which she did vomit. But has been up in the hallway with therapy. Hospital at the bedside. On examination: Sitting up.. Lungs-decreased breath sound. Psych AO 3 Assessment and plan: Sepsis picture on presentation with no acute source, patient responded to vancomycin. Told the patient to keep a light diet. Discussed patient has been. Continue antibiotics per Dr. Burrell. Cultures negative.
[2017-07-12] MEDS: traZODone HCL 50 MG TAB PO SCH (21:10)
[2017-07-12] MEDS: ATORVASTATIN 40 MG TAB PO SCH (21:10)
--- NOTE | 2017-07-12 22:42 | P.PN ---
Subjective Principal diagnosis: Fever This is a 61-year-old female with a past medical history significant for aortic valve replacement in 2007 done at [facility] and subsequently developed myocardial infarction underwent a CABG one vessel and then was transferred [facility] and had a difficult postoperative period with development of DVT in the left leg. Patient had a stress test done 2 years ago that apparently was normal. Was recently hospitalized. The point in time there was concern is the possibility of infection of her aortic bioprosthetic valve. She underwent testing. TORIBIO was performed without evidence of endocarditis. Evidence of a positive cultures and she did well with ongoing cardiac a follow-up. She had a recent hospitalization June 28 through 07/07/2017 which time she was treated for bacterial meningitis on ceftriaxone. She gradually improved and she had a PICC line placed and was discharged to [facility] to continue ceftriaxone for a 2 week course for Streptococcus bacteremia and meningitis. Patient states that she had vomiting during her hospitalization which continue to be troublesome at the skilled nursing. She states she has also had diarrhea since she started ceftriaxone. When describing the stools, she states her last bowel movement was yesterday and it was mushy. No watery stools. She was found at the skilled nursing to have fevers of 101-104 and mental status changes. The patient states that she does not remember much but her told her she was staring in space and she had difficulty with word finding. Regarding headache and neck pain this is on and off and intermittent. She does have a cough that is nonproductive. She states that she had some shortness of breath is improved after receiving Lasix yesterday. Her mental status is back to baseline. At the time of this evaluation, patient states that she is feeling much better than she did one hour ago but still has some nausea after receiving Zofran. Chest x-ray shows no acute findings. The chest x-ray done today also shows no acute findings. Temperature max is been 101.2 with pulse rate in the 90s and low 100s. Pulse ox is 96% on room air. She continues to have sweats. Her white count is normal. Urinalysis was clear, moderate leukoesterase, and nitrate negative, WBC 4. C. difficile toxin negative. Patient's feeling considerably better today. Fevers have generally improved. No other new acute findings. Objective - Vital Signs Vital signs: Vital Signs Temp 97.3 F L 07/12/17 14:45 Pulse 89 07/12/17 14:45 Resp 20 07/12/17 16:00 BP 143/95 07/12/17 14:45 Pulse Ox 96 07/12/17 14:45 Intake & Output 07/12/17 07/12/17 07/13/17 06:59 18:59 06:59 Intake Total 500 Balance 500 Intake: Oral 500 Other: # Voids 2 4 1 # Emeses 1 - Exam Gen: This is a 61-year-old female in bed and appears to be comfortable. HEENT: Head is atraumatic, normocephalic. Pupils equal, round. Sclerae is anicteric. conjunctiva pink. Mucous membranes of the mouth are moist. NECK: Supple. No JVD. No lymphadenopathy. No thyromegaly. LUNGS: Crackles in the bilateral bases. No wheezes or rhonchi. No intercostal retractions. HEART: Regular rate and rhythm. Systolic murmur. ABDOMEN: Bowel sounds are present. No masses. No tenderness. No suprapubic tenderness. EXTREMITIES: No pedal edema. No calf tenderness. dorsalis pedis +2 bilaterally. NEUROLOGICAL: Patient is awake, without acute gross focal sensory motor deficits. Neurologically still has vagueness to her thought content - Labs CBC & Chem 7: 07/09/17 17:00 07/12/17 07:29 Labs: Abnormal Lab Results - Last 24 Hours (Table) 07/12/17 Range/Units 07:29 BUN 6 L (7-17) mg/dL Microbiology - Last 24 Hours (Table) 07/09/17 17:00 Blood Culture - Preliminary Blood No Growth after 72 hours 07/09/17 21:26 Blood Culture - Preliminary Blood No Growth after 48 hours Laboratory Results WBC 9.0 k/uL (3.8-10.6) 07/09/17 17:00 RBC 3.57 m/uL (3.80-5.40) L 07/09/17 17:00 Hgb 11.0 gm/dL (11.4-16.0) L 07/09/17 17:00 Hct 32.8 % (34.0-46.0) L 07/09/17 17:00 MCV 91.7 fL (80.0-100.0) 07/09/17 17:00 MCH 30.9 pg (25.0-35.0) 07/09/17 17:00 MCHC 33.7 g/dL (31.0-37.0) 07/09/17 17:00 RDW 14.2 % (11.5-15.5) 07/09/17 17:00 Plt Count 362 k/uL (150-450) 07/09/17 17:00 Neutrophils % 87 % 07/09/17 17:00 Lymphocytes % 7 % 07/09/17 17:00 Monocytes % 2 % 07/09/17 17:00 Eosinophils % 2 % 07/09/17 17:00 Basophils % 0 % 07/09/17 17:00 Neutrophils # 7.8 k/uL (1.3-7.7) H 07/09/17 17:00 Lymphocytes # 0.7 k/uL (1.0-4.8) L 07/09/17 17:00 Monocytes # 0.2 k/uL (0-1.0) 07/09/17 17:00 Eosinophils # 0.1 k/uL (0-0.7) 07/09/17 17:00 Basophils # 0.0 k/uL (0-0.2) 07/09/17 17:00 Hypochromasia Slight 07/09/17 17:00 Sodium 140 mmol/L (137-145) 07/12/17 07:29 Potassium 4.6 mmol/L (3.5-5.1) 07/12/17 07:29 Chloride 103 mmol/L (98-107) 07/12/17 07:29 Carbon Dioxide 30 mmol/L (22-30) 07/12/17 07:29 Anion Gap 7 mmol/L 07/12/17 07:29 BUN 6 mg/dL (7-17) L 07/12/17 07:29 Creatinine 0.52 mg/dL (0.52-1.04) 07/12/17 07:29 Est GFR (MDRD) Af Amer >60 (>60 ml/min/1.73 sqM) 07/12/17 07:29 Est GFR (MDRD) Non-Af >60 (>60 ml/min/1.73 sqM) 07/12/17 07:29 Glucose 91 mg/dL (74-99) 07/12/17 07:29 Plasma Lactic Acid Steven 1.9 mmol/L (0.7-2.0) 07/09/17 17:00 Calcium 8.5 mg/dL (8.4-10.2) 07/12/17 07:29 Magnesium 1.6 mg/dL (1.6-2.3) 07/09/17 17:00 Total Bilirubin 0.4 mg/dL (0.2-1.3) 07/09/17 17:00 AST 32 U/L (14-36) 07/09/17 17:00 ALT 36 U/L (9-52) 07/09/17 17:00 Alkaline Phosphatase 88 U/L (38-126) 07/09/17 17:00 Total Creatine Kinase 30 U/L (30-135) 07/09/17 17:00 CK-MB (CK-2) <0.2 ng/mL (0.0-2.4) 07/09/17 17:00 CK-MB (CK-2) Rel Index 07/09/17 17:00 Total Protein 6.2 g/dL (6.3-8.2) L 07/09/17 17:00 Albumin 3.3 g/dL (3.5-5.0) L 07/09/17 17:00 Urine Color Light Yellow 07/09/17 22:00 Urine Appearance Clear (Clear) 07/09/17 22:00 Urine pH 6.5 (5.0-8.0) 07/09/17 22:00 Ur Specific [place] 1.005 (1.001-1.035) 07/09/17 22:00 Urine Protein Negative (Negative) 07/09/17 22:00 Urine Glucose (UA) Negative (Negative) 07/09/17 22:00 Urine Ketones Negative (Negative) 07/09/17 22:00 Urine Blood Negative (Negative) 07/09/17 22:00 Urine Nitrite Negative (Negative) 07/09/17 22:00 Urine Bilirubin Negative (Negative) 07/09/17 22:00 Urine Urobilinogen <2.0 mg/dL (<2.0) 07/09/17 22:00 Ur Leukocyte Esterase Moderate (Negative) H 07/09/17 22:00 Urine RBC 1 /hpf (0-5) 07/09/17 22:00 Urine WBC 4 /hpf (0-5) 07/09/17 22:00 Ur Squamous Epith Cells 2 /hpf (0-4) 07/09/17 22:00 Urine Mucus Rare /hpf (None) H 07/09/17 22:00 Vancomycin Trough 12.8 ug/mL 07/12/17 07:29 C. difficile (EIA) Intrp Negative (Negative) 07/09/17 22:00 Microbiology 07/09/17 17:00 Blood Blood Culture - Preliminary No Growth after 72 hours 07/09/17 21:26 Blood Blood Culture - Preliminary No Growth after 48 hours Assessment and Plan (1) Febrile illness, acute Narrative/Plan: 61-year-old female presents to the hospital with acute fever. Was recently hospitalized with evidence of meningitis and Streptococcus pneumoniae bacteremia. Receiving intravenous antibiotic therapy and was having improvement of her status. Then developed worsening of her symptoms with diarrhea and readvanced to the fever and generalized malaise. Workup is in process. Blood cultures are negative. Stool was negative for C. diff toxin. With hydration ulceration of antibiotic therapy from ceftriaxone to vancomycin resulted in marked improvement of the patient. She feels considerably better today. She still has some vagueness to her mentation but does not have acute gross focal sensory motor deficits. Overall is improving. We'll complete her 21 days of antibiotic therapy with vancomycin when she is discharged. Status: Acute (2) Meningitis Status: Acute
[2017-07-13] MEDS: HYDROcodone/APAP 10-325MG 1 EACH TAB PO PRN ×3 (02:05→18:10)
[2017-07-13] MEDS: METOPROLOL TARTRATE 50 MG TAB PO SCH ×3 (02:05→17:16)
[2017-07-13] MEDS: VANCOMYCIN 1,000 MG in SODIUM CHLORIDE 0.9% 250 ML IVPB SCH ×3 (04:52→21:34)
[2017-07-13] MEDS: LISINOPRIL 20 MG TAB PO SCH ×2 (09:00→21:35)
[2017-07-13] MEDS: ENOXAPARIN 40 MG/0.4 ML SYRINGE SQ SCH (09:00)
[2017-07-13] MEDS: ASPIRIN 81 MG CHEW PO SCH (09:01)
[2017-07-13] MEDS: PANTOPRAZOLE 40 MG TABLET PO SCH (09:01)
[2017-07-13] MEDS: ONDANSETRON 4 MG/2 ML VIAL IVP PRN (09:08)
[2017-07-13 09:16] LABS: Anion Gap 10 mmol/L; Blood Urea Nitrogen 5 mg/dL (7-17); Calcium 9.1 mg/dL (8.4-10.2); Carbon Dioxide 26 mmol/L (22-30); Chloride 104 mmol/L (98-107); Glucose 98 mg/dL (74-99); Non-African American GFR(MDRD) >60 (>60 ml/min/1.73 sqM); Potassium 4.6 mmol/L (3.5-5.1); Sodium 140 mmol/L (137-145)
[2017-07-13] MEDS: MAGNESIUM OXIDE 400 MG TAB PO SCH (17:16)
[2017-07-13] MEDS: MULTIVITAMINS, THERA 1 EACH TAB PO SCH (17:16)
--- NOTE | 2017-07-13 17:52 | P.PN ---
<Kristy Koenig - Last Filed: 07/13/17 17:41> Progress Note - Text DATE OF SERVICE: 07/13/2017 PRESENTING COMPLAINT: Fever and chills INTERVAL HISTORY: 61-year-old female was recently discharged on 07/06/2017 after being diagnosed with acute bacterial meningitis. Transferred to the [facility], was on 14 days of ceftriaxone, feeling better presented to the emergency department with fever chills headache not feeling well fever of up to 102. 07/13/2017: Patient seen in follow-up no acute overnight events. Patient sitting up in bed , states feels much better today, worked with physical therapy. Eating about 50 % of her diet, however has had some nausea directly after eating. Discontinued Zofran and added Reglan 3 times a day. Ambulatory with some assistance and walker. Last BM 07/12/2017 07/12/2017: Patient sitting up at the bedside states feels much better today, worked with physical therapy. Tolerating her diet eating about 50-75% a clear liquid diet. Last BM 07/11/2017. REVIEW OF SYSTEMS: Done for constitutional ,cardiovascular, GI, pulmonary with relevant findings as above. CURRENT MEDICATIONS Hydrocodone acetaminophen, aspirin, Lipitor, Flexeril, Lovenox, Zestril, Lopressor, Protonix, Requip, PHYSICAL EXAM VITAL SIGNS: Temperature 98.0, pulse 81, respirations 14, blood pressure 129/71, oxygen saturation 96% on room air. GENERAL APPEARANCE: Sitting up on the bed, not in distress. EYES: Pupils equal. Conjunctiva normal. NECK: JVD not raised. Mass not palpable. RESPIRATORY: Respiratory effort normal. Lungs diminished to auscultation. CARDIOVASCULAR: First and second sounds normal. No edema. ABDOMEN: Soft. Liver and spleen not palpable. Mild tenderness. No mass palpable. PSYCHIATRY: Alert and oriented x3. Mood and affect normal. INVESTIGATIONS: Sodium 140, potassium 4.6 Accu-Cheks noted ASSESSMENT: -Acute sepsis picture patient who was just diagnosed with acute meningitis discharged on 07/06/2017. At that time, blood culture positive alphahemolytic streptococcus now with a sepsis picture again including headaches with continued clinical improvement after vancomycin was added -Coronary artery disease, single-vessel. -Essential hypertension. -Hyperlipidemia. -Chronic congestive heart failure from diastolic dysfunction. Ejection fraction 60% from underlying coronary artery disease. -Ascending aortic aneurysm, 4.2 cm. -Osteoarthritis of the cervical spine, primary. -Chronic scoliosis. -Thyroid nodules in euthyroid state -Bioprosthetic aortic valve. -Nausea with vomiting unspecified PLAN: We'll continue vancomycin and plan per ID to have her complete 21 days upon discharge. Discontinued Zofran with Reglan given 3 times a day to better control nausea. Possible discharge in the next 24-48 hours. Plan of care discussed with patient and at the bedside and they are in agreement. [employer] statement: Patient was seen and examined by nurse practitioner Kristy Koenig and all elements of the case discussed with attending Dr. Link <Thomas Link - Last Filed: 07/13/17 21:30> Progress Note - Text Attending note. Date of service-07/13/2017 This patient was seen and examined by me . I reviewed the note of my nurse practitioner, Ms. Koenig. Discussed with her, additional findings as below. Admitted with sepsis picture of the recent diagnosis of acute meningitis on IV ceftriaxone. The latter was discontinued and patient is IV vancomycin. Patient is feeling better this morning did keep some breakfast down. Been up in the hallway. No more fevers. some nausea presentthough improved On examination: Lungs-decreased breath sounds, psych AO 3 Investigations: Potassium 4.6, blood cultures negative Assessment and plan: Acute sepsis picture with recent acute meningitis not clinically responding to vancomycin. Nausea is getting better. Will increase his Zofran today. Cut back on the dose of Reglan. Continue with IV vancomycin. Care was discussed with the patient
[2017-07-13] MEDS: ATORVASTATIN 40 MG TAB PO SCH (21:35)
[2017-07-13] MEDS: traZODone HCL 50 MG TAB PO SCH (21:35)
--- NOTE | 2017-07-13 23:35 | P.PN ---
Subjective Principal diagnosis: Fever This is a 61-year-old female with a past medical history significant for aortic valve replacement in 2007 done at [facility] and subsequently developed myocardial infarction underwent a CABG one vessel and then was transferred [facility] and had a difficult postoperative period with development of DVT in the left leg. Patient had a stress test done 2 years ago that apparently was normal. Was recently hospitalized. The point in time there was concern is the possibility of infection of her aortic bioprosthetic valve. She underwent testing. TORIBIO was performed without evidence of endocarditis. Evidence of a positive cultures and she did well with ongoing cardiac a follow-up. She had a recent hospitalization June 28 through 07/07/2017 which time she was treated for bacterial meningitis on ceftriaxone. She gradually improved and she had a PICC line placed and was discharged to [facility] to continue ceftriaxone for a 2 week course for Streptococcus bacteremia and meningitis. Patient states that she had vomiting during her hospitalization which continue to be troublesome at the assisted. She states she has also had diarrhea since she started ceftriaxone. When describing the stools, she states her last bowel movement was yesterday and it was mushy. No watery stools. She was found at the assisted to have fevers of 101-104 and mental status changes. The patient states that she does not remember much but her told her she was staring in space and she had difficulty with word finding. Regarding headache and neck pain this is on and off and intermittent. She does have a cough that is nonproductive. She states that she had some shortness of breath is improved after receiving Lasix yesterday. Her mental status is back to baseline. At the time of this evaluation, patient states that she is feeling much better than she did one hour ago but still has some nausea after receiving Zofran. Chest x-ray shows no acute findings. The chest x-ray shows no acute findings. Temperature max at admit was 101.2 with pulse rate in the 90s and low 100s. Pulse ox is 96% on room air. She continues to have sweats. Her white count is normal. Urinalysis was clear, moderate leukoesterase, and nitrate negative, WBC 4. C. difficile toxin negative. Patient's feeling considerably better today. Fevers have generally improved. No other new acute findings.But mental status still not at baseline. Wrong number of years . Objective - Vital Signs Vital signs: Vital Signs Temp 99.1 F 07/13/17 19:23 Pulse 83 07/13/17 19:23 Resp 18 07/13/17 19:23 BP 118/75 07/13/17 19:23 Pulse Ox 96 07/13/17 19:23 Intake & Output 07/13/17 07/13/17 07/14/17 06:59 18:59 06:59 Intake Total 370 Balance 370 Intake: IV 370 Vancomycin 1,000 mg In 250 Sodium Chloride 0.9% 250 ml @ 125 mls/hr IVPB Q8H [facility] Rx#:[id number] normal saline at 20ml/hr 120 Other: # Voids 2 2 - Exam Gen: This is a 61-year-old female in bed and appears to be comfortable. HEENT: Head is atraumatic, normocephalic. Pupils equal, round. Sclerae is anicteric. conjunctiva pink. Mucous membranes of the mouth are moist. NECK: Supple. No JVD. No lymphadenopathy. No thyromegaly. LUNGS: Crackles in the bilateral bases. No wheezes or rhonchi. No intercostal retractions. HEART: Regular rate and rhythm. Systolic murmur. ABDOMEN: Bowel sounds are present. No masses. No tenderness. No suprapubic tenderness. EXTREMITIES: No pedal edema. No calf tenderness. dorsalis pedis +2 bilaterally. NEUROLOGICAL: Patient is awake, without acute gross focal sensory motor deficits. Neurologically still has vagueness to her thought content but awake OX3 - Labs CBC & Chem 7: 07/09/17 17:00 07/13/17 08:22 Labs: Abnormal Lab Results - Last 24 Hours (Table) 07/13/17 Range/Units 08:22 BUN 5 L (7-17) mg/dL Creatinine 0.50 L (0.52-1.04) mg/dL Microbiology - Last 24 Hours (Table) 07/09/17 17:00 Blood Culture - Preliminary Blood No Growth after 96 hours 07/09/17 21:26 Blood Culture - Preliminary Blood No Growth after 72 hours Laboratory Results WBC 9.0 k/uL (3.8-10.6) 07/09/17 17:00 RBC 3.57 m/uL (3.80-5.40) L 07/09/17 17:00 Hgb 11.0 gm/dL (11.4-16.0) L 07/09/17 17:00 Hct 32.8 % (34.0-46.0) L 07/09/17 17:00 MCV 91.7 fL (80.0-100.0) 07/09/17 17:00 MCH 30.9 pg (25.0-35.0) 07/09/17 17:00 MCHC 33.7 g/dL (31.0-37.0) 07/09/17 17:00 RDW 14.2 % (11.5-15.5) 07/09/17 17:00 Plt Count 362 k/uL (150-450) 07/09/17 17:00 Neutrophils % 87 % 07/09/17 17:00 Lymphocytes % 7 % 07/09/17 17:00 Monocytes % 2 % 07/09/17 17:00 Eosinophils % 2 % 07/09/17 17:00 Basophils % 0 % 07/09/17 17:00 Neutrophils # 7.8 k/uL (1.3-7.7) H 07/09/17 17:00 Lymphocytes # 0.7 k/uL (1.0-4.8) L 07/09/17 17:00 Monocytes # 0.2 k/uL (0-1.0) 07/09/17 17:00 Eosinophils # 0.1 k/uL (0-0.7) 07/09/17 17:00 Basophils # 0.0 k/uL (0-0.2) 07/09/17 17:00 Hypochromasia Slight 07/09/17 17:00 Sodium 140 mmol/L (137-145) 07/13/17 08:22 Potassium 4.6 mmol/L (3.5-5.1) 07/13/17 08:22 Chloride 104 mmol/L (98-107) 07/13/17 08:22 Carbon Dioxide 26 mmol/L (22-30) 07/13/17 08:22 Anion Gap 10 mmol/L 07/13/17 08:22 BUN 5 mg/dL (7-17) L 07/13/17 08:22 Creatinine 0.50 mg/dL (0.52-1.04) L 07/13/17 08:22 Est GFR (MDRD) Af Amer >60 (>60 ml/min/1.73 sqM) 07/13/17 08:22 Est GFR (MDRD) Non-Af >60 (>60 ml/min/1.73 sqM) 07/13/17 08:22 Glucose 98 mg/dL (74-99) 07/13/17 08:22 Plasma Lactic Acid Steven 1.9 mmol/L (0.7-2.0) 07/09/17 17:00 Calcium 9.1 mg/dL (8.4-10.2) 07/13/17 08:22 Magnesium 1.6 mg/dL (1.6-2.3) 07/09/17 17:00 Total Bilirubin 0.4 mg/dL (0.2-1.3) 07/09/17 17:00 AST 32 U/L (14-36) 07/09/17 17:00 ALT 36 U/L (9-52) 07/09/17 17:00 Alkaline Phosphatase 88 U/L (38-126) 07/09/17 17:00 Total Creatine Kinase 30 U/L (30-135) 07/09/17 17:00 CK-MB (CK-2) <0.2 ng/mL (0.0-2.4) 07/09/17 17:00 CK-MB (CK-2) Rel Index 07/09/17 17:00 Total Protein 6.2 g/dL (6.3-8.2) L 07/09/17 17:00 Albumin 3.3 g/dL (3.5-5.0) L 07/09/17 17:00 Urine Color Light Yellow 07/09/17 22:00 Urine Appearance Clear (Clear) 07/09/17 22:00 Urine pH 6.5 (5.0-8.0) 07/09/17 22:00 Ur Specific [place] 1.005 (1.001-1.035) 07/09/17 22:00 Urine Protein Negative (Negative) 07/09/17 22:00 Urine Glucose (UA) Negative (Negative) 07/09/17 22:00 Urine Ketones Negative (Negative) 07/09/17 22:00 Urine Blood Negative (Negative) 07/09/17 22:00 Urine Nitrite Negative (Negative) 07/09/17 22:00 Urine Bilirubin Negative (Negative) 07/09/17 22:00 Urine Urobilinogen <2.0 mg/dL (<2.0) 07/09/17 22:00 Ur Leukocyte Esterase Moderate (Negative) H 07/09/17 22:00 Urine RBC 1 /hpf (0-5) 07/09/17 22:00 Urine WBC 4 /hpf (0-5) 07/09/17 22:00 Ur Squamous Epith Cells 2 /hpf (0-4) 07/09/17 22:00 Urine Mucus Rare /hpf (None) H 07/09/17 22:00 Vancomycin Trough 12.8 ug/mL 07/12/17 07:29 C. difficile (EIA) Intrp Negative (Negative) 07/09/17 22:00 Microbiology 07/09/17 17:00 Blood Blood Culture - Preliminary No Growth after 96 hours 07/09/17 21:26 Blood Blood Culture - Preliminary No Growth after 72 hours Assessment and Plan (1) Febrile illness, acute Narrative/Plan: 61-year-old female presents to the hospital with acute fever. Was recently hospitalized with evidence of meningitis and Streptococcus pneumoniae bacteremia. Receiving intravenous antibiotic therapy and was having improvement of her status. Then developed worsening of her symptoms with diarrhea and readvanced to the fever and generalized malaise. Workup is in process. Blood cultures are negative. Stool was negative for C. diff toxin. With hydration ulceration of antibiotic therapy from ceftriaxone to vancomycin resulted in marked improvement of the patient. She feels considerably better today. She still has some vagueness to her mentation but does not have acute gross focal sensory motor deficits. Overall is improving. We'll complete her 21 days of antibiotic therapy with vancomycin when she is discharged. She is improving but continues to have some vagueness to her mental status. Likely related to her recent bout of meningitis and sepsis. She was with significant worsening of her status thought to be due to the antibiotic therapy. Other new positive cultures been found. We'll complete her course of vancomycin therapy as noted. Status: Acute (2) Meningitis Status: Acute
[2017-07-14] MEDS: METOPROLOL TARTRATE 50 MG TAB PO SCH ×3 (02:41→16:23)
[2017-07-14] MEDS: VANCOMYCIN 1,000 MG in SODIUM CHLORIDE 0.9% 250 ML IVPB SCH ×2 (03:40→13:04)
[2017-07-14] MEDS: CYCLOBENZAPRINE 10 MG TAB PO PRN (03:47)
[2017-07-14] MEDS ORDERED: METOCLOPRAMIDE 10 MG TAB PO SCH (07:30)
[2017-07-14] MEDS: METOCLOPRAMIDE 5 MG TAB PO SCH ×3 (08:10→18:00)
[2017-07-14] MEDS: ENOXAPARIN 40 MG/0.4 ML SYRINGE SQ SCH (08:11)
[2017-07-14] MEDS: ASPIRIN 81 MG CHEW PO SCH (08:11)
[2017-07-14] MEDS: PANTOPRAZOLE 40 MG TABLET PO SCH (08:11)
[2017-07-14] MEDS: LISINOPRIL 20 MG TAB PO SCH ×2 (08:12→21:34)
[2017-07-14] MEDS ORDERED: VANCOMYCIN TROUGH DUE 1 EACH MISC MISCELLANE ONE (11:00)
[2017-07-14 12:32] LABS: Basophils % (A) 0 %; CH 29.8; CHCM 31.9; Eosinophils # (A) 0.2 k/uL (0-0.7); Eosinophils % (A) 2 %; HCT 29.7 % (34.0-46.0); HDW 3.44; HGB 9.6 gm/dL (11.4-16.0); Hypochromasia Moderate; Luc # (Auto) 0.24; Luc % (Auto) 3; Lymphocytes # (A) 0.8 k/uL (1.0-4.8); Lymphocytes % (A) 9 %; MCH 30.1 pg (25.0-35.0); MCHC 32.2 g/dL (31.0-37.0); MCV 93.6 fL (80.0-100.0); Mean Platelet Volume 7.3; Monocytes # (A) 0.4 k/uL (0-1.0); Monocytes % (A) 4 %; Neutrophils # (A) 7.3 k/uL (1.3-7.7); Neutrophils % (A) 82 %; Poikilocytosis Slight; RBC 3.17 m/uL (3.80-5.40); RDW 14.7 % (11.5-15.5); WBC 8.9 k/uL (3.8-10.6); WBC (Perox) 9.23
[2017-07-14 12:36] LABS: Anion Gap 10 mmol/L; Blood Urea Nitrogen 4 mg/dL (7-17); Calcium 8.6 mg/dL (8.4-10.2); Carbon Dioxide 25 mmol/L (22-30); Chloride 104 mmol/L (98-107); Glucose 80 mg/dL (74-99); Non-African American GFR(MDRD) >60 (>60 ml/min/1.73 sqM); Potassium 4.3 mmol/L (3.5-5.1); Sodium 139 mmol/L (137-145)
[2017-07-14] MEDS ORDERED: IV VANCOMYCIN PER PHARMACY 1 EACH MISC MISCELLANE PRN (13:14)
[2017-07-14] MEDS: HYDROcodone/APAP 10-325MG 1 EACH TAB PO PRN (14:25)
--- NOTE | 2017-07-14 14:52 | P.PN ---
<Kristy Koenig - Last Filed: 07/14/17 14:37> Progress Note - Text DATE OF SERVICE: 07/14/2017 PRESENTING COMPLAINT: Fever and chills INTERVAL HISTORY: 61-year-old female was recently discharged on 07/06/2017 after being diagnosed with acute bacterial meningitis. Transferred to the [facility], was on 14 days of ceftriaxone, feeling better presented to the emergency department with fever chills headache not feeling well fever of up to 102. 07/14/2017: Patient seen in follow-up, had multiple episodes of confusion overnight, not remembering where she was ,feeling anxiety, didn't sleep well. Appears tired, looks mildly anxious continues to tolerate her diet at about 30-50% today. Last BM 07/11/2017. 07/13/2017: Patient seen in follow-up no acute overnight events. Patient sitting up in bed , states feels much better today, worked with physical therapy. Eating about 50 % of her diet, however has had some nausea directly after eating. Discontinued Zofran and added Reglan 3 times a day. Ambulatory with some assistance and walker. Last BM 07/11/2017 07/12/2017: Patient sitting up at the bedside states feels much better today, worked with physical therapy. Tolerating her diet eating about 50-75% a clear liquid diet. Last BM 07/11/2017. REVIEW OF SYSTEMS: Done for constitutional ,cardiovascular, GI, pulmonary with relevant findings as above. CURRENT MEDICATIONS Hydrocodone acetaminophen, aspirin, Lipitor, Flexeril, Lovenox, Zestril, Lopressor, Protonix, Requip, PHYSICAL EXAM VITAL SIGNS: Temperature 99.0, pulse 99, respiratory rate 16, blood pressure 138/82, oxygen saturation 95% on room air. GENERAL APPEARANCE: Lying in the bed, appears mildly anxious. EYES: Pupils equal. Conjunctiva normal. NECK: JVD not raised. Mass not palpable. RESPIRATORY: Respiratory effort normal. Lungs diminished to auscultation. CARDIOVASCULAR: First and second sounds normal. No edema. ABDOMEN: Soft. Liver and spleen not palpable. Mild tenderness. No mass palpable. PSYCHIATRY: Alert and oriented x3. Mood and affect normal. INVESTIGATIONS: Hemoglobin 9.6, BMP results unremarkable ASSESSMENT: -Acute sepsis picture patient who was just diagnosed with acute meningitis discharged on 07/06/2017. At that time, blood culture positive alphahemolytic streptococcus now with a sepsis picture again including headaches with continued clinical improvement after vancomycin was added -Coronary artery disease, single-vessel. -Essential hypertension. -Hyperlipidemia. -Chronic congestive heart failure from diastolic dysfunction. Ejection fraction 60% from underlying coronary artery disease. -Ascending aortic aneurysm, 4.2 cm. -Osteoarthritis of the cervical spine, primary. -Chronic scoliosis. -Thyroid nodules in euthyroid state -Bioprosthetic aortic valve. -Nausea with vomiting unspecified PLAN: We'll continue vancomycin and plan per ID to have her complete 21 days upon discharge. Reglan 5 mg given 3 times a day to better control nausea. Patient instructed to try and take an afternoon nap that she'll sleep better. Plan of care discussed with patient at the bedside and they are in agreement. BODY SANDER statement: Patient was seen and examined by nurse practitioner Kristy Koenig and all elements of the case discussed with attending Dr. Link <Thomas Link - Last Filed: 07/15/17 16:28> Progress Note - Text Attending note. Date of service-07/14/2017 This patient was seen and examined by me . Discussed the patient with my nurse practitioner Ms. Koenig. Patient is acutely confused last night. Feeling better this morning. Did eat some breakfast. On examination: Lungs 7 decreased breath sounds, cardio vascular first seconds are normal, psych -AO 3 Investigations: White count 8.9, potassium 4.3 Assessment and plan: Acute delirium overnight, metabolic Acute sepsis exact source undetermined responding to vancomycin -Discussed with the patient. Patient to get some more rest. Ambulates finding better. We will watch her for 24 hours
[2017-07-14] MEDS: POLYETHYLENE GLYCOL 3350 17 GM POWD.PACK PO SCH (16:21)
[2017-07-14] MEDS: MAGNESIUM OXIDE 400 MG TAB PO SCH (16:23)
[2017-07-14] MEDS: MULTIVITAMINS, THERA 1 EACH TAB PO SCH (16:23)
--- NOTE | 2017-07-14 21:10 | P.PN ---
Subjective Principal diagnosis: Fever This is a 61-year-old female with a past medical history significant for aortic valve replacement in 2007 done at [facility] and subsequently developed myocardial infarction underwent a CABG one vessel and then was transferred [facility] and had a difficult postoperative period with development of DVT in the left leg. Patient had a stress test done 2 years ago that apparently was normal. Was recently hospitalized. The point in time there was concern is the possibility of infection of her aortic bioprosthetic valve. She underwent testing. TORIBIO was performed without evidence of endocarditis. Evidence of a positive cultures and she did well with ongoing cardiac a follow-up. She had a recent hospitalization June 28 through 07/07/2017 which time she was treated for bacterial meningitis on ceftriaxone. She gradually improved and she had a PICC line placed and was discharged to [facility] to continue ceftriaxone for a 2 week course for Streptococcus bacteremia and meningitis. Patient states that she had vomiting during her hospitalization which [facility] She states she has also had diarrhea since she started ceftriaxone. When describing the stools, she states her last bowel movement was yesterday and it was mushy. No watery stools. She was found [facility] the [facility] to have fevers of 101-104 and mental status changes. The patient states that she does not remember much but her told her she was staring in space and she had difficulty with word finding. Regarding headache and neck pain this is on and off and intermittent. She does have a cough that is nonproductive. She states that she had some shortness of breath is improved after receiving Lasix yesterday. Her mental status is back to baseline. At the time of this evaluation, patient states that she is feeling much better than she did one hour ago but still has some nausea after receiving Zofran. Chest x-ray shows no acute findings. The chest x-ray shows no acute findings. Temperature max at admit was 101.2 with pulse rate in the 90s and low 100s. Pulse ox is 96% on room air. She continues to have sweats. Her white count is normal. Urinalysis was clear, moderate leukoesterase, and nitrate negative, WBC 4. C. difficile toxin negative. Patient's feeling considerably better today. Fevers have generally improved. No other new acute findings. But mental status still not at baseline. Wrong number of years . But is aware today that she is acting a bit goofy showing improved insight. Objective - Vital Signs Vital signs: Vital Signs Temp 98.2 F 07/14/17 15:00 Pulse 83 07/14/17 15:00 Resp 18 07/14/17 16:00 BP 137/71 07/14/17 15:00 Pulse Ox 96 07/14/17 15:00 Intake & Output 07/14/17 07/14/17 07/15/17 06:59 18:59 06:59 Intake Total 956 Balance 956 Intake: Oral 956 Other: Voiding Method Toilet # Voids 2 2 - Exam Gen: This is a 61-year-old female in bed and appears to be comfortable. HEENT: Head is atraumatic, normocephalic. Pupils equal, round. Sclerae is anicteric. conjunctiva pink. Mucous membranes of the mouth are moist. NECK: Supple. No JVD. No lymphadenopathy. No thyromegaly. LUNGS: Crackles in the bilateral bases. No wheezes or rhonchi. No intercostal retractions. HEART: Regular rate and rhythm. Systolic murmur. ABDOMEN: Bowel sounds are present. No masses. No tenderness. No suprapubic tenderness. EXTREMITIES: No pedal edema. No calf tenderness. dorsalis pedis +2 bilaterally. NEUROLOGICAL: Patient is awake, without acute gross focal sensory motor deficits. Neurologically still has vagueness to her thought content but awake OX3 - Labs CBC & Chem 7: 07/14/17 11:31 07/14/17 11:31 Labs: Abnormal Lab Results - Last 24 Hours (Table) 07/14/17 07/14/17 07/14/17 Range/Units 11:31 11:31 11:31 RBC 3.17 L (3.80-5.40) m/uL Hgb 9.6 L (11.4-16.0) gm/dL Hct 29.7 L (34.0-46.0) % Lymphocytes # 0.8 L (1.0-4.8) k/uL BUN 4 L (7-17) mg/dL Vancomycin Trough 30.6 H* ug/mL Microbiology - Last 24 Hours (Table) 07/09/17 17:00 Blood Culture - Preliminary Blood No Growth after 120 hours 07/09/17 21:26 Blood Culture - Preliminary Blood No Growth after 96 hours Laboratory Results WBC 8.9 k/uL (3.8-10.6) 07/14/17 11:31 RBC 3.17 m/uL (3.80-5.40) L 07/14/17 11:31 Hgb 9.6 gm/dL (11.4-16.0) L 07/14/17 11:31 Hct 29.7 % (34.0-46.0) L 07/14/17 11:31 MCV 93.6 fL (80.0-100.0) 07/14/17 11:31 MCH 30.1 pg (25.0-35.0) 07/14/17 11:31 MCHC 32.2 g/dL (31.0-37.0) 07/14/17 11:31 RDW 14.7 % (11.5-15.5) 07/14/17 11:31 Plt Count 349 k/uL (150-450) 07/14/17 11:31 Neutrophils % 82 % 07/14/17 11:31 Lymphocytes % 9 % 07/14/17 11:31 Monocytes % 4 % 07/14/17 11:31 Eosinophils % 2 % 07/14/17 11:31 Basophils % 0 % 07/14/17 11:31 Neutrophils # 7.3 k/uL (1.3-7.7) 07/14/17 11:31 Lymphocytes # 0.8 k/uL (1.0-4.8) L 07/14/17 11:31 Monocytes # 0.4 k/uL (0-1.0) 07/14/17 11:31 Eosinophils # 0.2 k/uL (0-0.7) 07/14/17 11:31 Basophils # 0.0 k/uL (0-0.2) 07/14/17 11:31 Hypochromasia Moderate 07/14/17 11:31 Poikilocytosis Slight 07/14/17 11:31 Sodium 139 mmol/L (137-145) 07/14/17 11:31 Potassium 4.3 mmol/L (3.5-5.1) 07/14/17 11:31 Chloride 104 mmol/L (98-107) 07/14/17 11:31 Carbon Dioxide 25 mmol/L (22-30) 07/14/17 11:31 Anion Gap 10 mmol/L 07/14/17 11:31 BUN 4 mg/dL (7-17) L 07/14/17 11:31 Creatinine 0.82 mg/dL (0.52-1.04) 07/14/17 11:31 Est GFR (MDRD) Af Amer >60 (>60 ml/min/1.73 sqM) 07/14/17 11:31 Est GFR (MDRD) Non-Af >60 (>60 ml/min/1.73 sqM) 07/14/17 11:31 Glucose 80 mg/dL (74-99) 07/14/17 11:31 Plasma Lactic Acid Steven 1.9 mmol/L (0.7-2.0) 07/09/17 17:00 Calcium 8.6 mg/dL (8.4-10.2) 07/14/17 11:31 Magnesium 1.6 mg/dL (1.6-2.3) 07/09/17 17:00 Total Bilirubin 0.4 mg/dL (0.2-1.3) 07/09/17 17:00 AST 32 U/L (14-36) 07/09/17 17:00 ALT 36 U/L (9-52) 07/09/17 17:00 Alkaline Phosphatase 88 U/L (38-126) 07/09/17 17:00 Total Creatine Kinase 30 U/L (30-135) 07/09/17 17:00 CK-MB (CK-2) <0.2 ng/mL (0.0-2.4) 07/09/17 17:00 CK-MB (CK-2) Rel Index 07/09/17 17:00 Total Protein 6.2 g/dL (6.3-8.2) L 07/09/17 17:00 Albumin 3.3 g/dL (3.5-5.0) L 07/09/17 17:00 Urine Color Light Yellow 07/09/17 22:00 Urine Appearance Clear (Clear) 07/09/17 22:00 Urine pH 6.5 (5.0-8.0) 07/09/17 22:00 Ur Specific Amity 1.005 (1.001-1.035) 07/09/17 22:00 Urine Protein Negative (Negative) 07/09/17 22:00 Urine Glucose (UA) Negative (Negative) 07/09/17 22:00 Urine Ketones Negative (Negative) 07/09/17 22:00 Urine Blood Negative (Negative) 07/09/17 22:00 Urine Nitrite Negative (Negative) 07/09/17 22:00 Urine Bilirubin Negative (Negative) 07/09/17 22:00 Urine Urobilinogen <2.0 mg/dL (<2.0) 07/09/17 22:00 Ur Leukocyte Esterase Moderate (Negative) H 07/09/17 22:00 Urine RBC 1 /hpf (0-5) 07/09/17 22:00 Urine WBC 4 /hpf (0-5) 07/09/17 22:00 Ur Squamous Epith Cells 2 /hpf (0-4) 07/09/17 22:00 Urine Mucus Rare /hpf (None) H 07/09/17 22:00 Vancomycin Trough 30.6 ug/mL H* 07/14/17 11:31 C. difficile (EIA) Intrp Negative (Negative) 07/09/17 22:00 Microbiology 07/09/17 17:00 Blood Blood Culture - Preliminary No Growth after 120 hours 07/09/17 21:26 Blood Blood Culture - Preliminary No Growth after 96 hours Assessment and Plan (1) Febrile illness, acute Narrative/Plan: 61-year-old female presents to the hospital with acute fever. Was recently hospitalized with evidence of meningitis and Streptococcus pneumoniae bacteremia. Receiving intravenous antibiotic therapy and was having improvement of her status. Then developed worsening of her symptoms with diarrhea and readvanced to the fever and generalized malaise. Workup is in process. Blood cultures are negative. Stool was negative for C. diff toxin. With hydration ulceration of antibiotic therapy from ceftriaxone to vancomycin resulted in marked improvement of the patient. She feels considerably better today. She still has some vagueness to her mentation but does not have acute gross focal sensory motor deficits. Overall is improving. We'll complete her 21 days of antibiotic therapy with vancomycin when she is discharged. She is improving but continues to have some vagueness to her mental status. Likely related to her recent bout of meningitis and sepsis. She was with significant worsening of her status thought to be due to the antibiotic therapy. Other new positive cultures have not been found. We'll complete her course of vancomycin therapy as noted. To complete a total of 21 days of therapy. Status: Acute (2) Meningitis Status: Acute
[2017-07-14] MEDS: DOCUSATE 100 MG CAP PO SCH (21:33)
[2017-07-14] MEDS: traZODone HCL 50 MG TAB PO SCH (21:33)
[2017-07-14] MEDS: DICLOFENAC SODIUM GEL 100 GM TUBE TOPICAL SCH (21:34)
[2017-07-14] MEDS: ATORVASTATIN 40 MG TAB PO SCH (21:34)
[2017-07-15] MEDS: HYDROcodone/APAP 7.5-325MG 1 EACH TAB PO PRN (02:01)
[2017-07-15] MEDS: METOPROLOL TARTRATE 50 MG TAB PO SCH ×2 (02:36→09:50)
[2017-07-15 07:39] VITALS: BP 127/73; PULSE 73; RESP 16; TEMP 98.2
[2017-07-15] MEDS: METOCLOPRAMIDE 5 MG TAB PO SCH ×2 (09:05→12:09)
[2017-07-15] MEDS: PANTOPRAZOLE 40 MG TABLET PO SCH (09:05)
[2017-07-15 09:09] LABS: Anion Gap 9 mmol/L; Blood Urea Nitrogen 7 mg/dL (7-17); Calcium 8.5 mg/dL (8.4-10.2); Carbon Dioxide 28 mmol/L (22-30); Chloride 104 mmol/L (98-107); Glucose 84 mg/dL (74-99); Non-African American GFR(MDRD) >60 (>60 ml/min/1.73 sqM); Potassium 4.8 mmol/L (3.5-5.1); Sodium 141 mmol/L (137-145)
[2017-07-15] MEDS: LISINOPRIL 20 MG TAB PO SCH (09:50)
[2017-07-15] MEDS: ENOXAPARIN 40 MG/0.4 ML SYRINGE SQ SCH (09:50)
[2017-07-15] MEDS: DOCUSATE 100 MG CAP PO SCH (09:50)
[2017-07-15] MEDS: POLYETHYLENE GLYCOL 3350 17 GM POWD.PACK PO SCH (09:50)
[2017-07-15] MEDS: ASPIRIN 81 MG CHEW PO SCH (09:51)
[2017-07-15] MEDS: DICLOFENAC SODIUM GEL 100 GM TUBE TOPICAL SCH ×2 (09:51→12:11)
--- NOTE | 2017-07-15 12:13 | P.DS ---
<Kristy Koenig - Last Filed: 07/15/17 12:00> Providers Date of admission: 07/11/17 16:23 Expected date of discharge: 07/15/17 Attending physician: Thomas Link Consults: 07/10/17 15:09 Consult Physician Routine Consulting Provider: Mariano Burrell Reason/Comments: fever Do you want consulting provider notified?: Yes Primary care physician: [facility] Course: FINAL DIAGNOSES: -Acute sepsis picture patient who was just diagnosed with acute meningitis with exact source unknown discharged on 07/06/2017. At that time, blood culture positive alphahemolytic streptococcus now with a sepsis picture again including headaches with continued clinical improvement after vancomycin was added -Coronary artery disease, single-vessel bypass -Essential hypertension. -Hyperlipidemia. -Chronic congestive heart failure from diastolic dysfunction. Ejection fraction 60% from underlying coronary artery disease. -Ascending aortic aneurysm, 4.2 cm. -Osteoarthritis of the cervical spine, primary. -Chronic scoliosis. -Thyroid nodules in euthyroid state -Bioprosthetic aortic valve. -Nausea with vomiting unspecified CONSULTANTS: Dr. Mariano Burrell from infectious disease HOSPTIAL COURSE: 61-year-old female presented with fever chills headache after recent diagnosis of acute bacterial meningitis source unknown. Infectious disease consulted, antibiotic therapy initiated with ceftriaxone. Patient develop worsening symptoms and antibiotic therapy was switched to vancomycin with marked improvement. Has had nausea throughout her course for which Zofran and Reglan have been initiated. We'll continue Zofran by mouth and continue Reglan for 7 more days. Had an episode of confusion during her stay however confusion has resolved. Blood cultures are negative stool for C. diff was negative. Overall condition improved, tolerating her diet, moving her bowels, and relating with assistance and a walker. Patient is stable for discharge back to [facility]. PHYSICAL EXAM: PSYCHIATRY: Alert and oriented 3 mood and affect normal CARDIOVASCULAR: First and second sounds noted no edema RESPIRATORY: Effort normal, lungs diminished to auscultation GI: Mild abdominal tenderness, liver and spleen not palpable MUSKULOSKELETAL: Generalized weakness, requires use of a walker Patient was seen and examined by nurse practitioner Kristy Koenig in all elements of the case discussed with attending Dr. Link DISPOSITION: Stable for discharge to [facility] Patient Condition at Discharge: Stable Plan - Discharge Summary New Discharge Prescriptions: New Vancomycin 1,000 mg IVPB Q8H #24 bag Diclofenac Sodium Gel [Voltaren Gel] 2 gm TOPICAL QID tube Metoclopramide [Reglan] 5 mg PO AC-TID #21 tab Polyethylene Glycol 3350 [Miralax] 17 gm PO DAILY pack Continue Atorvastatin Calcium [Lipitor] 40 mg PO HS Metoprolol Tartrate [Lopressor] 100 mg PO TID@0200,0800,1700 Pantoprazole Sodium [Protonix] 40 mg PO DAILY Lisinopril [Zestril] 20 mg PO BID@0900,2000 Biotin 5 mg PO DAILY@1700 Lysine 500 mg PO DAILY@1700 Aspirin EC [Ecotrin Low Dose] 81 mg PO DAILY traZODone HCL 50 mg PO HS Furosemide [Lasix] 20 mg PO DAILY Nitroglycerin Sl Tabs [Nitrostat] 0.4 mg SUBLINGUAL Q5M PRN #0 tab PRN Reason: Chest Pain rOPINIRole HCL [Requip] 1.5 mg PO DAILY@213 Multivitamins, Thera [Multivitamin (formulary)] 1 tab PO DAILY@1700 Cyclobenzaprine [Flexeril] 10 mg PO TID PRN PRN Reason: Muscle Spasm Magnesium Gluconate [Magonate] 1,000 mg PO DAILY@1700 Ondansetron [Zofran] 4 mg PO Q8HR PRN PRN Reason: Nausea Magnesium Hydroxide [Milk of Magnesia] 2,400 mg PO DAILY PRN PRN Reason: Constipation Na Phos,M-B/Na Phos,Di-Ba [Fleet Adult] 133 ml RECTAL ONCE PRN PRN Reason: Constipation Bisacodyl [Dulcolax] 10 mg RECTAL DAILY PRN PRN Reason: Constipation HYDROcodone/APAP 7.5-325MG [Bailey 7.5-325] 1 tab PO TID PRN #30 PRN Reason: Pain Discontinued cefTRIAXone [Rocephin] 2,000 mg IVPB Q12HR #28 vial HYDROcodone/APAP 10-325MG [Bailey 10-325] 1 tab PO TID PRN PRN Reason: Pain Acetaminophen Tab [Tylenol Tab] 650 mg PO Q4H PRN PRN Reason: Fever And/ Or Pain Ondansetron HCl [Zofran] 8 mg PO Q8H PRN PRN Reason: Nausea Discharge Medication List Aspirin EC [Ecotrin Low Dose] 81 mg PO DAILY 05/23/14 [History] Atorvastatin Calcium [Lipitor] 40 mg PO HS 05/23/14 [History] Biotin 5 mg PO DAILY@169905/23/14 [History] Lisinopril [Zestril] 20 mg PO BID@0900,2000 05/23/14 [History] Lysine 500 mg PO DAILY@169905/23/14 [History] Metoprolol Tartrate [Lopressor] 100 mg PO TID@0200,0800,169905/23/14 [History] Pantoprazole Sodium [Protonix] 40 mg PO DAILY 05/23/14 [History] traZODone HCL 50 mg PO HS 12/01/16 [History] Furosemide [Lasix] 20 mg PO DAILY 12/28/16 [History] Nitroglycerin Sl Tabs [Nitrostat] 0.4 mg SUBLINGUAL Q5M PRN #0 tab 02/10/17 [Rx] Cyclobenzaprine [Flexeril] 10 mg PO TID PRN 06/27/17 [History] Magnesium Gluconate [Magonate] 1,000 mg PO DAILY@169906/27/17 [History] Multivitamins, Thera [Multivitamin (formulary)] 1 tab PO DAILY@169906/27/17 [ History] rOPINIRole HCL [Requip] 1.5 mg PO DAILY@212906/27/17 [History] Bisacodyl [Dulcolax] 10 mg RECTAL DAILY PRN 07/09/17 [History] Magnesium Hydroxide [Milk of Magnesia] 2,400 mg PO DAILY PRN 07/09/17 [History] Na Phos,M-B/Na Phos,Di-Ba [Fleet Adult] 133 ml RECTAL ONCE PRN 07/09/17 [History ] Ondansetron [Zofran] 4 mg PO Q8HR PRN 07/09/17 [History] Vancomycin 1,000 mg IVPB Q8H #24 bag 07/12/17 [Rx] Diclofenac Sodium Gel [Voltaren Gel] 2 gm TOPICAL QID tube 07/15/17 [Rx] HYDROcodone/APAP 7.5-325MG [Bailey 7.5-325] 1 tab PO TID PRN #30 07/15/17 [Rx] Metoclopramide [Reglan] 5 mg PO AC-TID #21 tab 07/15/17 [Rx] Polyethylene Glycol 3350 [Miralax] 17 gm PO DAILY pack 07/15/17 [Rx] Follow up Appointment(s)/Referral(s): Lux Powers DO [Primary Care Provider] - 07/16/17 Mariano Burrell MD [STAFF PHYSICIAN] - 2 Weeks Fei Cruz [NON-STAFF] - 1 Week Ambulatory/Diagnostic Orders: Basic Metabolic Panel [LAB.AMB] Location: Determined By Patient Complete Blood Count w/diff [LAB.AMB] Location: Determined By Patient Vancomycin,Trough [LAB.AMB] Location: Determined By Patient Activity/Diet/Wound Care/Special Instructions: PICC line info given. Care as per policy protocol. Cardiac diet. Ambulate with assistance and walker, fall precautions. CHF folder given on last admit. Soft, bland diet. Discharge Disposition: TRANSFER TO SNF/ECF <Thomas Link - Last Filed: 07/15/17 16:32> Hospital Course: Attending note. Date of service-07/15/2017 This patient was seen and examined by me . Discussed the patient with my nurse practitioner Ms. Koenig. Feeling much better. Eating better. Nausea improved. On examination: Lungs-decreased breath sounds, cardiovascular first seconds are normal, psych AO 3 Investigations: Blood cultures remain negative. Assessment and plan: Acute sepsis, exact source unknown, responded well to vancomycin. Delirium resolved. Discussed and Dr. Burrell. Vancomycin for a total of 21 days. Discharge planning more than 35 minutes.
[2017-07-15] MEDS: HYDROcodone/APAP 10-325MG 1 EACH TAB PO PRN (13:41)
--- NOTE | 2017-07-15 18:24 | P.PN ---
Subjective Principal diagnosis: Fever This is a 61-year-old female with a past medical history significant for aortic valve replacement in [address] [facility] and subsequently developed myocardial infarction underwent a CABG one vessel and then was transferred [facility] and had a difficult postoperative period with development of DVT in the left leg. Patient had a stress test done 2 years ago that apparently was normal. Was recently hospitalized. The point in time there was concern is the possibility of infection of her aortic bioprosthetic valve. She underwent testing. TORIBIO was performed without evidence of endocarditis. Evidence of a positive cultures and she did well with ongoing cardiac a follow-up. She had a recent hospitalization June 28 through 07/07/2017 which time she was treated for bacterial meningitis on ceftriaxone. She gradually improved and she had a PICC line placed and was discharged to [facility] to continue ceftriaxone for a 2 week course for Streptococcus bacteremia and meningitis. Patient states that she had vomiting during her hospitalization which continue to be troublesome at the residential. She states she has also had diarrhea since she started ceftriaxone. When describing the stools, she states her last bowel movement was yesterday and it was mushy. No watery stools. She was found at the residential to have fevers of 101-104 and mental status changes. The patient states that she does not remember much but her told her she was staring in space and she had difficulty with word finding. Regarding headache and neck pain this is on and off and intermittent. She does have a cough that is nonproductive. She states that she had some shortness of breath is improved after receiving Lasix yesterday. Her mental status is back to baseline. At the time of this evaluation, patient states that she is feeling much better than she did one hour ago but still has some nausea after receiving Zofran. Chest x-ray shows no acute findings. The chest x-ray shows no acute findings. Temperature max at admit was 101.2 with pulse rate in the 90s and low 100s. Pulse ox is 96% on room air. She continues to have sweats. Her white count is normal. Urinalysis was clear, moderate leukoesterase, and nitrate negative, WBC 4. C. difficile toxin negative. Patient's feeling considerably better today. Fevers have generally improved. No other new acute findings. But mental status still not at baseline. But is aware today that she is acting a bit goofy showing improved insight. Objective - Vital Signs Vital signs: Vital Signs Temp 98.2 F 07/15/17 07:00 Pulse 73 07/15/17 07:00 Resp 16 07/15/17 08:00 BP 127/73 07/15/17 07:00 Pulse Ox 97 07/15/17 07:00 Intake & Output 07/14/17 07/15/17 07/15/17 18:59 06:59 18:59 Intake Total 956 200 Balance 956 200 Intake: Oral 956 200 Other: Voiding Method Toilet # Voids 2 1 - Exam Gen: This is a 61-year-old female in bed and appears to be comfortable. HEENT: Head is atraumatic, normocephalic. Pupils equal, round. Sclerae is anicteric. conjunctiva pink. Mucous membranes of the mouth are moist. NECK: Supple. No JVD. No lymphadenopathy. No thyromegaly. LUNGS: Crackles in the bilateral bases. No wheezes or rhonchi. No intercostal retractions. HEART: Regular rate and rhythm. Systolic murmur. ABDOMEN: Bowel sounds are present. No masses. No tenderness. No suprapubic tenderness. EXTREMITIES: No pedal edema. No calf tenderness. dorsalis pedis +2 bilaterally. NEUROLOGICAL: Patient is awake, without acute gross focal sensory motor deficits. Neurologically still has vagueness to her thought content but awake OX3 - Labs CBC & Chem 7: 07/14/17 11:31 07/15/17 08:05 Labs: Microbiology - Last 24 Hours (Table) 07/09/17 21:26 Blood Culture - Preliminary Blood No Growth after 120 hours 07/09/17 17:00 Blood Culture - Preliminary Blood No Growth after 120 hours Laboratory Results WBC 8.9 k/uL (3.8-10.6) 07/14/17 11:31 RBC 3.17 m/uL (3.80-5.40) L 07/14/17 11:31 Hgb 9.6 gm/dL (11.4-16.0) L 07/14/17 11:31 Hct 29.7 % (34.0-46.0) L 07/14/17 11:31 MCV 93.6 fL (80.0-100.0) 07/14/17 11:31 MCH 30.1 pg (25.0-35.0) 07/14/17 11:31 MCHC 32.2 g/dL (31.0-37.0) 07/14/17 11:31 RDW 14.7 % (11.5-15.5) 07/14/17 11:31 Plt Count 349 k/uL (150-450) 07/14/17 11:31 Neutrophils % 82 % 07/14/17 11:31 Lymphocytes % 9 % 07/14/17 11:31 Monocytes % 4 % 07/14/17 11:31 Eosinophils % 2 % 07/14/17 11:31 Basophils % 0 % 07/14/17 11:31 Neutrophils # 7.3 k/uL (1.3-7.7) 07/14/17 11:31 Lymphocytes # 0.8 k/uL (1.0-4.8) L 07/14/17 11:31 Monocytes # 0.4 k/uL (0-1.0) 07/14/17 11:31 Eosinophils # 0.2 k/uL (0-0.7) 07/14/17 11:31 Basophils # 0.0 k/uL (0-0.2) 07/14/17 11:31 Hypochromasia Moderate 07/14/17 11:31 Poikilocytosis Slight 07/14/17 11:31 Sodium 141 mmol/L (137-145) 07/15/17 08:05 Potassium 4.8 mmol/L (3.5-5.1) 07/15/17 08:05 Chloride 104 mmol/L (98-107) 07/15/17 08:05 Carbon Dioxide 28 mmol/L (22-30) 07/15/17 08:05 Anion Gap 9 mmol/L 07/15/17 08:05 BUN 7 mg/dL (7-17) 07/15/17 08:05 Creatinine 0.87 mg/dL (0.52-1.04) 07/15/17 08:05 Est GFR (MDRD) Af Amer >60 (>60 ml/min/1.73 sqM) 07/15/17 08:05 Est GFR (MDRD) Non-Af >60 (>60 ml/min/1.73 sqM) 07/15/17 08:05 Glucose 84 mg/dL (74-99) 07/15/17 08:05 Plasma Lactic Acid Steven 1.9 mmol/L (0.7-2.0) 07/09/17 17:00 Calcium 8.5 mg/dL (8.4-10.2) 07/15/17 08:05 Magnesium 1.6 mg/dL (1.6-2.3) 07/09/17 17:00 Total Bilirubin 0.4 mg/dL (0.2-1.3) 07/09/17 17:00 AST 32 U/L (14-36) 07/09/17 17:00 ALT 36 U/L (9-52) 07/09/17 17:00 Alkaline Phosphatase 88 U/L (38-126) 07/09/17 17:00 Total Creatine Kinase 30 U/L (30-135) 07/09/17 17:00 CK-MB (CK-2) <0.2 ng/mL (0.0-2.4) 07/09/17 17:00 CK-MB (CK-2) Rel Index 07/09/17 17:00 Total Protein 6.2 g/dL (6.3-8.2) L 07/09/17 17:00 Albumin 3.3 g/dL (3.5-5.0) L 07/09/17 17:00 Urine Color Light Yellow 07/09/17 22:00 Urine Appearance Clear (Clear) 07/09/17 22:00 Urine pH 6.5 (5.0-8.0) 07/09/17 22:00 Ur Specific [place] 1.005 (1.001-1.035) 07/09/17 22:00 Urine Protein Negative (Negative) 07/09/17 22:00 Urine Glucose (UA) Negative (Negative) 07/09/17 22:00 Urine Ketones Negative (Negative) 07/09/17 22:00 Urine Blood Negative (Negative) 07/09/17 22:00 Urine Nitrite Negative (Negative) 07/09/17 22:00 Urine Bilirubin Negative (Negative) 07/09/17 22:00 Urine Urobilinogen <2.0 mg/dL (<2.0) 07/09/17 22:00 Ur Leukocyte Esterase Moderate (Negative) H 07/09/17 22:00 Urine RBC 1 /hpf (0-5) 07/09/17 22:00 Urine WBC 4 /hpf (0-5) 07/09/17 22:00 Ur Squamous Epith Cells 2 /hpf (0-4) 07/09/17 22:00 Urine Mucus Rare /hpf (None) H 07/09/17 22:00 Vancomycin Trough 30.6 ug/mL H* 07/14/17 11:31 Random Vancomycin 14.5 ug/mL 07/15/17 08:05 C. difficile (EIA) Intrp Negative (Negative) 07/09/17 22:00 Microbiology 07/09/17 21:26 Blood Blood Culture - Preliminary No Growth after 120 hours 07/09/17 17:00 Blood Blood Culture - Preliminary No Growth after 120 hours Assessment and Plan (1) Febrile illness, acute Narrative/Plan: 61-year-old female presents to the hospital with acute fever. Was recently hospitalized with evidence of meningitis and Streptococcus pneumoniae bacteremia. Receiving intravenous antibiotic therapy and was having improvement of her status. Then developed worsening of her symptoms with diarrhea and readvanced to the fever and generalized malaise. Workup is in process. Blood cultures are negative. Stool was negative for C. diff toxin. With hydration ulceration of antibiotic therapy from ceftriaxone to vancomycin resulted in marked improvement of the patient. She feels considerably better today. She still has some vagueness to her mentation but does not have acute gross focal sensory motor deficits. Overall is improving. We'll complete her 21 days of antibiotic therapy with vancomycin when she is discharged. She is improving but continues to have some vagueness to her mental status. Likely related to her recent bout of meningitis and sepsis. She was with significant worsening of her status thought to be due to the antibiotic therapy. Other new positive cultures have not been found. We'll complete her course of vancomycin therapy as noted. To complete a total of 21 days of therapy. Status: Acute (2) Meningitis Status: Acute
--- NOTE | 2017-07-18 09:28 | CDI ---
In responding to this query, please exercise your independent professional judgment. The [facility] Coding Staff and Clinical Documentation Specialists appreciate your assistance in clarifying documentation, maintaining compliance with coding guidelines, accurately documenting patients condition and capturing severity of illness. The fact that a question is asked does not imply that any particular answer is desired or expected. Communication forms are a method of clarifying documentation and are not made part of the Legal Health Record. Thank you in advance for your clarification. Last Revision, September 2015 Jadiel Franco [address] [facility] [place] [address] Documentation Clarification Form Date: 07/12/2017 11:53:00 AM From: Zo Roy Admit Date: 07/11/2017 4:23:00 PM Patient Name: Helga Coppola Visit Number: [id number] Discharge Date: 07/15/2017 Dr. Thomas Link: 61 yo female, admitted with Fever up to 104 & confusion with change in mental status. Per the H/P: She had a fever that was reported initially 100 the then 101 and up to 104. She also had confusion and change in mental status she was acting more confused apparently. He was also having nausea on and off and was having diarrhea as well since starting antibiotics. Mental status has improved since admission. Clinical Indicators: VS: T 100.6^, P 112^, R 22, BP 140/73, PO 94 2Lnc Labs: WBC (9.0), Neut 7.8^. UA & C Diff negative. RAD: CXR x2: neg. Treatment: Blood cultures, urine cultures, neuro assessments, IV fl rate 75, IV fluid bolus, IV Rocephin continued & IV Vanco added. Consults: Infectious Disease In your professional opinion, can you please clarify the specific type of encephalopathy, if known? Metabolic Encephalopathy Septic Encephalopathy Toxic Encephalopathy Other, please specify Unable to determine Please document in your progress notes and discharge summary in order to capture severity of illness and risk of mortality. Include clinical findings that support your diagnosis. FYI: Press F11 to launch patient chart. MAURICE
--- NOTE | 2017-07-21 12:42 | CDI ---
In responding to this query, please exercise your independent professional judgment. The [facility] Coding Staff and Clinical Documentation Specialists appreciate your assistance in clarifying documentation, maintaining compliance with coding guidelines, accurately documenting patients condition and capturing severity of illness. The fact that a question is asked does not imply that any particular answer is desired or expected. Communication forms are a method of clarifying documentation and are not made part of the Legal Health Record. Thank you in advance for your clarification. Last Revision, September 2015 Jadiel Franco [address] [place] [address] Documentation Clarification Form Date: 07/12/2017 11:53:00 AM From: Zo Roy, AVTAR, CCDS Admit Date: 07/11/2017 4:23:00 PM Patient Name: Helga Coppola Visit Number: [id number] Discharge Date: 07/15/17 Dr. Thomas Link: 61 yo female, admitted with Fever up to 104 & confusion with change in mental status. Per the H/P: She had a fever that was reported initially 100 the then 101 and up to 104. She also had confusion and change in mental status she was acting more confused apparently. He was also having nausea on and off and was having diarrhea as well since starting antibiotics. Mental status has improved since admission. Per the discharge summary: delirium has resolved. Clinical Indicators: VS: T 100.6^, P 112^, R 22, BP 140/73, PO 94 2Lnc Labs: WBC (9.0), Neut 7.8^. UA & C Diff negative. RAD: CXR x2: neg. Treatment: Blood cultures, urine cultures, neuro assessments, IV fl rate 75, IV fluid bolus, IV Rocephin continued & IV Vanco added. Consults: Infectious Disease In your professional opinion, can you please clarify the specific type of encephalopathy, if known? Metabolic Encephalopathy Septic Encephalopathy Toxic Encephalopathy Other, please specify Unable to determine Please document in your progress notes and discharge summary in order to capture severity of illness and risk of mortality. Include clinical findings that support your diagnosis. FYI: Press F11 to launch patient chart. MAURICE
== END 2017-07-15 14:23 | DRG 871 ==
LOC: EC 16:16 → 4MS4W 17:36 → OBSVTOIN 07-11 16:23
PROVIDERS: ADMIT Hospitalist; ATTEND Hospitalist
DX: A41.9 Sepsis, unspecified organism (principal); G93.41 Metabolic encephalopathy; I11.0 Hypertensive heart disease with heart failure; I50.32 Chronic diastolic (congestive) heart failure; I71.2 Thoracic aortic aneurysm, without rupture; E87.1 Hypo-osmolality and hyponatremia; E04.2 Nontoxic multinodular goiter; E78.5 Hyperlipidemia, unspecified; E86.0 Dehydration; I25.10 Atherosclerotic heart disease of native coronary artery without angina pectoris; M15.9 Polyosteoarthritis, unspecified; M41.9 Scoliosis, unspecified; M47.812 Spondylosis without myelopathy or radiculopathy, cervical region; Z79.899 Other long term (current) drug therapy; I25.2 Old myocardial infarction; Z80.8 Family history of malignant neoplasm of other organs or systems; Z86.61 Personal history of infections of the central nervous system; Z86.718 Personal history of other venous thrombosis and embolism; Z87.891 Personal history of nicotine dependence; Z95.1 Presence of aortocoronary bypass graft; Z95.2 Presence of prosthetic heart valve; Z79.82 Long term (current) use of aspirin; Z88.0 Allergy status to penicillin; Z88.2 Allergy status to sulfonamides
CPT/HCPCS: 36415; 71010; 71020; 80048; 80053; 80202; 81001; 82550; 82553; 83605; 83735; 85025; 87040; 87324; 93005; 96360; 96361; 99285

== ENCOUNTER 2017-11-07 09:42 | Day surgery (SDC) | payer MEDICAID, BC ==
[2017-11-03 15:18] VITALS: BMI 23.6
[2017-11-07 11:00] VITALS: RESP 16; TEMP 97.4
[2017-11-07] MEDS ORDERED: LIDOCAINE 1% 20 ML VIAL (10MG/ML) FOR IV START INTRADERMA ONE (11:00)
[2017-11-07 11:05] LABS: Glucose,Whole Blood 81 mg/dL (75-99)
--- NOTE | 2017-11-07 11:35 | P.PCN ---
Date of Procedure: 11/07/17 Description of Procedure: PREOPERATIVE DIAGNOSIS: Lumbar spondylosis without myelopathy POSTOPERATIVE DIAGNOSIS: Lumbar spondylosis without myelopathy PROCEDURES : Left Radiofrequency thermocoagulation, L3-L4, L4-L5, and L5-S1 medial branch, with fluoroscopic guidance ANESTHESIA: IV sedation with versed and fentaneyl and local infiltration with lidocaine 1% 5 ml EBL: Minimal PROCEDURE INDICATION: The patient with low back pain secondary to lumbar facet arthropathy who had more than 50% relief of her pain with previous diagnostic lumbar medial branch block with bupivacaine. PROCEDURE DESCRIPTION / TECHNIQUE: The patient was seen and identified in the preoperative area. Risks, benefits, complications, including but not limited to risk of infection ,bleeding , allergic reactions to the medications and no complete pain releife , and alternatives were discussed with the patient, the patient agreed to proceed with the procedure and signed the consent. IV was started. Vital signs remained stable throughout the procedure. Patient was taken to the OR and time out was completed. The patient was placed in the prone position on the procedure table. The lumber area was prepped and draped in the usual sterile fashion. . Vital signs were closely monitored during the procedure .IV sedation was used during the procedure to decrease patients anxiety. The target points were identified as follows: For the L5-S1 level which corresponds to the dorsal ramus of L5 the target point was at the superior medial aspect of the sacral ala on the left side of the spine on the AP view of fluoroscopy and for the L2, L3, and L4 medial branches the target points were at the connection between the transverse process and the superior articular process of L3, L4, and L5 vertebra respectively on the left oblique view of fluoroscopy. skin was marked, and localized with 1% lidocaineat these points. Subsequently, an 18 -tt radiofrequency needles with a 10-mm curved active tips were advanced guided by fluoroscopy to each of the target points mentioned above in a superior medial direction to get the active tips as parallel as possible to the medial branches tracks. AP, oblique, and lateral views of fluoroscopy were used to verify needle tips position. Each level then underwent motor testing at 2.5 Hz and 0 to 3 volt with local stimulation, but no radicular symptoms down the legs. Thereafter radiofrequency thermocoagulation at 80 degrees celsius for 90 seconds after injecting 1 ml of PF Marcaine 0.25%(3 mls) with 40 mg of Kenalog. At the end of the procedure, the skin was cleansed and bandages were applied. COMPLICATIONS: No acute complications. DISPOSITION / PLANS: The patient was placed in a supine position and transferred to the recovery area in a stable condition for observation and was discharged from the recovery room after meeting discharge criteria. Home discharge instructions given to the patient by the staff. The patient was reexamined prior to discharge. The patient will schedule a follow up in the clinic in 2-4 weeks.
[2017-11-07] MEDS ORDERED: IV FLUID CONTINUATION 1,000 ML IV ONE ×2 (11:48)
[2017-11-07 11:52] VITALS: BP 95/63
[2017-11-07 12:14] VITALS: PULSE 59
--- NOTE | 2017-11-07 13:34 | FL ---
EXAMINATION TYPE: FL guided pain mgmt statistic DATE OF EXAM: 11/07/2017 HISTORY: Flouroscopy time 12 seconds of fluoroscopy provided. IMPRESSION: 1. Fluoroscopy time.
--- NOTE | 2017-11-11 07:30 | CDI ---
Outpatient Documentation Clarification Form Date: 11/11/17 Cot Assembler Name: SHERRY Johnson Phone: If you have question, contact Cece Chappell Clinical Academic Allergist at M-F 8:30 am to 6pm. Patient Name: Helga Coppola Admit Date: 11/07/17 Discharge Date: 11/07/17 ATTENTION: The Clinical Documentation Specialists (CDI) and [facility] Coding Staff appreciate your assistance in clarifying documentation. Please respond to the clarification below the line at the bottom and electronically sign. The CDI & [facility] Coding staff will review the response and follow-up if needed. Please note: Queries are made part of the Legal Health Record. If you have any questions, please contact the author of this message via ITS or call the Clinical Academic Allergist. Dr. Vann Per the procedure note IV sedation with versed and fentanyl were given for anesthesia. For proper reporting purposes please clarify the type of sedation that was given. Please clarify: *Unconscious sedation *MAC *Moderate/Conscious sedation *Other (please specify)_moderate/conscious sedation MTDD
== END 2017-11-07 12:25 | disposition home or self-care (01) ==
LOC: ORPAIN 09:42
PROVIDERS: ATTEND Anesthesiology
DX: M47.816 Spondylosis without myelopathy or radiculopathy, lumbar region (principal)
CPT/HCPCS: 64635; 64636 ×2; J3301; 99152

== ENCOUNTER → 2017-12-13 | Outpatient (CLI) | payer MEDICAID, BC ==
[2017-12-13 13:40] VITALS: BP 131/87; PULSE 82; RESP 16
--- NOTE | 2017-12-13 14:04 | P.PN ---
Progress Note - Text Progress Note Date: 12/13/17 Patient returns for followup for chronic back pain with radiation to the hips. Patient recently underwent left lumbar RFA with substantial > 60% relief since procedure. Patient continues on [place] medications for pain from PCP, but has only used rarely since procedure. Patient denies adverse drug effects from medications. Today, pt denies new-onset weakness, bowel/bladder incontinence, or any other signs or symptoms of cauda equina syndrome. There are no signs of acute intoxication, and no indications of medication diversion or overuse. In addition to above, 13-point review of systems is also negative for chest pain , shortness of breath, changes in vision, changes in hearing, new onset weakness , abdominal pain, diarrhea, extreme fatigue, malaise, fever, skin changes, homicidal or suicidal ideation, or bowel or bladder incontinence. Vital Signs: Reviewed in EMR Gen: WDWN, AAOx3, NAD HEENT: NCAT, EOMI, hearing grossly normal Pulm: resp unlabored Abd: soft, NT, ND Neck: supple, trachea midline ROM in flexion lumbar spine: reduced ROM in extension lumbar spine: reduced Lumbar paravertebral tenderness: + Facet loading: + R side > L side SI joint tenderness: neg Derik's test: neg Straight leg raise: neg Neuro: CN II-XII grossly intact, muscle strength lower extremities PRESERVED Imaging: Reviewed in EMR Assessment: 1. lumbar spondylosis without myelopathy 2. chronic pain syndrome 3. lumbar DDD Plan: 1. Explanation: Opioid and psychological risk scores were reviewed. Diagnoses , prognoses, and multiple treatment options including but not limited to physical therapy, interventional therapies, adjuvant medical therapies, narcotic medication therapies, and surgery were discussed with the patient and all questions were answered to the patient's satisfaction. 2. Opioid agreement: no opioids prescribed today 3. Counseling: The patient was counseled extensively on BODY MASS INDEX, EXERCISE. Specifically, the patient was instructed regarding the importance of weight control, and exercise in the context of both chronic pain and overall health. 4. Procedures: none for now 5. Consultations: None 6. Investigations: None 7. Medications: none prescribed 8. Disposition: f/u as needed; patient can call and schedule appointment to discuss repeat RFA when needed PQRS measures: 1-Patient's medications are documented in the chart. 2-Tobacco use is negative 3-Patient has not had a pneumococcal vaccine. 4-Advanced care planning discussed, patient unable to give. 5-Opioid contract NOT signed with the patient previously. 6-Pain positive, follow-up visit or procedure scheduled 7-Patient's blood pressure measured and documented, and patient will follow up with the primary care due to hypertension. 8-Patient's weight was measured, and body mass index within normal limits 9-Patient WAS NOT identified as an unhealthy alcohol user.
== END | disposition home or self-care (01) ==
LOC: PNWHC3 12:41
PROVIDERS: ATTEND Anesthesiology
DX: G89.4 Chronic pain syndrome (principal); M54.9 Dorsalgia, unspecified; M51.36 Other intervertebral disc degeneration, lumbar region; M47.816 Spondylosis without myelopathy or radiculopathy, lumbar region; Z79.891 Long term (current) use of opiate analgesic
CPT/HCPCS: 99211

== ENCOUNTER → 2017-12-20 | Outpatient (CLI) | payer MEDICAID, BC ==
--- NOTE | 2017-12-20 19:07 | CT ---
EXAMINATION TYPE: CT angio chest DATE OF EXAM: 12/20/2017 6:51 PM COMPARISON: 02/10/2017 HISTORY: Thoracic aortic aneurysm, without rupture CT DLP: 421.7 mGycm Automated exposure control for dose reduction was used. CONTRAST: CTA scan of the thorax is performed with IV Contrast, patient injected with 100ml mL of Omnipaque 350 , pulmonary embolism protocol. There are 3-D post processed images.. FINDINGS: There is aneurysm of the ascending aorta that measures up to 4.2 cm. There is no evidence of dissecti on. There is no pericardial effusion. Descending aorta appears normal. I see no filling defects in th e pulmonary arteries. There are no hilar masses. There is no mediastinal adenopathy. The lungs are cl ear of infiltrate. There is no evidence of a pulmonary mass. There is no pleural effusion. I see no b harish destructive process. There are spondylotic changes in the thoracic spine. There is thoracic dextr oscoliosis.. Aortic valve prosthesis is noted. IMPRESSION: NO EVIDENCE OF AORTIC DISSECTION. 4.2 CM ANEURYSM OF ASCENDING AORTA THAT IS INCREASED 2 MM COMPARED TO OLD EXAM. No evidence of pulmonary embolism.
== END | disposition home or self-care (01) ==
LOC: RADCTMAIN 17:44
PROVIDERS: ATTEND Family Medicine
DX: I71.2 Thoracic aortic aneurysm, without rupture (principal); M35.3 Polymyalgia rheumatica
CPT/HCPCS: 85652; 71275; 36415; Q9967

== ENCOUNTER → 2018-02-28 | Outpatient (CLI) | payer BC, MEDICAID ==
--- NOTE | 2018-03-03 09:13 | MM ---
Reason for exam: screening (asymptomatic). Last mammogram was performed 1 year and 4 months ago. History: Patient is postmenopausal and is nulliparous. Family history of premenopausal breast cancer in sister at age 40 and premenopausal breast cancer in paternal aunt at age 40. Physical Findings: A clinical breast exam by your physician is recommended on an annual basis and results should be correlated with mammographic findings. MG 3D Screening Mammo W/Cad Bilateral CC and MLO view(s) were taken. Prior study comparison: October 27, 2016, bilateral MG 3d screening mammo w/cad. June 24, 2015, bilateral MG screening mammo w CAD. There are scattered fibroglandular densities. There is chronic nodularity in the right breast. There is no discrete abnormality. ASSESSMENT: Benign, BI-RAD 2 RECOMMENDATION: Routine screening mammogram of both breasts in 1 year.
== END | disposition home or self-care (01) ==
LOC: RADMAMWWP 10:56
PROVIDERS: ATTEND Obstetrics & Gynecology
DX: Z12.31 Encounter for screening mammogram for malignant neoplasm of breast (principal); Z80.3 Family history of malignant neoplasm of breast
CPT/HCPCS: 77063; 77067

== ENCOUNTER → 2018-04-13 | Outpatient (CLI) | payer BC ==
--- NOTE | 2018-04-13 13:28 | BD ---
EXAMINATION TYPE: Axial Bone Density DATE OF EXAM: 04/13/2018 COMPARISON: 03/17/2011 CLINICAL HISTORY: Height: 62 IN Weight: 150 LBS FRAX RISK QUESTIONS: Glucocorticoids (More than 3mos): YES 5 MG PER DAY (Ex: prednisone, prednisolone, methylprednisolone, dexamethasone, and hydrocortisone). RISK FACTORS HISTORY OF: Surgery to Hip(LISSA): YES When: RT 2014 LT 2001 Family History of Osteoporosis: MOTHER Active: LIMITED Diet low in dairy products/other sources of calcium: YES Postmenopausal woman: AGE 49 MEDICATIONS: Prednisone or other steroids: YES 5 MG PER DAY How Lon MONTHS Additional Medications: MULTI VIT, PREDNISONE, BLOOD PRESSURE MED, LOPRESSOR, PROTONIX, KERAFATE, WILLI TAC, LASIX, LIPITOR, RESTLESS LEG MEDS, MAGNESIUM, EXAM MEASUREMENTS: Bone mineral densitometry was performed using the MiFi System. Bone mineral density as measured about the Lumbar spine is: ----- L1-L4(G/cm2): 1.142 T Score Values are as follows: ----- L2: 0.3 ----- L3: -0.7 ----- L4: -1.5 ----- L1-L4: -0.3 Bone mineral density has: Increased 6.6% since study of: 03/17/2011 Bone mineral density about the L Wrist (g/cm2): 0.472 T Score values are as follows: -----Dist. R+U: -1.4 -----Prox. R+U: -3.0 -----Radius total: -3.0. Bone mineral density BASELINE IMPRESSION: Osteopenia (T Score between -2.5 and -1) with regards to the right radius. There is slightly increased risk of fracture and the patient may be considered for treatment. Re-Screen 2-5 years. NOTE: T-SCORE=SD OF THE YOUNG ADULT MEAN.
== END ==
LOC: RADBDWWP 10:33
PROVIDERS: ATTEND Family Medicine
DX: M85.831 Other specified disorders of bone density and structure, right forearm (principal)
CPT/HCPCS: 77080

== ENCOUNTER → 2018-05-11 | Outpatient (CLI) | payer BC ==
--- NOTE | 2018-05-11 13:20 | US ---
EXAMINATION TYPE: US thyroid st tissue head/neck DATE OF EXAM: 05/11/2018 COMPARISON: 04/25/2017 CLINICAL HISTORY: E04.1 thyroid nodule. F/U previous GLAND SIZE: Right Lobe: 4.0 x 2.1 x 2.1 cm Overall Parenchyma: heterogenous Left Lobe: 2.8 x 0.6 x 1.2 cm Overall Parenchyma: heterogeneous Isthmus Thickness: 0.2 cm NODULES RIGHT: # of nodules measured on right: 1 1. 2.8 X 1.8 x 2.3 cm hypoechoic solid nodule at the lower pole with well-defined margins; This nod ule is wider than tall and shows intranodular vascularity. Prior size: 2.8 x 1.4 x 2.1 cm LEFT: # of nodules measured on left: 1 1. 0.7 X 0.6 x 0.7 cm hypoechoic solid nodule at the lower pole with well-defined margins; This nod ule is wider than tall and shows intranodular vascularity. Prior size: 0.7 x 0.6 x 0.7 cm Bilateral neck scanned, no evidence of lymphadenopathy. Essentially stable nodules on each lobe. IMPRESSION: 1. Bilateral thyroid nodules with only a single nodule measuring greater than a centimeter within the right lobe which appears stable relative to the prior exam given differences in technique.
== END | disposition home or self-care (01) ==
LOC: RADUSWWP 12:30
PROVIDERS: ATTEND Otolaryngology
DX: E04.1 Nontoxic single thyroid nodule (principal)
CPT/HCPCS: 76536

== ENCOUNTER → 2018-08-26 | Outpatient (CLI) | payer BC ==
--- NOTE | 2018-08-26 20:00 | XR ---
EXAMINATION TYPE: XR chest 2V DATE OF EXAM: 08/26/2018 COMPARISON: 07/11/2017 HISTORY: Cough for 2 weeks TECHNIQUE: Frontal and lateral views of the chest are obtained. FINDINGS: There is no focal air space opacity, pleural effusion, or pneumothorax seen. There is chr onic mild right hemidiaphragm elevation. The heart is mildly enlarged with postoperative changes the chest from cardiac valve replacement. The osseous structures are intact. Mild to moderate multileve l degenerative changes of the thoracic spine are again noted. IMPRESSION: No acute cardiopulmonary process.
== END | disposition home or self-care (01) ==
LOC: RADXRMAIN 18:22
PROVIDERS: ATTEND Physician Assistant
DX: R05 Cough (principal)
CPT/HCPCS: 71046

== ENCOUNTER 2018-09-29 12:03 | Day surgery (SDC) | payer BC ==
[2018-09-29] MEDS ORDERED: ALPRAZolam 0.5 MG TAB PO ONE (13:05)
[2018-09-29 13:12] VITALS: TEMP 98.5
[2018-09-29 14:19] VITALS: BP 107/69; PULSE 74; RESP 14
--- NOTE | 2018-09-29 14:44 | US ---
ULTRASOUND GUIDED FNA THYROID BIOPSY: CLINICAL HISTORY: Right thyroid nodule FINDINGS: The procedure was explained to the patient. The risks, complications, benefits and alternatives were discussed and any questions were answered. Informed consent was obtained. Patient was placed supin e on the ultrasound table and prepped and draped in the usual sterile fashion. Utilizing a 25 gauge needle, five passes were made into the right thyroid nodule. Patient was stable throughout the procedure. Pathology is pending. All elements of maximal barrier technique were utilized. IMPRESSION: 1. Successful ultrasound guided FNA thyroid biopsy.
== END 2018-09-29 14:21 | disposition home or self-care (01) ==
LOC: RADPROMAIN 12:03
PROVIDERS: ATTEND Otolaryngology
DX: E04.1 Nontoxic single thyroid nodule (principal)
CPT/HCPCS: 10022; 76942; 88173; 88305

== ENCOUNTER → 2018-11-27 | Outpatient (CLI) | payer BC ==
--- NOTE | 2018-11-27 10:20 | CT ---
EXAMINATION TYPE: CT angio thor/abd pel aorta DATE OF EXAM: 11/27/2018 COMPARISON: Prior CT dated 02/10/2017 HISTORY: Follow up to thoracic aortic aneurysm CT DLP: 1524 mGycm. Automated Exposure Control for Dose Reduction was Utilized. Helical acquisition performed through the aorta pre and post administration of intravenous contrast. Three-dimensional reconstructions performed on an alternate workstation. CONTRAST: CT scan of the thorax, abdomen and pelvis is performed without and with IV Contrast, patient injected with 100 mL of Isovue 370. FINDINGS: Hypodensity within the right lobe of the thyroid gland is again noted. Measures approximate ly 2 cm, left lobe of the gland shows only minimal tissue as on prior. Patient is post median sternot rebekah. LUNGS: The lungs are grossly clear, there is no concerning parenchymal mass or nodule identified. T here is no pleural effusion or pneumothorax seen. The tracheobronchial tree is patent. MEDIASTINUM: There are no greater than 1 cm hilar or mediastinal lymph nodes. No pericardial effusi on is seen. The heart is enlarged as on prior. Aortic valve replacement change again noted. Pectus d eformity is stable. Small hiatal hernia suspected. Aorta: Ascending aorta measures approximately 4.2 cm in greatest dimension as on prior exam. There is no evident dissection. Proximal descending aorta measures 2.1 cm. The celiac axis, superior mesenter ic artery, renal arteries, common iliac, internal and external iliac, common femoral, proximal deep a nd superficial femoral arteries are patent. Super aortic branch vessels are patent. LIVER/GB: No significant abnormality is appreciated. PANCREAS: No significant abnormality is seen. SPLEEN: No significant abnormality is seen. ADRENALS: No significant abnormality is seen. KIDNEYS: No significant abnormality is seen. Accessory right renal artery noted inferiorly. BOWEL: Scattered diverticular change. GENITAL ORGANS: No gross abnormality seen. LYMPH NODES: No greater than 1cm abdominal or pelvic lymph nodes are appreciated. OSSEOUS STRUCTURES: Patient is status post bilateral hip prostheses. Degenerative disc changes in the visualized spine. OTHER: No abdominal aortic aneurysm IMPRESSION: Stable ascending aortic aneurysm. Postop changes.
== END | disposition home or self-care (01) ==
LOC: RADCTMAIN 07:37
PROVIDERS: ATTEND Thoracic Surgery (Cardiothoracic Vascular Surgery)
DX: I71.2 Thoracic aortic aneurysm, without rupture (principal); Z98.890 Other specified postprocedural states; Z88.0 Allergy status to penicillin; Z88.2 Allergy status to sulfonamides; Z88.8 Allergy status to other drugs, medicaments and biological substances
CPT/HCPCS: 71275; 74174; Q9967

== ENCOUNTER → 2018-12-22 | Outpatient (CLI) | payer BC ==
--- NOTE | 2018-12-23 08:44 | ECHOF ---
Referral Reason:R05 Cough,R06.02 Shortness of Breath MEASUREMENTS -------- HEIGHT: 157.5 cm WEIGHT: 72.1 kg BP: IVSd: 1.6 cm (0.6 - 1.1) LVIDd: 3.1 cm (3.9 - 5.3) LVPWd: 1.6 cm (0.6 - 1.1) IVSs: 2.1 cm LVIDs: 1.6 cm LVPWs: 2.1 cm RVIDd: 3.4 cm (< 3.3) LAESV Index (A-L): 32.79 ml/m Ao Diam: 3.1 cm (2.0 - 3.7) LA Diam: 3.9 cm (2.7 - 3.8) AV Cusp: 1.1 cm (1.5 - 2.6) EPSS: 0.2 cm MV E Slade: 0.89 m/s MV DecT: 110 ms MV A Slade: 0.56 m/s MV E/A Ratio: 1.59 AV maxP.26 mmHg AV meanP.39 mmHg RAP: 5.00 mmHg RVSP: 38.79 mmHg MV EF SLOPE: 72.44 mm/s (70 - 150) MV EXCURSION: 16.66 mm (> 18.000) FINDINGS -------- Sinus rhythm. This was a technically difficult study with suboptimal views. The left ventricular size is normal. There is moderate concentric left ventricular hypertrophy. O verall left ventricular systolic function is normal with, an EF between 55 - 60 %. There is paradox ical/dysynergic septal motion consistent with post-operative status. The right ventricle is mildly enlarged. LA is moderately dilated 34-39 ml/m2 The right atrium is normal in size. Lumason used Peak/mean gradient across the Aortic Valve is 106.26mmHg / 69.39mmHg. 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 The mitral valve leaflets are mildly thickened. Mild mitral regurgitation is present. Severe tricuspid regurgitation present. There is mild pulmonary hypertension. The right ventricul ar systolic pressure, as measured by Doppler, is 38.79mmHg. Pulmonic valve appears structurally normal. The aortic root size is normal. Normal inferior vena cava with normal inspiratory collapse consistent with estimated right atrial pre ssure of 5 mmHg. The pericardium is normal. CONCLUSIONS -------- 1. Sinus rhythm. 2. This was a technically difficult study with suboptimal views. 3. The left ventricular size is normal. 4. There is moderate concentric left ventricular hypertrophy. 5. Overall left ventricular systolic function is normal with, an EF between 55 - 60 %. 6. There is paradoxical/dysynergic septal motion consistent with post-operative status. 7. The right ventricle is mildly enlarged. 8. LA is moderately dilated 34-39 ml/m2 9. The right atrium is normal in size. 10. Lumason used 11. Peak/mean gradient across the Aortic Valve is 106.26mmHg / 69.39mmHg. 12. There is severe stenosis of the bioprosthetic aortic valve. 13. The mitral valve leaflets are mildly thickened. 14. Mild mitral regurgitation is present. 15. Severe tricuspid regurgitation present. 16. There is mild pulmonary hypertension. 17. The right ventricular systolic pressure, as measured by Doppler, is 38.79mmHg. 18. Pulmonic valve appears structurally normal. 19. The aortic root size is normal. 20. Normal inferior vena cava with normal inspiratory collapse consistent with estimated right atrial pressure of 5 mmHg. 21. The pericardium is normal. MINISTER ASSISTANT: Gunjan Steve RDCS
== END | disposition home or self-care (01) ==
LOC: RADECHMAIN 13:49
PROVIDERS: ATTEND Family Medicine
DX: I35.0 Nonrheumatic aortic (valve) stenosis (principal); I27.20 Pulmonary hypertension, unspecified
CPT/HCPCS: 93306; Q9950